=== PATIENT | male | born 1945 | race Two or more races ===

== ENCOUNTER 2020-04-02 06:07 | Outpatient (REF) | payer MEDICARE, SELFPAY ==
[2020-04-02 07:47] LABS: PSA,Total (Free>4and<10) 4.33 ng/mL (0.00-4.00)
[2020-04-05 11:37] LABS: Free Prostate Spec Ag 1.5 ng/mL; Percent Free Prostate Spec Ag 29 % (calc) (>25); Prostate Specific Ag Total 5.1 ng/mL (< OR = 4.0)
== END 2020-04-02 06:08 | disposition home or self-care (01) ==
LOC: HO.LAB 06:07
PROVIDERS: PCP Internal Medicine; Visit Provider Urology
DX: R97.20 Elevated prostate specific antigen [PSA] (principal); N40.0 Benign prostatic hyperplasia without lower urinary tract symptoms; Z12.5 Encounter for screening for malignant neoplasm of prostate
CPT/HCPCS: 84153; 84154

== ENCOUNTER 2020-04-03 17:11 | Emergency (ER) | payer MEDICARE, SELFPAY ==
[2020-04-03 17:14] VITALS: BP 151/73
[2020-04-03 19:00] VITALS: BP 127/69; PULSE 73; RESP 16; TEMP 36.9; O2SAT 96; BMI 27.4
--- NOTE | 2020-04-03 19:24 | ED_ITS ---
HPI - General Adult General Chief complaint: General Medical Stated complaint: hi bp Time Seen by Provider: 04/03/20 19:04 Source: patient Mode of arrival: ambulatory Limitations: no limitations History of Present Illness HPI narrative: patient presents to the ED for evaluation. patient states this morning's blood pressure was high. He states systolic was 144. Patient states patient states at that time which was around 03:00 o'clock in the morning he had some sharp stabbing left-sided chest pain and since then has been intermittent throughout the day. Patient states presently he has no chest pain in the ED. Patient denies ever having shortness of breath, swelling of lower extremities, calf pain, neck pain, recent long travel, or any recent surgery. Related Data Previous Rx's Medication Instructions Recorded umeclidinium 62.5 mcg/actuation 1 inh INHALATION DAILY #30 ea 03/15/20 blister powder for inhalation Allergies Allergy/AdvReac Type Severity Reaction Status Date / Time No Known Allergies Allergy Unverified 01/29/20 16:03 Review of Systems Review of Systems: Yes all other systems are reviewed and are negative Constitutional: Constitutional: Reports as per HPI and Reports no additional constitutional complaints Eyes: Eyes: Reports as per HPI and Reports no additional eye complaints ENT: Reports system reviewed and no additional complaints, except as documented and Reports as per HPI Cardiovascular: Cardiovascular: Reports chest pain (gone) Respiratory: Respiratory: Reports as per HPI and Reports no additional resp iratory complaints Gastrointestinal: Gastrointestinal: Reports as per HPI and Reports no additional gastrointestinal complaints Musculoskeletal: Musculoskeletal: Reports no additional musculoskeletal complaints and Reports as per HPI Neurologic: Reports system reviewed and no additional complaints, except as documented and Reports as per HPI Psychiatric: Psychiatric: Reports no additional psychiatric complaints and Reports as per HPI [facility] Past Medical History Medical History COPD (chronic obstructive pulmonary disease) HTN (hypertension) Social History Social History Advance Directives: No Advance Directives Information Provided: Yes Physical Exam Vital Signs: Vital Signs: Last Vital Signs Temp 98.4 F 04/03/20 19:00 Pulse 68 04/04/20 00:02 Resp 16 04/04/20 00:02 BP 141/75 H 04/04/20 00:02 Pulse Ox 96 04/04/20 00:02 Body Mass Index 27.4 Const: General: cooperative, healthy appearing, comfortable, no acute distress, well developed, alert, awake and Physically active Orientation/consciousness: patient oriented x3 HENMT: Head: Yes normal to inspection and Yes No palpable skull fracture present Eyes: General: appearance normal, both eyes and all related structures Neck: Neck: Yes normal visual inspection, Yes full ROM, Yes no lymphadenopathy, Yes no meningeal signs, Yes trachea midline, Yes supple and No tender Chest: Chest palpation & inspection: normal inspection of the chest, normal palpation of entire chest wall and no localized rib tenderness Resp: Effort & Inspection: normal respiratory effort, able to speak in complete sentences, no audible wheezes, no cough, no nasal flaring, no paradoxical thoraco-abdom movements and no pursed lip breathing Auscultation: clear to auscultation bilaterally, no crackles, no rales, no rhonchi, no wheezes and breath sounds present Cardio: Jugular venous distension: no JVD Heart sounds: S1 normal heart sound present and S2 normal heart sound present GI: Inspection: Yes normal to inspection and No abdominal wall ecchymosis Palpation (GI): Soft to palpation, not firm, nontender, no guarding and not rigid : General: No CVA tenderness and Yes no CVA tenderness Back/Spine/Pelvis: Back: no CVA tenderness, No CVA tenderness and No back tenderness Skin: General skin exam: no rashes or lesions noted Neuro: General: patient oriented x3, gait normal, no meningeal signs and CN's II-XI intact bilaterally Cranial nerves: Yes CN's II-XII intact bilaterally Extrem: General: Yes normal to inspection and Yes full ROM Psych: Appearance: grossly normal, well kempt and not disheveled Course Course Course Narrative: Patient presently has normal blood pressure and denies chest pain. But due to patient's age she will have a cardiac evaluation to make sure he is not having typical CO. Patient already took aspirin this morning. Reevaluation(s) Reevaluation #1: patient 1st troponin came back negative. Patient's EKG is normal. Patient presently asymptomatic in the ED. Patient D-dimer elevated so patient is sent for chest CT a which came back negative for PE or any other pulmonary emergent etiology. Patient awaiting 2nd troponin result. Time: 23:57 Reevaluation #2: patient's 2nd troponin came back negative. Patient is safe for discharge. patient never had chest pain during ED visit. Patient informed to record his blood pressure and show it them to his PCP. Time: 23:50 Medical Decision Making MDM Narrative Medical decision making narrative: atypical chest Lab Data Result diagrams: 04/03/20 19:36 04/03/20 20:10 Labs: Lab Results 04/03/20 04/03/20 04/03/20 Range/Units 19:36 19:36 19:36 WBC 7.9 (4.8-10.8) X10*3/uL RBC 4.03 L (4.60-5.80) X10*6/uL Hgb 12.8 L (14.0-18.0) g/dl Hct 39.1 L (42-52) % MCV 97.0 (80-98) fL MCH 31.8 (27.0-33.0) pg MCHC 32.7 (31.0-36.0) g/dl RDW 12.7 (11.0-16.0) % Plt Count 279 (160-400) X10*3/uL MPV 8.9 L (9.4-12.4) fL Immature Gran % (Auto) 0.3 (0.0-0.4) % Neut % (Auto) 52.1 (45-73) % Lymph % (Auto) 34.6 (20-40) % [place] % (Auto) 11.6 H (2-11) % Eos % (Auto) 0.9 (0-4) % Baso % (Auto) 0.5 (0-2) % Lymph # (Auto) 2.7 (1.2-4.9) X10*3/uL [place] # (Auto) 0.9 (0.1-1.2) X10*3/uL Eos # (Auto) 0.1 (0.0-0.4) X10*3/uL Baso # (Auto) 0.0 (0.0-0.2) X10*3/uL Abs Immat Gran (auto) 0.02 (0.00-0.03) X10*3/uL Absolute Neuts (auto) 4.1 (2.0-8.3) X10*3/uL Absolute Nucleated RBC 0.000 (0.0-0.012) X10*3/uL Nucleated RBC % (auto) 0.0 (0.0-0.2) /100WBC PT (10.8-13.0) SEC INR (0.9-1.1) APTT (24.1-38.0) SEC D-Dimer NG/ML Sodium Cancelled Potassium Cancelled Chloride Cancelled Carbon Dioxide Cancelled Anion Gap Cancelled BUN Cancelled Creatinine Cancelled Estim Creat Clear Calc Cancelled Estimated GFR Cancelled Random Glucose Cancelled Calcium Cancelled Total Bilirubin Cancelled AST Cancelled ALT Cancelled Alkaline Phosphatase Cancelled Troponin I High Sens 3.5 (<3.5-35.0) ng/L B-Natriuretic Peptide 11 (<100) pg/mL Total Protein Cancelled Albumin Cancelled 04/03/20 04/03/20 04/03/20 Range/Units 19:36 20:10 22:59 WBC (4.8-10.8) X10*3/uL RBC (4.60-5.80) X10*6/uL Hgb (14.0-18.0) g/dl Hct (42-52) % MCV (80-98) fL MCH (27.0-33.0) pg MCHC (31.0-36.0) g/dl RDW (11.0-16.0) % Plt Count (160-400) X10*3/uL MPV (9.4-12.4) fL Immature Gran % (Auto) (0.0-0.4) % Neut % (Auto) (45-73) % Lymph % (Auto) (20-40) % [place] % (Auto) (2-11) % Eos % (Auto) (0-4) % Baso % (Auto) (0-2) % Lymph # (Auto) (1.2-4.9) X10*3/uL [place] # (Auto) (0.1-1.2) X10*3/uL Eos # (Auto) (0.0-0.4) X10*3/uL Baso # (Auto) (0.0-0.2) X10*3/uL Abs Immat Gran (auto) (0.00-0.03) X10*3/uL Absolute Neuts (auto) (2.0-8.3) X10*3/uL Absolute Nucleated RBC (0.0-0.012) X10*3/uL Nucleated RBC % (auto) (0.0-0.2) /100WBC PT 11.6 (10.8-13.0) SEC INR 1.0 (0.9-1.1) APTT 30.6 (24.1-38.0) SEC D-Dimer 342 NG/ML Sodium 135 Potassium 4.0 Chloride 101 Carbon Dioxide 27 Anion Gap 11 L BUN 17 H Creatinine 0.88 Estim Creat Clear Calc 63.8 Estimated GFR > 60 Random Glucose 110 Calcium 8.8 Total Bilirubin 0.3 AST 16 ALT 20 Alkaline Phosphatase 69 Troponin I High Sens < 3.5 (<3.5-35.0) ng/L B-Natriuretic Peptide (<100) pg/mL Total Protein 6.9 Albumin 3.8 ECG Data Interpretation: normal sinus rhythm. Ventricular rate 69. MA interval 176. QRS 104. Negative STEMI Discharge Plan Discharge Clinical Impression: Atypical chest pain Patient Disposition: Home, Self-Care Instructions: Chest Pain (ED) Additional Instructions: return to the ED for chest pain, shortness of breath, swelling of lower extremities, calf pain, coughing up blood, fever, chills, chest pain on inspiration, or any other concerning symptoms. Please follow-up with the PCP Prescriptions: No Action Incruse Ellipta 62.5 mcg/actuation blister with device 1 inh inhalation DAILY Qty: 30 RF: 3 Referrals: Osiel Schwartz MD [Primary Care Provider] - 2 days ( atypical chest pain. Chest CTA negative. Two troponins negative. EKG normal) Interventions: ED Discharge Assessment Last Done: 04/04/20 00:08 Discharge Date/Time: 04/04/20 00:09 Print Language: Portuguese
--- NOTE | 2020-04-03 19:24 | PC.NURSE ---
IV established, labs and UA obtained and sent. PA at bedside for primary eval.
--- NOTE | 2020-04-03 19:28 | ECG_ITS ---
Test Reason : CHEST PRESSURE Blood Pressure : / mmHG Vent. Rate : 069 BPM Atrial Rate : 069 BPM P-R Int : 176 ms QRS Dur : 104 ms QT Int : 384 ms P-R-T Axes : 070 -15 058 degrees QTc Int : 411 ms Normal sinus rhythm Low voltage QRS Otherwise normal ECG When compared with ECG of 12-OCT-2018 01:02, No significant changes seen Referred By: Tacos Noriega Electronically Signed By:YADIEL FLORES MD
--- NOTE | 2020-04-03 19:42 | XR_ITS ---
EXAMINATION: XR CHEST CLINICAL INFORMATION: Resolved chest pain. COMPARISON: Most recent chest radiograph dated 10/11/2018. TECHNIQUE: Frontal view of the chest was obtained. FINDINGS: Mild interstitial prominence without focal airspace consolidation. No pleural effusion or pneumothorax. Stable cardiomediastinal silhouette. No acute osseous abnormality. Surgical clips redemonstrated within the left-sided cervical soft tissues. XR/XR chest 1V IMPRESSION: No acute cardiopulmonary findings.
[2020-04-03 19:46] LABS: MANUAL DIFF FLAG NO
[2020-04-03 19:55] LABS: Basophils Percent Auto 0.5 % (0-2); Eosinophils Absolute Auto 0.1 X10*3/uL (0.0-0.4); Eosinophils Percent Auto 0.9 % (0-4); Hematocrit 39.1 % (42-52); Hemoglobin 12.8 g/dl (14.0-18.0); Imm Gran Abs Auto 0.02 X10*3/uL (0.00-0.03); Imm Gran Pct Auto 0.3 % (0.0-0.4); Lymphocytes Absolute Auto 2.7 X10*3/uL (1.2-4.9); Lymphocytes Percent Auto 34.6 % (20-40); Mean Corpuscular HGB Conc 32.7 g/dl (31.0-36.0); Mean Corpuscular Hemoglobin 31.8 pg (27.0-33.0); Mean Platelet Volume 8.9 fL (9.4-12.4); Monocytes Absolute Auto 0.9 X10*3/uL (0.1-1.2); Monocytes Percent Auto 11.6 % (2-11); Neutrophils Absolute Auto 4.1 X10*3/uL (2.0-8.3); Neutrophils Percent Auto 52.1 % (45-73); Platelet Count 279 X10*3/uL (160-400); Red Blood Count 4.03 X10*6/uL (4.60-5.80); Red Cell Distribution Width 12.7 % (11.0-16.0); White Blood Count 7.9 X10*3/uL (4.8-10.8)
[2020-04-03 19:59] LABS: Prothrombin Time 11.6 SEC (10.8-13.0)
[2020-04-03 20:10] LABS: D Dimer 342 NG/ML; Partial Thromboplastin Time 30.6 SEC (24.1-38.0)
--- NOTE | 2020-04-03 20:14 | PC.NURSE ---
Labs redrawn and sent. Pt resting in bed, remains pain free at this time. Awaiting lab results. Continue to monitor.
[2020-04-03 20:20] LABS: B Type Natriuretic Peptide 11 pg/mL (<100); Troponin-I High Sensitivity 3.5 ng/L (<3.5-35.0)
[2020-04-03 20:30] VITALS: BP 140/76; PULSE 65; RESP 18; O2SAT 96
[2020-04-03 21:17] LABS: Alanine Aminotransferase 20 U/L (0-40); Albumin Level 3.8 g/dL (3.5-5.0); Alkaline Phosphatase 69 U/L (39-117); Anion Gap 11 (12-20); Aspartate Amino Transferase 16 U/L (5-37); Bilirubin Total 0.3 mg/dL (0.0-1.0); Blood Urea Nitrogen 17 mg/dL (9-16); Calcium 8.8 mg/dL (8.4-10.2); Carbon Dioxide 27 mmol/L (22-29); Chloride 101 mmol/L (96-108); Creatinine Clr Calc Pharmacy 63.8; Estimated Glomerular Filt Rate > 60; Glucose Random 110 mg/dL (60-115); Sodium 135 mmol/L (135-145); Total Protein 6.9 g/dL (6.5-8.0)
--- NOTE | 2020-04-03 21:23 | CT_ITS ---
EXAMINATION: CT ANGIOGRAM CHEST WITH AND WITHOUT CONTRAST (CT PULMONARY ANGIOGRAM FOR PE) CLINICAL INFORMATION: Elevated D-dimer. Evaluate for a pulmonary embolism. COMPARISON: Chest radiograph done earlier the same day. CT chest dated 07/12/2017. TECHNIQUE: Prior to contrast administration, noncontrast localization images were obtained. Subsequently, multidetector volumetric imaging was performed from the thoracic inlet to below the diaphragms following the administration of 59 mL Omnipaque 350 intravenous contrast. No contrast reaction reported. Sagittal, coronal, and MIP oblique sagittal reformatted images were obtained on the CT workstation, uploaded to PACS, and reviewed. This CT examination was performed using dose optimization techniques as appropriate, variously including the following: *Automated exposure control. *Adjustment of mA and/or kV according to patient size (this includes techniques or standardized protocols for targeted exams where dose is matched to indication/reason for exam; i.e. extremities or head). *Use of iterative reconstruction technique. Total exam dose-length product 312 mGy-cm. FINDINGS: QUALITY OF STUDY/CONTRAST BOLUS: Satisfactory. PULMONARY ARTERIES: No central or segmental pulmonary emboli. THORACIC AORTA: No aneurysm or dissection. LUNG: Biapical nodular pleural thickening and subpleural emphysematous change. Findings are similar when compared to the prior CT. No new pulmonary nodule, mass, or airspace consolidation. PLEURA: No pleural effusion or pneumothorax. MEDIASTINUM: Normal heart size. No pericardial effusion. No hilar or mediastinal lymphadenopathy. No evidence of septal bowing or right heart strain. CHEST WALL/AXILLA: No axillary or internal mammary lymphadenopathy. OSSEOUS STRUCTURES: No acute or suspicious osseous abnormality. UPPER ABDOMEN: Cholelithiasis. No gallbladder wall thickening or associated inflammatory change. Otherwise, the visualized upper abdominal structures are unremarkable. No reflux of contrast into the hepatic veins to suggest elevated right heart pressures. CT/CT angio chest PE protocol IMPRESSION: 1. No central or segmental pulmonary embolism. 2. Biapical nodular pleural thickening and emphysematous changes, similar when compared to the prior examination. 3. No new pulmonary nodule, mass, or airspace consolidation. 4. Cholelithiasis. VTE: Negative.
--- NOTE | 2020-04-03 21:52 | PC.NURSE ---
Pt ambulatory to CT.
--- NOTE | 2020-04-03 22:00 | PC.NURSE ---
Pt returns from CT without incident, awaiting results.
[2020-04-03] MEDS: iohexoL 350 MG/ML 100 ML INFUS..BTL IV (22:07)
[2020-04-03 23:00] VITALS: BP 135/77; PULSE 71; RESP 16
--- NOTE | 2020-04-03 23:00 | PC.NURSE ---
Repeat Troponin obtained and sent. VSS. Awaiting CT results.
--- NOTE | 2020-04-03 23:02 | PC.NURSE ---
Pt requesting this RN call daughter to obtain a transportation home.
[2020-04-03 23:56] LABS: Troponin-I High Sensitivity < 3.5 ng/L (<3.5-35.0)
[2020-04-04 00:02] VITALS: BP 141/75; PULSE 68; RESP 16; O2SAT 96
== END 2020-04-04 00:09 | disposition home or self-care (01) ==
PROVIDERS: Physician Assistant; Emergency Provider Internal Medicine; PCP Internal Medicine
DX: R07.89 Other chest pain (principal); I10 Essential (primary) hypertension; Z79.899 Other long term (current) drug therapy
CPT/HCPCS: 36415; 71045; 71275; 80053; 83880; 84484; 85025; 85379; 85610; 85730; 93005; 99284; Q9967

== ENCOUNTER → 2020-06-30 10:37 | Outpatient (BNVA) | payer MEDICARE, SELFPAY | PROVIDERS: PCP Internal Medicine; Visit Provider Internal Medicine | DX: J44.9 Chronic obstructive pulmonary disease, unspecified (principal) | CPT/HCPCS: 99212 ==

== ENCOUNTER → 2020-08-06 11:12 | Outpatient (BNVA) | payer MEDICARE, SELFPAY | PROVIDERS: Visit Provider Urology | DX: Z13.89 Encounter for screening for other disorder (principal) | CPT/HCPCS: 99212 ==

== ENCOUNTER 2021-01-01 02:34 | Emergency (ER) | payer MEDICARE, SELFPAY ==
--- NOTE | ~2021-01-01 | XR_ITS ---
EXAMINATION: XR CHEST CLINICAL INFORMATION: Throat and chest pain COMPARISON: 04/03/2020 TECHNIQUE: 2 views of the chest were obtained. FINDINGS: The lungs are well expanded. There is no focal consolidation, edema, or effusion. No pneumothorax. The cardiomediastinal silhouette is within normal limits. No acute osseous abnormality. Surgical clips in the left neck. XR/XR chest 2V IMPRESSION: Clear lungs.
[2021-01-01 02:36] VITALS: BP 110/65; PULSE 97; RESP 20; TEMP 37.2; O2SAT 94; BMI 26.6
--- NOTE | 2021-01-01 04:03 | ED.MALEGU ---
HPI - Male Genitourinary General Chief complaint: Urogenital-Male <Nate Mays MD - Last Filed: 01/01/21 05:07> Stated complaint: Back pain/Sore throat <Nate Mays MD - Last Filed: 01/01/21 05:07> Time Seen by Provider: 01/01/21 04:03 <Nate Mays MD - Last Filed: 01/01/21 05:07> Source: patient <Nate Mays MD - Last Filed: 01/01/21 05:07> Mode of arrival: ambulatory <Nate Mays MD - Last Filed: 01/01/21 05:07> Limitations: no limitations <Nate Mays MD - Last Filed: 01/01/21 05:07> History of Present Illness HPI Narrative: Pain in his throat started yesterday, no fever no cough. Now with pain in the back. patient complaining of dysuria no hematuria. No penile pain no testicular pain <Nate Mays MD - Last Filed: 01/01/21 05:07> MD Complaint: dysuria <Nate Mays MD - Last Filed: 01/01/21 05:07> Onset (ago): day(s) <Nate Mays MD - Last Filed: 01/01/21 05:07> Duration: intermittent <Nate Mays MD - Last Filed: 01/01/21 05:07> Severity: mild <Nate Mays MD - Last Filed: 01/01/21 05:07> Related Data Home medications: Home Medications Medication Instructions Recorded Confirmed albuterol sulfate 90 mcg/actuation 2 puff INHALATION Q4H PRN 06/30/20 aerosol inhaler aspirin 81 mg tablet,delayed 81 mg PO DAILY 06/30/20 release calcium carbonate 600 mg (1,500 0 tab PO 06/30/20 mg)-vitamin D3 200 unit tablet diltiazem HCl 180 mg 180 mg PO DAILY 06/30/20 capsule,extended release 24 hr fluocinolone 0.01 % scalp oil and ea TOPICAL 06/30/20 shower cap levothyroxine 112 mcg tablet 112 mcg PO DAILY 06/30/20 loratadine 10 mg tablet 10 mg PO DAILY 06/30/20 multivitamin-ferrous 1 tab PO DAILY 06/30/20 fumarate-folic acid 18 mg-400 mcg tablet omeprazole 20 mg capsule,delayed 20 mg PO DAILY 06/30/20 release terazosin 2 mg capsule 2 mg PO DAILY 06/30/20 ketoconazole 2 % shampoo 1 appl TOPICAL 2XW 08/06/20 Previous Rx's Medication Instructions Recorded fluticasone 500 mcg-salmeterol 50 1 inh INHALATION BID #60 ea 06/14/20 mcg/dose blistr powdr for inhalation (Advair Diskus) fluticasone 500 mcg-salmeterol 50 1 inh INHALATION BID 30 Days #60 ea 06/30/20 mcg/dose blistr powdr for inhalation (Advair Diskus) umeclidinium 62.5 mcg/actuation 1 inh INHALATION DAILY #30 cap 06/30/20 blister powder for inhalation (Incruse Ellipta) finasteride 5 mg tablet 5 mg PO DAILY 90 Days #90 tab 08/06/20 albuterol sulfate 90 mcg/actuation 2 puff PO Q4-6H PRN #8.5 g 09/27/20 aerosol inhaler terazosin 2 mg capsule 2 mg PO DAILY 90 Days #90 cap 11/09/20 umeclidinium 62.5 mcg/actuation 1 inh INHALATION DAILY #30 cap 12/13/20 blister powder for inhalation (Incruse Ellipta) cefpodoxime 200 mg tablet 200 mg PO BID #20 tab 01/01/21 <Nate Mays MD - Last Filed: 01/01/21 05:07> Allergies/Adverse reactions: Allergies Allergy/AdvReac Type Severity Reaction Status Date / Time No Known Allergies Allergy Verified 06/30/20 11:10 <Nate Mays MD - Last Filed: 01/01/21 05:07> Review of Systems Constitutional: Constitutional: Reports no additional constitutional complaints <Nate Mays MD - Last Filed: 01/01/21 05:07> Eyes: Eyes: Reports no additional eye complaints <Nate Mays MD - Last Filed: 01/01/21 05:07> ENT: Denies dizziness <Nate Mays MD - Last Filed: 01/01/21 05:07> Cardiovascular: Cardiovascular: Reports no additional cardiovascular complaints <Nate Mays MD - Last Filed: 01/01/21 05:07> Respiratory: Respiratory: Reports as per HPI <Nate Mays MD - Last Filed: 01/01/21 05:07> Gastrointestinal: Gastrointestinal: Reports no additional gastrointestinal complaints <Nate Mays MD - Last Filed: 01/01/21 05:07> Musculoskeletal: Musculoskeletal: Reports no additional musculoskeletal complaints <Nate Mays MD - Last Filed: 01/01/21 05:07> Integumentary/Breasts: Skin/Breast: Denies rash <Nate Mays MD - Last Filed: 01/01/21 05:07> Neurologic: Reports system reviewed and no additional complaints, except as documented, Denies dizziness and Denies Sensory deficit (Neuro) <Nate Mays MD - Last Filed: 01/01/21 05:07> Psychiatric: Psychiatric: Denies anxiety <Nate Mays MD - Last Filed: 01/01/21 05:07> [facility] Past Medical History Medical History: Medical History COPD (chronic obstructive pulmonary disease) HTN (hypertension) <Nate Mays MD - Last Filed: 01/01/21 05:07> Social History Social History: Social History Advance Directives: No Advance Directives on File: No <Nate Mays MD - Last Filed: 01/01/21 05:07> Physical Exam Vital Signs: Vital Signs: Last Vital Signs Temp 99.7 F 01/01/21 07:47 Pulse 82 01/01/21 07:47 Resp 16 01/01/21 07:47 BP 128/75 01/01/21 07:47 Pulse Ox 95 01/01/21 07:47 Body Mass Index 26.6 <Nate Mays MD - Last Filed: 01/01/21 05:07> Vital Signs: Last Vital Signs Temp 99.7 F 01/01/21 07:47 Pulse 82 01/01/21 07:47 Resp 16 01/01/21 07:47 BP 128/75 01/01/21 07:47 Pulse Ox 95 01/01/21 07:47 Body Mass Index 26.6 <Surya Lagunas MD - Last Filed: 01/01/21 09:43> Const: General: healthy appearing <Nate Mays MD - Last Filed: 01/01/21 05:07> Nutritional Appearance: average body habitus <Nate Mays MD - Last Filed: 01/01/21 05:07> Orientation/consciousness: oriented to person and patient oriented x3 <Nate Mays MD - Last Filed: 01/01/21 05:07> Limitations: no limitations <Nate Mays MD - Last Filed: 01/01/21 05:07> HENMT: Head: Yes normal to inspection <Nate Mays MD - Last Filed: 01/01/21 05:07> Ears: external ears normal <Nate Mays MD - Last Filed: 01/01/21 05:07> General nose exam: Normal external nose present <Nate Mays MD - Last Filed: 01/01/21 05:07> Mouth: Normal oral and palatal mucosa present and oropharynx normal <Nate Mays MD - Last Filed: 01/01/21 05:07> Throat: Yes posterior oropharynx normal <Nate Mays MD - Last Filed: 01/01/21 05:07> Eyes: General: appearance normal, both eyes and all related structures <Nate Mays MD - Last Filed: 01/01/21 05:07> Neck: Other: supple <Nate Mays MD - Last Filed: 01/01/21 05:07> Neck: Yes normal visual inspection <Nate Mays MD - Last Filed: 01/01/21 05:07> Chest: Chest palpation & inspection: normal inspection of the chest <Nate Mays MD - Last Filed: 01/01/21 05:07> Resp: Auscultation: clear to auscultation bilaterally <Nate Mays MD - Last Filed: 01/01/21 05:07> Cardio: Jugular venous distension: no JVD <Nate Mays MD - Last Filed: 01/01/21 05:07> Rate: regular rate <Nate Mays MD - Last Filed: 01/01/21 05:07> Rhythm: regular rhythm <Nate Mays MD - Last Filed: 01/01/21 05:07> Heart sounds: S1 normal heart sound present and S2 normal heart sound present <Nate Mays MD - Last Filed: 01/01/21 05:07> GI: Inspection: Yes normal to inspection <Nate Mays MD - Last Filed: 01/01/21 05:07> Palpation (GI): Soft to palpation, nontender and No hepatosplenomegaly present <Nate Mays MD - Last Filed: 01/01/21 05:07> Auscultation: normal bowel sounds <Nate Mays MD - Last Filed: 01/01/21 05:07> : General: Yes no CVA tenderness <Nate Mays MD - Last Filed: 01/01/21 05:07> Back/Spine/Pelvis: Back: no CVA tenderness <Nate Mays MD - Last Filed: 01/01/21 05:07> Skin: General skin exam: no rashes or lesions noted <Nate Mays MD - Last Filed: 01/01/21 05:07> Neuro: General: oriented to person and patient oriented x3 <Nate Mays MD - Last Filed: 01/01/21 05:07> Cranial nerves: Yes CN's II-XII intact bilaterally <Nate Mays MD - Last Filed: 01/01/21 05:07> Motor exam (neuro): 5/5 motor strength present throughout <Nate Mays MD - Last Filed: 01/01/21 05:07> Sensory Exam: No Sensory deficit (Neuro) <Nate Mays MD - Last Filed: 01/01/21 05:07> Extrem: General: Yes normal to inspection <Nate Mays MD - Last Filed: 01/01/21 05:07> Psych: Appearance: grossly normal <Nate Mays MD - Last Filed: 01/01/21 05:07> Course Reevaluation(s) Reevaluation #1: patient with evidence of UTI, will give a dose of ceftriaxone and dc on levaquin <Nate Mays MD - Last Filed: 01/01/21 05:07> Time: 05:07 <Nate Mays MD - Last Filed: 01/01/21 05:07> MDM - Male Genitourinary MDM Narrative Medical decision making narrative: Patient with UTI afebrile leukocytosis slight left flank pain possible early pyelonephritis. Already received IV Rocephin discharge patient home on Ciprodex and previous urine culture showed E coli resistant to Levaquin ESBL negative <Surya Lagunas MD - Last Filed: 01/01/21 09:43> Lab Data Result diagrams: : 01/01/21 04:18 01/01/21 04:18 <Nate Mays MD - Last Filed: 01/01/21 05:07> Labs: Lab Results 01/01/21 01/01/21 01/01/21 Range/Units 04:18 04:18 07:45 WBC 18.0 H (4.8-10.8) X10*3/uL RBC 3.78 L (4.60-5.80) X10*6/uL Hgb 12.2 L (14.0-18.0) g/dl Hct 36.4 L (42-52) % MCV 96.3 (80-98) fL MCH 32.3 (27.0-33.0) pg MCHC 33.5 (31.0-36.0) g/dl RDW 13.2 (11.0-16.0) % Plt Count 224 (160-400) X10*3/uL MPV 8.2 L (9.4-12.4) fL Immature Gran % (Auto) 0.7 H (0.0-0.4) % Neut % (Auto) 84.0 H (45-73) % Lymph % (Auto) 8.4 L (20-40) % [place] % (Auto) 6.7 (2-11) % Eos % (Auto) 0.0 (0-4) % Baso % (Auto) 0.2 (0-2) % Lymph # (Auto) 1.5 (1.2-4.9) X10*3/uL [place] # (Auto) 1.2 (0.1-1.2) X10*3/uL Eos # (Auto) 0.0 (0.0-0.4) X10*3/uL Baso # (Auto) 0.0 (0.0-0.2) X10*3/uL Abs Immat Gran (auto) 0.13 H (0.00-0.03) X10*3/uL Absolute Neuts (auto) 15.1 H (2.0-8.3) X10*3/uL Absolute Nucleated RBC 0.000 (0.0-0.012) X10*3/uL Nucleated RBC % (auto) 0.0 (0.0-0.2) /100WBC Sodium 139 (135-145) mmol/L Potassium 4.1 (3.3-5.1) mmol/L Chloride 106 (96-108) mmol/L Carbon Dioxide 25 (22-29) mmol/L Anion Gap 12 (12-20) BUN 17 H (9-16) mg/dL Creatinine 1.14 (0.5-1.4) mg/dL Estim Creat Clear Calc 44.3 Estimated GFR > 60 Random Glucose 136 H (60-115) mg/dL Calcium 9.0 (8.4-10.2) mg/dL Urine Color YELLOW Urine Appearance CLOUDY Urine pH 6.5 (5.0-8.0) Ur Specific [place] 1.010 (1.005-1.025) Urine Protein 1+ H (NEG-TRACE) MG/DL Urine Glucose (UA) NEG (NEG) MG/DL Urine Ketones NEG (NEG) MG/DL Urine Blood 2+ H (NEG) Urine Nitrite POS H (NEG) Ur Leukocyte Esterase 2+ H (NEG) Urine RBC 5-9 H (0) /HPF Urine WBC TNTC H (0-4) /HPF Ur Squamous Epith Cells TRACE /LPF Urine Bacteria 4+ /LPF <Nate Mays MD - Last Filed: 01/01/21 05:07> Lab Results 01/01/21 01/01/21 01/01/21 Range/Units 04:18 04:18 07:45 WBC 18.0 H (4.8-10.8) X10*3/uL RBC 3.78 L (4.60-5.80) X10*6/uL Hgb 12.2 L (14.0-18.0) g/dl Hct 36.4 L (42-52) % MCV 96.3 (80-98) fL MCH 32.3 (27.0-33.0) pg MCHC 33.5 (31.0-36.0) g/dl RDW 13.2 (11.0-16.0) % Plt Count 224 (160-400) X10*3/uL MPV 8.2 L (9.4-12.4) fL Immature Gran % (Auto) 0.7 H (0.0-0.4) % Neut % (Auto) 84.0 H (45-73) % Lymph % (Auto) 8.4 L (20-40) % [place] % (Auto) 6.7 (2-11) % Eos % (Auto) 0.0 (0-4) % Baso % (Auto) 0.2 (0-2) % Lymph # (Auto) 1.5 (1.2-4.9) X10*3/uL [place] # (Auto) 1.2 (0.1-1.2) X10*3/uL Eos # (Auto) 0.0 (0.0-0.4) X10*3/uL Baso # (Auto) 0.0 (0.0-0.2) X10*3/uL Abs Immat Gran (auto) 0.13 H (0.00-0.03) X10*3/uL Absolute Neuts (auto) 15.1 H (2.0-8.3) X10*3/uL Absolute Nucleated RBC 0.000 (0.0-0.012) X10*3/uL Nucleated RBC % (auto) 0.0 (0.0-0.2) /100WBC Sodium 139 (135-145) mmol/L Potassium 4.1 (3.3-5.1) mmol/L Chloride 106 (96-108) mmol/L Carbon Dioxide 25 (22-29) mmol/L Anion Gap 12 (12-20) BUN 17 H (9-16) mg/dL Creatinine 1.14 (0.5-1.4) mg/dL Estim Creat Clear Calc 44.3 Estimated GFR > 60 Random Glucose 136 H (60-115) mg/dL Calcium 9.0 (8.4-10.2) mg/dL Urine Color YELLOW Urine Appearance CLOUDY Urine pH 6.5 (5.0-8.0) Ur Specific [place] 1.010 (1.005-1.025) Urine Protein 1+ H (NEG-TRACE) MG/DL Urine Glucose (UA) NEG (NEG) MG/DL Urine Ketones NEG (NEG) MG/DL Urine Blood 2+ H (NEG) Urine Nitrite POS H (NEG) Ur Leukocyte Esterase 2+ H (NEG) Urine RBC 5-9 H (0) /HPF Urine WBC TNTC H (0-4) /HPF Ur Squamous Epith Cells TRACE /LPF Urine Bacteria 4+ /LPF <Surya Lagunas MD - Last Filed: 01/01/21 09:43> Imaging Data Chest x-ray: Radiologist's impression: IMPRESSION: Clear lungs. <Nate Mays MD - Last Filed: 01/01/21 05:07> Discharge Plan Discharge Clinical Impression: Urinary tract infection Qualifiers: Urinary tract infection type: acute cystitis Hematuria presence: without hematuria Qualified Code(s): N30.00 - Acute cystitis without hematuria <Nate Mays MD - Last Filed: 01/01/21 05:07> Patient Disposition: Home, Self-Care <Nate Mays MD - Last Filed: 01/01/21 05:07> Instructions: Urinary Tract Infection in Men (ED) <Nate Mays MD - Last Filed: 01/01/21 05:07> Additional Instructions: Drink plenty of water Take antibiotic as prescribed Report to the ER if high fever/vomiting/increased back pain <Nate Mays MD - Last Filed: 01/01/21 05:07> Prescriptions: New cefpodoxime 200 mg tablet 200 mg PO BID Qty: 20 RF: 0 No Action fluticasone propion-salmeterol [Advair Diskus] 500-50 mcg/dose blister with device 1 inh inhalation BID Qty: 60 RF: 0 umeclidinium [Incruse Ellipta] 62.5 mcg/actuation blister with device 1 inh inhalation DAILY Qty: 30 RF: 3 albuterol sulfate 90 mcg/actuation HFA aerosol inhaler 2 puff PO Q4-6H PRN (Reason: for wheezing) Qty: 8.5 RF: 3 terazosin 2 mg capsule 2 mg PO DAILY 90 Days Qty: 90 RF: 2 Incruse Ellipta 62.5 mcg/actuation blister with device 1 inh inhalation DAILY Qty: 30 RF: 5 Certavite-Antioxidant 18-400 mg-mcg tablet 1 tab PO DAILY RF: 0 fluocinolone and shower cap 0.01 % oil topical RF: 0 levothyroxine 112 mcg tablet 112 mcg PO DAILY RF: 0 loratadine 10 mg tablet 10 mg PO DAILY RF: 0 terazosin 2 mg capsule 2 mg PO DAILY RF: 0 diltiazem HCl 180 mg capsule,extended release 24hr 180 mg PO DAILY RF: 0 calcium carbonate-vitamin D3 600 mg(1,500mg) -200 unit tablet 0 tab PO RF: 0 aspirin 81 mg tablet,delayed release (DR/EC) 81 mg PO DAILY RF: 0 omeprazole 20 mg capsule,delayed release(DR/EC) 20 mg PO DAILY RF: 0 albuterol sulfate 90 mcg/actuation HFA aerosol inhaler 2 puff inhalation Q4H PRNRF: 0 fluticasone propion-salmeterol [Advair Diskus] 500-50 mcg/dose blister with device 1 inh inhalation BID 30 Days Qty: 60 RF: 5 finasteride 5 mg tablet 5 mg PO DAILY 90 Days Qty: 90 RF: 1 <Nate Mays MD - Last Filed: 01/01/21 05:07>
--- NOTE | 2021-01-01 04:08 | ECG_ITS ---
Test Reason : BACK PAIN Blood Pressure : / mmHG Vent. Rate : 079 BPM Atrial Rate : 079 BPM P-R Int : 168 ms QRS Dur : 108 ms QT Int : 362 ms P-R-T Axes : 062 -21 048 degrees QTc Int : 415 ms Normal sinus rhythm Normal ECG When compared with ECG of 03-APR-2020 19:14, No significant change was found Referred By: Nate Mays Electronically Signed By:OSCAR WILLIAMSON
[2021-01-01 04:23] LABS: Basophils Percent Auto 0.2 % (0-2); Hematocrit 36.4 % (42-52); Hemoglobin 12.2 g/dl (14.0-18.0); Imm Gran Abs Auto 0.13 X10*3/uL (0.00-0.03); Imm Gran Pct Auto 0.7 % (0.0-0.4); Lymphocytes Absolute Auto 1.5 X10*3/uL (1.2-4.9); Lymphocytes Percent Auto 8.4 % (20-40); MANUAL DIFF FLAG NO; Mean Corpuscular HGB Conc 33.5 g/dl (31.0-36.0); Mean Corpuscular Hemoglobin 32.3 pg (27.0-33.0); Mean Corpuscular Volume 96.3 fL (80-98); Mean Platelet Volume 8.2 fL (9.4-12.4); Monocytes Absolute Auto 1.2 X10*3/uL (0.1-1.2); Monocytes Percent Auto 6.7 % (2-11); Neutrophils Absolute Auto 15.1 X10*3/uL (2.0-8.3); Platelet Count 224 X10*3/uL (160-400); Red Blood Count 3.78 X10*6/uL (4.60-5.80); Red Cell Distribution Width 13.2 % (11.0-16.0)
[2021-01-01 04:43] LABS: Anion Gap 12 (12-20); Blood Urea Nitrogen 17 mg/dL (9-16); Carbon Dioxide 25 mmol/L (22-29); Chloride 106 mmol/L (96-108); Creatinine Clr Calc Pharmacy 44.3; Estimated Glomerular Filt Rate > 60; Glucose Random 136 mg/dL (60-115); Potassium 4.1 mmol/L (3.3-5.1); Sodium 139 mmol/L (135-145)
[2021-01-01 07:47] VITALS: BP 128/75; PULSE 82; RESP 16; TEMP 37.6; O2SAT 95
[2021-01-01 07:56] LABS: Glucose Urine UA NEG (NEG); Leukocyte Esterase Urine 2+ (NEG); Nitrite Urine POS (NEG); PH 6.5 (5.0-8.0); UACC Culture Trigger YES; Urine Blood 2+ (NEG); Urine Ketones NEG (NEG); Urine Protein 1+ MG/DL (NEG-TRACE)
[2021-01-01 08:01] LABS: Appearance Urine CLOUDY; Color Urine YELLOW
[2021-01-01 08:05] LABS: Squamous Epithelial Cell Urine TRACE /LPF; WBC Urine TNTC /HPF (0-4)
[2021-01-01 08:06] LABS: Bacteria Urine 4+ /LPF
[2021-01-01] MEDS: cefTRIAXone sodium 1 GM in 0.9 % Sodium Chloride 50 ML IV (09:05)
== END 2021-01-01 09:48 | disposition home or self-care (01) ==
PROVIDERS: Emergency Provider Emergency Medicine; PCP Internal Medicine
DX: N30.00 Acute cystitis without hematuria (principal); I10 Essential (primary) hypertension; J44.9 Chronic obstructive pulmonary disease, unspecified; Z79.82 Long term (current) use of aspirin; Z79.899 Other long term (current) drug therapy
CPT/HCPCS: 36415; 71046; 80048; 81001; 81003; 85025; 87086; 87088; 87186; 93005; 96365; 99284; J0696

== ENCOUNTER → 2021-01-04 10:47 | Outpatient (BNVA) | payer MEDICARE, SELFPAY | PROVIDERS: PCP Internal Medicine; Visit Provider Internal Medicine | DX: J44.9 Chronic obstructive pulmonary disease, unspecified (principal); Z79.899 Other long term (current) drug therapy | CPT/HCPCS: 99212 ==

== ENCOUNTER 2021-01-28 05:55 | Outpatient (REF) | payer MEDICARE, SELFPAY ==
[2021-01-28 08:36] LABS: PSA,Total (Free>4and<10) 3.87 ng/mL (0.00-4.00)
== END 2021-01-28 05:56 | disposition home or self-care (01) ==
LOC: HO.LAB 05:55
PROVIDERS: PCP Internal Medicine; Visit Provider Urology
DX: N40.1 Benign prostatic hyperplasia with lower urinary tract symptoms (principal); N13.8 Other obstructive and reflux uropathy; N32.0 Bladder-neck obstruction
CPT/HCPCS: 36415; 84153

== ENCOUNTER → 2021-03-01 09:21 | Outpatient (BNVA) | payer MEDICARE, SELFPAY | PROVIDERS: PCP Internal Medicine; Visit Provider Urology | DX: Z13.89 Encounter for screening for other disorder (principal) | CPT/HCPCS: Q3014 ==

== ENCOUNTER → 2021-07-25 09:29 | Outpatient (BNVA) | payer MEDICARE, SELFPAY | PROVIDERS: PCP Internal Medicine; Visit Provider Internal Medicine | DX: J44.9 Chronic obstructive pulmonary disease, unspecified (principal) | CPT/HCPCS: 99212 ==

== ENCOUNTER 2021-08-26 06:03 | Outpatient (REF) | payer OTHER, SELFPAY | END 2021-08-26 06:04 | disposition home or self-care (01) | LOC: HO.LAB 06:03 | PROVIDERS: PCP Internal Medicine; Visit Provider Urology | DX: Z12.5 Encounter for screening for malignant neoplasm of prostate (principal); N32.0 Bladder-neck obstruction; N40.1 Benign prostatic hyperplasia with lower urinary tract symptoms; N13.8 Other obstructive and reflux uropathy | CPT/HCPCS: 36415; 84153 ==

== ENCOUNTER → 2021-09-02 08:20 | Outpatient (BNVA) | payer OTHER, SELFPAY | PROVIDERS: PCP Internal Medicine; Visit Provider Urology | DX: R97.20 Elevated prostate specific antigen [PSA] (principal); N32.0 Bladder-neck obstruction | CPT/HCPCS: 51798; 99212 ==

== ENCOUNTER → 2021-10-25 10:28 | Outpatient (BNVA) | payer OTHER, SELFPAY | PROVIDERS: PCP Internal Medicine; Visit Provider Urology | DX: N32.0 Bladder-neck obstruction (principal); R97.20 Elevated prostate specific antigen [PSA] | CPT/HCPCS: 52000; 99212 ==

== ENCOUNTER → 2021-11-16 13:47 | Outpatient (BNVA) | payer OTHER, SELFPAY | PROVIDERS: PCP Internal Medicine; Visit Provider Internal Medicine | DX: Z01.811 Encounter for preprocedural respiratory examination (principal); J44.9 Chronic obstructive pulmonary disease, unspecified; N32.0 Bladder-neck obstruction; Z79.899 Other long term (current) drug therapy | CPT/HCPCS: 99212 ==

== ENCOUNTER 2021-11-21 08:36 | Day surgery (SDC) | payer OTHER, SELFPAY ==
--- NOTE | 2021-11-18 12:09 | HO.ANESPROP2 ---
Documented by User: Adamaris Jolley NP 11/18/21 12:09 HPI - Anesthesia Eval Consult details Narrative: 76yo M for Laser Ablation Prostate w/Green Light Pulmo cleared PMFSH Active Problems Active Problems: All Active Problems (Updated 11/16/21 @ 14:31 by De Ayala MD) Elevated PSA (Acute) Bladder outlet obstruction (Acute) COPD (chronic obstructive pulmonary disease) (Acute) Past Medical History Medical History COPD (chronic obstructive pulmonary disease) Elevated PSA Enlarged prostate HTN (hypertension) Nocturia Social History Social History Patient Tobacco Use Status: Former Tobacco user Cigarette Packs Per Day: 1 Cigarettes Per Day: 20 Years Smoked: 40 Use of substances other than those prescribed or required for medical reasons: No Have you been hit, kicked, punched, or otherwise hurt by someone within the past year? If so, by whom?: No Are you DNR?: No Advance Directives: No Advance Directives Information Provided: Yes Meds Allergies Allergy/AdvReac Type Severity Reaction Status Date / Time No Known Allergies Allergy Verified 11/16/21 14:23 Home Medications Medication Instructions Recorded Confirmed Last Taken Type aspirin 81 mg tablet,delayed 81 mg PO DAILY 06/30/20 Unknown History release diltiazem HCl 180 mg 180 mg PO DAILY 06/30/20 Unknown History capsule,extended release 24 hr fluocinolone 0.01 % scalp oil and ea topical 06/30/20 Unknown History shower cap levothyroxine 112 mcg tablet 112 mcg PO DAILY 06/30/20 Unknown History loratadine 10 mg tablet 10 mg PO DAILY 06/30/20 Unknown History multivitamin-ferrous 1 tab PO DAILY 06/30/20 Unknown History fumarate-folic acid 18 mg-400 mcg tablet omeprazole 20 mg capsule,delayed 20 mg PO DAILY 06/30/20 Unknown History release ketoconazole 2 % shampoo 1 appl topical 2XW 08/06/20 Unknown History calcium carbonate 600 mg-vitamin 1 tab PO DAILY 01/04/21 Unknown History D3 5 mcg (200 unit) tablet gbsqknvx-wtp-zvhta acid 0.4 1 tab PO DAILY 01/04/21 Unknown History mg-lycopene 300 mcg-lutein 250 mcg tablet (CertaVite Senior) Exam Exam Date and Time: November 18, 2021 1209 Assessment and Plan Assessment Anesthesia Assessment: Chart Reviewed Documented by User: Corinne Phan MD 11/21/21 11:09 ON LICENSE OF [facility] Past Medical History Medical History COPD (chronic obstructive pulmonary disease) Elevated PSA Enlarged prostate HTN (hypertension) Nocturia Functional capacity: independent ambulation Family History Family history of problems with anesthesia: No Surgical History History of Problems with Anesthesia: No Social History Social History Patient Tobacco Use Status: Former Tobacco user Cigarette Packs Per Day: 1 Cigarettes Per Day: 20 Years Smoked: 40 Use of substances other than those prescribed or required for medical reasons: No Have you been hit, kicked, punched, or otherwise hurt by someone within the past year? If so, by whom?: No Are you DNR?: No Advance Directives: No Advance Directives Information Provided: Yes Meds Allergies Allergy/AdvReac Type Severity Reaction Status Date / Time No Known Allergies Allergy Verified 11/16/21 14:23 Home Medications Medication Instructions Recorded Confirmed Last Taken Type aspirin 81 mg tablet,delayed 81 mg PO DAILY 06/30/20 Unknown History release diltiazem HCl 180 mg 180 mg PO DAILY 06/30/20 Unknown History capsule,extended release 24 hr fluocinolone 0.01 % scalp oil and ea topical 06/30/20 Unknown History shower cap levothyroxine 112 mcg tablet 112 mcg PO DAILY 06/30/20 Unknown History loratadine 10 mg tablet 10 mg PO DAILY 06/30/20 Unknown History multivitamin-ferrous 1 tab PO DAILY 06/30/20 Unknown History fumarate-folic acid 18 mg-400 mcg tablet omeprazole 20 mg capsule,delayed 20 mg PO DAILY 06/30/20 Unknown History release ketoconazole 2 % shampoo 1 appl topical 2XW 08/06/20 Unknown History calcium carbonate 600 mg-vitamin 1 tab PO DAILY 01/04/21 Unknown History D3 5 mcg (200 unit) tablet yuutftsl-byf-jvtez acid 0.4 1 tab PO DAILY 01/04/21 Unknown History mg-lycopene 300 mcg-lutein 250 mcg tablet (CertaVite Senior) Exam Airway TM Dist: >3cm Neck ROM: Full Heart: RRR Lungs: CTA Assessment and Plan Final Anesthetic Review Family History of Problems with Anesthesia: No History of Problems with Anesthesia: No ASA Class: II Final Preanesthetic Review: No Changes in Pt Med Stat, Meds/Allgs Chart Reviewed, Consent Obtained/Reviewed and Anes Risks/Benef Reviewed Patient Risk: Low Procedure Risk: Low Anesthetic Plan Anesthetic Plan: GA Disposition: Standard PACU
[2021-11-21 08:41] VITALS: BP 134/64; PULSE 73; RESP 18; TEMP 36.4; O2SAT 96
[2021-11-21 09:23] VITALS: BMI 29.2
[2021-11-21] MEDS: Lactated Ringers 1,000 ML 100 ML IVCONT (10:22)
--- NOTE | 2021-11-21 10:29 | MHC.SHP ---
Pre-Procedural Eval Section A Date of Service: 11/21/21 The patient is an INPATIENT: No Changes since office visit: No Cold of Flu in the past 2 weeks, No New Medical Problems, No Changes in Medication and No Patient answered all questions The History & Physical has been completed within 30 days and I have reviewed it.: Yes Section B Chief Complaint: Bladder-neck obstruction Details of Present Illness: plan for laser prostatectomy Relevant Social History: None Allergies: Allergies Allergy/AdvReac Type Severity Reaction Status Date / Time No Known Allergies Allergy Verified 11/16/21 14:23 Review of Systems Sugical H&P ROS: Negative: Constitution, Cardiovascular, Respiratory, Neurological, Psychiatric, Hem-Onc, Allergic/Immunologic, Gastrointestinal, Genitourinary, Musculoskeletal, Integumentary, Endocrine and Eyes/Ears/Nose/Throat Exam Surgical H&P Exam: Normal: HEENT, Normal: Heart, Normal: Lungs, Normal: Extremities, Normal: Abdomen, Normal: Skin and Normal: Neurological Plan Diagnosis/Plan: Unchanged ( laser prostatectomy) I have reviewed the history and physical and performed a pertinent physical examination on my patient. No changes have occurred unless specified.
--- NOTE | 2021-11-21 11:43 | P.OP_ITS ---
Operative Note Operative Note Date of Service: 11/21/21 Narrative: PreOperative Diagnosis: Bladder outlet obstruction Post Operative Diagnosis: Bladder outlet obstruction Procedure: GreenLight Laser Enucleation of the prostate Surgeon: Dr Raymundo Jefferson Anesthesia: General Indications for procedure: failed oral therapy. Bilateral lobar hypertrophy History of bladder outlet obstruction. Treated with alpha-shayla and other medications. Still with symptoms. On cystoscopy in office has bilobar. . Recommendation for prostate procedure with laser enucleation of prostate. It has been discussed. Focus was placed on development of retrograde examination which is a normal part of this procedure. Procedure: After informed consent was verified the patient was brought to the operating room and placed in a supine position. Anesthesia was administered per protocol. Patient was placed in modified dorsal lithotomy position and prepped and draped in a sterile fashion. Safety pause time-out was confirmed. Antibiotics have been given. Twenty-four Belarusian laser cystoscope was inserted per urethra. No abnormalities found the anterior posterior urethra. The bladder was filled on both ureteric orifices were seen in normal position away from our area of interest. Using a GreenLight laser settings of 80 w incisions were made at the 5 and 7 o'clock position. They were taken down and then laterally on each side. They were brought from the bladder neck down to the level of the veru. These defined the lateral aspects of the median lobe area. The median lobe was ablated and enucleated tissue removed. Once the median lobe area had been cleaned attention was directed to the lateral lobes. We started with the patient's left lateral lobe. Firstly the 05:00 o'clock groove was further developed. This was moved in the lateral position to undermine the tissue on the lateral side. Focus was then placed on the laser at the 1 o'clock position in developing a secondary groove down to the level of bladder fibers. The intervening tissue between these 2 grooves was removed with a combination of enucleation ablation working from the apex toward the bladder neck. A similar procedure was repeated on the patient's right-hand side. When this was completed debris and pieces of prostate removed from the bladder. Both ureteric orifices were reviewed again in shown to be patent in away from any areas of energy damage. The apical area was reviewed in any stray ooze was controlled. A 22 [place]ian 30 cc balloon Zapien catheter was placed over stylet into the bladder. Clear efflux was obtained. 30 cc was placed in the balloon and gentle traction was placed. A snap was used to hold tension once the patient will be moved and transported. Once transportation its finish this novel be removed. A belladonna and opiate suppository was placed for postprocedure pain m anagement. He tolerated procedure well was extubated in the operating and transferred in a stable condition to the recovery area. Total Power 137 kW 19:37 min Pathology: Prostate tissue Drains: Zapien catheter
[2021-11-21 11:49] VITALS: BP 120/66; PULSE 68; RESP 16; TEMP 37; O2SAT 97
[2021-11-21 11:54] VITALS: BP 121/69; PULSE 59; RESP 16; O2SAT 98
[2021-11-21 11:59] VITALS: BP 113/65; PULSE 59; RESP 16; O2SAT 97
[2021-11-21 12:14] VITALS: BP 135/72; PULSE 59; RESP 16; O2SAT 95
[2021-11-21 12:29] VITALS: BP 135/71; PULSE 55; RESP 16; TEMP 37; O2SAT 96
--- NOTE | 2021-11-21 13:11 | HO.POSTANES ---
Post Anesthesia Evaluation Post Anesthesia Evaluation Vital Signs: Vital Signs Temp Pulse Resp BP Pulse Ox O2 Del Method O2 Flow Rate 11/21/21 12:29 98.6 F 55 16 135/71 96 Room Air 11/21/21 12:14 59 16 135/72 95 Room Air 11/21/21 11:59 59 16 113/65 97 Nasal Cannula 2 11/21/21 11:54 59 16 121/69 98 Nasal Cannula 2 11/21/21 11:49 98.6 F 68 16 120/66 97 Nasal Cannula 2 11/21/21 08:41 97.6 F 73 18 134/64 96 Room Air Anesthesia: General LMA Mental Status: Awake Pain Control: Satisfactory Nausea/Vomiting: None Hydration: Adequate Anesthesia-Related Issues: No Anes. Related Issues
== END 2021-11-21 11:55 | disposition home or self-care (01) ==
PROVIDERS: PCP Internal Medicine; Visit Provider Urology
PROC: (CPT 52648; principal; 2021-11-21 10:50)
DX: N40.1 Benign prostatic hyperplasia with lower urinary tract symptoms (principal); R97.20 Elevated prostate specific antigen [PSA]; N32.0 Bladder-neck obstruction; R35.1 Nocturia; R39.12 Poor urinary stream; I10 Essential (primary) hypertension; J44.9 Chronic obstructive pulmonary disease, unspecified; Z79.51 Long term (current) use of inhaled steroids; Z79.899 Other long term (current) drug therapy; Z79.82 Long term (current) use of aspirin; Z87.891 Personal history of nicotine dependence
CPT/HCPCS: 52649; 88305; J1100; J1956; J2250; J2405; J3010

== ENCOUNTER → 2021-11-24 09:48 | Outpatient (BNVA) | payer OTHER, SELFPAY | PROVIDERS: PCP Internal Medicine; Visit Provider Urology | DX: N32.0 Bladder-neck obstruction (principal) | CPT/HCPCS: 51700; 51798 ==

== ENCOUNTER → 2022-01-04 10:29 | Outpatient (BNVA) | payer OTHER, SELFPAY | PROVIDERS: PCP Internal Medicine; Visit Provider Urology | DX: N40.1 Benign prostatic hyperplasia with lower urinary tract symptoms (principal); R35.1 Nocturia; N32.0 Bladder-neck obstruction; R97.20 Elevated prostate specific antigen [PSA] | CPT/HCPCS: 99212 ==

== ENCOUNTER → 2022-02-01 09:20 | Outpatient (BNVA) | payer OTHER, SELFPAY | PROVIDERS: PCP Internal Medicine; Visit Provider Internal Medicine | DX: J44.9 Chronic obstructive pulmonary disease, unspecified (principal); Z79.899 Other long term (current) drug therapy | CPT/HCPCS: 99212 ==

== ENCOUNTER 2022-04-28 12:10 | Emergency (ER) | payer OTHER, SELFPAY ==
--- NOTE | ~2022-04-28 | XR_ITS ---
EXAMINATION: XR CHEST CLINICAL INFORMATION: Cough COMPARISON: Previous chest x-ray most recent December [address] March 2020 TECHNIQUE: 2 views of the chest were obtained. FINDINGS: The cardiac and mediastinal contours are stable. There are increased central markings questionable for bronchial wall thickening. There are increased markings at the lung apices, right greater than left. This may be increased on the right compared to previous exams. The lungs are otherwise clear. No evidence of pneumonia. There is no pleural effusion or pneumothorax. There are degenerative changes of the spine. There are surgical clips left lower neck. XR/XR chest 2V IMPRESSION: Increased central markings questionable for bronchitis or bronchial wall thickening. No evidence of pneumonia. Increased density at the right lung apex. This may be related to pleural and parenchymal scarring. This could be better evaluated with apical lordotic view of the chest or chest CT if clinically indicated.
[2022-04-28 12:34] VITALS: BP 134/67; PULSE 96; RESP 18; TEMP 37.1; O2SAT 94; BMI 29.8
--- NOTE | 2022-04-28 12:34 | ED.URI ---
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 He states he has been coughing number Manas some white phlegm. He had a low-grade fever yesterday. He states he has had a runny nose and nasal congestion as well. No known sick contacts. He denies any chest pain or difficulty breathing. He uses his inhalers for asthma, he denies a history of COPD. He denies any known sick contact. He is vaccinated for COVID & the flu. <GLADYS Braun - Last Filed: 04/28/22 14:58> MD elicited complaint: cough and nasal congestion <GLADYS Braun Last Filed: 04/28/22 14:58> Pertinent past history: COPD and asthma <GLADYS Braun Last Filed: 04/28/22 14:58> Onset (ago): day(s) <GLADYS Braun Last Filed: 04/28/22 14:58> Consistency: progressively worsening <GLADYS Braun Last Filed: 04/28/22 14:58> Severity: moderate <GLADYS Braun Last Filed: 04/28/22 14:58> Description of mucous: clear <GLADYS Braun Last Filed: 04/28/22 14:58> Able to tolerate fluids by mouth: Yes <GLADYS Braun - Last Filed: 04/28/22 14:58> Exacerbating factors: exertion <GLADYS Braun - Last Filed: 04/28/22 14:58> Associated symptoms: fever, chills, rhinorrhea, nasal congestion and sore throat <GLADYS Braun - Last Filed: 04/28/22 14:58> Treatments prior to arrival: none <GLADYS Braun - Last Filed: 04/28/22 14:58> Related Data Home Medications: Home Medications Medication Instructions Recorded Confirmed aspirin 81 mg tablet,delayed 81 mg PO DAILY 06/30/20 01/04/22 release diltiazem HCl 180 mg 180 mg PO DAILY 06/30/20 01/04/22 capsule,extended release 24 hr fluocinolone 0.01 % scalp oil and ea topical 06/30/20 01/04/22 shower cap levothyroxine 112 mcg tablet 112 mcg PO DAILY 06/30/20 01/04/22 loratadine 10 mg tablet 10 mg PO DAILY 06/30/20 01/04/22 multivitamin-ferrous 1 tab PO DAILY 06/30/20 01/04/22 fumarate-folic acid 18 mg-400 mcg tablet omeprazole 20 mg capsule,delayed 20 mg PO DAILY 06/30/20 01/04/22 release ketoconazole 2 % shampoo 1 appl topical 2XW 08/06/20 01/04/22 calcium carbonate 600 mg-vitamin 1 tab PO DAILY 01/04/21 01/04/22 D3 5 mcg (200 unit) tablet tvpshxxq-drg-qsbnb acid 0.4 1 tab PO DAILY 01/04/21 01/04/22 mg-lycopene 300 mcg-lutein 250 mcg tablet (CertaVite Senior) Previous Rx's Medication Instructions Recorded fluticasone 250 mcg-salmeterol 50 1 inh inhalation BID COPD 30 days 07/25/21 mcg/dose blistr powdr for #60 ea inhalation (Joselinexela Inhub) finasteride 5 mg tablet 5 mg PO DAILY 90 days #90 tabs 09/02/21 albuterol sulfate 90 mcg/actuation 2 puff PO Q4-6H PRN for wheezing 02/21/22 aerosol inhaler #8.5 grams Incruse Ellipta 62.5 mcg/actuation 1 inh inhalation DAILY #30 ea 04/17/22 powder for inhalation (umeclidinium) doxycycline hyclate 100 mg tablet 100 mg PO BID #14 tabs 04/28/22 guaifenesin 1,200 mg tablet, 1,200 mg PO BID #10 tabs 04/28/22 extended release 12 hr (Mucinex) prednisone 20 mg tablet 40 mg PO DAILY #10 tabs 04/28/22 <GLADYS Wilcox - Last Filed: 04/28/22 12:35> Allergies/Adverse Reactions: Allergies Allergy/AdvReac Type Severity Reaction Status Date / Time No Known Allergies Allergy Verified 02/01/22 10:01 <GLADYS Wilcox - Last Filed: 04/28/22 12:35> Review of Systems Review of Systems: Constitutional: +Fever, + Chills ENT/Mouth: + sore throat, + Rhinorrhea, No Swallowing Difficulty Eyes: No Eye Pain, No Swelling, No Redness Cardiovascular: No Chest Pain, No SOB, No Orthopnea, No Edema Respiratory: + Cough, + Sputum, No Wheezing, No dyspnea Gastrointestinal: No Nausea, No Vomiting, No Diarrhea, No abdominal Pain Musculoskeletal: No joint pain, No Myalgias Skin: No Skin Lesions, No rash Neuro: No Weakness, No Dizziness, + Headache Heme/Lymph: No Lymphadenopathy <GLADYS Braun - Last Filed: 04/28/22 14:58> [facility] Past Medical History Medical History: Medical History COPD (chronic obstructive pulmonary disease) Elevated PSA Enlarged prostate HTN (hypertension) Nocturia <GLADYS Wilcox Last Filed: 04/28/22 12:35> Social History Social History: Social History Alcohol intake: never Patient Tobacco Use Status: Former Tobacco user Cigarette Packs Per Day: 1 Cigarettes Per Day: 20 Years Smoked: 40 Smoked in Last 30 Days: No Use of substances other than those prescribed or required for medical reasons: No Advance Directives: No Advance Directives Information Provided: Yes <GLADYS Wilcox Last Filed: 04/28/22 12:35> Physical Exam Vital Signs: Vital Signs: Last Vital Signs Temp 98.8 F 04/28/22 12:34 Pulse 90 04/28/22 13:50 Resp 12 04/28/22 13:50 BP 155/77 H 04/28/22 13:50 Pulse Ox 92 04/28/22 13:50 O2 Del Method 04/28/22 13:50 BMI result Body Mass Index 29.8 <GLADYS Wilcox - Last Filed: 04/28/22 12:35> Vital Signs: Last Vital Signs Temp 98.8 F 04/28/22 12:34 Pulse 90 04/28/22 13:50 Resp 12 04/28/22 13:50 BP 155/77 H 04/28/22 13:50 Pulse Ox 92 04/28/22 13:50 O2 Del Method 04/28/22 13:50 BMI result Body Mass Index 29.8 <GLADYS Braun - Last Filed: 04/28/22 14:58> Appearance: Alert. Oriented X3. No acute distress. Eyes: Pupils equal, round and reactive to light. ENT: Pharynx normal. Neck: Normal inspection. Neck supple. CVS: Normal heart rate and rhythm. Pulses normal. Respiratory: No respiratory distress. Breath sounds diminished at bilateral bases but no wheezes or rhonchi. Abdomen: Soft and nontender. +BS x4 Skin: Skin warm and dry. Normal skin color. Normal skin turgor. No rashes. Extremities: No lower extremity edema. Neuro: Oriented X 3. No motor deficit. No sensory deficit. Steady gait. <GLADYS Braun - Last Filed: 04/28/22 14:58> Course Course Course Narrative: RME-12:35PM - 76yoM c PMHx of asthma who is presenting to the ER with complaints of URI symptoms since yesterday which include subjective fevers, chills, fatigue, malaise, nasal congestion/rhinorrhea, sore throat and a dry cough. Denies recent travel or sick contacts. Denies any diarrhea constipation, abdominal pain, sputum production, nausea/vomiting or any other symptoms complaints or concerns at this time. Plan: Will order chest x-ray, COVID/RSV/flu swab and rapid strep and patient is stable can be [place] [facility] [place] and treatment. <GLADYS Wilcox - Last Filed: 04/28/22 12:35> Reevaluation(s) Reevaluation #1: Patient seen and examined. No respiratory distress. He is saturating 96 and 97% on room air. Speaking complete sentences. His viral swabs and strep throat swab was negative. His chest x-ray was reviewed. He has evidence of possible bronchitis. Given his pulmonary history and ongoing symptoms will treat with steroids and antibiotics. Encourage follow-up with his PCP. administrative executive used answer all questions. Stable for discharge home. We have talked about return precautions if his symptoms were to worsen or change. Comfortable discharge. <GLADYS Braun - Last Filed: 04/28/22 14:58> Medical Decision Making Lab Data Labs: Lab Results 04/28/22 04/28/22 Range/Units 12:38 12:38 Influenza Type A (PCR) NEGATIVE (Negative) Influenza Type B (PCR) NEGATIVE (Negative) RSV RNA Qual (PCR) NEGATIVE (Negative) SARS-CoV-2 RNA (RT-PCR) NEGATIVE (Negative) S. pyogenes GrpA BE Negative (Negative) <GLADYS Wilcox - Last Filed: 04/28/22 12:35> Lab Results 04/28/22 04/28/22 Range/Units 12:38 12:38 Influenza Type A (PCR) NEGATIVE (Negative) Influenza Type B (PCR) NEGATIVE (Negative) RSV RNA Qual (PCR) NEGATIVE (Negative) SARS-CoV-2 RNA (RT-PCR) NEGATIVE (Negative) S. pyogenes GrpA BE Negative (Negative) <GLADYS Braun - Last Filed: 04/28/22 14:58> Discharge Plan Discharge Clinical Impression: Bronchitis <GLADYS Wilcox - Last Filed: 04/28/22 12:35> Patient Disposition: Home, Self-Care <GLADYS Wilcox - Last Filed: 04/28/22 12:35> Instructions: Acute Bronchitis (ED) <GLADYS Wilcox Last Filed: 04/28/22 12:35> Additional Instructions: You tested negative for influenza a and B, RSV, COVID and strep throat. Your chest x-ray showed evidence of bronchitis, no evidence of pneumonia. Take the prescribed steroid medication to help her lungs. Take the prescribed antibiotic for bronchitis. Complete the entire course. Continue using your previously prescribed inhalers as directed. Take owlp-spv-avbuwqv cold and flu medications as needed for your symptoms. Rest and stay hydrated. If you develop new or worsening symptoms call 911 or come back to the ER for further evaluation. Thor negativo para influenza A y B, RSV, COVID y faringitis estreptoc?cica. Koroma radiograf?a de t?rax mostr? evidencia de bronquitis, sin evidencia de neumon?a. [place] el medicamento esteroide recetado para ayudar a cata pulmones. [place] el antibi?ham[place] recetado para la bronquitis. Completa todo el curso. Contin?e usando los inhaladores que le recetaron anteriormente seg?n las indicaciones. [place] medicamentos de venta jaren para el resfriado y la gripe seg?n sea necesario para cata s?ntomas. Descansa y mantente hidratado. Si desarrolla s?ntomas nuevos o que empeoran, llame al 911 o regrese a la baldemar de emergencias para ramya evaluaci?n adicional. <GLADYS Wilcox - Last Filed: 04/28/22 12:35> Prescriptions: New prednisone 20 mg tablet 40 mg PO DAILY Qty: 10 0RF doxycycline hyclate 100 mg tablet 100 mg PO BID Qty: 14 0RF Mucinex 1,200 mg tablet extended release 12hr 1,200 mg PO BID Qty: 10 0RF No Action albuterol sulfate 90 mcg/actuation HFA aerosol inhaler 2 puff PO Q4-6H PRN (Reason: for wheezing) Qty: 8.5 3RF Incruse Ellipta 62.5 mcg/actuation blister with device 1 inh inhalation DAILY Qty: 30 5RF vrplgwlinfgg-xzdr-emqjc acid 18-400 mg-mcg tablet 1 tab PO DAILY fluocinolone and shower cap 0.01 % oil topical levothyroxine 112 mcg tablet 112 mcg PO DAILY loratadine 10 mg tablet 10 mg PO DAILY diltiazem HCl 180 mg capsule,extended release 24hr 180 mg PO DAILY aspirin 81 mg tablet,delayed release (DR/EC) 81 mg PO DAILY omeprazole 20 mg capsule,delayed release(DR/EC) 20 mg PO DAILY calcium carbonate-vitamin D3 600 mg(1,500mg) -200 unit tablet 1 tab PO DAILY ketoconazole 2 % shampoo 1 appl topical 2XW CertaVite Senior 0.4-300-250 mg-mcg-mcg tablet 1 tab PO DAILY fluticasone propion-salmeterol [Wixela Inhub] 250-50 mcg/dose blister with device 1 inh inhalation BID 30 Days Qty: 60 5RF finasteride 5 mg tablet 5 mg PO DAILY 90 Days Qty: 90 2RF <GLADYS Wilcox - Last Filed: 04/28/22 12:35> Referrals: Osiel Schwartz MD [Primary Care Provider] - <GLADYS Wilcox - Last Filed: 04/28/22 12:35> Interventions: ED Discharge Assessment Last Done: 04/28/22 14:47 <GLADYS Wilcox - Last Filed: 04/28/22 12:35> Discharge Date/Time: 04/28/22 14:47 <GLADYS Wilcox - Last Filed: 04/28/22 12:35> Print Language: Iraqi <GLADYS Wilcox - Last Filed: 04/28/22 12:35>
[2022-04-28 12:51] LABS: Strep A Nucleic Acid Negative (Negative)
[2022-04-28 13:22] LABS: Influenza A PCR NEGATIVE (Negative); Influenza B PCR NEGATIVE (Negative); Resp Syncy Virus RNA Qual PCR NEGATIVE (Negative); SARS COV2 PCR INHOUSE NEGATIVE (Negative)
[2022-04-28 13:50] VITALS: BP 155/77; PULSE 90; RESP 12; O2SAT 92
== END 2022-04-28 14:47 | disposition home or self-care (01) ==
PROVIDERS: Physician Assistant Medical; Emergency Provider Student in an Organized Health Care Education/Training Program; PCP Internal Medicine
DX: J40 Bronchitis, not specified as acute or chronic (principal); Z20.822 Contact with and (suspected) exposure to COVID-19; J02.9 Acute pharyngitis, unspecified; I10 Essential (primary) hypertension
CPT/HCPCS: 0241U; 71046; 87651; 99283; 99284

== ENCOUNTER 2022-07-06 05:59 | Outpatient (REF) | payer OTHER, SELFPAY ==
[2022-07-06 08:17] LABS: Prostate Specific Antigen 1.25 ng/mL (<0.05-4.0)
== END 2022-07-06 06:00 | disposition home or self-care (01) ==
LOC: HO.LAB 05:59
PROVIDERS: PCP Internal Medicine; Visit Provider Urology
DX: Z12.5 Encounter for screening for malignant neoplasm of prostate (principal); N40.1 Benign prostatic hyperplasia with lower urinary tract symptoms; N13.8 Other obstructive and reflux uropathy; N32.0 Bladder-neck obstruction
CPT/HCPCS: 36415; 84153

== ENCOUNTER → 2022-07-14 08:39 | Outpatient (BNVA) | payer OTHER, SELFPAY | PROVIDERS: PCP Internal Medicine; Visit Provider Urology | DX: N32.0 Bladder-neck obstruction (principal); R35.1 Nocturia | CPT/HCPCS: 51798; 99212 ==

== ENCOUNTER → 2022-07-26 09:12 | Outpatient (BNVA) | payer OTHER, SELFPAY | PROVIDERS: PCP Internal Medicine; Visit Provider Internal Medicine | DX: J44.9 Chronic obstructive pulmonary disease, unspecified (principal); F17.210 Nicotine dependence, cigarettes, uncomplicated | CPT/HCPCS: 99212 ==

== ENCOUNTER → 2022-09-07 08:32 | Outpatient (BNVA) | payer OTHER, SELFPAY | PROVIDERS: PCP Internal Medicine; Visit Provider Urology | DX: N32.81 Overactive bladder (principal); N32.0 Bladder-neck obstruction | CPT/HCPCS: 52000; 99212 ==

== ENCOUNTER 2022-10-04 05:25 | Emergency (ER) | payer OTHER, SELFPAY ==
[2022-10-04 05:39] VITALS: BP 130/77; PULSE 80; RESP 19; TEMP 36.3; O2SAT 94; BMI 28.0
[2022-10-04] MEDS: 0.9 % Sodium Chloride 1,000 ML 999 ML IV (06:10)
[2022-10-04 06:18] LABS: MANUAL DIFF FLAG NO
[2022-10-04 06:21] LABS: Basophils Absolute Auto 0.1 X10*3/uL (0.0-0.2); Basophils Percent Auto 0.7 % (0-2); Eosinophils Absolute Auto 0.1 X10*3/uL (0.0-0.4); Eosinophils Percent Auto 0.7 % (0-4); Hematocrit 39.3 % (42.0-52.0); Hemoglobin 13.1 g/dl (14.0-18.0); Imm Gran Abs Auto 0.02 X10*3/uL (0.00-0.03); Imm Gran Pct Auto 0.3 % (0.0-0.4); Lymphocytes Absolute Auto 2.2 X10*3/uL (1.2-4.9); Mean Corpuscular HGB Conc 33.3 g/dl (31.0-36.0); Mean Corpuscular Hemoglobin 31.7 pg (27.0-33.0); Mean Corpuscular Volume 95.2 fL (80.0-98.0); Mean Platelet Volume 8.8 fL (9.4-12.4); Monocytes Absolute Auto 0.9 X10*3/uL (0.1-1.2); Monocytes Percent Auto 11.4 % (2-11); Neutrophils Absolute Auto 4.4 x10*3/uL (2.0-8.3); Neutrophils Percent Auto 57.9 % (45-73); Platelet Count 278 X10*3/uL (160-400); Red Blood Count 4.13 X10*6/uL (4.60-5.80); Red Cell Distribution Width 12.7 % (11.0-16.0); White Blood Count 7.6 X10*3/uL (4.8-10.8)
--- NOTE | 2022-10-04 06:31 | ED_ITS ---
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 Patient states that he has not vomited since yesterday but continues to have diarrhea. He denies any fevers. He denies any other sick family members at home. He denies any chest pain or shortness of breath. He states he has not attempted to tolerate any food or fluids morning. He states that he has had intermittent abdominal pain but denies any currently. He denies hematemesis, hematochezia or melena. He denies current nausea but states that when he gets up and moves around his nausea returns. MD complaint: nausea, vomiting, diarrhea Onset (ago): day(s) Location: abdomen Related Data Home Medications Medication Instructions Recorded Confirmed aspirin 81 mg tablet,delayed 81 mg PO DAILY 06/30/20 01/04/22 release diltiazem HCl 180 mg 180 mg PO DAILY 06/30/20 01/04/22 capsule,extended release 24 hr fluocinolone 0.01 % scalp oil and ea topical 06/30/20 01/04/22 shower cap levothyroxine 112 mcg tablet 112 mcg PO DAILY 06/30/20 01/04/22 loratadine 10 mg tablet 10 mg PO DAILY 06/30/20 01/04/22 multivitamin-ferrous 1 tab PO DAILY 06/30/20 01/04/22 fumarate-folic acid 18 mg-400 mcg tablet omeprazole 20 mg capsule,delayed 20 mg PO DAILY 06/30/20 01/04/22 release ketoconazole 2 % shampoo 1 appl topical 2XW 08/06/20 01/04/22 calcium carbonate 600 mg-vitamin 1 tab PO DAILY 01/04/21 01/04/22 D3 5 mcg (200 unit) tablet mobqmllh-bxq-avlva acid 0.4 1 tab PO DAILY 01/04/21 01/04/22 mg-lycopene 300 mcg-lutein 250 mcg tablet (CertaVite Senior) Previous Rx's Medication Instructions Recorded albuterol sulfate 90 mcg/actuation 2 puff PO Q4-6H PRN for wheezing 02/21/22 aerosol inhaler #8.5 grams guaifenesin 1,200 mg tablet, 1,200 mg PO BID #10 tabs 04/28/22 extended release 12 hr (Mucinex) fluticasone 250 mcg-salmeterol 50 1 ea PO BID #60 ea 06/12/22 mcg/dose blistr powdr for inhalation finasteride 5 mg tablet 5 mg PO DAILY 90 days #90 tabs 08/10/22 mirabegron 25 mg tablet,extended 25 mg PO DAILY 30 days #30 tabs 09/07/22 release 24 hr umeclidinium 62.5 mcg/actuation 1 inh inhalation DAILY #30 ea 10/03/22 blister powder for inhalation (Incruse Ellipta) ondansetron 4 mg disintegrating 4 mg PO Q8H PRN nausea and 10/04/22 tablet vomiting #12 tabs Allergies Allergy/AdvReac Type Severity Reaction Status Date / Time No Known Allergies Allergy Verified 10/04/22 05:49 Review of Systems Review of Systems: As per HPI Yes all other systems are reviewed and are negative Constitutional: Constitutional: Reports as per HPI PMFSH Past Medical History Medical History COPD (chronic obstructive pulmonary disease) Elevated PSA Enlarged prostate HTN (hypertension) Nocturia Smoker Social History Social History Alcohol intake: never Patient Tobacco Use Status: Former Tobacco user Cigarette Packs Per Day: 1 Cigarettes Per Day: 20 Years Smoked: 40 Smoked in Last 30 Days: No Use of substances other than those prescribed or required for medical reasons: No Advance Directives: No Advance Directives Information Provided: Yes Physical Exam ED Vital Signs: Vital Signs - 24 hr 10/04/22 05:39 Temperature 97.3 F Pulse Rate 80 Respiratory Rate 19 Blood Pressure 130/77 Pulse Oximetry 94 Oxygen Delivery Method Room Air BMI result Body Mass Index 28.0 Vital signs have been reviewed and appear to be correct. Blood pressure normal. Heart rate normal. Respiratory rate normal. Temperature normal. Oxygen saturation normal. Const General: cooperative, healthy appearing and no acute distress Orientation/consciousness: oriented to person, oriented to place, oriented to time and patient oriented x3 Limitations: no limitations HENMT Head: Yes normocephalic and Yes atraumatic Ears: external ears normal General nose exam: Normal external nose present Face and sinus: Yes face symmetric Mouth: oropharynx normal and moist mucous membranes Throat: Yes uvula midline Eyes Pupils: Equal, round and reactive pupils present Neck Neck: Yes normal visual inspection and Yes supple Resp Effort & Inspection: normal respiratory effort and able to speak in complete sentences Auscultation: clear to auscultation bilaterally Cardio Rate: regular rate Rhythm: regular rhythm Heart sounds: S1 normal heart sound present and S2 normal heart sound present GI Palpation (GI): Soft to palpation and nontender Auscultation: normoactive bowel sounds General: Yes no CVA tenderness Back/Spine/Pelvis Back: no CVA tenderness Skin General skin exam: elasticity normal and turgor normal Neuro General: oriented to person, oriented to place, oriented to time, patient orien fifi x3, moves all extremities, no focal motor deficits and CN's II-XI intact bilaterally Cranial nerves: Yes Equal, round and reactive pupils present Cognition (Neuro): normal cognition Extrem General: Yes full ROM, Yes no pedal edema and Yes no calf tenderness Psych Mental Status: mental status grossly normal Affect: normal affect Thought process: Normal thought process present Medications Administered Discontinued Medications Generic Name Dose Route Start Last Admin Trade Name Freq PRN Reason Stop Dose Admin Sodium Chloride 1,000 mls @ 999 mls/hr 10/04/22 06:15 10/04/22 07:27 Ns IV 10/04/22 07:15 Infused .Q1H1M ALEJANDRO Infusion Medical Decision Making Medical Decision Making [facility] Narrative: Patient is a 76-year-old male with history of HTN, COPD presenting with nausea, vomiting, and diarrhea since Sunday. On exam patient is awake, A+Ox3, nontoxic appearing, normal neurological exam without focal deficits, abdomen is soft and nontender to palpation, no peritoneal signs, no CVA tenderness. Given reported history and physical exam findings, likely viral gastroenteritis. Low suspicion for acute hepatobiliary disease, pancreatitis, PUD, pneumonia, UTI/pyelonephritis, appendicitis, diverticulitis. Plan: labs, IV fluids, UA, GI panel 08:09 Labs unremarkable, no leukocytosis, BUN and AST mildly elevated likely related to vomiting and diarrhea. Patient tolerating vickie vanna. Continues to deny nausea or abdominal pain, has not had any episodes of diarrhea since arriving in the ED. Feel patient is stable for discharge home. Instructed patient to follow up with PCP this week. Return precautions discussed at [facility]. Differential Diagnosis Differential Diagnoses: The differential diagnosis associated with the presentation includes As above. Admission/Observation Consideration of admission/observation: Escalation of care including admission/observation considered Lab Data MDM Lab Attestation statement: I reviewed the patient's lab results. 10/04/22 06:12 10/04/22 06:12 Labs: Lab Results 10/04/22 10/04/22 Range/Units 06:12 06:12 WBC 7.6 (4.8-10.8) X10*3/uL RBC 4.13 L (4.60-5.80) X10*6/uL Hgb 13.1 L (14.0-18.0) g/dl Hct 39.3 L (42.0-52.0) % MCV 95.2 (80.0-98.0) fL MCH 31.7 (27.0-33.0) pg MCHC 33.3 (31.0-36.0) g/dl RDW 12.7 (11.0-16.0) % Plt Count 278 (160-400) X10*3/uL MPV 8.8 L (9.4-12.4) fL Immature Gran % (Auto) 0.3 (0.0-0.4) % Neut % (Auto) 57.9 (45-73) % Lymph % (Auto) 29.0 (20-40) % [place] % (Auto) 11.4 H (2-11) % Eos % (Auto) 0.7 (0-4) % Baso % (Auto) 0.7 (0-2) % Lymph # (Auto) 2.2 (1.2-4.9) X10*3/uL [place] # (Auto) 0.9 (0.1-1.2) X10*3/uL Eos # (Auto) 0.1 (0.0-0.4) X10*3/uL Baso # (Auto) 0.1 (0.0-0.2) X10*3/uL Abs Immat Gran (auto) 0.02 (0.00-0.03) X10*3/uL Absolute Neuts (auto) 4.4 (2.0-8.3) x10*3/uL Absolute Nucleated RBC 0.000 (0.0-0.012) X10*3/uL Nucleated RBC % (auto) 0.0 (0.0-0.2) /100WBC Sodium 137 (135-145) mmol/L Potassium 3.6 (3.3-5.1) mmol/L Chloride 104 (96-108) mmol/L Carbon Dioxide 24 (22-29) mmol/L Anion Gap 13 (12-20) BUN 20 H (9-16) mg/dL Creatinine 0.98 (0.5-1.4) mg/dL Estim Creat Clear Calc 56.0 Estimated GFR > 60 Random Glucose 102 (60-115) mg/dL Calcium 9.1 (8.4-10.2) mg/dL Total Bilirubin 0.4 (0.0-1.0) mg/dL Direct Bilirubin 0.1 (0.0-0.5) mg/dL AST 39 H (5-37) U/L ALT 25 (0-40) U/L Alkaline Phosphatase 51 (39-117) U/L Total Protein 7.2 (6.5-8.0) g/dL Albumin 3.7 (3.5-5.0) g/dL Lipase 8 (8-78) U/L External Record Review External record reviewed: Inpatient record, Office record and Outpatient record Prescription Management I considered prescription management with: Other (ondansetron) Chronic Conditions Patient?s care impacted by: Hypertension and Other (COPD) Discharge Plan Discharge Clinical Impression: Viral gastroenteritis Patient Disposition: Home, Self-Care Instructions: Acute Nausea and Vomiting (ED), Acute Diarrhea (ED), Enteritis (ED) Additional Instructions: You have been evaluated in the emergency department today for nausea, vomiting, and diarrhea. Your evaluation suggests that your symptoms are most likely due to a viral illness which will improve on it's own with rest and fluids. Remember to drink plenty of fluids at home. You are being prescribed ondansetron which you can use as per the prescription instructions for nausea. Please follow up with your primary care provider within two days. Return to the emergency department if you experience worsening or uncontrolled pain, inability to tolerate fluids by mouth, difficulty breathing, fevers 100.4? F or greater, recurrent vomiting, or any other concerning symptoms. Prescriptions: New ondansetron 4 mg tablet,disintegrating 4 mg PO Q8H PRN (Reason: nausea and vomiting) Qty: 12 0RF No Action albuterol sulfate 90 mcg/actuation HFA aerosol inhaler 2 puff PO Q4-6H PRN (Reason: for wheezing) Qty: 8.5 3RF fluticasone propion-salmeterol 250-50 mcg/dose blister with device 1 ea PO BID Qty: 60 5RF finasteride 5 mg tablet 5 mg PO DAILY 90 Days Qty: 90 1RF Incruse Ellipta 62.5 mcg/actuation blister with device 1 inh inhalation DAILY Qty: 30 5RF Mucinex 1,200 mg tablet extended release 12hr 1,200 mg PO BID Qty: 10 0RF ltvyzrzlgzlk-uzfm-ulqwn acid 18-400 mg-mcg tablet 1 tab PO DAILY fluocinolone and shower cap 0.01 % oil topical levothyroxine 112 mcg tablet 112 mcg PO DAILY loratadine 10 mg tablet 10 mg PO DAILY diltiazem HCl 180 mg capsule,extended release 24hr 180 mg PO DAILY aspirin 81 mg tablet,delayed release (DR/EC) 81 mg PO DAILY omeprazole 20 mg capsule,delayed release(DR/EC) 20 mg PO DAILY calcium carbonate-vitamin D3 600 mg(1,500mg) -200 unit tablet 1 tab PO DAILY ketoconazole 2 % shampoo 1 appl topical 2XW CertaVite Senior 0.4-300-250 mg-mcg-mcg tablet 1 tab PO DAILY mirabegron 25 mg tablet extended release 24 hr 25 mg PO DAILY 30 Days Qty: 30 1RF
[2022-10-04 06:37] LABS: Alanine Aminotransferase 25 U/L (0-40); Albumin Level 3.7 g/dL (3.5-5.0); Alkaline Phosphatase 51 U/L (39-117); Anion Gap 13 (12-20); Aspartate Amino Transferase 39 U/L (5-37); Bilirubin Direct 0.1 mg/dL (0.0-0.5); Bilirubin Total 0.4 mg/dL (0.0-1.0); Blood Urea Nitrogen 20 mg/dL (9-16); Calcium 9.1 mg/dL (8.4-10.2); Carbon Dioxide 24 mmol/L (22-29); Chloride 104 mmol/L (96-108); Estimated Glomerular Filt Rate > 60; Glucose Random 102 mg/dL (60-115); Lipase 8 U/L (8-78); Potassium 3.6 mmol/L (3.3-5.1); Sodium 137 mmol/L (135-145); Total Protein 7.2 g/dL (6.5-8.0)
[2022-10-04 08:51] VITALS: BP 154/85; PULSE 75; RESP 18; O2SAT 99
--- NOTE | 2022-10-04 08:56 | PC.NURSE ---
alert and oriented. vss. reports feeling much better, reviewed discharge paperwork with patient who verbalized understanding.
== END 2022-10-04 08:57 | disposition home or self-care (01) ==
PROVIDERS: Emergency Provider Emergency Medicine Emergency Medical Services; PCP Internal Medicine
DX: K52.9 Noninfective gastroenteritis and colitis, unspecified (principal); R11.2 Nausea with vomiting, unspecified; I10 Essential (primary) hypertension; Z79.82 Long term (current) use of aspirin; Z79.899 Other long term (current) drug therapy; Z87.891 Personal history of nicotine dependence
CPT/HCPCS: 36415; 80048; 80076; 83690; 85025; 96360; 99284; 99285

== ENCOUNTER → 2022-11-16 10:40 | Outpatient (BNVA) | payer OTHER, SELFPAY | PROVIDERS: Visit Provider Internal Medicine | DX: Z01.811 Encounter for preprocedural respiratory examination (principal); J44.9 Chronic obstructive pulmonary disease, unspecified; I10 Essential (primary) hypertension; F17.200 Nicotine dependence, unspecified, uncomplicated | CPT/HCPCS: 99212 ==

== ENCOUNTER 2022-12-25 05:59 | Day surgery (SDC) | payer OTHER, SELFPAY ==
[2022-12-20 15:04] VITALS: BMI 28.5
--- NOTE | 2022-12-22 09:26 | P.CONAN_ITS ---
Documented by User: Adamaris Jolley NP 12/22/22 09:27 HPI - Anesthesia Eval Consult details Narrative: 77yo M for ?Laser Ablation Prostate w/Green Light PMFSH Active Problems Active Problems: All Active Problems (Updated 12/20/22 @ 15:09 by Zulma Marina RN) Bladder outlet obstruction (Acute) Nocturia associated with benign prostatic hyperplasia (Acute) Nocturia more than twice per night (Acute) Overactive bladder (Acute) Smoker (Acute) Elevated PSA (Acute) COPD (chronic obstructive pulmonary disease) (Acute) Past Medical History Medical History COPD (chronic obstructive pulmonary disease) Elevated PSA Enlarged prostate HTN (hypertension) Hypothyroid Nocturia Smoker Family History Family history of problems with anesthesia: No Surgical History Surgical History (Updated 12/20/22 @ 15:07 by Zulma Marina RN) H/O colonoscopy History of esophagogastroduodenoscopy (EGD) History of laryngoscopy History of prostate surgery History of Problems with Anesthesia: No Social History Social History Alcohol intake: never Patient Tobacco Use Status: Former Tobacco user Quit Date: 1999 Tobacco use type: Cigarette Cigarette Packs Per Day: 1 Cigarettes Per Day: 20 Years Smoked: 20 Smoked in Last 30 Days: No Use of substances other than those prescribed or required for medical reasons: No Are you DNR?: No Advance Directives: No Advance Directives Information Provided: Yes Meds Allergies Allergy/AdvReac Type Severity Reaction Status Date / Time No Known Allergies Allergy Verified 12/25/22 06:26 Home Medications Medication Instructions Recorded Confirmed Last Taken Type aspirin 81 mg tablet,delayed 81 mg PO DAILY 06/30/20 12/25/22 12/18/22 History release diltiazem HCl 180 mg 180 mg PO DAILY 06/30/20 12/25/22 Unknown History capsule,extended release 24 hr fluocinolone 0.01 % scalp oil and 1 ea topical DAILY 06/30/20 12/25/22 Unknown History shower cap levothyroxine 112 mcg tablet 112 mcg PO DAILY 06/30/20 12/25/22 Unknown History loratadine 10 mg tablet 10 mg PO DAILY 06/30/20 12/25/22 Unknown History omeprazole 20 mg capsule,delayed 20 mg PO DAILY 06/30/20 12/25/22 Unknown History release ketoconazole 2 % shampoo 1 appl topical 2XW 08/06/20 12/25/22 Unknown History calcium carbonate 600 mg-vitamin 1 tab PO DAILY 01/04/21 12/25/22 Unknown History D3 5 mcg (200 unit) tablet mkwoxrav-chk-cwfna acid 0.4 1 tab PO DAILY 01/04/21 12/25/22 Unknown History mg-lycopene 300 mcg-lutein 250 mcg tablet (CertaVite Senior) Exam Exam Date and Time: December 22, 2022925 Height,Weight and Vital Signs: Height 5 ft 3 in Weight 73.028 kg Pertinent Lab Results Pertinent Lab Results: Laboratory Tests 10/04/22 10/04/22 06:12 06:12 WBC 7.6 Hgb 13.1 L Hct 39.3 L Plt Count 278 Sodium 137 Potassium 3.6 Chloride 104 Carbon Dioxide 24 BUN 20 H Creatinine 0.98 Assessment and Plan Assessment Anesthesia Assessment: Chart Reviewed Final Anesthetic Review Family History of Problems with Anesthesia: No History of Problems with Anesthesia: No Documented by User: Charlie Ocasio MD 12/25/22 07:43 [facility] Past Medical History Medical History COPD (chronic obstructive pulmonary disease) Elevated PSA Enlarged prostate HTN (hypertension) Hypothyroid Nocturia Smoker Surgical History Surgical History (Updated 12/20/22 @ 15:07 by Zulma Marina RN) H/O colonoscopy History of esophagogastroduodenoscopy (EGD) History of laryngoscopy History of prostate surgery Social History Social History Alcohol intake: never Patient Tobacco Use Status: Former Tobacco user Quit Date: 1999 Tobacco use type: Cigarette Cigarette Packs Per Day: 1 Cigarettes Per Day: 20 Years Smoked: 20 Smoked in Last 30 Days: No Use of substances other than those prescribed or required for medical reasons: No Are you DNR?: No Advance Directives: No Advance Directives Information Provided: Yes Meds Allergies Allergy/AdvReac Type Severity Reaction Status Date / Time No Known Allergies Allergy Verified 12/25/22 06:26 Home Medications Medication Instructions Recorded Confirmed Last Taken Type aspirin 81 mg tablet,delayed 81 mg PO DAILY 06/30/20 12/25/22 12/18/22 History release diltiazem HCl 180 mg 180 mg PO DAILY 06/30/20 12/25/22 Unknown History capsule,extended release 24 hr fluocinolone 0.01 % scalp oil and 1 ea topical DAILY 06/30/20 12/25/22 Unknown History shower cap levothyroxine 112 mcg tablet 112 mcg PO DAILY 06/30/20 12/25/22 Unknown History loratadine 10 mg tablet 10 mg PO DAILY 06/30/20 12/25/22 Unknown History omeprazole 20 mg capsule,delayed 20 mg PO DAILY 06/30/20 12/25/22 Unknown His tory release ketoconazole 2 % shampoo 1 appl topical 2XW 08/06/20 12/25/22 Unknown History calcium carbonate 600 mg-vitamin 1 tab PO DAILY 01/04/21 12/25/22 Unknown History D3 5 mcg (200 unit) tablet rgtgspzn-uno-krfll acid 0.4 1 tab PO DAILY 01/04/21 12/25/22 Unknown History mg-lycopene 300 mcg-lutein 250 mcg tablet (CertaVite Senior) Exam Airway Mallampati Class: II TM Dist: >3cm Neck ROM: Full Denture: Upper and Lower Heart: ok Lungs: ok Assessment and Plan Assessment Anesthesia Assessment: Anesthesia Plan Discussed Final Anesthetic Review NPO: Yes ASA Class: III Final Preanesthetic Review: No Changes in Pt Med Stat, Meds/Allgs Chart Reviewed, Consent Obtained/Reviewed and Anes Risks/Benef Reviewed Patient Risk: Intermediate Procedure Risk: Low Anesthetic Plan Anesthetic Plan: GA and Agree w/ Assess. and Plan Disposition: Standard PACU
[2022-12-25] VITALS (7 sets, daily range): BP systolic 144–174; BP diastolic 63–94; PULSE 70–84; RESP 16; TEMP 36.1–36.4; O2SAT 95–96; BMI 29.2
[2022-12-25] MEDS: Lactated Ringers 1,000 ML 100 ML IVCONT (06:43)
[2022-12-25] MEDS: Albuterol Sulfate (0.083%) 2.5 MG/3 ML VIAL.NEB INHALE (07:17)
--- NOTE | 2022-12-25 07:43 | MHC.SHP ---
Pre-Procedural Eval Section A Date of Service: 12/25/22 The patient is an INPATIENT: No Changes since office visit: No Cold of Flu in the past 2 weeks, No New Medical Problems, No Changes in Medication and No Patient answered all questions The History & Physical has been completed within 30 days and I have reviewed it.: No Section B Chief Complaint: Bladder-neck obstruction Relevant Family History (Specify if Yes): No Relevant Social History: None Present Medications: see Short Stay Collaborative assessment Medical History: No relevant PMH History of Previous Operations: No relevant previous surgery Allergies: Allergies Allergy/AdvReac Type Severity Reaction Status Date / Time No Known Allergies Allergy Verified 12/25/22 06:26 Review of Systems Sugical H&P ROS: Negative: Constitution, Cardiovascular, Respiratory, Neurological, Psychiatric, Hem-Onc, Allergic/Immunologic, Gastrointestinal, Genitourinary, Musculoskeletal, Integumentary, Endocrine and Eyes/Ears/Nose/Throat Exam Surgical H&P Exam: Normal: HEENT, Normal: Heart, Normal: Lungs, Normal: Extremities, Normal: Abdomen, Normal: Skin and Normal: Neurological Plan Diagnosis/Plan: Unchanged (laser prostatectomy) I have reviewed the history and physical and performed a pertinent physical examination on my patient. No changes have occurred unless specified. Time Spent With Patient Time: Total time managing care of this patient today ____ minutes.
--- NOTE | 2022-12-25 07:45 | PC.NURSE ---
Faint expiratory wheezing present post breathing treatment, SaO2 96%. Dr. Ocasio made aware. No new orders, okay to proceed.
--- NOTE | 2022-12-25 08:25 | P.OP_ITS ---
Operative Note Operative Note Date of Service: 12/25/22 Narrative: PreOperative Diagnosis: Bladder outlet obstruction recurrent Post Operative Diagnosis: Bladder outlet obstruction recurrent Procedure: GreenLight Laser ablation of the prostate Surgeon: Dr Raymundo Jefferson Anesthesia: General Indications for procedure: recurrent Outlet symptomatology. History of bladder outlet obstruction. Treated with alpha-shayla and other medications. Still with symptoms. On cystoscopy in office has tight bladder neck. Recommendation for prostate procedure with laser enucleation of prostate. Risks and benefits have been discussed. Focus was placed on development of retrograde ejaculation which is a normal part of this procedure. Procedure: After informed consent was verified the patient was brought to the operating room and placed in a supine position. Anesthesia was administered per protocol. Patient was placed in modified dorsal lithotomy position and prepped and draped in a sterile fashion. Safety pause time-out was confirmed. Antibiotics have been given. A Twenty-four Tanzanian laser cystoscope was inserted per urethra. No abnormalities were found of the anterior and bulbar urethra. The bladder was examined and both ureteric orifices were seen in their normal positions away from the area of interest. recurrent tissue seen within bilateral aspect of the prostate. Using a GreenLight laser with settings of 80 w incisions were made at the 5 and 7 o'clock position. The incisions were taken down from the bladder neck down to the level of the veru. These were gradually deepened in order to define the lateral aspects of the median lobe area. Once clearly defined they will also extended in the lateral directions in order to create a deep groove. Incision was taken to within 1 cm of each ureteric orifice. There was minimal median lobe tissue. The attention was directed to the lateral lobes. Lateral lobes on each side were carefully revised using 80 watt laser Both ureteric orifices were reviewed again in shown to be patent in away from an y areas of energy damage. The apical area was reviewed in any stray ooze was controlled. A 22 Tanzanian 30 cc balloon Zapien catheter was placed over a stylet into the bladder. Clear efflux was obtained upopn irrigation with a Leah piston syringe. 30 cc was placed in the balloon and gentle traction was placed. A snap was used to hold tension on the catheter to control bleeding during patient moved and transported. A drainage bag was placed. Once transportation is complete to the PACU the snap will be removed. The patient tolerated the procedure well, he was extubated in the operating and transferred in a stable condition to the recovery area. Total Power 30 kW Lasing time 6:21 Pathology: Prostate tissue Drains: Zapien catheter
[2022-12-25] MEDS: Acetaminophen 325 MG TABLET 650 MG PO (09:05)
== END 2022-12-25 09:38 | disposition home or self-care (01) ==
PROVIDERS: PCP Internal Medicine; Visit Provider Urology
PROC: (CPT 52648; principal; 2022-12-25 07:30)
DX: N32.0 Bladder-neck obstruction (principal); N40.1 Benign prostatic hyperplasia with lower urinary tract symptoms; N32.81 Overactive bladder; R35.1 Nocturia; I10 Essential (primary) hypertension; J44.9 Chronic obstructive pulmonary disease, unspecified; Z79.82 Long term (current) use of aspirin; Z79.899 Other long term (current) drug therapy; Z87.891 Personal history of nicotine dependence
CPT/HCPCS: 52648; J1956; J3010

== ENCOUNTER → 2022-12-25 05:59 | Outpatient (BNV) | payer OTHER, SELFPAY | PROVIDERS: PCP Internal Medicine; Visit Provider Urology | DX: N32.0 Bladder-neck obstruction (principal) | CPT/HCPCS: 52649 ==

== ENCOUNTER 2022-12-28 09:47 | Outpatient (AMB) | payer OTHER, SELFPAY ==
--- NOTE | 2022-12-28 10:02 | AM.OFFVISNUR ---
Intake Intake Visit Reasons: Voiding trial (greenlight) Allergies No Known Allergies Allergy (Verified 12/25/22 06:26) Office Procedures Bladder/Catheter Procedure Details: 90 mls sterile water instilled into bladder, pt unable to tolerate total 120 mls due to bladder spasm- 22 fr cath 30 mls balloon removed, pt tolerated removal well. able to urinate into urinal 100 mls pink tinged urine. pvr 0 ml. advised pt increased fluids today, call office by 2 pm if unable or having difficulty urinating. 6 wk post op f/u. 98[address]-[id number] of Bladder Procedure code (CPT) selection complete Post Void Residual Post Residual Void Post Void Residual (PVR): 0 03301-Bjoj Void Residual by ultrasound Coding Diagnoses CPT Codes Bladder/Catheter Procedure - CPT: 76624-Cqaqofsnwx of Bladder ([id number]) Post Residual Void - PVR CPT Code: 15367-Btgs Void Residual by ultrasound ([id number]) Assessment & Plan Assessment & Plan Orders: Orders AMB Bladder/Catheter Procedure Today N32.0 - Bladder-neck obstruction AMB Post Void Residual by ultrasound Today N32.0 - Bladder-neck obstruction
== END 2022-12-28 10:15 | disposition home or self-care (01) ==
PROVIDERS: PCP Internal Medicine; Visit Provider Urology
DX: N32.0 Bladder-neck obstruction (principal)

== ENCOUNTER → 2022-12-28 09:47 | Outpatient (BNVA) | payer OTHER, SELFPAY | PROVIDERS: Visit Provider Urology | DX: N32.0 Bladder-neck obstruction (principal) | CPT/HCPCS: 51700; 51798 ==

== ENCOUNTER 2023-01-26 09:32 | Outpatient (AMB) | payer OTHER, SELFPAY ==
--- NOTE | 2023-01-26 10:12 | A.OFFVIS_ITS ---
Intake Intake Visit Reasons: 6 wk (greenlight) Intake Note: Patient presents for follow up [facility] Medications: finasteride, myrbetriq Blood thinner: aspirin PVR: 0ml's Medical Research Associate Required: Yes Accompanied by: Unknown Allergies No Known Allergies Allergy (Verified 01/26/23 10:20) Medication List - Last Reconciled 01/26/23 by Raymundo Jefferson MD albuterol sulfate 90 mcg/actuation 2 puffs PO Q4-6H PRN aspirin 81 mg PO DAILY calcium carbonate-vitamin D3 600 mg-5 mcg (200 unit) 1 tab PO DAILY diltiazem HCl 180 mg PO DAILY finasteride 5 mg PO DAILY 90 days fluocinolone and shower cap 0.01 % 1 ea topical DAILY fluticasone propion-salmeterol 250-50 mcg/dose 1 ea PO BID guaifenesin ER (Mucinex) 1,200 mg PO BID ketoconazole 2% 1 appl topical 2XW levothyroxine 112 mcg PO DAILY loratadine 10 mg PO DAILY mirabegron ER 25 mg PO DAILY 90 days lnnmwllm-iao-OL-lycopen-lutein 0.4 mg-300 mcg- 250 mcg (CertaVite Senior) 1 tab PO DAILY omeprazole 20 mg PO DAILY ondansetron 4 mg PO Q8H PRN umeclidinium 62.5 mcg/actuation (Incruse Ellipta) 1 inh inhalation DAILY HPI HPI Comments History of Present Illness Details Jamshid is a very pleasant male. He is a patient of Dr Schwartz. He is seen for the following urologic conditions - elevated PSA - lower urinary tract symptoms Six week review PVR 0, improved stream, nocturia 2-3 times per night which is an improvement UA does show micro hematuria and leukocytes Continue with current medications 6 month follow-up Elevated PSA Prior records elevated PSA as high as 6. Prior negative biopsy. Started on finasteride 2020 PSA 09/30 5.6, 04/02 4.3, 02/01 3.9, 09/02 2.2 F, 07/06 1.3 Lower urinary tract symptoms Current medication terazosin 5 mg Current symptoms include nocturia x1, mild weakness of stream Cystoscopy 09/03 right lateral lobe regrowth Intervention - 12/02 GreenLight laser type prostate PFSH Medical History Hypothyroid Smoker Enlarged prostate Nocturia Elevated PSA HTN (hypertension) COPD (chronic obstructive pulmonary disease) Surgical History History of laryngoscopy History of esophagogastroduodenoscopy (EGD) H/O colonoscopy History of prostate surgery Social History Alcohol intake: never Patient Tobacco Use Status: Former Tobacco user Quit Date: 1999 Tobacco use type: Cigarette Cigarette Packs Per Day: 1 Cigarettes Per Day: 20 Years Smoked: 20 Review of Systems Const Denies chills and Denies fever(s) Card Reports no additional complaints and Denies syncope Resp Denies cough GI Denies abdominal pain and Denies heartburn Reports as per HPI and Denies change in libido Neuro Denies syncope Psych Denies change in libido Endo Denies change in libido Physical Exam Const General: cooperative, healthy appearing, comfortable and no acute distress Orientation/consciousness: patient oriented x3 HEENT Face and sinus: Yes normal facial exam Mouth: moist mucous membranes Neck Neck: Yes normal visual inspection, Yes full ROM and Yes trachea midline Chest Chest palpation & inspection: normal inspection of the chest Resp Effort & Inspection: normal respiratory effort, able to speak in complete sentences and no respiratory distress GI Inspection: Yes normal to inspection Back/Spine/Pelvis Cervical Spine: normal cervical lordosis Thoracic/Lumbar Spine: thoracic and lumbar spine normal to inspection Skin General skin exam: no rashes or lesions noted Neuro General: patient oriented x3, gait normal, tone normal and moves all extremities Extrem General: Yes normal to inspection and Yes capillary refill normal Office Procedures Post Void Residual Post Residual Void Post Void Residual (PVR): 0 34331-[id number] Void Residual by ultrasound Results AMB Urinalysis, Automated UA Leukoctes 15 Demond/uL Last Edit by Abdelrahman Forbes on 01/26/23 10:33 UA Nitrite Negative Last Edit by Abdelrahman Forbes on 01/26/23 10:33 UA Urobilinogen 0.2 mg/dL Last Edit by Abdelrahman Forbes on 01/26/23 10:33 UA Protein 30 mg/dL Last Edit by Abdelrahman Forbes on 01/26/23 10:33 UA pH 8.5 Last Edit by Abdelrahman Forbes on 01/26/23 10:33 UA Blood 10 Ata/uL Last Edit by Abdelrahman Forbes on 01/26/23 10:33 UA Specific Bethany 1.010 Last Edit by Abdelrahman Forbes on 01/26/23 10:33 UA Ketone Negative Last Edit by Abdelrahman Forbes on 01/26/23 10:33 UA Bilirubin 0 mg/dL Last Edit by Abdelrahman Forbes on 01/26/23 10:33 UA Glucose 0 mg/dL Last Edit by Abdelrahman Forbes on 01/26/23 10:33 Results Reviewed Results Reviewed: Laboratory Last Values Urine pH (Auto) 8.5 01/26/23 10: Specific Beth[place] (Auto) 1.010 01/26/23 10:23 Urine Protein (Auto) 30 mg/dL 01/26/23 10:23 Glucose (UA)(Auto) 0 mg/dL 01/26/23 10:23 Urine Ketones (Auto) Negative 01/26/23 10:23 Urine Blood (Auto) 10 Ata/uL 01/26/23 10:23 Urine Nitrite (Auto) Negative 01/26/23 10:23 Urine Bilirubin (Auto) 0 mg/dL 01/26/23 10:23 Urine Urobilinogen (Auto) 0.2 mg/dL 01/26/23 10:23 Leukocyte Esterase (Auto) 15 Demond/uL 01/26/23 10:23 Assessment & Plan Assessment & Plan (1) Nocturia more than twice per night: Code(s): R35.1 - Nocturia (2) Overactive bladder: Code(s): N32.81 - Overactive bladder (3) Bladder outlet obstruction: Comment: 01/02 GreenLight laser prostate, repeat procedure 01/03 Code(s): N32.0 - Bladder-neck obstruction Plan Six month follow-up Orders: Orders AMB Urinalysis Automated Today Z13.9 - Encounter for screening, unspecified AMB Post Void Residual by ultrasound Today N40.1 - Benign prostatic hyperplasia with lower urinary tract symptoms, R35.1 - Nocturia Medications: Changed From mirabegron ER 25 mg PO DAILY 30 tabs 1RF 30 days N32.81 - Overactive bladder To mirabegron ER 25 mg PO DAILY 90 tabs 1RF 90 days N32.81 - Overactive bladder Refilled finasteride 5 mg PO DAILY 90 tabs 1RF 90 days N32.81 - Overactive bladder Patient Instructions: Imaging studies, laboratory and physical exam results were discussed and reviewed in detail. No major barriers to patient understanding were identified. An opportunity to ask questions regarding the treatment plan was provided. All questions were answered. The patient expressed understanding and agreement with the above treatment plan. The patient is aware they should contact our office by phone for worsening of their current condition or the appearance of new urologic symptoms. Compliance is encouraged with any medications and followup testing that is ordered. It is a privilege to participate in the urologic care of your patient. If you have any questions or concerns regarding treatment for the above conditions, or other urologic issues, please do not hesitate to contact me. The office tele phone contact is [phone]. This note is constructed using voice recognition software. While every effort has been made to ensure accuracy aluminum hydroxide process operator errors may have been included. Yours sincerely, Dr Raymundo Jefferson MD, [facility] - Urology Providers of Expert, Compassionate Care for the Genitourinary System Coding Level of Care Code Est Pt Level 3 (20238) Diagnoses Nocturia more than twice per night R35.1 Overactive bladder N32.81 Bladder outlet obstruction N32.0 CPT Codes Post Residual Void - PVR CPT Code: 28396-Mmle Void Residual by ultrasound ([id number])
== END 2023-01-26 10:36 | disposition home or self-care (01) ==
PROVIDERS: PCP Internal Medicine; Visit Provider Urology
DX: R35.1 Nocturia (principal); N32.81 Overactive bladder; N32.0 Bladder-neck obstruction; Z13.9 Encounter for screening, unspecified
CPT/HCPCS: 99024

== ENCOUNTER → 2023-01-26 09:32 | Outpatient (BNVA) | payer OTHER, SELFPAY | PROVIDERS: Visit Provider Urology | DX: R35.1 Nocturia (principal); N32.81 Overactive bladder; N32.0 Bladder-neck obstruction | CPT/HCPCS: 51798; 81003; 99212 ==

== ENCOUNTER 2023-04-23 09:05 | Outpatient (AMB) | payer OTHER, SELFPAY ==
--- NOTE | 2023-04-23 09:15 | A.OFFVIS_ITS ---
Intake Vital Signs 04/23/23 09:16 Height 5 ft 3 in Weight 159 lb BMI 28.2 BP 110/60 Blood Pressure Location Lt brachial Position Sitting Pulse 78 Pulse Source Pulse Oximeter Pulse Oximetry (%) 95 Oxygen Delivery Method Room Air Intake Visit Reasons: COPD Intake Note: pt is here for follow up and states he feels good. Consumer Credit Counselor Required: No Allergies No Known Allergies Allergy (Verified 04/23/23 09:32) Medication List - Last Reconciled 04/23/23 by De Ayala MD albuterol sulfate 90 mcg/actuation 2 puffs PO Q4-6H PRN aspirin 81 mg PO DAILY calcium carbonate-vitamin D3 600 mg-5 mcg (200 unit) 1 tab PO DAILY diltiazem HCl 180 mg PO DAILY finasteride 5 mg PO DAILY 90 days fluocinolone and shower cap 0.01 % 1 ea topical DAILY fluticasone propion-salmeterol 250-50 mcg/dose 1 ea PO BID guaifenesin ER (Mucinex) 1,200 mg PO BID ketoconazole 2% 1 appl topical 2XW levothyroxine 112 mcg PO DAILY loratadine 10 mg PO DAILY mirabegron ER 25 mg PO DAILY 90 days vtnduija-qzj-SN-lycopen-lutein 0.4 mg-300 mcg- 250 mcg (CertaVite Senior) 1 tab PO DAILY omeprazole 20 mg PO DAILY ondansetron 4 mg PO Q8H PRN umeclidinium 62.5 mcg/actuation (Incruse Ellipta) 1 inh inhalation DAILY Do you need a note to return to daycare/school/sports/work: No HPI COPD HPI Details Jamshid is a very pleasant 77 years old gentleman. He is here for follow-up after 6 months for his COPD. His chronic obstructive lung disease is staying very stable. He has only occasional cough and some shortness of breath if he climbs stairs or walks outside. Luckily he has had no acute infection or acute exacerbation. [facility] Medical History Hypothyroid Smoker Enlarged prostate Nocturia Elevated PSA HTN (hypertension) COPD (chronic obstructive pulmonary disease) Surgical History History of laryngoscopy History of esophagogastroduodenoscopy (EGD) H/O colonoscopy History of prostate surgery Social History Alcohol intake: never Patient Tobacco Use Status: Former Tobacco user Quit Date: 1999 Tobacco use type: Cigarette Cigarette Packs Per Day: 1 Cigarettes Per Day: 20 Years Smoked: 20 Review of Systems Const All systems reviewed & are unremarkable except as noted in HPI and below Eyes Reports no additional complaints ENT Reports nasal congestion (MILD OFF AND ON ) Card Reports no additional complaints Resp Reports as per HPI GI Reports heartburn (CONTROLLED WITH OMEPRAZOLE) Musc Reports no additional complaints Skin/Breast Reports system reviewed and no additional complaints, except as documented Neuro Reports no additional complaints Psych Reports no additional complaints Physical Exam Vital Signs: Last Vital Signs Pulse 78 04/23/23 09:16 BP 110/60 04/23/23 09:16 Pulse Ox 95 04/23/23 09:16 Oxygen Delivery Method Room Air 04/23/23 09:16 BMI result Body Mass Index 28.2 Const General: healthy appearing, comfortable, no acute distress, alert and awake Orientation/consciousness: patient oriented x3 HEENT Head: Yes normal to inspection General nose exam: No nasal polyps present and No nasal discharge present Face and sinus: Yes sinuses nontender Mouth: oropharynx normal Throat: Yes posterior oropharynx normal Eyes General: appearance normal, both eyes and all related structures Neck Neck: Yes normal visual inspection, Yes no lymphadenopathy, Yes trachea midline and Yes no JVD Thyroid: Thyroid normal Chest Chest palpation & inspection: normal inspection of the chest, normal palpation of entire chest wall and no tenderness Resp Other: Percussion note is resonant. Breath sounds are distant with prolonged expiratory phase but equal on both sides. Lungs are very clear without any wheezes or rhonchi. Cardio Palpation: normal PMI Rate: regular rate Rhythm: regular rhythm Heart sounds: no gallops and no murmurs GI Palpation (GI): Soft to palpation, nontender, No hepatosplenomegaly present and no masses Auscultation: normal bowel sounds Back/Spine/Pelvis Thoracic/Lumbar Spine: thoracic and lumbar spine normal to inspection Skin General skin exam: no rashes or lesions noted Neuro General: patient oriented x3 and no focal motor deficits Cranial nerves: Yes CN's II-XII intact bilaterally Extrem General: Yes normal to inspection, Yes no clubbing, cyanosis or edema and Yes no calf tenderness Psych Appearance: grossly normal and well kempt Speech and movement: Normal speech and movement present Assessment & Plan Assessment & Plan (1) COPD (chronic obstructive pulmonary disease): Comment: Modertaely severe , controlled and stable . Continue using present regimen : Code(s): J44.9 - Chronic obstructive pulmonary disease, unspecified Plan: TX : INCRUSE ELLIPTA 1 INHALATION DAILY. ADVAIR 250-50 1 INHALATION B.I.D.. ALBUTEROL 2 PUFFS Q 4-6 HOURS ONLY P.R.N.. (2) Smoker: Comment: He has past history of smoking, Quit since last year . Code(s): F17.200 - Nicotine dependence, unspecified, uncomplicated Plan: as above Coding Level of Care Code Est Pt Level 3 (64937) Diagnoses COPD (chronic obstructive pulmonary disease) J44.9 Smoker F17.200
[2023-04-23 09:16] VITALS: BP 110/60; PULSE 78; O2SAT 95; BMI 28.2
== END 2023-04-23 09:36 | disposition home or self-care (01) ==
PROVIDERS: PCP Internal Medicine; Visit Provider Internal Medicine
DX: J44.9 Chronic obstructive pulmonary disease, unspecified (principal); F17.200 Nicotine dependence, unspecified, uncomplicated
CPT/HCPCS: 99213

== ENCOUNTER → 2023-04-23 09:05 | Outpatient (BNVA) | payer OTHER, SELFPAY | PROVIDERS: PCP Internal Medicine; Visit Provider Internal Medicine | DX: J44.9 Chronic obstructive pulmonary disease, unspecified (principal); F17.210 Nicotine dependence, cigarettes, uncomplicated | CPT/HCPCS: 99212 ==

== ENCOUNTER 2023-07-25 09:27 | Outpatient (AMB) | payer OTHER, SELFPAY ==
--- NOTE | 2023-07-25 10:22 | A.OFFVIS_ITS ---
Intake Intake Visit Reasons: 6M PVR CONFIRMED Intake Note: Patient presents today for a follow-up on PVR Meds- Finasteride, Mirabegron Allergies to Antibiotic- No Known Allergies Blood Thinner- Aspirin Post Void Residual: 0ml Turnaround Engineer Required: No Accompanied by: neighbor Allergies No Known Allergies Allergy (Verified 07/25/23 10:34) HPI HPI Comments History of Present Illness Details Jamshid is a very pleasant male. He is a patient of Dr Schwartz. He is seen for the following urologic conditions - elevated PSA - lower urinary tract symptoms Six-month follow-up PVR 0, improved stream, nocturia 2-3 times per night which is an improvement Stop tamsulosin Stop Myrbetriq Elevated PSA Prior records elevated PSA as high as 6. Prior negative biopsy. Started on finasteride 2019 PSA 09/30 5.6, 04/02 4.3, 02/01 3.9, 09/02 2.2 F, 07/06 1.3 Lower urinary tract symptoms Current medication terazosin 5 mg Current symptoms include nocturia x1, mild weakness of stream Cystoscopy 09/03 right lateral lobe regrowth Intervention - 12/02 GreenLight laser type prostate PFSH Medical History Hypothyroid Smoker Enlarged prostate Nocturia Elevated PSA HTN (hypertension) COPD (chronic obstructive pulmonary disease) Surgical History History of laryngoscopy History of esophagogastroduodenoscopy (EGD) H/O colonoscopy History of prostate surgery Social History Alcohol intake: never Patient Tobacco Use Status: Former Tobacco user Quit Date: 1999 Tobacco use type: Cigarette Cigarette Packs Per Day: 1 Cigarettes Per Day: 20 Years Smoked: 20 Review of Systems Const Denies chills and Denies fever(s) Card Reports no additional complaints and Denies syncope Resp Denies cough GI Denies abdominal pain and Denies heartburn Reports as per HPI and Denies change in libido Neuro Denies syncope Psych Denies change in libido Endo Denies change in libido Physical Exam Const General: cooperative, healthy appearing, comfortable and no acute distress Orientation/consciousness: patient oriented x3 HEENT Face and sinus: Yes normal facial exam Mouth: moist mucous membranes Neck Neck: Yes normal visual inspection, Yes full ROM and Yes trachea midline Chest Chest palpation & inspection: normal inspection of the chest Resp Effort & Inspection: normal respiratory effort, able to speak in complete sentences and no respiratory distress GI Inspection: Yes normal to inspection Back/Spine/Pelvis Cervical Spine: normal cervical lordosis Thoracic/Lumbar Spine: thoracic and lumbar spine normal to inspection Skin General skin exam: no rashes or lesions noted Neuro General: patient oriented x3, gait normal, tone normal and moves all extremities Extrem General: Yes normal to inspection and Yes capillary refill normal Office Procedures Post Void Residual Post Residual Void Post Void Residual (PVR): 0 48328-Akmi Void Residual by ultrasound Assessment & Plan Assessment & Plan (1) Overactive bladder: Code(s): N32.81 - Overactive bladder (2) Bladder outlet obstruction: Comment: 01/02 GreenLight laser prostate, repeat procedure 01/03 Code(s): N32.0 - Bladder-neck obstruction Plan Six-month follow-up PVR PSA Orders: Orders AMB Post Void Residual by ultrasound 07/25/23 R33.9 - Retention of urine, unspecified Prostate Specific Antigen 6 Months R97.20 - Elevated prostate specific antigen [PSA] Patient Instructions: Imaging studies, laboratory and physical exam results were discussed and reviewed in detail. No major barriers to patient understanding were identified. An opportunity to ask questions regarding the treatment plan was provided. All questions were answered. The patient expressed understanding and agreement with the above treatment plan. The patient is aware they should contact our office by phone for worsening of their current condition or the appearance of new urologic symptoms. Compliance is encouraged with any medications and followup testing that is ordered. It is a privilege to participate in the urologic care of your patient. If you have any questions or concerns regarding treatment for the above conditions, or other urologic issues, please do not hesitate to contact me. The office tel ephone contact is [phone]. This note is constructed using voice recognition software. While every effort has been made to ensure accuracy cap sizer errors may have been included. Yours sincerely, Dr Raymundo Jefferson MD, [facility] - Urology Providers of Expert, Compassionate Care for the Genitourinary System Coding Level of Care Code Est Pt Level 3 (42713) Diagnoses Overactive bladder N32.81 Bladder outlet obstruction N32.0 CPT Codes Post Residual Void - PVR CPT Code: 23479-Nyhe Void Residual by ultrasound ([id number])
== END 2023-07-25 11:20 | disposition home or self-care (01) ==
PROVIDERS: PCP Internal Medicine; Visit Provider Urology
DX: N32.81 Overactive bladder (principal); N32.0 Bladder-neck obstruction
CPT/HCPCS: 99213

== ENCOUNTER → 2023-07-25 09:27 | Outpatient (BNVA) | payer OTHER, SELFPAY | PROVIDERS: PCP Internal Medicine; Visit Provider Urology | DX: N32.81 Overactive bladder (principal); N32.0 Bladder-neck obstruction; R33.9 Retention of urine, unspecified | CPT/HCPCS: 51798; 99212 ==

== ENCOUNTER 2023-07-27 05:53 | Emergency (ER) | payer OTHER, SELFPAY ==
--- NOTE | 2023-07-27 | ECG_ITS ---
Test Reason : CHEST PRESSURE Blood Pressure : / mmHG Vent. Rate : 072 BPM Atrial Rate : 072 BPM P-R Int : 170 ms QRS Dur : 102 ms QT Int : 394 ms P-R-T Axes : 068 -26 054 degrees QTc Int : 431 ms Normal sinus rhythm Normal ECG When compared to the previous EKG of No significant changes seen Referred By: Generic ED Physician Electronically Signed By:DANNA MARRERO MD
--- NOTE | ~2023-07-27 | XR_ITS ---
EXAMINATION: XR CHEST CLINICAL INFORMATION: Chest pain COMPARISON: 04/28/2022 TECHNIQUE: Frontal view of the chest was obtained. FINDINGS: Heart, mediastinum and vascularity within normal limits. No consolidations or effusions. Minor left base atelectasis. Evaluation of the upper mediastinum/lung apices limited by positioning. Left apical pleural thickening and multiple left supraclavicular clips again seen. Bony structures are intact. XR/XR chest 1V IMPRESSION: Minor left base atelectasis. No consolidations or effusions.
[2023-07-27 06:17] VITALS: BP 148/73; PULSE 72; RESP 18; TEMP 36.9; O2SAT 96; BMI 27.6
--- NOTE | 2023-07-27 06:27 | MHC.EDTECH ---
Patient brought into triage area,EKG taken per order and signed by provider,labs drawn and sent to lab,patient brought to ED room 3,changed into hospital attire and placed on the business continuity director. Call gautam in reach and RN aware
[2023-07-27 06:30] LABS: MANUAL DIFF FLAG NO
[2023-07-27 06:39] LABS: Basophils Percent Auto 0.4 % (0-2); Eosinophils Absolute Auto 0.1 X10*3/uL (0.0-0.4); Eosinophils Percent Auto 1.2 % (0-4); Hematocrit 37.6 % (42.0-52.0); Hemoglobin 12.7 g/dl (14.0-18.0); Imm Gran Abs Auto 0.02 X10*3/uL (0.00-0.03); Imm Gran Pct Auto 0.3 % (0.0-0.4); Lymphocytes Absolute Auto 2.1 X10*3/uL (1.2-4.9); Lymphocytes Percent Auto 29.4 % (20-40); Mean Corpuscular HGB Conc 33.8 g/dl (31.0-36.0); Mean Corpuscular Hemoglobin 32.1 pg (27.0-33.0); Mean Corpuscular Volume 94.9 fL (80.0-98.0); Mean Platelet Volume 8.5 fL (9.4-12.4); Monocytes Absolute Auto 0.6 X10*3/uL (0.1-1.2); Monocytes Percent Auto 7.8 % (2-11); Neutrophils Absolute Auto 4.4 x10*3/uL (2.0-8.3); Neutrophils Percent Auto 60.9 % (45-73); Platelet Count 294 X10*3/uL (160-400); Red Blood Count 3.96 X10*6/uL (4.60-5.80); Red Cell Distribution Width 12.5 % (11.0-16.0); White Blood Count 7.3 X10*3/uL (4.8-10.8)
[2023-07-27 06:40] LABS: Alanine Aminotransferase 18 U/L (0-40); Albumin Level 3.7 g/dL (3.5-5.0); Alkaline Phosphatase 69 U/L (39-117); Anion Gap 13 (12-20); Aspartate Amino Transferase 18 U/L (5-37); Bilirubin Total 0.6 mg/dL (0.0-1.0); Blood Urea Nitrogen 14 mg/dL (9-16); Calcium 9.1 mg/dL (8.4-10.2); Carbon Dioxide 24 mmol/L (22-29); Chloride 104 mmol/L (96-108); Creatinine Clr Calc Pharmacy 55.4; Estimated Glomerular Filt Rate > 60; Glucose Random 191 mg/dL (60-115); Potassium 4.2 mmol/L (3.3-5.1); Sodium 137 mmol/L (135-145); Total Protein 7.3 g/dL (6.5-8.0)
[2023-07-27 06:49] LABS: Troponin-I High Sensitivity < 2.7 ng/L (<3.5-35.0)
--- NOTE | 2023-07-27 07:03 | ED.ARRPALP ---
HPI - Arrhythmia/Palpitations General Chief Complaint: Arrhythmia/Palpitations Stated Complaint: chest pain Time Seen by Provider: 07/27/23 06:58 History of Present Illness HPI narrative: Patient is a 77-year-old male with a history of smoking history of hypertension question history of COPD presented today with having chest pain on the left side that is fairly constant. Been ongoing all night. Not associated with any shortness of breath or diaphoresis. No fever no chills. No coughing or congestion or upper respiratory symptoms. No diaphoresis. Patient is from home. No travel history. No leg swelling. Pain does not radiate it stays in the same location somewhat sharp. No risk stratification done in the past. Related Data Home Medications Medication Instructions Recorded Confirmed aspirin 81 mg tablet,delayed 81 mg PO DAILY 06/30/20 01/26/23 release diltiazem HCl 180 mg 180 mg PO DAILY 06/30/20 01/26/23 capsule,extended release 24 hr fluocinolone 0.01 % scalp oil and 1 ea topical DAILY 06/30/20 01/26/23 shower cap levothyroxine 112 mcg tablet 112 mcg PO DAILY 06/30/20 01/26/23 loratadine 10 mg tablet 10 mg PO DAILY 06/30/20 01/26/23 omeprazole 20 mg capsule,delayed 20 mg PO DAILY 06/30/20 01/26/23 release ketoconazole 2 % shampoo 1 appl topical 2XW 08/06/20 01/26/23 calcium carbonate 600 mg-vitamin 1 tab PO DAILY 01/04/21 01/26/23 D3 5 mcg (200 unit) tablet hmqbgham-svo-jvpbf acid 0.4 1 tab PO DAILY 01/04/21 01/26/23 mg-lycopene 300 mcg-lutein 250 mcg tablet (CertaVite Senior) Previous Rx's Medication Instructions Recorded albuterol sulfate 90 mcg/actuation 2 puff PO Q4-6H PRN for wheezing 02/21/22 aerosol inhaler #8.5 grams guaifenesin 1,200 mg tablet, 1,200 mg PO BID #10 tabs 04/28/22 extended release 12 hr (Mucinex) ondansetron 4 mg disintegrating 4 mg PO Q8H PRN nausea and 10/04/22 tablet vomiting #12 tabs mirabegron 25 mg tablet,extended 25 mg PO DAILY 90 days #90 tabs 01/26/23 release 24 hr fluticasone 250 mcg-salmeterol 50 1 ea PO BID #60 ea 02/26/23 mcg/dose blistr powdr for inhalation umeclidinium 62.5 mcg/actuation 1 inh inhalation DAILY #30 ea 03/28/23 blister powder for inhalation (Incruse Ellipta) finasteride 5 mg tablet 5 mg PO DAILY 90 days #90 tabs 07/25/23 Allergies Allergy/AdvReac Type Severity Reaction Status Date / Time No Known Allergies Allergy Verified 07/25/23 10:34 Review of Systems Review of Systems: Positive chest pain Yes all other systems are reviewed and are negative [facility] Past Medical History Medical History Hypothyroid Smoker Enlarged prostate Nocturia Elevated PSA HTN (hypertension) COPD (chronic obstructive pulmonary disease) Surgical History History of laryngoscopy History of esophagogastroduodenoscopy (EGD) H/O colonoscopy History of prostate surgery Social History Social History Alcohol intake: never Patient Tobacco Use Status: Former Tobacco user Quit Date: 1999 Tobacco use type: Cigarette Cigarette Packs Per Day: 1 Cigarettes Per Day: 20 Years Smoked: 20 Advance Directives: No Advance Directives Information Provided: No Physical Exam Vital Signs: Vital Signs: Last Vital Signs Temp 98.4 F 07/27/23 06:17 Pulse 72 07/27/23 06:17 Resp 18 07/27/23 06:17 BP 148/73 H 07/27/23 06:17 Pulse Ox 96 07/27/23 06:17 O2 Del Method Room Air 07/27/23 06:17 BMI result Body Mass Index 27.6 Appearance: Alert. Oriented X3. No acute distress. Eyes: Pupils equal, round and reactive to light. ENT: Pharynx normal. Neck: Normal inspection. Neck supple. No lymph nodes noted. No crepitus CVS: Normal heart rate and rhythm. Pulses normal. Normal S1 and S2 Respiratory: No respiratory distress. Breath sounds normal. No Wheezing. No rales Abdomen: Soft and nontender. No rigidity. No distention. good BS x4 Skin: Skin warm and dry. Normal skin color. Normal skin turgor. Extremities: No lower extremity edema. Neurovascular intact to all extremities. No Lacerations. No Rash Neuro: Oriented X 3. No motor deficit. No sensory deficit. Moving all extermities. No slurred speech Medical Decision Making Medical Decision Making [facility] Narrative: 07:07 My interpretation of Patient's EKG showed a sinus rhythm heart rate is 70 [place] QRS QTC within normal limits is no acute ST segment elevations. No acute distress. Pain atypical for ACS however patient is 77 years old has a long history of smoking. First set of enzymes is negative. Will get a 2nd set of enzymes. Chest x-ray is still pending. Patient's history not consistent with pulmonary emboli. Will still get a D-dimer as patient is more elderly had sharp chest pain. Will continue monitor My interpretation of patient's chest x-ray showed no focal infiltrate. Two sets of cardiac enzymes were done. They were both negative. Patient's D-dimer was 370 but when age adjusted it is negative. Will discharge patient home. Close follow-up on an outpatient basis. Differential Diagnosis Differential Diagnoses: The differential diagnosis associated with the presentation includes Pulmonary emboli, pneumonia, pneumothorax, ACS Admission/Observation Consideration of admission/observation: Escalation of care including admission/observation considered Lab Data [facility] Lab Attestation statement: I reviewed the patient's lab results. 07/27/23 06:19 07/27/23 06:19 Labs: Lab Results 07/27/23 07/27/23 Range/Units 06:19 07:47 WBC 7.3 (4.8-10.8) X10*3/uL RBC 3.96 L (4.60-5.80) X10*6/uL Hgb 12.7 L (14.0-18.0) g/dl Hct 37.6 L (42.0-52.0) % MCV 94.9 (80.0-98.0) fL MCH 32.1 (27.0-33.0) pg MCHC 33.8 (31.0-36.0) g/dl RDW 12.5 (11.0-16.0) % Plt Count 294 (160-400) X10*3/uL MPV 8.5 L (9.4-12.4) fL Immature Gran % (Auto) 0.3 (0.0-0.4) % Neut % (Auto) 60.9 (45-73) % Lymph % (Auto) 29.4 (20-40) % Burt % (Auto) 7.8 (2-11) % Eos % (Auto) 1.2 (0-4) % Baso % (Auto) 0.4 (0-2) % Lymph # (Auto) 2.1 (1.2-4.9) X10*3/uL Burt # (Auto) 0.6 (0.1-1.2) X10*3/uL Eos # (Auto) 0.1 (0.0-0.4) X10*3/uL Baso # (Auto) 0.0 (0.0-0.2) X10*3/uL Abs Immat Gran (auto) 0.02 (0.00-0.03) X10*3/uL Absolute Neuts (auto) 4.4 (2.0-8.3) x10*3/uL Absolute Nucleated RBC 0.000 (0.0-0.012) X10*3/uL Nucleated RBC % (auto) 0.0 (0.0-0.2) /100WBC D-Dimer High Sensitivty 370 NG/ML Sodium 137 (135-145) mmol/L Potassium 4.2 (3.3-5.1) mmol/L Chloride 104 (96-108) mmol/L Carbon Dioxide 24 (22-29) mmol/L Anion Gap 13 (12-20) BUN 14 (9-16) mg/dL Creatinine 1.04 (0.5-1.4) mg/dL Estim Creat Clear Calc 55.4 Estimated GFR > 60 Random Glucose 191 H (60-115) mg/dL Calcium 9.1 (8.4-10.2) mg/dL Total Bilirubin 0.6 (0.0-1.0) mg/dL AST 18 (5-37) U/L ALT 18 (0-40) U/L Alkaline Phosphatase 69 (39-117) U/L Troponin I High Sens < 2.7 < 2.7 (<3.5-35.0) ng/L Total Protein 7.3 (6.5-8.0) g/dL Albumin 3.7 (3.5-5.0) g/dL Independent Interpretation I performed an independent interpretation of an: EKG (Sinus rhythm heart rate is 70 [place] QRS QTC within normal limits is no acute ST segment elevation noted.) and Plain X-Ray (Chest x-ray grossly negative) Radiology Impression Discussion of test interpretation with radiology: I have reviewed the radiologist's reading. Chronic Conditions COPD Discharge Plan Discharge Clinical Impression: Smoker, Chest pain Patient Disposition: Home, Self-Care Instructions: Chest Pain (DC) Prescriptions: No Action albuterol sulfate 90 mcg/actuation HFA aerosol inhaler 2 puff PO Q4-6H PRN (Reason: for wheezing) Qty: 8.5 3RF fluticasone propion-salmeterol 250-50 mcg/dose blister with device 1 ea PO BID Qty: 60 5RF Incruse Ellipta 62.5 mcg/actuation blister with device 1 inh inhalation DAILY Qty: 30 5RF finasteride 5 mg tablet 5 mg PO DAILY 90 Days Qty: 90 1RF Mucinex 1,200 mg tablet extended release 12hr 1,200 mg PO BID Qty: 10 0RF ondansetron 4 mg tablet,disintegrating 4 mg PO Q8H PRN (Reason: nausea and vomiting) Qty: 12 0RF fluocinolone and shower cap 0.01 % oil 1 ea topical DAILY levothyroxine 112 mcg tablet 112 mcg PO DAILY loratadine 10 mg tablet 10 mg PO DAILY diltiazem HCl 180 mg capsule,extended release 24hr 180 mg PO DAILY aspirin 81 mg tablet,delayed release (DR/EC) 81 mg PO DAILY omeprazole 20 mg capsule,delayed release(DR/EC) 20 mg PO DAILY calcium carbonate-vitamin D3 600 mg(1,500mg) -200 unit tablet 1 tab PO DAILY ketoconazole 2 % shampoo 1 appl topical 2XW CertaVite Senior 0.4-300-250 mg-mcg-mcg tablet 1 tab PO DAILY mirabegron 25 mg tablet extended release 24 hr 25 mg PO DAILY 90 Days Qty: 90 1RF Referrals: Osiel Schwartz MD [Primary Care Provider] - 07/30/23
[2023-07-27 08:00] VITALS: BP 152/84; PULSE 71; RESP 16; O2SAT 98
--- NOTE | 2023-07-27 08:00 | PC.NURSE ---
Report taken from Anna LIMON assumed care of pt at 0715. Pt A&Ox3 skin pwd respirations even unlabored. Reports intermittent left sided CP dull in nature, denies accompanying symptoms. VSS. NSR on monitor. Ambulatory to bathroom steady gait. Awaiting results and provider reeval.
[2023-07-27 08:09] LABS: D Dimer High Sensitivity 370 NG/ML
[2023-07-27 08:13] LABS: Troponin-I High Sensitivity < 2.7 ng/L (<3.5-35.0)
[2023-07-27 09:43] VITALS: BP 148/68; PULSE 74; RESP 16; TEMP 36.5; O2SAT 99
== END 2023-07-27 09:45 | disposition home or self-care (01) ==
PROVIDERS: Emergency Provider Emergency Medicine Emergency Medical Services; PCP Internal Medicine
DX: R07.9 Chest pain, unspecified (principal); I10 Essential (primary) hypertension; J44.9 Chronic obstructive pulmonary disease, unspecified; F17.210 Nicotine dependence, cigarettes, uncomplicated
CPT/HCPCS: 36415; 71045; 80053; 84484; 85025; 85379; 93000; 99283; 99284

== ENCOUNTER 2023-10-15 07:06 | Day surgery (SDC) | payer OTHER, SELFPAY ==
[2023-10-11 13:49] VITALS: BMI 28.2
--- NOTE | 2023-10-15 10:20 | HO.ANESPROP2 ---
Documented by User: Adamaris Jolley NP 10/11/23 13:42 HPI - Anesthesia Eval Consult details Narrative: 77yo M for Right Cataract Extraction IOL Insertion No previous cataract on record PMFSH Active Problems Active Problems: All Active Problems Overactive bladder (Acute) Nocturia more than twice per night (Acute) Nocturia associated with benign prostatic hyperplasia (Acute) Bladder outlet obstruction (Acute) Smoker (Acute) Elevated PSA (Acute) COPD (chronic obstructive pulmonary disease) (Acute) Past Medical History Medical History Hypothyroid Smoker Enlarged prostate Nocturia Elevated PSA HTN (hypertension) COPD (chronic obstructive pulmonary disease) Family History Family history of problems with anesthesia: No Surgical History Surgical History History of laryngoscopy History of esophagogastroduodenoscopy (EGD) H/O colonoscopy History of prostate surgery History of Problems with Anesthesia: No Social History Social History Alcohol intake: never Patient Tobacco Use Status: Former Tobacco user Tobacco use type: Cigarette Cigarette Packs Per Day: 1 Cigarettes Per Day: 20 Years Smoked: 20 Use of substances other than those prescribed or required for medical reasons: No Are you DNR?: No Advance Directives: No Advance Directives Information Provided: Yes Meds Allergies Allergy/AdvReac Type Severity Reaction Status Date / Time No Known Allergies Allergy Verified 07/25/23 10:34 Home Medications ?Medication ?Instructions ?Recorded ?Confirmed ?Last Taken ?Type aspirin 81 mg tablet,delayed 81 mg PO DAILY 06/30/20 10/11/23 12/18/22 History release diltiazem HCl 180 mg 180 mg PO DAILY 06/30/20 10/11/23 Unknown History capsule,extended release 24 hr fluocinolone 0.01 % scalp oil and 1 ea topical DAILY 06/30/20 10/11/23 Unknown History shower cap levothyroxine 112 mcg tablet 112 mcg PO DAILY 06/30/20 10/11/23 Unknown History loratadine 10 mg tablet 10 mg PO DAILY 06/30/20 10/11/23 Unknown History omeprazole 20 mg capsule,delayed 20 mg PO DAILY 06/30/20 10/11/23 Unknown History release ketoconazole 2 % shampoo 1 appl topical 2XW 08/06/20 10/11/23 Unknown History calcium carbonate 600 mg-vitamin 1 tab PO DAILY 01/04/21 10/11/23 Unknown History D3 5 mcg (200 unit) tablet wxpmzcck-dbn-kiill acid 0.4 1 tab PO DAILY 01/04/21 10/11/23 Unknown History mg-lycopene 300 mcg-lutein 250 mcg tablet (CertaVite Senior) Assessment and Plan Assessment Anesthesia Assessment: Chart Reviewed Final Anesthetic Review Family History of Problems with Anesthesia: No History of Problems with Anesthesia: No Documented by User: Shea Cadet DO 10/15/23 10:47 PMFSH Past Medical History Medical History Hypothyroid Smoker Enlarged prostate Nocturia Elevated PSA HTN (hypertension) COPD (chronic obstructive pulmonary disease) Family History Family history of problems with anesthesia: No Surgical History Surgical History History of laryngoscopy History of esophagogastroduodenoscopy (EGD) H/O colonoscopy History of prostate surgery History of Problems with Anesthesia: No Social History Social History Alcohol intake: never Patient Tobacco Use Status: Former Tobacco user Tobacco use type: Cigarette Cigarette Packs Per Day: 1 Cigarettes Per Day: 20 Years Smoked: 20 Use of substances other than those prescribed or required for medical reasons: No Are you DNR?: No Advance Directives: No Advance Directives Information Provided: Yes Meds Allergies Allergy/AdvReac Type Severity Reaction Status Date / Time No Known Allergies Allergy Verified 07/25/23 10:34 Home Medications ?Medication ?Instructions ?Recorded ?Confirmed ?Last Taken ?Type aspirin 81 mg tablet,delayed 81 mg PO DAILY 06/30/20 10/11/23 12/18/22 History release diltiazem HCl 180 mg 180 mg PO DAILY 06/30/20 10/11/23 Unknown History capsule,extended release 24 hr fluocinolone 0.01 % scalp oil and 1 ea topical DAILY 06/30/20 10/11/23 Unknown History shower cap levothyroxine 112 mcg tablet 112 mcg PO DAILY 06/30/20 10/11/23 Unknown History loratadine 10 mg tablet 10 mg PO DAILY 06/30/20 10/11/23 Unknown History omeprazole 20 mg capsule,delayed 20 mg PO DAILY 06/30/20 10/11/23 Unknown History release ketoconazole 2 % shampoo 1 appl topical 2XW 08/06/20 10/11/23 Unknown History calcium carbonate 600 mg-vitamin 1 tab PO DAILY 01/04/21 10/11/23 Unknown History D3 5 mcg (200 unit) tablet tuqhfmll-nej-flrtj acid 0.4 1 tab PO DAILY 01/04/21 10/11/23 Unknown History mg-lycopene 300 mcg-lutein 250 mcg tablet (CertaVite Senior) Exam Exam Date and Time: October 15, 2023 1025 Height,Weight and Vital Signs: Height 5 ft 3.39 in Weight 73.028 kg Vital Signs Temperature 98.3 F 10/15/23 10:37 Pulse Rate 69 10/15/23 10:37 Respiratory Rate 16 10/15/23 10:37 Blood Pressure 154/73 H 10/15/23 10:37 Pulse Oximetry 94 10/15/23 10:37 Oxygen Delivery Method Room Air 10/15/23 10:37 Temperature 98.3 F 10/15/23 10:37 Pulse Rate 69 10/15/23 10:37 Respiratory Rate 16 10/15/23 10:37 Blood Pressure 154/73 H 10/15/23 10:37 Pulse Oximetry 94 10/15/23 10:37 Oxygen Delivery Method Room Air 10/15/23 10:37 Airway Mallampati Class: II TM Dist: >3cm Neck ROM: Full Denture: Upper and Lower Heart: S1S2 Lungs: CTAB Assessment and Plan Assessment Anesthesia Assessment: Anesthesia Plan Discussed and Chart Reviewed Final Anesthetic Review Family History of Problems with Anesthesia: No History of Problems with Anesthesia: No NPO: Yes ASA Class: II Final Preanesthetic Review: No Changes in Pt Med Stat, Meds/Allgs Chart Reviewed, Consent Obtained/Reviewed (bilingual interpreter at bedside for translation) and Anes Risks/Benef Reviewed Patient Risk: Low Procedure Risk: Low Anesthetic Plan Anesthetic Plan: MAC: and Agree w/ Assess. and Plan Disposition: Standard PACU
[2023-10-15 10:37] VITALS: BP 154/73; PULSE 69; RESP 16; TEMP 36.8; O2SAT 94
[2023-10-15] MEDS: Tetracaine HCl/PF 0.5% Oph Sol 4 ML DROPS 1 DROP EYE-RIGHT (10:41)
[2023-10-15] MEDS: Cyclopentolate 1 % Ophth Sol 2 ML DRPBTL 1 DROP EYE-RIGHT ×3 (10:42→10:47)
[2023-10-15] MEDS: Lactated Ringers 500 ML 50 ML IV (10:42)
[2023-10-15] MEDS: Ketorolac Tromethamine 0.5% Op 10 ML DROPS 1 DROP EYE-RIGHT ×3 (10:43→10:49)
[2023-10-15] MEDS: Tropicamide 1 % Ophth Sol 3 ML BTL 1 DROP EYE-RIGHT ×3 (10:43→10:48)
[2023-10-15] MEDS: Phenylephrine HCL 2.5% Oph SoL 2 ML BOTTLE 1 DROP EYE-RIGHT ×3 (10:44→10:49)
--- NOTE | 2023-10-15 11:11 | MHC.SHP ---
Pre-Procedural Eval Section A - 24 Hr Update-Section A only Date of Service: 10/15/23 The patient is an INPATIENT: No Changes since office visit: No Cold of Flu in the past 2 weeks, No New Medical Problems, No Changes in Medication and No Patient answered all questions The patient has been examined within 24 hours of the surgical procedure. The History & Physical has been completed within 30 days and I have reviewed it.: Yes Section B - Complete if H&P > 30 days Chief Complaint: Age-related nuclear cataract, right eye Allergies: Allergies Allergy/AdvReac Type Severity Reaction Status Date / Time No Known Allergies Allergy Verified 07/25/23 10:34 Plan Diagnosis/Plan: Unchanged I have reviewed the history and physical and performed a pertinent physical examination on my patient. No changes have occurred unless specified. Time Spent With Patient Time: Total time managing care of this patient today ____ minutes.
--- NOTE | 2023-10-15 11:12 | P.PCNO_ITS ---
Ophthalmology Procedure Procedure Date of Service: 10/15/23 Ophthalmology Viscoelastic: Healon Duet Dual Pack Pro Ophthalmology Lenses: IOL Acrysof MP - [id number] (22.5) Procedure Notes: PREOPERATIVE DIAGNOSIS: Decreased visual acuity right eye secondary to cataract POSTOPERATIVE DIAGNOSIS: Same PROCEDURE: Right cataract extraction with intraocular lens insertion SURGEON: [place] M.D. ANESTHESIA: Topical/MAC ESTIMATED BLOOD LOSS: None COMPLICATIONS: None After obtaining informed consent, the patient was brought to the operating room suite and placed in the supine position. After adequate sedation per anesthesia, topical drops of Tetracaine were given to the right eye. The eye was then prepped and draped in the usual sterile fashion. The operating room microscope was then positioned over the operative eye and a lid speculum placed. A paracentesis was created. Viscoelastic was then instilled into the anterior chamber. A three plane incision was then created temporally, utilizing a 2.85 mm keratome. Capsulotomy forceps were then utilized to create a circular tear capsulotomy. Hydrodissection and hydrodelineation were carried out until adequate mobilization of the nucleus occurred. Phacoemulsification was then utilized to remove the dense central nu cleus followed by removal of the cortical material utilizing the automated aspiration irrigation unit. Viscoelastic was instilled into the posterior capsular bag followed by placement of a posterior chamber intraocular lens without difficulty. The residual Viscoelastic was then removed utilizing the automated IA machine. The wound was checked and found to be watertight. The patient tolerated the procedure well and the lid speculum was removed. Intracameral injection of Vigamox 0.1 mL followed by a subtenon injection of Kenalog-40 0.2 mL were administered. The patient will be seen in the a.m.
[2023-10-15 12:23] VITALS: BP 129/74; PULSE 59; RESP 16; TEMP 36.1; O2SAT 98
== END 2023-10-15 12:26 | disposition home or self-care (01) ==
PROVIDERS: PCP Internal Medicine; Visit Provider Ophthalmology
PROC: (CPT 66985; principal; 2023-10-15 11:20)
DX: H25.11 Age-related nuclear cataract, right eye (principal); I10 Essential (primary) hypertension; J43.9 Emphysema, unspecified; Z79.82 Long term (current) use of aspirin; Z79.899 Other long term (current) drug therapy
CPT/HCPCS: 66984; J2250; J3301; V2630

== ENCOUNTER 2023-10-24 09:27 | Outpatient (AMB) | payer OTHER, SELFPAY ==
[2023-10-24 09:33] VITALS: BP 118/60; PULSE 65; O2SAT 96; BMI 28.0
--- NOTE | 2023-10-24 09:33 | A.OFFVIS_ITS ---
Vital Signs 10/24/23 09:33 Height 5 ft 3 in Weight 158 lb BMI 28.0 BP 118/60 Blood Pressure Location Lt brachial Position Sitting Pulse 65 Pulse Source Pulse Oximeter Pulse Oximetry (%) 96 Oxygen Delivery Method Room Air Intake Visit Reasons: COPD Intake Note: pt is here for follow up and states he is feeling good Parimutuel Ticket Seller Required: No Allergies No Known Allergies Allergy (Verified 10/24/23 09:43) Medication List - Last Reconciled 10/24/23 by De Ayala MD albuterol sulfate 90 mcg/actuation 2 puffs PO Q4-6H PRN aspirin 81 mg PO DAILY calcium carbonate-vitamin D3 600 mg-5 mcg (200 unit) 1 tab PO DAILY diltiazem HCl CD 180 mg PO DAILY finasteride 5 mg PO DAILY 90 days fluocinolone and shower cap 0.01 % 1 ea topical DAILY fluticasone propion-salmeterol 250-50 mcg/dose 1 ea PO BID guaifenesin ER (Mucinex) 1,200 mg PO BID ketoconazole 2% 1 appl topical 2XW levothyroxine 112 mcg PO DAILY loratadine 10 mg PO DAILY bitnlgax-ebo-GA-lycopen-lutein 0.4 mg-300 mcg- 250 mcg (CertaVite Senior) 1 tab PO DAILY omeprazole 20 mg PO DAILY ondansetron 4 mg PO Q8H PRN umeclidinium 62.5 mcg/actuation (Incruse Ellipta) 1 inh PO DAILY Do you need a note to return to daycare/school/sports/work: No HPI HPI COPD: Details: This 77 years old very pleasant gentleman comes for 6 months follow-up for his COPD. He has done very well and remained stable in the last 6 months. He has had no respiratory infection or exacerbation. He continues to use his inhalers regularly and only rarely needs to use the rescue inhaler. FORMERLY [facility] Medical History Hypothyroid Smoker Enlarged prostate Nocturia Elevated PSA HTN (hypertension) COPD (chronic obstructive pulmonary disease) Surgical History History of laryngoscopy History of esophagogastroduodenoscopy (EGD) H/O colonoscopy History of prostate surgery Social History Alcohol intake: never Patient Tobacco Use Status: Former Tobacco user Tobacco use type: Cigarette Cigarette Packs Per Day: 1 Cigarettes Per Day: 20 Years Smoked: 20 Review of Systems Const All systems reviewed & are unremarkable except as noted in HPI and below Eyes Reports no additional complaints ENT Reports nasal congestion (MILD OFF AND ON ) Card Reports no additional complaints Resp Reports as per HPI GI Reports heartburn (CONTROLLED WITH OMEPRAZOLE) Musc Reports no additional complaints Skin/Breast Reports system reviewed and no additional complaints, except as documented Neuro Reports no additional complaints Psych Reports no additional complaints Physical Exam Vital Signs: Last Vital Signs Pulse 65 10/24/23 09:33 BP 118/60 10/24/23 09:33 Pulse Ox 96 10/24/23 09:33 Oxygen Delivery Method Room Air 10/24/23 09:33 BMI result Body Mass Index 28.0 Const General: healthy appearing, comfortable, no acute distress, alert and awake Orientation/consciousness: patient oriented x3 HEENT Head: Yes normal to inspection General nose exam: No nasal polyps present and No nasal discharge present Face and sinus: Yes sinuses nontender Mouth: oropharynx normal Throat: Yes posterior oropharynx normal Eyes General: appearance normal, both eyes and all related structures Neck Neck: Yes normal visual inspection, Yes no lymphadenopathy, Yes trachea midline and Yes no JVD Thyroid: Thyroid normal Chest Chest palpation & inspection: normal inspection of the chest, normal palpation of entire chest wall and no tenderness Resp Other: Percussion note is resonant. Breath sounds are distant with prolonged expiratory phase but equal on both sides. Lungs are very clear without any wheezes or rhonchi. Cardio Palpation: normal PMI Rate: regular rate Rhythm: regular rhythm Heart sounds: no gallops and no murmurs GI Palpation (GI): Soft to palpation, nontender, No hepatosplenomegaly present and no masses Auscultation: normal bowel sounds Back/Spine/Pelvis Thoracic/Lumbar Spine: thoracic and lumbar spine normal to inspection Skin General skin exam: no rashes or lesions noted Neuro General: patient oriented x3 and no focal motor deficits Cranial nerves: Yes CN's II-XII intact bilaterally Extrem General: Yes normal to inspection, Yes no clubbing, cyanosis or edema and Yes no calf tenderness Psych Appearance: grossly normal and well kempt Speech and movement: Normal speech and movement present Assessment & Plan Assessment & Plan (1) Smoker: Comment: He has past history of smoking, Quit since 2020 . Code(s): F17.200 - Nicotine dependence, unspecified, uncomplicated Category: Social Hx Plan: Commended for not smoking . (2) COPD (chronic obstructive pulmonary disease): Comment: Modertaely severe , controlled and stable . Code(s): J44.9 - Chronic obstructive pulmonary disease, unspecified Category: Medical Plan: Continue using present regimen : Wixela 250-51 inhalation b.i.d. Incruse Ellipta 1 inhalation daily Albuterol HFA 2 puffs Q 6 hours only p.r.n. Coding Level of Care Code Est Pt Level 3 (93433) Diagnoses Smoker F17.200 COPD (chronic obstructive pulmonary disease) J44.9
== END 2023-10-24 09:44 | disposition home or self-care (01) ==
PROVIDERS: PCP Internal Medicine; Visit Provider Internal Medicine
DX: F17.200 Nicotine dependence, unspecified, uncomplicated (principal); J44.9 Chronic obstructive pulmonary disease, unspecified
CPT/HCPCS: 99213

== ENCOUNTER → 2023-10-24 09:27 | Outpatient (BNVA) | payer OTHER, SELFPAY | PROVIDERS: PCP Internal Medicine; Visit Provider Internal Medicine | DX: J44.9 Chronic obstructive pulmonary disease, unspecified (principal); F17.210 Nicotine dependence, cigarettes, uncomplicated | CPT/HCPCS: 99212 ==

== ENCOUNTER 2023-10-29 07:24 | Day surgery (SDC) | payer OTHER, SELFPAY ==
[2023-10-24 10:34] VITALS: BMI 28.2
[2023-10-24 16:38] VITALS: BMI 28.2
[2023-10-29] MEDS: Tetracaine HCl/PF 0.5% Oph Sol 4 ML DROPS 1 DROP EYE-LEFT (08:21)
[2023-10-29] MEDS: Tropicamide 1 % Ophth Sol 3 ML BTL 1 DROP EYE-LEFT ×3 (08:22→08:40)
[2023-10-29] MEDS: Cyclopentolate 1 % Ophth Sol 2 ML DRPBTL 1 DROP EYE-LEFT ×3 (08:24→08:38)
[2023-10-29] MEDS: Ketorolac Tromethamine 0.5% Op 10 ML DROPS 1 DROP EYE-LEFT ×3 (08:26→08:42)
[2023-10-29] MEDS: Phenylephrine HCL 2.5% Oph SoL 2 ML BOTTLE 1 DROP EYE-LEFT ×3 (08:28→08:44)
[2023-10-29 08:38] VITALS: BP 166/82; PULSE 59; RESP 16; TEMP 36.3; O2SAT 97
--- NOTE | 2023-10-29 08:51 | P.CONAN_ITS ---
FORM[facility]LY [facility] Active Problems Active Problems: All Active Problems Overactive bladder (Acute) Nocturia more than twice per night (Acute) Nocturia associated with benign prostatic hyperplasia (Acute) Bladder outlet obstruction (Acute) Smoker (Acute) Elevated PSA (Acute) COPD (chronic obstructive pulmonary disease) (Acute) Past Medical History Medical History SYLVIA (obstructive sleep apnea) Cataract Hypothyroid Smoker Enlarged prostate Nocturia Elevated PSA HTN (hypertension) COPD (chronic obstructive pulmonary disease) Family History Family history of problems with anesthesia: No Surgical History Surgical History Hx of right cataract extraction (10/15/23) History of laryngoscopy History of esophagogastroduodenoscopy (EGD) H/O colonoscopy History of prostate surgery History of Problems with Anesthesia: No Social History Social History Household Members: Spouse Housing: Apartment Are you a primary administrator health care facility to a significant other at home: No Do you presently have visiting nurse or other home services: No Alcohol intake: never Patient Tobacco Use Status: Former Tobacco user Tobacco use type: Cigarette Cigarette Packs Per Day: 1 Cigarettes Per Day: 20 Years Smoked: 20 Smoked in Last 30 Days: No Use of substances other than those prescribed or required for medical reasons: No Are you DNR?: No Advance Directives: No Advance Directives Information Provided: Yes Advance Directives on File: No Nutrition Risks: Surgical patient >75years Meds Allergies Allergy/AdvReac Type Severity Reaction Status Date / Time No Known Allergies Allergy Verified 10/24/23 09:43 Active Medications: Current Medications Povidone Iodine (Povidone Iodine 5 % Ophth Soln 30 Ml Bottle) 1 appl EYE-LEFT PREOP PRN PRN Reason: Pre-Op Surgical Implant Prophy Home Medications ?Medication ?Instructions ?Recorded ?Confirmed ?Last Taken ?Type aspirin 81 mg tablet,delayed 81 mg PO DAILY 06/30/20 10/24/23 12/18/22 History release diltiazem HCl 180 mg 180 mg PO DAILY 06/30/20 10/24/23 Unknown History capsule,extended release 24 hr fluocinolone 0.01 % scalp oil and 1 ea topical DAILY 06/30/20 10/24/23 Unknown History shower cap levothyroxine 112 mcg tablet 112 mcg PO DAILY 06/30/20 10/24/23 Unknown History loratadine 10 mg tablet 10 mg PO DAILY 06/30/20 10/24/23 Unknown History omeprazole 20 mg capsule,delayed 20 mg PO DAILY 06/30/20 10/24/23 Unknown History release ketoconazole 2 % shampoo 1 appl topical 2XW 08/06/20 10/24/23 Unknown History calcium carbonate 600 mg-vitamin 1 tab PO DAILY 01/04/21 10/24/23 Unknown History D3 5 mcg (200 unit) tablet mkfwbzvw-rta-ohwiz acid 0.4 1 tab PO DAILY 01/04/21 10/24/23 Unknown History mg-lycopene 300 mcg-lutein 250 mcg tablet (CertaVite Senior) Exam Height,Weight and Vital Signs: Height 5 ft 3.39 in Weight 73.1 kg Last Vital Signs Temp 97.4 F 10/29/23 08:38 Pulse 59 10/29/23 08:38 Resp 16 10/29/23 08:38 BP 166/82 H 10/29/23 08:38 Pulse Ox 97 10/29/23 08:38 O2 Del Method Room Air 10/29/23 08:38 Airway Mallampati Class: II (edentulous) TM Dist: >3cm Neck ROM: Full Denture: Upper and Lower Loose/Missing/Broken Teeth: Yes, Upper and Lower Heart: RRR Lungs: CTA Assessment and Plan Assessment Anesthesia Assessment: Anesthesia Plan Discussed and Chart Reviewed Final Anesthetic Review Family History of Problems with Anesthesia: No History of Problems with Anesthesia: No NPO: Yes ASA Class: III Final Preanesthetic Review: Meds/Allgs Chart Reviewed, Consent Obtained/Reviewed and Anes Risks/Benef Reviewed Patient Risk: Intermediate Procedure Risk: Low Anesthetic Plan Anesthetic Plan: MAC: Disposition: Standard PACU
--- NOTE | 2023-10-29 09:42 | MHC.SHP ---
Pre-Procedural Eval Section A - 24 Hr Update-Section A only Date of Service: 10/29/23 The patient is an INPATIENT: No Changes since office visit: No Cold of Flu in the past 2 weeks, No New Medical Problems, No Changes in Medication and No Patient answered all questions The patient has been examined within 24 hours of the surgical procedure. The History & Physical has been completed within 30 days and I have reviewed it.: Yes Section B - Complete if H&P > 30 days Chief Complaint: Age-related nuclear cataract, left eye Allergies: Allergies Allergy/AdvReac Type Severity Reaction Status Date / Time No Known Allergies Allergy Verified 10/24/23 09:43 Plan Diagnosis/Plan: Unchanged I have reviewed the history and physical and performed a pertinent physical examination on my patient. No changes have occurred unless specified. Time Spent With Patient Time: Total time managing care of this patient today ____ minutes.
--- NOTE | 2023-10-29 09:42 | HO.PNOPHT ---
Ophthalmology Procedure Procedure Date of Service: 10/29/23 Ophthalmology Viscoelastic: Healon Duet Dual Pack Pro Ophthalmology Lenses: IOL Acrysof MP - [id number] (21.5) Procedure Notes: PREOPERATIVE DIAGNOSIS: Decreased visual acuity left eye secondary to cataract POSTOPERATIVE DIAGNOSIS: Same PROCEDURE: Left cataract extraction with intraocular lens insertion SURGEON: [place] M.D. ANESTHESIA: Topical/MAC ESTIMATED BLOOD LOSS: None COMPLICATIONS: None After obtaining informed consent, the patient was brought to the operation room suite and placed in the supine position. After adequate sedation per anesthesia, topical drops of Tetracaine were given to the left eye. The eye was then prepped and draped in the usual sterile fashion. The operating room microscope was then positioned over the operative eye and a lid speculum placed. A paracentesis was created. Viscoelastic was then instilled into the anterior chamber. A three plane incision was then created temporally, utilizing a 2.85 mm keratome. Capsulotomy forceps were then utilized to create a circular tear capsulotomy. Hydrodissection and hydrodelineation were carried out until adequate mobilization of the nucleus occurred. Phacoemulsification was then utilized to remove the dense central nucleus followed by removal of the cortical material utilizing the automated aspiration irrigation unit. Viscoat elastic was instilled into the posterior capsular bag followed by placement of a posterior chamber intraocular lens without difficulty. The residual Viscoat elastic was then removed utilizing the automated IA machine. The wound was check and found to be watertight. The patient tolerated the procedure well and the lid speculum was removed. Intracameral injection of Vigamox 0.1 mL followed by a subtenon injection of Kenalog-40 0.2 mL were administered. The patient will be seen in the a.m.
[2023-10-29 10:23] VITALS: BP 152/80; PULSE 58; RESP 16; TEMP 36.1; O2SAT 98
== END 2023-10-29 10:26 | disposition home or self-care (01) ==
PROVIDERS: PCP Internal Medicine; Visit Provider Ophthalmology
PROC: (CPT 66985; principal; 2023-10-29 09:40)
DX: H25.12 Age-related nuclear cataract, left eye (principal); H52.4 Presbyopia; H18.413 Arcus senilis, bilateral; I10 Essential (primary) hypertension; E03.9 Hypothyroidism, unspecified; J44.9 Chronic obstructive pulmonary disease, unspecified; G47.33 Obstructive sleep apnea (adult) (pediatric); Z79.82 Long term (current) use of aspirin; Z79.51 Long term (current) use of inhaled steroids; Z79.899 Other long term (current) drug therapy; Z87.891 Personal history of nicotine dependence
CPT/HCPCS: 66984; J2250; J3301; V2630

== ENCOUNTER 2023-11-14 08:18 | Outpatient (REF) | payer OTHER, SELFPAY ==
[2023-11-14 13:46] LABS: Cholesterol 175 mg/dL (<200); HDL Cholesterol 50 mg/dL (>40); LDL Cholesterol Calculated 112 mg/dL (<100); Triglycerides 67 mg/dL (<150)
[2023-11-14 14:01] LABS: TSH reflex Free T4 17.97 uIU/mL (0.32-4.0)
[2023-11-14 14:37] LABS: Free T4 (Free Thyroxine) 0.85 ng/dL (0.71-1.85)
== END 2023-11-14 08:19 | disposition home or self-care (01) ==
LOC: HO.HHCL 08:18
PROVIDERS: Visit Provider Internal Medicine
DX: E03.9 Hypothyroidism, unspecified (principal); I10 Essential (primary) hypertension
CPT/HCPCS: 36415; 80061; 84439; 84443

== ENCOUNTER 2024-01-24 13:23 | Outpatient (REF) | payer OTHER, SELFPAY ==
[2024-01-24 15:29] LABS: Prostate Specific Antigen 0.58 ng/mL (<0.05-4.0)
== END 2024-01-24 13:24 | disposition home or self-care (01) ==
LOC: HO.LAB 13:23
PROVIDERS: PCP Internal Medicine; Visit Provider Urology
DX: R97.20 Elevated prostate specific antigen [PSA] (principal); Z12.5 Encounter for screening for malignant neoplasm of prostate
CPT/HCPCS: 36415; 84153

== ENCOUNTER 2024-01-25 09:08 | Outpatient (AMB) | payer OTHER, SELFPAY ==
--- NOTE | 2024-01-25 09:24 | A.OFFVIS_ITS ---
Intake Visit Reasons: 6M Follow Up-PSA/PVR(psa?) Intake Note: Patient presents today for a follow-up on PVR/PSA Meds- Finasteride, Mirabegron Allergies to Antibiotic- No Known Allergies Blood Thinner- Aspirin Post Void Residual: 0ml TODAYS PVR: 0ML'S Hosiery Operator Required: No Accompanied by: neighbor Allergies No Known Allergies Allergy (Verified 01/25/24 09:28) HPI Comments Details: Jamshid is a very pleasant male. He is a patient of Dr Schwartz. He is seen for the following urologic conditions - elevated PSA - lower urinary tract symptoms Six-month follow-up PVR 0, improved stream, nocturia 2-3 times per night which is an improvement Single therapy finasteride Twelve month follow-up PSA and PVR Elevated PSA Prior records elevated PSA as high as 6. Prior negative biopsy. Started on finasteride 2020 Previously on tamsulosin and Myrbetriq PSA 09/30 5.6, 04/02 4.3, 02/01 3.9, 09/02 2.2 F, 07/06 1.3, 01/04 0.6 Lower urinary tract symptoms Current medication terazosin 5 mg Current symptoms include nocturia x1, mild weakness of stream Cystoscopy 09/03 right lateral lobe regrowth Intervention - 12/02 GreenLight laser type prostate PFSH Medical History SYLVIA (obstructive sleep apnea) Cataract Hypothyroid Smoker Enlarged prostate Nocturia Elevated PSA HTN (hypertension) COPD (chronic obstructive pulmonary disease) Surgical History Hx of right cataract extraction (10/15/23) History of laryngoscopy History of esophagogastroduodenoscopy (EGD) H/O colonoscopy History of prostate surgery Social History Household Members: Spouse Housing: Apartment Are you a primary healthcare economics manager to a significant other at home: No Do you presently have visiting nurse or other home services: No 75 years or older and lives alone: No Alcohol intake: never Patient Tobacco Use Status: Former Tobacco user Tobacco use type: Cigarette Cigarette Packs Per Day: 1 Cigarettes Per Day: 20 Years Smoked: 20 Review of Systems Const Denies chills and Denies fever(s) Card Reports no additional complaints and Denies syncope Resp Denies cough GI Denies abdominal pain and Denies heartburn Reports as per HPI and Denies change in libido Neuro Denies syncope Psych Denies change in libido Endo Denies change in libido Physical Exam Const General: cooperative, healthy appearing, comfortable and no acute distress Orientation/consciousness: patient oriented x3 HEENT Face and sinus: Yes normal facial exam Mouth: moist mucous membranes Neck Neck: Yes normal visual inspection, Yes full ROM and Yes trachea midline Chest Chest palpation & inspection: normal inspection of the chest Resp Effort & Inspection: normal respiratory effort, able to speak in complete sentences and no respiratory distress GI Inspection: Yes normal to inspection Back/Spine/Pelvis Cervical Spine: normal cervical lordosis Thoracic/Lumbar Spine: thoracic and lumbar spine normal to inspection Skin General skin exam: no rashes or lesions noted Neuro General: patient oriented x3, gait normal, tone normal and moves all extremities Extrem General: Yes normal to inspection and Yes capillary refill normal Office Procedures Post Void Residual Post Residual Void Post Void Residual (PVR): 0 06461-[id number] Void Residual by ultrasound Results AMB Urinalysis, Automated UA Leukoctes 0 Demond/uL Last Edit by BARBARA Ny on 01/25/24 09:42 UA Nitrite Negative Last Edit by BARBARA Ny on 01/25/24 09:42 UA Urobilinogen 0.2 mg/dL Last Edit by BARBARA Ny on 01/25/24 09:4 2 UA Protein 30 mg/dL Last Edit by BARBARA Ny on 01/25/24 09:42 UA pH 6.0 Last Edit by BARBARA Ny on 01/25/24 09:42 UA Blood 0 Ata/uL Last Edit by BARBARA Ny on 01/25/24 09:42 UA Specific [place] 1.020 Last Edit by BARBARA Ny on 01/25/24 09: 42 UA Ketone Negative Last Edit by BARBARA Ny on 01/25/24 09:42 UA Bilirubin 0 mg/dL Last Edit by BARBARA Ny on 01/25/24 09:42 UA Glucose 0 mg/dL Last Edit by BARBARA Ny on 01/25/24 09:42 Results Reviewed Results Reviewed: Laboratory Last Values Urine pH (Auto) 6.0 01/25/24 09:42 Specific [place] (Auto) 1.020 01/25/24 09:42 Urine Protein (Auto) 30 mg/dL 01/25/24 09:42 Glucose (UA)(Auto) 0 mg/dL 01/25/24 09:42 Urine Ketones (Auto) Negative 01/25/24 09:42 Urine Blood (Auto) 0 Ata/uL 01/25/24 09:42 Urine Nitrite (Auto) Negative 01/25/24 09:42 Urine Bilirubin (Auto) 0 mg/dL 01/25/24 09:42 Urine Urobilinogen (Auto) 0.2 mg/dL 01/25/24 09:42 Leukocyte Esterase (Auto) 0 Demond/uL 01/25/24 09:42 Assessment & Plan Assessment & Plan (1) Overactive bladder: Code(s): N32.81 - Overactive bladder Category: Medical (2) Bladder outlet obstruction: Comment: 01/02 GreenLight laser prostate, repeat procedure 01/03 Code(s): N32.0 - Bladder-neck obstruction Category: Medical Plan 12 month follow-up PSA and PVR Orders: Orders AMB Urinalysis Automated Today Z13.9 - Encounter for screening, unspecified Patient Instructions: Imaging studies, laboratory and physical exam results were discussed and reviewed in detail. No major barriers to patient understanding were identified. An opportunity to ask questions regarding the treatment plan was provided. All questions were answered. The patient expressed understanding and agreement with the above treatment plan. The patient is aware they should contact our office by phone for worsening of their current condition or the appearance of new urologic symptoms. Compliance is encouraged with any medications and followup testing that is ordered. It is a privilege to participate in the urologic care of your patient. If you have any questions or concerns regarding treatment for the above conditions, or other urologic issues, please do not hesitate to contact me. The office telephone contact is [phone]. This note is constructed using voice recognition software. While every effort has been made to ensure accuracy educational resource coordinator errors may have been included. Yours sincerely, Dr Raymundo Jefferson MD, [facility] - Urology Providers of Expert, Compassionate Care for the Genitourinary System Coding Level of Care Code Est Pt Level 3 (90801) Diagnoses Overactive bladder N32.81 Bladder outlet obstruction N32.0 CPT Codes Post Residual Void - PVR CPT Code: 98332-Xgob Void Residual by ultrasound ([id number])
== END 2024-01-25 09:54 | disposition home or self-care (01) ==
PROVIDERS: PCP Internal Medicine; Visit Provider Urology
DX: N32.81 Overactive bladder (principal); N32.0 Bladder-neck obstruction; Z13.9 Encounter for screening, unspecified
CPT/HCPCS: 99213

== ENCOUNTER → 2024-01-25 09:08 | Outpatient (BNVA) | payer OTHER, SELFPAY | PROVIDERS: PCP Internal Medicine; Visit Provider Urology | DX: N32.81 Overactive bladder (principal); N32.0 Bladder-neck obstruction; R35.1 Nocturia; R39.12 Poor urinary stream | CPT/HCPCS: 51798; 81003; 99212 ==

== ENCOUNTER 2024-04-23 09:56 | Outpatient (AMB) | payer OTHER, SELFPAY ==
[2024-04-23 10:26] VITALS: BP 130/58; PULSE 89; O2SAT 94; BMI 28.3
--- NOTE | 2024-04-23 10:26 | A.OFFVIS_ITS ---
Vital Signs 04/23/24 10:26 Height 5 ft 3 in Weight 160 lb BMI 28.3 BP 130/58 L Blood Pressure Location Lt brachial Position Sitting Pulse 89 Pulse Source Pulse Oximeter Pulse Oximetry (%) 94 Oxygen Delivery Method Room Air Intake Visit Reasons: COPD Intake Note: pt is here for follow up and states he is feeling had something a couple of days ago, but better today Marketing Technology Specialist Required: No Allergies No Known Allergies Allergy (Verified 04/23/24 10:38) Medication List - Last Reconciled 04/23/24 by De Ayala MD albuterol sulfate 90 mcg/actuation 2 puffs PO Q4-6H PRN aspirin 81 mg PO DAILY calcium carbonate-vitamin D3 600 mg-5 mcg (200 unit) 1 tab PO DAILY diltiazem HCl CD 180 mg PO DAILY finasteride 5 mg PO DAILY 90 days fluocinolone and shower cap 0.01 % 1 ea topical DAILY fluticasone propion-salmeterol 250-50 mcg/dose 1 ea PO BID guaifenesin ER (Mucinex) 1,200 mg PO BID ketoconazole 2% 1 appl topical 2XW levothyroxine 112 mcg PO DAILY loratadine 10 mg PO DAILY rbrxifhi-zns-TI-lycopen-lutein 0.4 mg-300 mcg- 250 mcg (CertaVite Senior) 1 tab PO DAILY omeprazole 20 mg PO DAILY ondansetron 4 mg PO Q8H PRN umeclidinium 62.5 mcg/actuation (Incruse Ellipta) 1 inh PO DAILY Do you need a note to return to daycare/school/sports/work: No HPI HPI COPD: Details: This 78 years old very pleasant gentleman is here for 6 months follow-up for his COPD. Is pulmonary condition has remained very stable without any acute infection or exacerbation in the last 6 months. He continues to use his inhalers regularly. He can walk around without much difficulty. Has only occasional cough which is nonproductive. He hardly needs to use the albuterol inhaler [facility] Medical History SYLVIA (obstructive sleep apnea) Cataract Hypothyroid Smoker Enlarged prostate Nocturia Elevated PSA HTN (hypertension) COPD (chronic obstructive pulmonary disease) Surgical History Hx of right cataract extraction (10/15/23) History of laryngoscopy History of esophagogastroduodenoscopy (EGD) H/O colonoscopy History of prostate surgery Social History Household Members: Spouse Housing: Apartment Are you a primary childcare attendant to a significant other at home: No Do you presently have visiting nurse or other home services: No 75 years or older and lives alone: No Alcohol intake: never Patient Tobacco Use Status: Former Tobacco user Tobacco use type: Cigarette Cigarette Packs Per Day: 1 Cigarettes Per Day: 20 Years Smoked: 20 Review of Systems Const All systems reviewed & are unremarkable except as noted in HPI and below Eyes Reports no additional complaints ENT Reports nasal congestion (MILD OFF AND ON ) Card Reports no additional complaints Resp Reports as per HPI GI Reports heartburn (CONTROLLED WITH OMEPRAZOLE) Musc Reports no additional complaints Skin/Breast Reports system reviewed and no additional complaints, except as documented Neuro Reports no additional complaints Psych Reports no additional complaints Physical Exam Vital Signs: Last Vital Signs Pulse 89 04/23/24 10:26 BP 130/58 L 04/23/24 10:26 Pulse Ox 94 04/23/24 10:26 Oxygen Delivery Method Room Air 04/23/24 10:26 BMI result Body Mass Index 28.3 Const General: healthy appearing, comfortable, no acute distress, alert and awake Orientation/consciousness: patient oriented x3 HEENT Head: Yes normal to inspection General nose exam: No nasal polyps present and No nasal discharge present Face and sinus: Yes sinuses nontender Mouth: oropharynx normal Throat: Yes posterior oropharynx normal Eyes General: appearance normal, both eyes and all related structures Neck Neck: Yes normal visual inspection, Yes no lymphadenopathy, Yes trachea midline and Yes no JVD Thyroid: Thyroid normal Chest Chest palpation & inspection: normal inspection of the chest, normal palpation of entire chest wall and no tenderness Resp Other: Percussion note is resonant. Breath sounds are distant with prolonged expiratory phase but equal on both sides. Lungs are very clear without any wheezes or rhonchi. Cardio Palpation: normal PMI Rate: regular rate Rhythm: regular rhythm Heart sounds: no gallops and no murmurs GI Palpation (GI): Soft to palpation, nontender, No hepatosplenomegaly present and no masses Auscultation: normal bowel sounds Back/Spine/Pelvis Thoracic/Lumbar Spine: thoracic and lumbar spine normal to inspection Skin General skin exam: no rashes or lesions noted Neuro General: patient oriented x3 and no focal motor deficits Cranial nerves: Yes CN's II-XII intact bilaterally Extrem General: Yes normal to inspection, Yes no clubbing, cyanosis or edema and Yes no calf tenderness Psych Appearance: grossly normal and well kempt Speech and movement: Normal speech and movement present Assessment & Plan Assessment & Plan (1) COPD (chronic obstructive pulmonary disease): Comment: Modertaely severe , controlled and stable . No new change. Code(s): J44.9 - Chronic obstructive pulmonary disease, unspecified Category: Medical Plan: Continue to use Wixela 250-51 inhalation b.i.d.. Incruse Ellipta 1 inhalation daily. Mucinex 1200 mg b.i.d. p.r.n. for mucus (2) Smoker: Comment: He has past history of smoking, Quit since 2020 . Code(s): F17.200 - Nicotine dependence, unspecified, uncomplicated Category: Social Hx Plan: Commended for not smoking Coding Level of Care Code Est Pt Level 3 (33827) Diagnoses COPD (chronic obstructive pulmonary disease) J44.9 Smoker F17.200
== END 2024-04-23 10:39 | disposition home or self-care (01) ==
PROVIDERS: PCP Internal Medicine; Visit Provider Internal Medicine
DX: J44.9 Chronic obstructive pulmonary disease, unspecified (principal); F17.200 Nicotine dependence, unspecified, uncomplicated
CPT/HCPCS: 99213

== ENCOUNTER → 2024-04-23 09:56 | Outpatient (BNVA) | payer OTHER, SELFPAY | PROVIDERS: PCP Internal Medicine; Visit Provider Internal Medicine | DX: J44.9 Chronic obstructive pulmonary disease, unspecified (principal); F17.200 Nicotine dependence, unspecified, uncomplicated | CPT/HCPCS: 99212 ==

== ENCOUNTER 2024-07-14 05:31 | Emergency (ER) | payer OTHER, SELFPAY ==
--- NOTE | ~2024-07-14 | XR_ITS ---
EXAMINATION: XR CHEST CLINICAL INFORMATION: cough COMPARISON: Chest 07/27/2023 TECHNIQUE: 2 views of the chest were obtained. FINDINGS: The lungs are well-expanded and clear acute pneumonic process. There is bilateral apical pleural thickening with left supra clavicular naomy from previous intervention. There is soft tissue density in the left apex has slightly increased since 07/27/2023. XR/XR chest 2V IMPRESSION: Bilateral apical pleural thickening with postsurgical changes in the left supraclavicular fossa. Opacity in the left lung apex has slightly increased since the last chest x-ray 07/27/2023. Consider follow-up CT chest as an outpatient. Rest of the lungs are clear. Electronically signed by: Timur Matos MD 07/14/2024 07:39 AM DEO
[2024-07-14 05:35] VITALS: BP 126/63; PULSE 94; RESP 18; TEMP 36.3; O2SAT 95; BMI 28.3
[2024-07-14 06:23] LABS: Influenza A PCR NEGATIVE (Negative); Influenza B PCR NEGATIVE (Negative); Resp Syncy Virus RNA Qual PCR NEGATIVE (Negative); SARS COV2 PCR INHOUSE NEGATIVE (Negative)
--- OUTSIDE RECORDS SUMMARY | 2024-07-14 06:46 | XMS_ITS | Encounter Summary ---
Author Organization [employer] Address [address] [facility] 7t [place] [address] Care Team Providers Care Medical Record Specialist Name Role Phone Osiel Worley MD Primary Care Provide r Reason for Visit * Reason Comments Med Refill Encounter Details Date Type Department Care Team ([facility] st Contact Info) Description 01/02/2024 Refill [facility] MEDICINE [address] [place], [place] [phone] Osiel Worley MD [address] [place], [place] [phone] Social History Tobacco Use Types Packs/Day Years Used Date Smoking Tobacco: Never Passive Smoke Exposure: Never Smokeless Tobacco: Never Depression Answer Date Recorded Patient Health Questionnaire-9 Score 0 11/13/2023 Patient Health Questionnaire-9 Score 0 11/13/2023 Last PHQ-9: Questionnaire Data Not on file 0 11/13/2023 Housing Stability Answer Date Recorded What is your housing situation today? I have shashi graves 11/02/[address] you li ve. Do you have problems with any of the following? None of the above 11/02/2023 Food Insecurity Answer Date Recorded Within the past 12 months, y ou worried that your food would run out before you got money to buy more: Never True 11/02/2023 Within the past 12 months,th e food you bought just didn't last and you didn't have enough money to get more: Never True Transportation Answer Date Recorded In the past 12 months, has l ack of transportation kept you from medical appts, meetings, work or from getting things needed for daily living? No 11/02/2023 Utilities Answer Date Recorded In the past 12 months, has t he electric, gas, oil or water company threatened to shut off services in your home? No 11/02/2023 Depression Answer Date Recorded Patient Health Questionnaire-2 Score 0 11/13/2023 Sex and Gender Information Value Date Recorded Sex Assigned at Male 03/13/2022 10:14 AM EDT Legal Sex Male 10:14 AM EDT Gender Identity Male 03/13/2022 10:14 AM EDT Sexual Orientation Choose not to disclose 2021 10:14 AM EDT documented as of this encounter Plan of Treatment Upcoming Encounters Date Type Department Care Team (Late st Contact Info) Description 08/26/2024 9:15 AM EDT Office Visit [facility] MEDICINE [address] [place] [phone] Osiel Worley MD [address] [place] [phone] documented as of this encounter Visit Diagnoses Not on filedocumented in this encounter Additional Health Concerns Assessment Noted Time PHQ-9 Depression Total Score: 0 11/13/19 24 2:32 PM EDT documented as of this encounter Care Teams Medical Record Specialist Relationship Specialty Start Date End Date Osiel Worley MD [address] [place] [phone] PCP - General Internal Medicine 12/24/13 documented as of this encounter
--- OUTSIDE RECORDS SUMMARY | 2024-07-14 06:46 | XMS_ITS | Encounter Summary ---
Author Organization [employer] [facility] Address [address] [facility] 7t [place] [address] Care Team Providers Care Recreational Counselor Name Role Phone Osiel Worley MD Primary Care Provide r Encounter Details Date Type Department Care Team (Late st Contact Info) Description 04/30/2023 Telephone [facility] MEDICINE [address] [place] [phone] Osiel Worley MD [address] [place] [phone] Social History Tobacco Use Types Packs/Day Years Used Date Smoking Tobacco: Never Assessed Sex and Gender Information Value Date Recorded [...] Description 08/26/2024 9:15 AM EDT Office Visit [facility] MEDICINE [address] [place] [phone] Osiel Worley MD [address] [place] [address] [phone] documented as of this encounter Visit Diagnoses Not on filedocumented in this encounter Care Teams Recreational Counselor Relationship Specialty Start Date End Date Osiel Worley MD [address] [place] [address] [phone] PCP - General Internal Medicine 12/24/13 documented as of this encounter
--- OUTSIDE RECORDS SUMMARY | 2024-07-14 06:46 | XMS_ITS | Encounter Summary ---
Author Organization [employer] [facility] Address [address] [facility] 7t [place] [address] Care Team Providers Care Office Engineer Name Role Phone Osiel Worley MD Primary Care Provide r Reason for Visit * Reason Comments Med Refill Encounter Details Date Type Department Care Team (Late st Contact Info) Description 09/28/2022 Refill [facility] MEDICINE [address] [place] [address] Saira Petersen ANP [address] [place], [place] [phone] Social History Tobacco Use Types Packs/Day Years [...] Description 08/26/2024 9:15 AM EDT Office Visit [facility] MEDICINE [address] [place] [phone] Osiel Worley MD 230 [place], [place] [phone] documented as of this encounter Visit Diagnoses Not on filedocumented in this encounter Care Teams Office Engineer Relationship Specialty Start Date End Date Osiel Worley MD [address] [place] [address] [phone] PCP - General Internal Medicine 12/24/13 documented as of this encounter
--- OUTSIDE RECORDS SUMMARY | 2024-07-14 06:46 | XMS_ITS | Encounter Summary ---
Author Organization [employer] Address [address] [facility] 7t [place] [address] Care Team Providers Care Hard Tile Setter Name Role Phone Osiel Worley MD Primary Care Provide r Reason for Visit * Reason Onset Date Comments Med Refill 01/03/2023 Encounter Details Date Type Department Care Team ([facility] st Contact Info) Description 01/03/2023 Telephone [facility] MEDICINE [address] [place] [address] Osiel Worley MD [address] [place], [place] [phone] Med Refill Social History Tobacco Use Types Packs/Day Years Used Date Smoking Tobacco: Never Assessed Sex and Gender Information Value Date Recorded Sex Assigned at Male 03/13/2022 10:14 AM EDT Legal Sex Male 10:14 AM EDT Gender Identity Male 03/13/2022 10:14 AM EDT Sexual Orientation Choose not to disclose 2021 10:14 AM EDT documented as of this encounter Miscellaneous Notes * Telephone Encounter - Dodie Schroeder LPN - 01/03/2023 9:01 AM EDT Medication was sent to [facility] on 09/28/22 #[phone] with 1 refill. * Telephone Encounter - Selam Emerson - 01/03/2023 8:58 AM EDT Tc from patient requesting a med refill on medication Calcium Carb- Cholecalciferol 600-5 MG-MCG tablet. PCP Dr. Guerra documented in this encounter Plan of Treatment Upcoming Encounters Date Type Department Care Team (Late st Contact Info) Description 08/26/2024 9:15 AM EDT Office Visit [facility] MEDICINE [address] [place], [place] [phone] Osiel Worley MD [address] [place], [place] [phone] documented as of this encounter Visit Diagnoses Not on filedocumented in this encounter Care Teams Hard Tile Setter Relationship Specialty Start Date End Date Osiel Worley MD [address] [place], [place] [phone] PCP - General Internal Medicine 12/24/13 documented as of this encounter
--- OUTSIDE RECORDS SUMMARY | 2024-07-14 06:46 | XMS_ITS | Encounter Summary ---
Author Organization [employer] Address [address] [facility] 7t [place] [address] Care Team Providers Care Zigzag Stitcher Name Role Phone Osiel Worley MD Primary Care Provide r Encounter Details Date Type Department Care Team (Late st Contact Info) Description 09/28/2022 Orders Only [facility]EDS [address] [place] [address] Dodie Schroeder LPN Social History Tobacco Use Types Packs/Day Years [...] Description 08/26/2024 9:15 AM EDT Office Visit [facility] MEDICINE [address] [place] [address] Osiel Worley MD [address] [place] [address] documented as of this encounter Visit Diagnoses Not on filedocumented in this encounter Care Teams Zigzag Stitcher Relationship Specialty Start Date End Date Osiel Worley MD [address] [place] [phone] PCP - General Internal Medicine 12/24/13 documented as of this encounter
--- OUTSIDE RECORDS SUMMARY | 2024-07-14 06:46 | XMS_ITS | Encounter Summary ---
Author Organization [facility] [facility] Address [address] [facility] 7t [place] [address] Care Team Providers Care Supervisor Special Services Name Role Phone Osiel Worley MD Primary Care Provide r Reason for Visit * Reason Comments Med Refill Encounter Details Date Type Department Care Team (Late st Contact Info) Description 11/02/2022 Refill [facility] MEDICINE [address] [place] [address] Saira Petersen ANP [address] [place], [place] [phone] Social History Tobacco Use Types Packs/Day Years [...] Description 08/26/2024 9:15 AM EDT Office Visit [facility] MEDICINE [address] [place] [phone] Osiel Worley MD [address] [place], [place] [phone] documented as of this encounter Visit Diagnoses Not on filedocumented in this encounter Care Teams Supervisor Special Services Relationship Specialty Start Date End Date Osiel Worley MD [address] [place] [address] [phone] PCP - General Internal Medicine 12/24/13 documented as of this encounter
--- OUTSIDE RECORDS SUMMARY | 2024-07-14 06:46 | XMS_ITS | Encounter Summary ---
Author Organization [employer] Address [address] [facility] 7t [place] [address] Care Team Providers Care Ticket Taker Name Role Phone Osiel Worley MD Primary Care Provide r Reason for Visit * Reason Comments Med Refill Encounter Details Date Type Department Care Team ([facility] st Contact Info) Description 06/29/2024 Refill [facility] MEDICINE [address] [place], [place] [phone] Osiel Worley MD [address] [place], [place] [phone] Social History Tobacco Use Types Packs/Day Years [...] Recorded Patient Health Questionnaire-2 Score 0 11/13/2023 Internet Access Answer Date Recorded Internet Access Q1 No 01/14/2024 Internet Access Q2 I do not want or need it 06/2023 Sex and Gender Information Value Date Recorded [...] Description 08/26/2024 9:15 AM EDT Office Visit [facility] MEDICINE [address] [place] [address] Osiel Worley MD [address] [place] [address] documented as of this encounter Visit Diagnoses Not on filedocumented in this encounter Additional Health Concerns Assessment Noted Time PHQ-9 Depression Total Score: 0 11/13/19 24 2:32 PM EDT documented as of this encounter Care Teams Ticket Taker Relationship Specialty Start Date End Date Osiel Worley MD [address] [place] [phone] PCP - General Internal Medicine 12/24/13 documented as of this encounter
--- OUTSIDE RECORDS SUMMARY | 2024-07-14 06:46 | XMS_ITS | Clinical Summary ---
Author Organization [employer] Address [address] [facility] 7t [place] [address] Care Team Providers Care Architectural Drafting Instructor Name Role Phone Osiel Worley MD Primary Care Provide r Allergies No known active allergies Medications Fluocinolone Acetonide Scalp 0.01 % oil APPLY A THIN LAYER TO SCALP DAMP. MASSAGE WELL AND COVER. LEAVE ON 4 HOURS OR OVERNIGHT, THEN RINSE. USE ON THE NIGHT BEFORE de shampoo 118.28 mL 3 05/18/19 24 Active Fluticasone-Salme terol 250-50 MCG/ACT aerosol powder Inhale 1 puff 2 times daily. 09/11/19 24 Active Umeclidinium Bethany (Incruse Ellipta) 62.5 MCG/ACT aerosol powder Inhale. Active albuterol 108 (90 Base) MCG/ACT inhaler every 4 to 6 hours as needed for for wheezing 02/22/20 22 Active finasteride (Proscar) 5 MG tablet Take 5 mg by mouth Once per day. 07/25/19 24 Active ketoconazole (NIZOral) 2 % shampooIndication s:Seborrheic dermatitis APPLY TOPICALLY TO THE AFFECTED AREA(S) OF THE SCALP 3 TIMES A WEEK, LATHER, LEAVE ON FOR 5 MINUTES, THEN RINSE WITH WATER 120 mL 4 03/13/20 24 Active Multiple Vitamins-Minerals (Cerovite Senior) tablet TAKE 1 TABLET BY MOUTH EVERY DAY 90 tablet 1 04/01/20 24 Active dilTIAZem ER (Tiazac) 180 MG 24 hr capsule TAKE 1 CAPSULE BY MOUTH EVERY DAY 90 capsule 1 05/19/19 25 Active loratadine (Claritin) 10 MG tablet TAKE 1 TABLET BY MOUTH EVERY DAY NEEDED 90 tablet 05/20/19 25 Active omeprazole (PriLOSEC) [address] capsule Take 1 capsule (20 mg) by mouth before breakfast. Do not crush or chew. 90 capsule 05/20/19 25 Active levothyroxine (Synthroid, Levoxyl) 125 MCG tabletIndications :Acquired hypothyroidism TAKE 1 TABLET BY MOUTH EVERY DAY BEFORE BREAKFAST 30 tablet 3 07/01/19 25 Active Calcium Carb-Cholecalcife rol (Calcium + Vitamin D3) 600-5 MG-MCG tablet Take 1 tablet by mouth 2 times daily. 180 tablet 1 07/01/19 25 Active aspirin (Aspirin Low Dose) 81 MG EC tablet TAKE 1 TABLET BY MOUTH EVERY DAY 90 tablet 1 07/01/19 25 Active aspirin (Aspirin Low Dose) 81 MG EC tablet TAKE 1 TABLET BY MOUTH EVERY DAY 90 tablet 1 01/10/20 24 2024 Discontinued(R eorder (will not trigger notification to Pharmacy)) Calcium Carb-Cholecalcife rol (Calcium + Vitamin D3) 600-5 MG-MCG tablet Take 1 tablet by mouth every 12 (twelve) hours. 180 tablet 1 01/10/20 24 2024 Discontinued(R eorder (will not trigger notification to Pharmacy)) levothyroxine (Synthroid, Levoxyl) 125 MCG tabletIndications :Acquired hypothyroidism TAKE 1 TABLET BY MOUTH EVERY DAY BEFORE BREAKFAST 30 tablet 3 03/20/20 24 2024 Discontinued Active Problems Problem Noted Date Diagnosed Date Abnormal CT of the abdomen 11/13/2023 Assessment & Plan (11/13/2023 2:52 PM EDT): Pt with previous c/o abdominal pain that have since then resolved Initial work up included a CT of his abdomen and pelvis on 10/07/2014 that showed: Concerning infiltrative process involving the root of the mesentery with a focal low-density mass lesion extending from the inferior aspect of the duodenum. Leading differential would be lymphoma. Atypical pancreatitis, duodenitis, or sclerosing mesenteritis are also possible etiologies. Pt was initially seen by a surgical radiation oncology nurse at the [facility] in [place], on 11/30/2014 who recommended observation and repeat CT in 6 months. He was then seen by Dr Bales GI specialist who recommended to repeat the CT that was basically unchanged. and on 03/23/2015 he requested a second opinion by an Oncologist (Dr Dias) who saw him last 09/2015 and recommended a watch and wait approach after repeating his CT scan in 07/27/2015 that showed slight worsening lymphadenopathy. She asked him to have a repeat in [address] repeated on 11/22/2015 and showed no changed in previously described changes. He then had another repeat Ct of chest and abdomen 03/17/2016 that again showed No change. She recommended no further f/u or intervention Preventative health care 11/13/2023 Assessment & Plan (11/13/2023 3:02 PM EDT): PSA [address] Jefferson Colonoscopy: Normal : 07/23/2012 Vaccines: Tdap 05/23/2013 Pneumovax 05/13/2013 Zoster: 05/21/2014. Routine physical examination 11/13/2023 Assessment & Plan (11/13/2023 3:02 PM EDT): Within normal limits Essential hypertension 03/25/2015 Assessment & Plan (11/13/2023 2:46 PM EDT): Patient here for a follow up after a very long hiatus BP today controlled, has BP monitor He is on a regimen of: Cardizem CD 180 mg po daily Given adequate blood pressure control will continue with current medical regimen. Most recent electrolytes, Bun and Creatinine done on: 07/27/2023 were wnl. patient advised to adhere to a low sodium diet, encouraged about medication compliance, counseled about weight loss. f/u 4 months Gastroesophageal reflux disease 05/13/2013 Assessment & Plan (11/13/2023 2:53 PM EDT): Doing well EGD, done on 07/23/2012 showed Gastritis, GERD and hiatal hernia. Obstructive sleep apnea syndrome 03/15/2012 Assessment & Plan (11/13/2023 2:51 PM EDT): Pt has mild SYLVIA, sleep study done on 01/05/11. Recommendation was sleep hygiene education and position therapy. Pt doing well Acquired hypothyroidism 01/01/2012 Assessment & Plan (11/13/2023 2:47 PM EDT): Most recent TFTs 06/10/2021 On Synthroid 112 mcg po daily, Pt used to followed by [facility]. Last seen on 11/06/2014. Previous thyroid US done on 09/12/2012 that showed a heterogeneous appearing atrophic thyroid gland with a few 1 to 2 mm hypoechoic nodules in the right lobe. She recommended No further US and PRN f/u and to continue with yearly TFTs with us. Will obtain TFTs today Benign prostatic hyperplasia 01/01/2012 Assessment & Plan (11/13/2023 2:51 PM EDT): Pt here for a f/u Has BPH and Hx of elevated PSA On Terazosin 2 mg po daily, doing well. prostate Biopsy 10/10/2018 Negative for malignancy Pt follows with Urologist Dr. 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 Previously he was on Fosamax (prescribed by Dr Velásquez) given previous c/o dysphagia I asked him to hold his Fosamax until diagnostic work up was completed and to notify his prescribing provider of this. Pt told me since he stopped the Fosamax his dysphagia resolved. So for now will hold off on the use of oral bisphosphonates Pulmonary emphysema 01/01/2012 Assessment & Plan (11/13/2023 2:49 PM EDT): No recent exacerbations doing well He has Severe COPD under the care of campaign marketing specialist. Last seen 10/24/2023 Dr Ryan On Wixela 250-51 inhalation b.i.d. Incruse Ellipta 1 inhalation daily Albuterol HFA 2 puffs Q 6 hours only p.r.n. Insomnia 10/26/2011 Encounters Date Type Department Care Team Description 07/14/2024 Orders Only GENERIC EXTERNAL DATA DEPARTMENT Provider, Generic External Data 06/29/2024 Refill [facility] [address] [place] [address] Osiel Worley MD 06/28/2024 Refill [facility] [address] [place] [address] Osiel Worley MD Acquired hypothyroidism 06/06/2024 Telephone [facility] [address] [place] [address] Osiel Worley MD August Recall 05/20/2024 Refill [facility] [address] [facility] [place] [address] Osiel Worley MD 05/19/2024 Telephone [facility] [address] [place] [address] Osiel Worley MD Med Refill 05/19/2024 Refill [facility] [address] [place] [address] Osiel Worley MD from Last 3 Months Immunizations Name Administration Dates Next Due Influenza High-dose Quadriva lent Preservative Free 02/12/2023,01/26/2022,02/08/2021,03/04 Influenza injectable quadriv alent IIV4 with preservative 02/10/2016,02/04/2015 Influenza injectable quadriv alent preservative free 02/04/2019,03/01/2017 Influenza, High Dose Seasona l, Preservative Free 01/21/2024,01/29/2018 Influenza, IIV3, injectable 02/10/2014 Influenza, Split (incl. muna fied surface antigen) 02/05/2013,01/30/2012 Pneumococcal Conjugate PCV 13 03/25/2015 Pneumococcal Polysaccharide PPSV23 05/13/2013,,08/30/1991 TD (adult), 2 Lf tetanus tox oid, preservative free, adsorbed 11/13/2023,11/08/2007,09/13/1974 Tdap 05/23/2013 Zoster, Recombinant 04/22/2019,02/10/2019 Zoster, live 05/21/2014 Social History Tobacco Use Types Packs/Day Years Used Date Smoking Tobacco: Never Passive Smoke Exposure: Never Smokeless Tobacco: Never Tobacco Cessation:Counseling Given: Not Answered Depression Answer Date Recorded Patient Health Questionnaire-9 [...] not to disclose 2021 10:14 AM EDT Last Filed Vital Signs Vital Sign Reading Time Taken Comments Blood Pressure 138/79 11/13/2023 2:32 PM EDT Pulse 66 11/13/2023 2:32 PM EDT Temperature 36.7 ??C (98.1 ??F) 11/13/2023 2:32 PM ED T Respiratory Rate 20 11/13/2023 2:32 PM EDT Oxygen Saturation 96% 11/13/2023 2:32 PM EDT Inhaled Oxygen Concentration - - Weight 73 kg (161 lb) 11/13/2023 2:32 PM EDT Height 161 cm (5' 3.39 ) 11/13/2023 2:32 PM EDT Body Mass Index 28.17 11/13/2023 2:32 PM EDT Plan of Treatment Upcoming Encounters Date Type Department Care Team (Late st Contact Info) Description 08/26/2024 9:15 AM EDT Office Visit [facility] [address] [place] [address] Osiel Worley MD [address] [place] [address] Health Maintenance Due Date Last Done Comments Alcohol/Substance Use Screening 1957 Hepatitis C Screening 1963 RSV Patients and Patients Aged 60 years or older (1 - 1-dose 75+ series) 11/08/2019 COVID-19 Vaccine ( season) 2024 04/06/2021, 07/22/2020, 06/25/2020 SDOH Screening 11/01/2024 11/02/2023 Depression Screening 11/12/2024 11/13/2023, 11/13/19 24 Tobacco Screening 11/12/2024 11/13/2023 Lipid Panel 11/13/2028 11/14/2023, 01/13, 11/25/2019 DTaP/Tdap/Td Vaccines (3 - Td or Tdap) 11/12/2033 11/13/2023, 05/23/2013, 11/08/2007, Additional history exists Pneumococcal Vaccine: 50+ Years Completed 03/25/2015, 05/13/2013, 03/15/2001, Additional history exists Zoster Vaccines Completed 04/22/2019, 01/14, 05/21/2014 Influenza Vaccine Completed 01/21/2024, , 01/26/2022, Additional history exists HIB Vaccines Aged Out No longer eligi ble based on patient's age to complete this topic HPV Vaccines Aged Out No longer eligi ble based on patient's age to complete this topic Hepatitis A Vaccines Aged Out No long er eligible based on patient's age to complete this topic Hepatitis B Vaccines Aged Out No long er eligible based on patient's age to complete this topic IPV Vaccines Aged Out No longer eligi ble based on patient's age to complete this topic Meningococcal Vaccine Aged Out No guillermina hannah eligible based on patient's age to complete this topic RSV under 20 months Aged Out No longe r eligible based on patient's age to complete this topic Rotavirus Vaccines Aged Out No longer eligible based on patient's age to complete this topic Procedures Procedure Name Priority Date/Time Associated Diagnosis Comments SARS COV2/INFLUENZA A/B AND RSV RNA QL NAAT Routine 07/14/2024 5:41 AM EST LIPID PANEL, STANDARD Routine 11/14/2023 8:23 AM EDT Essential hypertension from Last 3 Months or Most Recently Relevant to Health Maintenance Results * SARS-CoV-2 RNA, Influenza A/B, and RSV RNA, Ql NAAT (07/14/2024 5:41 AM EST) Influenza A PCR NEGATIVE Negative [facility] Influenza B PCR NEGATIVE Negative [facility] Resp Syncy Virus RNA Qual PCR NEGATIVE Negative [facility] SARS COV2 PCR NEGATIVE Negative [facility] Comment:All test results mus t be correlated with clinical findings.Negative results do not preclude SARS-CoV2, influenza Avirus, influenza B virus and/or RSV infectionand should not be used as the sole basis for treatment orother patient management decisions. Negative results must becombined with clinical observations, patient history, andepidemiological information.This test has not been evaluated for monitoring treatment ofinfection.This test has been authorized by the FDA under an EmergencyUse Authorization (EUA) for use by authorized laboratories.Testing performed on the [employer] GeneXpert utilizingreal-time RT-PCR.All SARS CoV2 and positive influenza A/B results arereported to [facility]. 07/14/2024 5:41 AM EST 07/14/2024 5:45 AM EST us Generic External Data Provider LAB MICROBIOLOGY - GENERAL ORDERABLES Final Result [facility] [address] [place] [phone] * (ABNORMAL) Lipid Panel, Standard (11/14/2023 8:23 AM EDT) Triglycerides 67 <150 mg/dL [facility] Comment:Desirable Triglyceri de: less than 150 mg/dLBorderline High Triglyceride 150-199 mg/dLHigh Triglyceride: 200-499 mg/dLVery High Triglyceride: greater than or equal to 5OO mg/dL Cholesterol 175 <200 mg/dL [facility] Comment:Desirable Cholestero l: less than 200 mg/dLBorderline High Cholesterol: 200-239 mg/dLHigh Cholesterol: greater than 239 mg/dL LDL Cholesterol Calculated 112(H) <100 mg/dL [facility] Comment:Desirable LDL: less than 100 mg/dLNear Optimal/Above Optimal LDL: 110- 129 mg/dLBorderline High LDL: 130-159 mg/dLHigh LDL: 160-189 mg/dLVery High LDL: greater than or equal to 190 mg/dL HDL Cholesterol 50 >40 mg/dL [facility] Comment:Desirable HDL: great er than 40 mg/dL Note: This HDL assay may give artificially low results in patients with liver disease. Blood Venous blood specimen / Unknown 11/14/2023 8:23 AM EDT 11/14/2023 1:14 PM EDT us Osiel Conway MD LAB BLOOD ORDERABLES Final Result [facility] [address] [place] [phone] from Last 3 Months or Most Recently Relevant to Health Maintenance Insurance [facility] Care Teams Architectural Drafting Instructor Relationship Specialty Start Date End Date Osiel Worley MD [address] [place] [id number] PCP - General Internal Medicine 12/24/13
--- OUTSIDE RECORDS SUMMARY | 2024-07-14 06:46 | XMS_ITS | Encounter Summary ---
Author Organization [employer] Address [address] [facility] [address] [place] [address] Care Team Providers Care Milk Route Supervisor Name Role Phone Osiel Worley MD Primary Care Provide r Encounter Details Date Type Department Care Team (Late st Contact Info) Description 08/10/2022 Orders Only [facility] [address] [place] [address] Dodie Schroeder LPN Social History Tobacco Use [...] Description 08/26/2024 9:15 AM EDT Office Visit [facility] [address] [place] [address] Osiel Worley MD [address] [place] [address] documented as of this encounter Visit Diagnoses Not on filedocumented in this encounter Care Teams Milk Route Supervisor Relationship Specialty Start Date End Date Osiel Worley MD [address] [place] [address] PCP - General Internal Medicine 12/24/13 documented as of this encounter
--- OUTSIDE RECORDS SUMMARY | 2024-07-14 06:46 | XMS_ITS | Encounter Summary ---
Author Organization [employer] Address [address] [facility] 7t [place] [address] Care Team Providers Care Csw Name Role Phone Osiel Worley MD Primary Care Provide r Reason for Visit * Reason Comments Med Refill Encounter Details Date Type Department Care Team ([facility] st Contact Info) Description 06/28/2024 Refill [facility] [address] [place], [place] [phone] Osiel Worley MD [address] [place], [place] [phone] Acquired hypothyroidism Social History Tobacco Use Types Packs/Day Years [...] 9:15 AM EDT Office Visit [facility] [address] [place] [address] Osiel Worley MD [address] [place] [address] documented as of this encounter Visit Diagnoses Diagnosis Acquired hypothyroidism Unspecified hypothyroidism documented in this encounter Additional Health Concerns Assessment Noted Time PHQ-9 Depression Total Score: 0 11/13/19 24 2:32 PM EDT documented as of this encounter Care Teams Csw Relationship Specialty Start Date End Date Osiel Worley MD [address] [place] [id number] PCP - General Internal Medicine 12/24/13 documented as of this encounter
--- OUTSIDE RECORDS SUMMARY | 2024-07-14 06:46 | XMS_ITS | Encounter Summary ---
Author Organization [employer] Address [address] [facility] 7[address] [place] [address] Care Team Providers Care Geothermal Operations Engineer Name Role Phone Osiel Worley MD Primary Care Provide r Encounter Details Date Type Department Care Team (Late st Contact Info) Description 01/22/2023 Orders Only [facility] [address] [place] [address] Dodie Schroeder LPN Social History Tobacco Use [...] 9:15 AM EDT Office Visit [facility] [address] [place] [address] Osiel Worley MD [address] [place] [address] documented as of this encounter Visit Diagnoses Not on filedocumented in this encounter Care Teams Geothermal Operations Engineer Relationship Specialty Start Date End Date Osiel oWrley MD [address] [place] [address] PCP - General Internal Medicine 12/24/13 documented as of this encounter
--- OUTSIDE RECORDS SUMMARY | 2024-07-14 06:46 | XMS_ITS | Encounter Summary ---
Author Organization [employer] Address [address] [facility] [address] [place] [address] Care Team Providers Care Lace Weaver Name Role Phone Osiel Worley MD Primary Care Provide r Encounter Details Date Type Department Care Team (Late st Contact Info) Description 06/19/2022 Orders Only [facility] [address] [place] [address] Dodie Schroeder LPN Social History Tobacco Use [...] Description 08/26/2024 9:15 AM EDT Office Visit [facility] [address] [place] [address] Osiel Worley MD [address] [place] [address] documented as of this encounter Visit Diagnoses Not on filedocumented in this encounter Care Teams Lace Weaver Relationship Specialty Start Date End Date Osiel Worley MD [address] [place] [address] PCP - General Internal Medicine 12/24/13 documented as of this encounter
--- OUTSIDE RECORDS SUMMARY | 2024-07-14 06:46 | XMS_ITS | Encounter Summary ---
Author Organization [employer] Address [address] [facility] 7t [place] [address] Care Team Providers Care Heel Scourer Name Role Phone Osiel Worley MD Primary Care Provide r Encounter Details Date Type Department Care Team ([facility] st Contact Info) Description 12/31/2023 Telephone [facility] [address] [place], [place] [phone] Osiel Worley MD [address] [place] [address] Social History Tobacco Use Types Packs/Day Years [...] encounter Miscellaneous Notes * Telephone Encounter - Samara Dobbins - 12/31/2023 8:34 AM EDT documented in this encounter Plan of Treatment Upcoming Encounters Date Type Department Care Team (Late st Contact Info) Description 08/26/2024 9:15 AM EDT Office Visit [facility] [address] [place] [address] Osiel Worley MD [address] [place] [address] documented as of this encounter Visit Diagnoses Not on filedocumented in this encounter Additional Health Concerns Assessment Noted Time PHQ-9 Depression Total Score: 0 11/13/19 24 2:32 PM EDT documented as of this encounter Care Teams Heel Scourer Relationship Specialty Start Date End Date Osiel Worley MD [address] [place] [address] PCP - General Internal Medicine 12/24/13 documented as of this encounter
--- OUTSIDE RECORDS SUMMARY | 2024-07-14 06:46 | XMS_ITS | Encounter Summary ---
Author Organization [employer] Address [address] [facility] [address] [place] [address] Care Team Providers Care Maintenance Engineer Name Role Phone Osiel Worley MD Primary Care Provide r Reason for Visit * Reason Onset Date Comments Med Refill 05/19/2024 Encounter Details Date Type Department Care Team ([facility] st Contact Info) Description 05/19/2024 Telephone [facility] [address] [place], [place] [phone] Osiel Worley MD [address] [place], [place] [phone] Med Refill Social History Tobacco Use Types [...] Telephone Encounter - Dodie Schroeder LPN - 05/19/2024 8:57 AM EST Medication is prescribed by Raymundo Jefferson. * Telephone Encounter - Diego Sims - 05/19/2024 8:17 AM EST TC from pt requesting medication refill. Medications needing refill : finasteride (Proscar) 5 MG tablet To be sent to: [facility] - [place], [place] - [address] [facility] documented in this encounter Plan of Treatment Upcoming Encounters Date Type Department Care Team (Late st Contact Info) Description 08/26/2024 9:15 AM EDT Office Visit [facility] [address] [place] [address] Osiel Worley MD [address] [place] [address] documented as of this encounter Visit Diagnoses Not on filedocumented in this encounter Additional Health Concerns Assessment Noted Time PHQ-9 Depression Total Score: 0 11/13/19 24 2:32 PM EDT documented as of this encounter Care Teams Maintenance Engineer Relationship Specialty Start Date End Date Osiel Worley MD [address] [place] [address] PCP - General Internal Medicine 12/24/13 documented as of this encounter
--- OUTSIDE RECORDS SUMMARY | 2024-07-14 06:46 | XMS_ITS | Encounter Summary ---
Author Organization [facility] Address [address] [facility] [address]t [place] [address] Care Team Providers Care Invasive Manager Name Role Phone Osiel Worley MD Primary Care Provide r Reason for Visit * Reason Comments Med Refill Encounter Details Date Type Department Care Team (Late st Contact Info) Description 01/29/2023 Refill [facility] [address] [place] [address] Osiel Worley MD [address] [place] [address] [phone] Social History Tobacco Use Types Packs/Day Years [...] 08/26/2024 9:15 AM EDT Office Visit [facility] [address] [place] [address] Osiel Worley MD [address] [place], [place] [phone] documented as of this encounter Visit Diagnoses Not on filedocumented in this encounter Care Teams Invasive Manager Relationship Specialty Start Date End Date Osiel Worley MD [address] [place] [phone] PCP - General Internal Medicine 12/24/13 documented as of this encounter
--- OUTSIDE RECORDS SUMMARY | 2024-07-14 06:46 | XMS_ITS | Encounter Summary ---
Author Organization [employer] [facility] Address [address] [facility] [address] [place] [address] Care Team Providers Care Home Economist Name Role Phone Osiel Worley MD Primary Care Provide r Encounter Details Date Type Department Care Team (Late st Contact Info) Description 10/19/2022 Orders Only [facility] [address] [place] [phone] Basilia Johnson LPN Social History Tobacco Use Types Packs/Day [...] Description 08/26/2024 9:15 AM EDT Office Visit [facility] [address] [place] [phone] Osiel Worley MD [address] [place] [phone] documented as of this encounter Visit Diagnoses Not on filedocumented in this encounter Care Teams Home Economist Relationship Specialty Start Date End Date Osiel Worley MD [address] [place] [phone] PCP - General Internal Medicine 12/24/13 documented as of this encounter
--- OUTSIDE RECORDS SUMMARY | 2024-07-14 06:46 | XMS_ITS | Encounter Summary ---
Author Organization [employer] [facility] Address [address] [facility] 7t [place] [address] Care Team Providers Care Government Auditor Name Role Phone Osiel Worley MD Primary Care Provide r Encounter Details Date Type Department Care Team (Late st Contact Info) Description 10/09/2023 Telephone [facility] [address] [place] [address] [phone] Osiel Worley MD [address] [place] [address] [phone] Social History Tobacco Use Types Packs/Day Years [...] Office Visit [facility] [address] [place] [address] [phone] Osiel Worley MD [address] [place] [address] [phone] documented as of this encounter Visit Diagnoses Not on filedocumented in this encounter Care Teams Government Auditor Relationship Specialty Start Date End Date Osiel Worley MD [address] [place] [address] [phone] PCP - General Internal Medicine 12/24/13 documented as of this encounter
--- OUTSIDE RECORDS SUMMARY | 2024-07-14 06:46 | XMS_ITS | Encounter Summary ---
Author Organization [employer] Address [address] [facility] 7t [place] [address] Care Team Providers Care Imaging Scheduler Name Role Phone Osiel Worley MD Primary Care Provide r Reason for Visit * Reason Comments Med Refill Encounter Details Date Type Department Care Team ([facility] st Contact Info) Description 01/10/2024 Refill [facility] [address] [place], [place] [phone] Rosita Ferrari MD [address] [place], [place] [phone] Social History Tobacco Use Types Packs/Day Years [...] Description 08/26/2024 9:15 AM EDT Office Visit [facility] [address] [place] [phone] Osiel Worley MD [address] [place] [phone] documented as of this encounter Visit Diagnoses Not on filedocumented in this encounter Additional Health Concerns Assessment Noted Time PHQ-9 Depression Total Score: 0 11/13/19 24 2:32 PM EDT documented as of this encounter Care Teams Imaging Scheduler Relationship Specialty Start Date End Date Osiel Worley MD [address] [place] [phone] PCP - General Internal Medicine 12/24/13 documented as of this encounter
--- OUTSIDE RECORDS SUMMARY | 2024-07-14 06:46 | XMS_ITS | Encounter Summary ---
Author Organization [employer] [facility] Address [address] [facility] 7t [place] [address] Care Team Providers Care Health Diagnostics Teacher Name Role Phone Osiel Worley MD Primary Care Provide r Reason for Visit * Reason Onset Date Comments Med Refill 06/18/2023 Encounter Details Date Type Department Care Team (Late st Contact Info) Description 06/18/2023 Telephone [facility] [address] [place] [phone] Osiel Worley MD [address] [place] [address] [phone] Med Refill Social History Tobacco Use Types [...] Visit [facility] [address] [place] [address] [phone] Osiel Worley MD [address] [place] [address] [phone] documented as of this encounter Visit Diagnoses Not on filedocumented in this encounter Care Teams Health Diagnostics Teacher Relationship Specialty Start Date End Date Osiel Worley MD [address] [place] [phone] PCP - General Internal Medicine 12/24/13 documented as of this encounter
--- OUTSIDE RECORDS SUMMARY | 2024-07-14 06:46 | XMS_ITS | Encounter Summary ---
Author Organization [employer] Address [address] [facility] 7t [place] [address] Care Team Providers Care Slabbing Machine Operator Name Role Phone Osiel Worley MD Primary Care Provide r Encounter Details Date Type Department Care Team (Late st Contact Info) Description 11/02/2022 Orders Only [facility] [address] [place] [address] Dodie Schroeder LPN Social History Tobacco Use [...] Description 08/26/2024 9:15 AM EDT Office Visit [facility] [address] [place] [address] Osiel Worley MD [address] [place] [phone] documented as of this encounter Visit Diagnoses Not on filedocumented in this encounter Care Teams Slabbing Machine Operator Relationship Specialty Start Date End Date Osiel Worley MD [address] [place] [phone] PCP - General Internal Medicine 12/24/13 documented as of this encounter
--- OUTSIDE RECORDS SUMMARY | 2024-07-14 06:46 | XMS_ITS | Encounter Summary ---
Author Organization [employer] Address [address] [facility] 7t [place] [address] Care Team Providers Care Senior Java Developer Name Role Phone Osiel Worley MD Primary Care Provide r Encounter Details Date Type Department Care Team (Late st Contact Info) Description 07/14/2024 Orders Only GENERIC EXTERNAL DATA DEPARTMENT Provider, Generic External Data Social History Tobacco Use Types Packs/Day Years [...] Description 08/26/2024 9:15 AM EDT Office Visit [facility] [address] [place] [address] Osiel Worley MD [address] [place] [phone] documented as of this encounter Procedures Procedure Name Priority Date/Time Associated Diagnosis Comments SARS COV2/INFLUENZA A/B AND RSV RNA QL NAAT Routine 07/14/2024 5:41 AM EST documented in this encounter Results * SARS-CoV-2 RNA, Influenza A/B, and RSV RNA, Ql NAAT (07/14/2024 5:41 AM EST) Influenza A PCR NEGATIVE Negative [facility] Influenza B PCR NEGATIVE Negative [facility] Resp Syncy Virus RNA Qual PCR NEGATIVE Negative [facility] SARS COV2 PCR NEGATIVE Negative [facility] Comment:All test results mus t [...] use by authorized laboratories.Testing performed on the [employer] GeneXpert utilizingreal-time RT-PCR.All SARS CoV2 and positive influenza A/B results arereported to [facility]. 07/14/2024 5:41 AM EST 07/14/2024 5:45 AM EST us Generic External Data Provider LAB MICROBIOLOGY - GENERAL ORDERABLES Final Result [facility] [address] [place] [phone] documented in this encounter Visit Diagnoses Not on filedocumented in this encounter Additional Health Concerns Assessment Noted Time PHQ-9 Depression Total Score: 0 11/13/19 24 2:32 PM EDT documented as of this encounter Care Teams Senior Java Developer Relationship Specialty Start Date End Date Osiel Worley MD [address] [place] [phone] PCP - General Internal Medicine 12/24/13 documented as of this encounter
--- NOTE | 2024-07-14 06:51 | ED.URI ---
HPI - URI/Sore Throat General Chief Complaint: Upper Respiratory Symptoms Stated Complaint: congestion 3 days Time Seen by Provider: 07/14/24 06:47 Source: patient, RN notes reviewed and old records reviewed Mode of arrival: ambulatory Limitations: no limitations History of Present Illness ED Provider: MILLA GOLDBERG PA-C HPI Narrative: 78-year-old male with pmhx significant for SYLVIA, COPD, HTN presents to the ED today for evaluation of productive cough, nasal congestion and sore throat x4 days. Reports family members at home are ill with similar symptoms. He has been taking Tylenol at home and using OTC sore throat spray. Denies fever, chills, chest pain, sob, wheezing, LE pain/swelling, N/V/D. No recent travel/ long car rides. Related Data Home Medications ?Medication ?Instructions ?Recorded ?Confirmed aspirin 81 mg tablet,delayed 81 mg PO DAILY 06/30/20 04/23/24 release diltiazem HCl 180 mg 180 mg PO DAILY 06/30/20 04/23/24 capsule,extended release 24 hr fluocinolone 0.01 % scalp oil and 1 ea topical DAILY 06/30/20 04/23/24 shower cap levothyroxine 112 mcg tablet 112 mcg PO DAILY 06/30/20 04/23/24 loratadine 10 mg tablet 10 mg PO DAILY 06/30/20 04/23/24 omeprazole 20 mg capsule,delayed 20 mg PO DAILY 06/30/20 04/23/24 release ketoconazole 2 % shampoo 1 appl topical 2XW 08/06/20 04/23/24 calcium 600 mg (as 1 tab PO DAILY 01/04/21 04/23/24 carbonate)-vitamin D3 5 mcg (200 unit) tablet haxhwppd-mkr-ijfbk acid 0.4 1 tab PO DAILY 01/04/21 04/23/24 mg-lycopene 300 mcg-lutein 250 mcg tablet (CertaVite Senior) Previous Rx's ?Medication ?Instructions ?Recorded albuterol sulfate 90 mcg/actuation 2 puff PO Q4-6H PRN for wheezing 02/21/22 aerosol inhaler #8.5 grams guaifenesin 1,200 mg tablet, 1,200 mg PO BID #10 tabs 04/28/22 extended release 12 hr (Mucinex) ondansetron 4 mg disintegrating 4 mg PO Q8H PRN nausea and 10/04/22 tablet vomiting #12 tabs umeclidinium 62.5 mcg/actuation 1 inh PO DAILY #30 ea 02/20/24 blister powder for inhalation (Incruse Ellipta) finasteride 5 mg tablet 5 mg PO DAILY 90 days #90 tabs 05/16/24 fluticasone 250 mcg-salmeterol 50 1 ea PO BID #60 ea 07/01/24 mcg/dose blistr powdr for inhalation benzonatate 100 mg capsule 100 mg PO BID PRN cough #20 caps 07/14/24 cefuroxime axetil 500 mg tablet 500 mg PO BID 7 days #14 tabs 07/14/24 doxycycline monohydrate 100 mg 100 mg PO BID 7 days #14 tabs 07/14/24 tablet prednisone 20 mg tablet 40 mg (2 x 20 mg) PO DAILY 4 days 07/14/24 #8 tabs Allergies Allergy/AdvReac Type Severity Reaction Status Date / Time No Known Allergies Allergy Verified 07/14/24 05:36 Review of Systems Review of Systems: Constitutional: No fever, chills, fatigue, night sweats, weight changes ENT/Mouth: No ear pain, hearing loss, +nasal congestion, No sinus pain, rhinorrhea, +sore throat Eyes: No eye pain, swelling, redness, vision changes, discharge Cardio: No chest pain, palpitations, [place], orthopnea, peripheral edema Pulm: No SOB, wheezing, dyspnea, hemoptysis, +productive cough GI: No nausea, vomiting, hematemesis, abdominal pain, diarrhea, constipation, hematochezia, melena : No irregular bleeding, dysuria, frequency, urgency, hesitancy, hematuria, flank pain, urinary flow changes, urinary incontinence or retention MSK: No back pain, neck pain, joint pain, myalgias Skin: No lesions, rashes Neuro: No weakness, numbness, paresthesias, LOC, dizziness, headache Psych: No anxiety/panic, depression, SI/HI, AH/VH All other systems reviewed and are negative. [facility] Past Medical History Attestation statement: The following information was validated with the patient. Source: old records reviewed and nursing notes reviewed Medical History SYLVIA (obstructive sleep apnea) Cataract Hypothyroid Smoker Enlarged prostate Nocturia Elevated PSA HTN (hypertension) COPD (chronic obstructive pulmonary disease) Surgical History Hx of right cataract extraction (10/15/23) History of laryngoscopy History of esophagogastroduodenoscopy (EGD) H/O colonoscopy History of prostate surgery Social History Social History Household Members: Spouse Housing: Apartment Are you a primary school child care attendant to a significant other at home: No Do you presently have visiting nurse or other home services: No Alcohol intake: never Patient Tobacco Use Status: Former Tobacco user Tobacco use type: Cigarette Cigarette Packs Per Day: 1 Cigarettes Per Day: 20 Years Smoked: 20 Smoked in Last 30 Days: No Use of substances other than those prescribed or required for medical reasons: No Advance Directives: No Advance Directives Information Provided: Yes Do you have a plan to hurt others: No Plan Physical Exam Vital Signs: Vital Signs: Last Vital Signs Temp 99.5 F 07/14/24 07:28 Pulse 87 07/14/24 08:35 Resp 18 07/14/24 08:35 BP 116/75 07/14/24 07:28 Pulse Ox 92 07/14/24 09:14 O2 Del Method Room Air 07/14/24 09:14 BMI result Body Mass Index 28.3 vital signs stable, afebrile, not hypoxic General: Well appearing, in no acute distress. Skin: Warm, dry, intact. No rashes or lesions. Head: Normocephalic, atraumatic. EENT: Hearing is intact b/l. Conjunctiva clear. PERRLA. EOM intact. Moist mucous membranes. Posterior oropharynx without erythema or edema. No tonsillar exudates. No peritonsillar masses. Uvula midline. Controlling secretions, speaking in complete sentences. No muffled voice. ? Neck: Supple without LAD Cardiac: Chest wall symmetric. RRR. No JVD. Lungs: Normal respiratory effort without accessory muscle use. Bronchospastic cough. Lung sounds diminished bilaterally, no adventitious breath sounds. Back: No midline spinous or paraspinal tenderness. No step off deformity. Ext: Upper and lower extremities atraumatic, without tenderness, deformity, swelling or erythema. No pitting edema. No calf tenderness. Neuro: AOx3. Normal speech. Ambulating with steady gait. Psych: Appropriate mood and affect. Responds appropriately to questions. Course Course Course Narrative: Patient tested negative for COVID, flu, RSV, strep throat. Chest x-ray does not demonstrate any obvious pneumonia. No pleural effusion. It does show opacity to the left lung apex, slightly increased in size since chest x-ray approximately 1 year ago. > patient treated with albuterol and Solu-Medrol in the ED. > On ambulatory pulse ox, patient sustained 93% on RA. Did not endorse feeling short of breath. No noted respiratory distress. He has not required supplemental O2 while in ED today. > I discussed all workup results with patient. I informed him of slightly enlarging opacity to left lung. Informed him that he needs to follow up with either his PCP or estimator project manager outpatient for monitoring with repeat scans. He verbalizes understanding. On re-evaluation, he states he feels well. Is hungry and would like to go home. I feel this is reasonable. Given his pulmonary history, will discharge him home with antibiotics and prednisone. He does not meet criteria for inpatient management of COPD exacerbation. Patient has remained stable throughout ED visit today. Discussed worrisome signs and symptoms and when to return to the ED. All questions answered at this time. Patient is agreeable with disposition and stable for discharge. Medications Administered Discontinued Medications Generic Name Dose Route Start Last Admin Trade Name Freq PRN Reason Stop Dose Admin Albuterol Sulfate 2.5 mg/ 0 mg 07/14/24 08:33 07/14/24 08:35 Albuterol/Ipratropium 3 ml INHALE 07/14/24 08:34 1 dose ONCE ONE Administration Methylprednisolone Sodium Succinate 60 mg 07/14/24 07:45 07/14/24 09:10 Methylprednisolone Sod Succ 125 Mg/2 Ml Vial IM 07/14/24 07:46 60 mg ONCE ONE Administration Medical Decision Making Medical Decision Making MDM Narrative: 78-year-old male with pmhx significant for SYLVIA, COPD, HTN presents to the ED today for evaluation of productive cough, nasal congestion and sore throat x4 days. Vital signs stable, afebrile and not hypoxic. He is nontoxic appearing and in NAD. on exam, posterior oropharynx without erythema or edema, no tonsillar exudates, no peritonsillar masses, uvula midline, controlling secretions and speaking complete sentences. No muffled voice. no respiratory distress. No tripoding. Bronchospastic cough. Sounds diminished bilaterally. No adventitious breath sounds. No JVD or pitting edema. Differential diagnosis includes viral syndrome, strep throat, COPD, COPD exacerbation, bronchitis, pneumonia. Unlikely BATCH RECORDS CLERK, retropharyngeal abscess, epiglottitis, ACS, CHF, PE. Plan for viral swabs, strep swab, chest x-ray, breathing treatment, re-evaluation Will obtain ambulatory pulse ox. Differential Diagnosis Differential Diagnoses: The differential diagnosis associated with the presentation includes as above. Admission/Observation not indicated Lab Data MDM Lab Attestation statement: I reviewed the patient's lab results. as above. Labs: Lab Results 07/14/24 07/14/24 Range/Units 05:41 06:41 Influenza Type A (PCR) NEGATIVE (Negative) Influenza Type B (PCR) NEGATIVE (Negative) RSV RNA Qual (PCR) NEGATIVE (Negative) SARS-CoV-2 RNA (RT-PCR) NEGATIVE (Negative) S. pyogenes GrpA BE Negative (Negative) Independent Interpretation I performed an independent interpretation of an: Plain X-Ray Interpretation: cxr without infiltrate or consolidation Radiology Impression Discussion of test interpretation with radiology: I have reviewed the radiologist's reading. Radiologist Impression: Procedure(s): XR chest 2V Accession Number(s): [id number] cc: Osiel Schwartz MD; Milla Goldberg~ EXAMINATION: XR CHEST CLINICAL INFORMATION: cough COMPARISON: Chest 07/27/2023 TECHNIQUE: 2 views of the chest were obtained. FINDINGS: The lungs are well-expanded and clear acute pneumonic process. There is bilateral apical pleural thickening with left supra clavicular naomy from previous intervention. There is soft tissue density in the left apex has slightly increased since 07/27/2023. XR/XR chest 2V IMPRESSION: Bilateral apical pleural thickening with postsurgical changes in the left supraclavicular fossa. Opacity in the left lung apex has slightly increased since the last chest x-ray 07/27/2023. Consider follow-up CT chest as an outpatient. Rest of the lungs are clear. Electronically signed by: Timur Matos MD 07/14/2024 07:39 AM EST External Record Review External record reviewed: Inpatient record, Office record, Outpatient record, Prior outpatient labs and Prior outpatient radiology Prescription Management I considered prescription management with: Antibiotic (Ceftin, doxy) and Other (Tessalon, prednisone) Chronic Conditions Patient?s care impacted by: Hypertension and Other (COPD) Social Determinants Patient?s care significantly limited by Social Determinants of Health including: Other Social Determinant of Health Critical Care Time Critical Care Time Critical Care Time: No Discharge Plan Discharge Clinical Impression: Bronchitis Patient Disposition: Home, Self-Care Instructions: Acute Bronchitis (ED) Additional Instructions: You tested negative for COVID, flu, RSV, strep throat. Your chest x-ray does not show sign of pneumonia. Your chest x-ray does show an opacity to the top of your left lung which has slightly increased in size when compared to your previous chest xray taken on 07/27/2023. You need to follow up with either your PCP or estimator project manager for outpatient CT scan. Given your pulmonary history, we will treat your bronchitis with steroids and antibiotics. Prednisone as a steroid that has been sent to your pharmacy. Take this as prescribed. You were provided with a dose in the ED today. Take your next dose tomorrow. Ceftin and doxycycline are antibiotics that have been sent to your pharmacy. Take these as prescribed over the next 7 days. Tessalon Perles have been sent to your pharmacy for you to take as needed for cough. Please follow-up with your primary care physician and estimator project manager as stated above. Return with new or worsening symptoms. In the case of an emergency call 911. Prescriptions: New cefuroxime axetil 500 mg tablet 500 mg PO BID 7 Days Qty: 14 0RF doxycycline monohydrate 100 mg tablet 100 mg PO BID 7 Days Qty: 14 0RF prednisone 20 mg tablet 40 mg PO DAILY 4 Days Qty: 8 0RF benzonatate 100 mg capsule 100 mg PO BID PRN (Reason: cough) Qty: 20 0RF No Action albuterol sulfate 90 mcg/actuation HFA aerosol inhaler 2 puff PO Q4-6H PRN (Reason: for wheezing) Qty: 8.5 3RF Incruse Ellipta 62.5 mcg/actuation blister with device 1 inh PO DAILY Qty: 30 5RF finasteride 5 mg tablet 5 mg PO DAILY 90 Days Qty: 90 1RF fluticasone propion-salmeterol 250-50 mcg/dose blister with device 1 ea PO BID Qty: 60 5RF guaifenesin [Mucinex] 1,200 mg tablet extended release 12hr 1,200 mg PO BID Qty: 10 0RF ondansetron 4 mg tablet,disintegrating 4 mg PO Q8H PRN (Reason: nausea and vomiting) Qty: 12 0RF fluocinolone and shower cap 0.01 % oil 1 ea topical DAILY levothyroxine 112 mcg tablet 112 mcg PO DAILY loratadine 10 mg tablet 10 mg PO DAILY diltiazem HCl 180 mg capsule,extended release 24hr 180 mg PO DAILY aspirin 81 mg tablet,delayed release (DR/EC) 81 mg PO DAILY omeprazole 20 mg capsule,delayed release(DR/EC) 20 mg PO DAILY calcium carbonate-vitamin D3 600 mg(1,500mg) -200 unit tablet 1 tab PO DAILY ketoconazole 2 % shampoo 1 appl topical 2XW CertaVite Senior 0.4-300-250 mg-mcg-mcg tablet 1 tab PO DAILY Referrals: [facility] [Provider Group] Osiel Schwartz MD [Primary Care Provider] - Print Language: Persian
[2024-07-14 07:05] LABS: IDNOW Serial# 58CA691E; Strep A Nucleic Acid Negative (Negative)
[2024-07-14 07:28] VITALS: BP 116/75; PULSE 100; RESP 18; TEMP 37.5; O2SAT 93
[2024-07-14 08:35] VITALS: PULSE 87; RESP 18; O2SAT 95
[2024-07-14] MEDS: Albuterol Sulfate 2.5 MG, Albuterol/Iprat 2.5/0.5MG 3 ML 3 ML INHALE (08:35)
[2024-07-14] MEDS: methylPREDNISolone Sod Succ 125 MG/2 ML VIAL 60 MG IM (09:10)
[2024-07-14 09:14] VITALS: O2SAT 92
[2024-07-14 09:54] VITALS: O2SAT 93
[2024-07-14 10:13] VITALS: BP 139/79; PULSE 96; RESP 18; TEMP 36.3; O2SAT 93
== END 2024-07-14 10:13 | disposition home or self-care (01) ==
PROVIDERS: Emergency Provider Emergency Medicine; PCP Internal Medicine
DX: J40 Bronchitis, not specified as acute or chronic (principal); J44.9 Chronic obstructive pulmonary disease, unspecified; I10 Essential (primary) hypertension; G47.33 Obstructive sleep apnea (adult) (pediatric); Z11.52 Encounter for screening for COVID-19
CPT/HCPCS: 0241U; 71046; 87651; 94640; 96372; 99284; J2919

== ENCOUNTER → 2024-07-14 06:47 | Outpatient (BNV) | payer OTHER, SELFPAY | PROVIDERS: Emergency Provider Emergency Medicine; PCP Internal Medicine; Visit Provider Radiology Diagnostic Radiology | DX: R05.9 Cough, unspecified (principal) | CPT/HCPCS: 71046 ==

== ENCOUNTER 2024-07-17 15:19 | Outpatient (AMB) | payer OTHER, SELFPAY ==
--- NOTE | 2024-07-17 15:26 | MHC.OFFVIS ---
Vital Signs 07/17/24 15:33 Height 5 ft 3 in Weight 163 lb BMI 28.9 BP 122/70 Blood Pressure Location Lt brachial Position Sitting Pulse 80 Pulse Source Pulse Oximeter Pulse Oximetry (%) 95 Oxygen Delivery Method Room Air Intake Visit Reasons: Abnormal chest X-ray/ED Follow Up Intake Note: pt is here for follow up of ER on Sunday, he is feeling better, please see chest x-ray. Commissioner Of Conciliation Required: No Allergies No Known Allergies Allergy (Verified 07/17/24 15:56) Medication List - Last Reconciled 07/17/24 by De Ayala MD albuterol sulfate 90 mcg/actuation 2 puffs PO Q4-6H PRN aspirin 81 mg PO DAILY benzonatate 100 mg PO BID PRN calcium carbonate-vitamin D3 600 mg-5 mcg (200 unit) 1 tab PO DAILY cefuroxime axetil 500 mg PO BID 7 days diltiazem HCl CD 180 mg PO DAILY doxycycline monohydrate 100 mg PO BID 7 days finasteride 5 mg PO DAILY 90 days fluocinolone and shower cap 0.01 % 1 ea topical DAILY fluticasone propion-salmeterol 250-50 mcg/dose 1 ea PO BID guaifenesin ER (Mucinex) 1,200 mg PO BID ketoconazole 2% 1 appl topical 2XW levothyroxine 112 mcg PO DAILY loratadine 10 mg PO DAILY eivyqgle-kts-MA-lycopen-lutein 0.4 mg-300 mcg- 250 mcg (CertaVite Senior) 1 tab PO DAILY omeprazole 20 mg PO DAILY ondansetron 4 mg PO Q8H PRN prednisone 40 mg (2 x 20 mg) PO DAILY 4 days umeclidinium 62.5 mcg/actuation (Incruse Ellipta) 1 inh PO DAILY Do you need a note to return to daycare/school/sports/work: No HPI HPI Abnormal chest X-ray/ED Follow Up: Details: THIS 78 YEARS OLD GENTLEMAN PREVIOUSLY KNOWN CASE OF CHRONIC OBSTRUCTIVE PULMONARY, DISEASE WHO HAS BEEN RELATIVELY STABLE WAS SEEN IN THE EMERGENCY ROOM A FEW DAYS AGO WITH INCREASED COUGH AND SHORTNESS OF BREATH, HE WAS NOTED TO HAVE THE SMALL LUNG OPACITY IN THE LEFT APICAL REGION WHICH IS MORE PROMINENT FROM HIS PREVIOUS X-RAYS. HE WAS STARTED ON TREATMENT WITH ANTIBIOTICS FOR POSSIBILITY OF EARLY PNEUMONIA. HE HAS COMPLETED A SHORT COURSE OF DOXYCYCLINE AND CEFUROXIME, ALSO GIVEN A SHORT COURSE OF PREDNISONE FOR 3 DAYS. HE IS FEELING MUCH BETTER AND ALMOST BACK TO HIS BASELINE. AT PRESENT HE HAS VERY LITTLE COUGH HE HAS MILD SHORTNESS OF BREATH ON EXERTION LIKE BEFORE. [facility] Medical History (Updated 07/17/24 @ 16:03 by De Ayala MD) Pulmonary fibrosis, unspecified SYLVIA (obstructive sleep apnea) Cataract Hypothyroid Smoker Enlarged prostate Nocturia Elevated PSA HTN (hypertension) COPD (chronic obstructive pulmonary disease) Surgical History Hx of right cataract extraction (10/15/23) History of laryngoscopy History of esophagogastroduodenoscopy (EGD) H/O colonoscopy History of prostate surgery Social History Household Members: Spouse Housing: Apartment Are you a primary direct care supervisor to a significant other at home: No Do you presently have visiting nurse or other home services: No 75 years or older and lives alone: No Alcohol intake: never Patient Tobacco Use Status: Former Tobacco user Tobacco use type: Cigarette Cigarette Packs Per Day: 1 Cigarettes Per Day: 20 Years Smoked: 20 Review of Systems Const All systems reviewed & are unremarkable except as noted in HPI and below Eyes Reports no additional complaints ENT Reports nasal congestion (MILD OFF AND ON ) Card Reports no additional complaints Resp Reports as per HPI GI Reports heartburn (CONTROLLED WITH OMEPRAZOLE) Musc Reports no additional complaints Skin/Breast Reports system reviewed and no additional complaints, except as documented Neuro Reports no additional complaints Psych Reports no additional complaints Physical Exam Vital Signs: Last Vital Signs Pulse 80 07/17/24 15:33 BP 122/70 07/17/24 15:33 Pulse Ox 95 07/17/24 15:33 Oxygen Delivery Method Room Air 07/17/24 15:33 BMI result Body Mass Index 28.9 Const General: healthy appearing, comfortable, no acute distress, alert and awake Orientation/consciousness: patient oriented x3 HEENT Head: Yes normal to inspection General nose exam: No nasal polyps present and No nasal discharge present Face and sinus: Yes sinuses nontender Mouth: oropharynx normal Throat: Yes posterior oropharynx normal Eyes General: appearance normal, both eyes and all related structures Neck Neck: Yes normal visual inspection, Yes no lymphadenopathy, Yes trachea midline and Yes no JVD Thyroid: Thyroid normal Chest Chest palpation & inspection: normal inspection of the chest, normal palpation of entire chest wall and no tenderness Resp Other: Percussion note is resonant. Breath sounds are distant with prolonged expiratory phase but equal on both sides. Lungs are very clear without any wheezes or rhonchi. Cardio Palpation: normal PMI Rate: regular rate Rhythm: regular rhythm Heart sounds: no gallops and no murmurs GI Palpation (GI): Soft to palpation, nontender, No hepatosplenomegaly present and no masses Auscultation: normal bowel sounds Back/Spine/Pelvis Thoracic/Lumbar Spine: thoracic and lumbar spine normal to inspection Skin General skin exam: no rashes or lesions noted Neuro General: patient oriented x3 and no focal motor deficits Cranial nerves: Yes CN's II-XII intact bilaterally Extrem General: Yes normal to inspection, Yes no clubbing, cyanosis or edema and Yes no calf tenderness Psych Appearance: grossly normal and well kempt Speech and movement: Normal speech and movement present Results Reviewed Results Reviewed: FINDINGS OF THE CHEST X-RAY ARE REVIEWED WITH THE PATIENT. HE HAS CHRONIC FIBROTIC CHANGES IN THE APICAL REGIONS OF BOTH LUNGS. HE HAS OLD SURGICAL PROCEDURE IN THE LEFT SUPRACLAVICULAR AREA,, AND HAS HAD A MILD OPACITY. THE CHEST X-RAY AT PRESENT SHOWS SLIGHT INCREASE IN THE SIZE OF THE OPACITY IN THE LEFT APICAL AREA. OTHERWISE NO CHANGE. A CT SCAN OF THE CHEST WAS RECOMMENDED. Assessment & Plan Assessment & Plan (1) COPD (chronic obstructive pulmonary disease): Comment: Modertaely severe , controlled and stable . No new change. Treated in the emergency room for mild acute exacerbation. He has completed short course of antibiotics and prednisone and is feeling back to his baseline. Code(s): J44.9 - Chronic obstructive pulmonary disease, unspecified Category: Medical Plan: Continue Wixela 250-51 inhalation b.i.d. and Incruse Ellipta 1 inhalation daily Use albuterol HFA 1 or 2 puffs Q 6 hours p.r.n. (2) Pulmonary fibrosis, unspecified: Comment: Patient has chronic fibrotic changes in the both lung apices. He small opacity in the left apical area is somewhat more prominent at this time. Code(s): J84.10 - Pulmonary fibrosis, unspecified Category: Medical Plan: CT scan of the chest is ordered to further define this fibrotic processes in the apices. Orders: Orders CT chest wo IV con Today F17.200 - Nicotine dependence, unspecified, uncomplicated, J44.9 - Chronic obstructive pulmonary disease, unspecified, J84.10 - Pulmonary fibrosis, unspecified Coding Level of Care Code Est Pt Level 3 (47127) Diagnoses COPD (chronic obstructive pulmonary disease) J44.9 Pulmonary fibrosis, unspecified J84.10
[2024-07-17 15:33] VITALS: BP 122/70; PULSE 80; O2SAT 95; BMI 28.9
--- OUTSIDE RECORDS SUMMARY | 2024-07-17 18:48 | XMS_ITS | Encounter Summary ---
Author Organization [employer] Address [address] [facility] 7t [place] [address] Care Team Providers Care Security Dispatcher Name Role Phone Osiel Worley MD Primary Care Provide r Reason for Visit * Reason Comments Med Refill Encounter Details Date Type Department Care Team ([facility] st Contact Info) Description 06/29/2024 Refill [facility] MEDICINE [address] [place], [place] [phone] Osiel Worley MD [address] [place], [place] [phone] Social History Tobacco Use Types Packs/Day Years [...] Description 08/26/2024 9:15 AM EDT Office Visit [facility] MED[facility]INE [address] [place] [address] Osiel Worley MD [address] [place] [phone] documented as of this encounter Visit Diagnoses Not on filedocumented in this encounter Additional Health Concerns Assessment Noted Time PHQ-9 Depression Total Score: 0 11/13/19 24 2:32 PM EDT documented as of this encounter Care Teams Security Dispatcher Relationship Specialty Start Date End Date Osiel Worley MD [address] [place] [phone] PCP - General Internal Medicine 12/24/13 documented as of this encounter
--- OUTSIDE RECORDS SUMMARY | 2024-07-17 18:48 | XMS_ITS | Encounter Summary ---
Author Organization [employer] Address 75 [facility] 7t [place] [address] Care Team Providers Care Hvac R Instructor Name Role Phone Osiel Worley MD Primary Care Provide r Reason for Visit * Reason Onset Date Comments Med Refill 01/03/2023 Encounter Details Date Type Department Care Team ([facility] st Contact Info) Description 01/03/2023 Telephone [facility] MEDICINE [address] [place] [address] Osiel Worley MD [address] [place], [place] [phone] Med Refill Social History Tobacco Use Types [...] 9:01 AM EDT Medication was sent to [facility] on 09/28/22 #180 with 1 refill. * Telephone Encounter - Selam Emerson - 01/03/2023 8:58 AM EDT Tc from patient requesting a med refill on medication Calcium Carb- Cholecalciferol 600-5 MG-MCG tablet. PCP Dr. Guerra documented in this encounter Plan of Treatment Upcoming Encounters Date Type Department Care Team (Late st Contact Info) Description 08/26/2024 9:15 AM EDT Office Visit [facility] MEDICINE [address] [place], [place] [phone] Osiel Worley MD [address] [place], [place] [phone] documented as of this encounter Visit Diagnoses Not on filedocumented in this encounter Care Teams Hvac R Instructor Relationship Specialty Start Date End Date Osiel Worley MD [address] [place], [place] [phone] PCP - General Internal Medicine 12/24/13 documented as of this encounter
--- OUTSIDE RECORDS SUMMARY | 2024-07-17 18:48 | XMS_ITS | Encounter Summary ---
Author Organization [employer] Address [address] [facility] 7t [place] [address] Care Team Providers Care Advanced Manufacturing Engineer Name Role Phone Osiel Worley MD Primary Care Provide r Reason for Visit * Reason Comments Med Refill Encounter Details Date Type Department Care Team ([facility] st Contact Info) Description 01/02/2024 Refill [facility] MEDICINE [address] [place], [place] [phone] Osiel Worley MD [address] [place], [place] [phone] Social History Tobacco Use Types Packs/Day Years [...] AM EDT Office Visit [facility] MED[facility]INE [address] [place] [phone] Osiel Worley MD [address] [place] [address] documented as of this encounter Visit Diagnoses Not on filedocumented in this encounter Additional Health Concerns Assessment Noted Time PHQ-9 Depression Total Score: 0 11/13/19 24 2:32 PM EDT documented as of this encounter Care Teams Advanced Manufacturing Engineer Relationship Specialty Start Date End Date Osiel Worley MD [address] [place] [phone] PCP - General Internal Medicine 12/24/13 documented as of this encounter
--- OUTSIDE RECORDS SUMMARY | 2024-07-17 18:48 | XMS_ITS | Encounter Summary ---
Author Organization [employer] Address 75 [facility] 7t [place] [address] Care Team Providers Care Project Specialist Name Role Phone Osiel Worley MD Primary Care Provide r Encounter Details Date Type Department Care Team (Late st Contact Info) Description 11/02/2022 Orders Only [facility] PEDS [address] [place] [address] Dodie Schroeder LPN Social History Tobacco Use [...] 08/26/2024 9:15 AM EDT Office Visit [facility] MEDICINE [address] [place] [address] Osiel Worley MD [address] [place] [address] documented as of this encounter Visit Diagnoses Not on filedocumented in this encounter Care Teams Project Specialist Relationship Specialty Start Date End Date Osiel Worley MD [address] [place] [address] PCP - General Internal Medicine 12/24/13 documented as of this encounter
--- OUTSIDE RECORDS SUMMARY | 2024-07-17 18:48 | XMS_ITS | Encounter Summary ---
Author Organization [employer] Address [address] [facility] 7t [place] [address] Care Team Providers Care Flash Ranging Crewmember Name Role Phone Osiel Worley MD Primary Care Provide r Reason for Visit * Reason Comments Med Refill Encounter Details Date Type Department Care Team ([facility] st Contact Info) Description 01/10/2024 Refill [facility] MEDICINE [address] [place], [place] [phone] Rosita Ferrari MD [address] [place], [place] [phone] Social History Tobacco Use Types Packs/Day Years [...] Description 08/26/2024 9:15 AM EDT Office Visit [facility] MEDICINE [address] [place] [address] Osiel Worley MD [address] [place] [address] documented as of this encounter Visit Diagnoses Not on filedocumented in this encounter Additional Health Concerns Assessment Noted Time PHQ-9 Depression Total Score: 0 11/13/19 24 2:32 PM EDT documented as of this encounter Care Teams Flash Ranging Crewmember Relationship Specialty Start Date End Date Osiel Worley MD [address] [place] [phone] PCP - General Internal Medicine 12/24/13 documented as of this encounter
--- OUTSIDE RECORDS SUMMARY | 2024-07-17 18:48 | XMS_ITS | Encounter Summary ---
Author Organization [employer] [facility] Address [address] [facility] 7t [place] [address] Care Team Providers Care Forest Ecology Professor Name Role Phone Osiel Worley MD Primary Care Provide r Reason for Visit * Reason Comments Med Refill Encounter Details Date Type Department Care Team (Late st Contact Info) Description 11/02/2022 Refill [facility] MEDICINE [address] [place] [address] Saira Petersen ANP [address] [place], [place] [phone] Social History Tobacco Use Types Packs/Day Years [...] Description 08/26/2024 9:15 AM EDT Office Visit [facility] MEDICINE [address] [place] [phone] Osiel Worley MD [address] [place], [place] [phone] documented as of this encounter Visit Diagnoses Not on filedocumented in this encounter Care Teams Forest Ecology Professor Relationship Specialty Start Date End Date Osiel Worley MD [address] [place] [address] [phone] PCP - General Internal Medicine 12/24/13 documented as of this encounter
--- OUTSIDE RECORDS SUMMARY | 2024-07-17 18:48 | XMS_ITS | Encounter Summary ---
Author Organization [facility] Address [address] [facility] 7t [place] [address] Care Team Providers Care Manufacturing Business Analyst Name Role Phone Osiel Wolrey MD Primary Care Provide r Reason for Visit * Reason Comments Med Refill Encounter Details Date Type Department Care Team (Late st Contact Info) Description 01/29/2023 Refill [facility] MEDICINE [address] [place] [address] Osiel Worley MD [address] [place] [address] [phone] Social History Tobacco Use Types Packs/Day Years [...] Description 08/26/2024 9:15 AM EDT Office Visit [facility] MEDICINE [address] [place] [address] Osiel Worley MD [address] [place], [place] [phone] documented as of this encounter Visit Diagnoses Not on filedocumented in this encounter Care Teams Manufacturing Business Analyst Relationship Specialty Start Date End Date Osiel Worley MD [address] [place] [phone] PCP - General Internal Medicine 12/24/13 documented as of this encounter
--- OUTSIDE RECORDS SUMMARY | 2024-07-17 18:48 | XMS_ITS | Encounter Summary ---
Author Organization [facility] Address [address] [facility] 7t [place] [address] Care Team Providers Care Stud Beef Cattle Farmer Name Role Phone Osiel Worley MD Primary Care Provide r Reason for Visit * Reason Comments Med Refill Encounter Details Date Type Department Care Team (Late st Contact Info) Description 09/28/2022 Refill [facility] MEDICINE [address] [place] [address] Saira Petersen ANP [address] [place], [place] [phone] Social History Tobacco Use Types Packs/Day Years [...] 08/26/2024 9:15 AM EDT Office Visit [facility] MEDICINE [address] [place] [phone] Osiel Worley MD [address] [place], [place] [phone] documented as of this encounter Visit Diagnoses Not on filedocumented in this encounter Care Teams Stud Beef Cattle Farmer Relationship Specialty Start Date End Date Osiel Worley MD [address] [place] [address] [phone] PCP - General Internal Medicine 12/24/13 documented as of this encounter
--- OUTSIDE RECORDS SUMMARY | 2024-07-17 18:48 | XMS_ITS | Encounter Summary ---
Author Organization [employer] [facility] Address [address] [facility] 7t [place] [address] Care Team Providers Care Job Trainer Name Role Phone Osiel Worley MD Primary Care Provide r Encounter Details Date Type Department Care Team (Late st Contact Info) Description 04/30/2023 Telephone [facility] MEDICINE [address] [place] [phone] Osiel Worley MD [address] [place] [phone] Social History Tobacco Use Types Packs/Day Years [...] 9:15 AM EDT Office Visit [facility] MEDICINE [address] [place] [phone] Osiel Worley MD [address] [place] [address] [phone] documented as of this encounter Visit Diagnoses Not on filedocumented in this encounter Care Teams Job Trainer Relationship Specialty Start Date End Date Osiel Worley MD [address] [place] [address] [phone] PCP - General Internal Medicine 12/24/13 documented as of this encounter
--- OUTSIDE RECORDS SUMMARY | 2024-07-17 18:48 | XMS_ITS | Encounter Summary ---
Author Organization [employer] Address [address] [facility] 7t [place] [address] Care Team Providers Care Accounts Receivable Manager Name Role Phone Osiel Worley MD Primary Care Provide r Reason for Visit * Reason Comments Med Refill Encounter Details Date Type Department Care Team ([facility] st Contact Info) Description 06/28/2024 Refill [facility] MEDICINE [address] [place], [place] [phone] Osiel Worley MD [address] [place], [place] [phone] Acquired hypothyroidism Social History Tobacco Use Types [...] Description 08/26/2024 9:15 AM EDT Office Visit [facility] MEDICINE [address] [place] [address] Osiel Worley MD [address] [place] [address] documented as of this encounter Visit Diagnoses Diagnosis Acquired hypothyroidism Unspecified hypothyroidism documented in this encounter Additional Health Concerns Assessment Noted Time PHQ-9 Depression Total Score: 0 11/13/19 24 2:32 PM EDT documented as of this encounter Care Teams Accounts Receivable Manager Relationship Specialty Start Date End Date Osiel Worley MD [address] [place] [phone] PCP - General Internal Medicine 12/24/13 documented as of this encounter
--- OUTSIDE RECORDS SUMMARY | 2024-07-17 18:48 | XMS_ITS | Encounter Summary ---
Author Organization [employer] Address [address] [facility] 7t [place] [address] Care Team Providers Care Water Leak Repairer Name Role Phone Osiel Worley MD Primary Care Provide r Encounter Details Date Type Department Care Team (Late st Contact Info) Description 08/10/2022 Orders Only [facility] MED & PEDS [address] [place] [address] Dodie Schroeder LPN Social History Tobacco Use [...] Description 08/26/2024 9:15 AM EDT Office Visit [facility] MEDICINE [address] [place] [address] Osiel Worley MD [address] [place] [address] documented as of this encounter Visit Diagnoses Not on filedocumented in this encounter Care Teams Water Leak Repairer Relationship Specialty Start Date End Date Osiel Worley MD [address] [place] [address] PCP - General Internal Medicine 12/24/13 documented as of this encounter
--- OUTSIDE RECORDS SUMMARY | 2024-07-17 18:48 | XMS_ITS | Clinical Summary ---
Author Organization [employer] Address [address] [facility] 7t [place] [address] Care Team Providers Care Instrumentation And Controls Designer Name Role Phone Osiel Worley MD Primary [...] 2 times daily. 09/11/19 24 Active Umeclidinium [place] (Incruse Ellipta) 62.5 MCG/ACT aerosol powder Inhale. [...] Pt was initially seen by a surgical event specialist product demonstrator at the [facility] in [place], on 11/30/2014 who recommended observation and repeat [...] po daily, Pt used to followed by Behavioral [facility] Aide. Last seen on 11/06/2014. Previous thyroid US [...] has Severe COPD under the care of him specialists. Last seen 10/24/2023 Dr Ryan On Wixela 250-51 inhalation b.i.d. Incruse Ellipta 1 inhalation daily Albuterol HFA 2 puffs Q 6 hours only p.r.n. Insomnia 10/26/2011 Encounters Date Type Department Care Team Description 07/15/2024 Telephone [facility] MEDICINE [address] [place] [phone] Osiel Worley MD Med Refill 07/14/2024 Telephone [facility] MEDICINE [address] [place] [address] Osiel Worley MD Results; Lab Orders 07/14/2024 Orders Only GENERIC EXTERNAL DATA DEPARTMENT Provider, Generic External Data Opacity of lung on imaging study (Primary Dx) 06/29/2024 Refill [facility] [address] [place] [address] Osiel Worley MD 06/28/2024 Refill [facility] [address] [place] [address] Osiel Worley MD Acquired hypothyroidism 06/06/2024 Telephone [facility]INE [address] [place] [address] Osiel Worley MD August Recall 05/20/2024 Refill [facility] [address] [place] [address] Osiel Worley MD 05/19/2024 Telephone [facility] MEDICINE [address] [place] [address] Osiel Worley MD Med Refill 05/19/2024 Refill [facility] [address] [place] [address] Osiel Worley MD from Last 3 Months [...] Description 08/26/2024 9:15 AM EDT Office Visit [facility]INE [address] [place] [address] Osiel Worley MD [address] [place], [place] [phone] Health Maintenance Due Date Last Done Comments [...] Procedure Name Priority Date/Time Associated Diagnosis Comments XR CHEST 2 VIEWS Routine 07/14/2024 6:47 AM EST STREP A NUCLEIC ACID Routine 07/14/2024 6:41 AM EST SARS COV2/INFLUENZA A/B AND RSV RNA QL NAAT Routine 07/14/2024 5:41 AM EST LIPID PANEL, STANDARD Routine 11/14/2023 8:23 AM EDT Essential hypertension from Last 3 Months or Most Recently Relevant to Health Maintenance Results * XR Chest 2 Views (07/14/2024 6:47 AM EST) Anatomical Region Laterality Modality Chest Radiographic Irene ging 07/14/2024 6:47 AM EST Narrative 07/14/2024 7:44 AM EST ? [facility] ?[address] ?[place] [address] ?XRay Report ? Signed ? Patient: Connor Martinez,José Miguel ?MR# ?? : [id number] ? : 1945 ?Acct:[id number] ? Age/Sex: 78 / M ?ADM Date: 03/03/25 ? Loc: HO.ED ? Attending Dr: ? Ordering Physician: Milla Goldberg ?? Date of Service: 07/14/24 ?? Procedure(s): XR chest 2V ?? Accession Number(s): [id number] ? cc: Osiel Schwartz MD; Milla Goldberg ? EXAMINATION: ?? XR CHEST ? CLINICAL INFORMATION: ?? cough ? COMPARISON: ?? Chest 07/27/2023 ? TECHNIQUE: ?? 2 views of the chest were obtained. ? FINDINGS: ?? The lungs are well-expanded and clear acute pneumonic process. There is ?? bilateral apical pleural thickening with left supra clavicular naomy ?? from previous intervention. There is soft tissue density in the left ?? apex ??has slightly increased since 07/27/2023. ? XR/XR chest 2V ?? IMPRESSION: ?? Bilateral apical pleural thickening with postsurgical changes in the ?? left supraclavicular fossa. Opacity in the left lung apex has slightly ?? increased since the last chest x-ray 07/27/2023. Consider follow-up CT ?? chest as an outpatient. ? Rest of the lungs are clear. ? Electronically signed by: ??Timur Matos MD ??07/14/2024 07:39 AM EST RP ? Dictated By: ?Timur Matos MD ? Signed By: ?<Electronically signed by Timur Matos MD in OV> ?07/14/24 0739 ? DD/ ? TD/TT: 07/14/2431 ? Infection Control Preventionist: MSM ? Procedure Note Vanda, Image - 07/14/[address] [address] XRay Report Signed Patient: Jamshid Duenas AMR# : [id number] : 5Acct:[id number] Age/Sex: 78 / MADM Date: 07/14/24 Loc: HO.ED Attending Dr: Ordering Physician: Milla Goldberg Date of Service: 07/14/24 Procedure(s): XR chest 2V Accession Number(s): [id number] cc: Osiel Schwartz MD; Milla Goldberg EXAMINATION: XR CHEST CLINICAL INFORMATION: cough COMPARISON: Chest 07/27/2023 TECHNIQUE: 2 views of the chest were obtained. FINDINGS: The lungs are well-expanded and clear acute pneumonic process. There is bilateral apical pleural thickening with left supra clavicular naomy from previous intervention. There is soft tissue density in the left apex has slightly increased since 07/27/2023. XR/XR chest 2V IMPRESSION: Bilateral apical pleural thickening with postsurgical changes in the left supraclavicular fossa. Opacity in the left lung apex has slightly increased since the last chest x-ray 07/27/2023. Consider follow-up CT chest as an outpatient. Rest of the lungs are clear. Electronically signed by: Timur Matos MD 07/14/2024 07:39 AM EST Dictated By: Timur Matos MD Signed By: <Electronically signed by Timur Matos MD in OV> 07/14/24 0739 DD/ 0647 TD/TT: 07/14/24 0731 Infection Control Preventionist: NETO [facility] External Provider IMG XR PROCEDURES Final Result * Strep A Nucleic Acid (07/14/2024 6:41 AM EST) IDNOW SERIAL# [id number] [facility] Strep A Nucleic Acid Negative Negative [facility] Comment:All test results mus t be correlated with clinical findings.This test has not been evaluated for monitoring treatment ofinfection.Additional follow-up testing using the culture method isrequired if the result is negative and clinical symptomspersist, or in the event of an acute rheumatic feveroutbreak. 07/14/2024 6:41 AM EST 07/14/2024 6:46 AM EST Generic External Data Provider LAB MICROBIOLOGY - GENERAL ORDERABLES Final Result [facility] [address] [place] [phone] * SARS-CoV-2 RNA, Influenza A/B, and RSV RNA, Ql NAAT (07/14/2024 5:41 AM EST) Influenza A PCR NEGATIVE Negative [facility] Influenza B PCR NEGATIVE Negative [facility] Resp Syncy Virus RNA Qual PCR NEGATIVE Negative [facility] SARS COV2 PCR NEGATIVE Negative [facility] Comment:All test results mus t [...] use by authorized laboratories.Testing performed on the [employer] T[employer]nologiesXpert utilizingreal-time RT-PCR.All SARS CoV2 and positive influenza A/B results arereported to [facility]. 07/14/2024 5:41 AM EST 07/14/2024 5:45 AM EST us Generic External Data Provider LAB MICROBIOLOGY - GENERAL ORDERABLES Final Result [facility] [address] [place] [phone] * (ABNORMAL) Lipid Panel, Standard (11/14/2023 8:23 AM EDT) Triglycerides 67 <150 mg/dL [facility] Comment:Desirable Triglyceri de: less than 150 mg/dLBorderline High Triglyceride 150-199 mg/dLHigh Triglyceride: 200-499 mg/dLVery High Triglyceride: greater than or equal to 5OO mg/dL Cholesterol 175 <200 mg/dL [facility] Comment:Desirable Cholestero l: less than 200 mg/dLBorderline High Cholesterol: 200-239 mg/dLHigh Cholesterol: greater than 239 mg/dL LDL Cholesterol Calculated 112(H) <100 mg/dL [facility] Comment:Desirable LDL: less than 100 mg/dLNear Optimal/Above Optimal LDL: 110- 129 mg/dLBorderline High LDL: 130-159 mg/dLHigh LDL: 160-189 mg/dLVery High LDL: greater than or equal to 190 mg/dL HDL Cholesterol 50 >40 mg/dL [facility] Comment:Desirable HDL: great er than 40 mg/dL Note: This HDL assay may give artificially low results in patients with liver disease. Blood Venous blood specimen / Unknown 11/14/2023 8:23 AM EDT 11/14/2023 1:14 PM EDT us Osiel Conway MD LAB BLOOD ORDERABLES Final Result [facility] [address] [place] [phone] [phone] from Last 3 Months or Most Recently Relevant to Health Maintenance Insurance - [employer] Care Teams Instrumentation And Controls Designer Relationship Specialty Start Date End Date Osiel Worley MD [address] [place] [phone] PCP - General Internal Medicine 12/24/13
--- OUTSIDE RECORDS SUMMARY | 2024-07-17 18:48 | XMS_ITS | Encounter Summary ---
Author Organization [employer] Address [address] [facility] 7t [place] [address] Care Team Providers Care Stamp Maker Name Role Phone Osiel Worley MD Primary Care Provide r Reason for Referral * Imaging (Routine) - Pending Review Specialty Diagnoses / Procedures Referred By Contac t Referred To Contact Radiology Diagnoses Opacity of lung on imaging study Procedures CT Chest w/o Contrast Osiel Worley MD [address] [place] [address] Phone: tel: fax: Referral ID Status Reason Start Date Expiration Date V isits Requested Visits Authorized [id number] Pending Review 07/14/2024 07/14/2025 1 1 Encounter Details Date Type Department Care Team (Late st Contact Info) Description 07/14/2024 Orders Only GENERIC EXTERNAL DATA DEPARTMENT Provider, Generic External Data Opacity of lung on imaging study (Primary Dx) Social History Tobacco Use Types Packs/Day Years [...] as of this encounter Miscellaneous Notes * Result Encounter Note - Osiel Conway MD - 07/14/2024 6:24 AM EST Please contact patient to let him know that the chest-xray he had done in the ER showed an opacity.This needs to be further evaluated by a Chest CT. I have placed an order. Please make sure patient has an appointment with me to review results of CT * Addendum Note - Osiel Conway MD - 07/14/2024 6:24 AM ESTAddended by: OSIEL BRYANT on: 07/14/2024 01:28 PM Modules accepted: Orders documented in this encounter Plan of Treatment Upcoming Encounters Date Type Department Care Team ([facility] st Contact Info) Description 08/26/2024 9:15 AM EDT Office Visit [facility] MEDICINE [address] [place] [address] Osiel Worley MD [address] [place] [address] Scheduled Orders Name Type Priority Associated Diagnoses Orde r Schedule CT Chest w/o Contrast Imaging Routine Opacity of lung on imaging study Expected: 07/14/2024, Expires: 07/14/2025 documented as of this encounter Procedures Procedure Name Priority Date/Time Associated Diagnosis Comments XR CHEST 2 VIEWS Routine 07/14/2024 6:47 AM EST STREP A NUCLEIC ACID Routine 07/14/2024 6:41 AM EST SARS COV2/INFLUENZA A/B AND RSV RNA QL NAAT Routine 07/14/2024 5:41 AM EST documented in this encounter Results * XR Chest 2 Views (07/14/2024 6:47 AM EST) Anatomical Region Laterality Modality Chest Radiographic Irene ging 07/14/2024 6:47 AM EST Narrative 07/14/2024 7:44 AM EST ? [facility] ?[address] ?[place] [address] ?XRay Report ? Signed ? Patient: Connor Martinez,José Miguel ?MR# ?? : [id number] ? : 1945 ?Acct:[id number] ? Age/Sex: 78 / M ?ADM Date: 07/14/24 ? Loc: HO.ED ? Attending Dr: ? Ordering Physician: Milla Goldberg ?? Date of Service: 07/14/24 ?? Procedure(s): XR chest 2V ?? Accession Number(s): [id number] ? cc: Osiel Schwartz MD; Milla Goldberg [...] MD in OV> ?07/14/24 0739 ? DD/ 0647 ? TD/TT: 07/14/24 0731 ? Writer Technical Publications: MSM ? Procedure Note Christina Dc - 07/14/[address] [address] XRay Report Signed Patient: Jamshid Duenas AMR# : [id number] : 5Acct:[id number] Age/Sex: 78 / MADM Date: 07/14/24 Loc: HO.ED Attending Dr: Ordering Physician: Milla Goldberg Date of Service: 07/14/24 Procedure(s): XR chest 2V Accession Number(s): [id number] cc: Osiel Schwartz MD; Milla Goldberg EXAMINATION: [...] 07/14/24 0739 DD/ 0647 TD/TT: 07/14/24 0731 Writer Technical Publications: NETO [facility] External Provider IMG XR PROCEDURES Final Result * Strep A Nucleic Acid (07/14/2024 6:41 AM EST) IDNOW SERIAL# [id number] [facility] Strep A Nucleic Acid Negative Negative [facility] Comment:All test results mus t [...] LAB MICROBIOLOGY - GENERAL ORDERABLES Final Result [facility] [address] [place] [phone] * SARS-CoV-2 RNA, Influenza A/B, and RSV RNA, Ql NAAT (07/14/2024 5:41 AM EST) Influenza A PCR NEGATIVE Negative [facility] Influenza B PCR NEGATIVE Negative [facility] Resp Syncy Virus RNA Qual PCR NEGATIVE Negative [facility] SARS COV2 PCR NEGATIVE Negative [facility] Comment:All test results mus t [...] use by authorized laboratories.Testing performed on the [employer] GeneXpert utilizingreal-time RT-PCR.All SARS CoV2 and positive influenza A/B results arereported to [facility]. 07/14/2024 5:41 AM EST 07/14/2024 5:45 AM EST us Generic External Data Provider LAB MICROBIOLOGY - GENERAL ORDERABLES Final Result [facility] [address] [place] [phone] documented in this encounter Visit Diagnoses Diagnosis Opacity of lung on imaging study- Primary documented in this encounter Additional Health Concerns Assessment Noted Time PHQ-9 Depression Total Score: 0 11/13/19 24 2:32 PM EDT documented as of this encounter Care Teams Stamp Maker Relationship Specialty Start Date End Date Osiel Worley MD [address] [place] [address] PCP - General Internal Medicine 12/24/13 documented as of this encounter
--- OUTSIDE RECORDS SUMMARY | 2024-07-17 18:48 | XMS_ITS | Encounter Summary ---
Author Organization [employer] [facility] Address [address] [facility] 7t [place] [address] Care Team Providers Care Comber Tender Name Role Phone Osiel Worley MD Primary Care Provide r Encounter Details Date Type Department Care Team (Late st Contact Info) Description 10/19/2022 Orders Only [facility] MEDICINE [address] [place] [phone] Basilia Johnson LPN Social History Tobacco Use [...] Description 08/26/2024 9:15 AM EDT Office Visit [facility] MEDICINE [address] [place] [address] Osiel Worley MD [address] [place] [address] documented as of this encounter Visit Diagnoses Not on filedocumented in this encounter Care Teams Comber Tender Relationship Specialty Start Date End Date Osiel Worley MD [address] [place] [address] PCP - General Internal Medicine 12/24/13 documented as of this encounter
--- OUTSIDE RECORDS SUMMARY | 2024-07-17 18:48 | XMS_ITS | Encounter Summary ---
Author Organization [employer] Address [address] [facility] 7t [place] [address] Care Team Providers Care Dishwasher Busser Name Role Phone Osiel Worley MD Primary Care Provide r Encounter Details Date Type Department Care Team (Late st Contact Info) Description 06/19/2022 Orders Only [facility] MED & PEDS [address] [place] [address] Dodie Schroeder LPN Social History Tobacco Use [...] 9:15 AM EDT Office Visit [facility] MEDICINE [address] [place] [address] Osiel Worley MD [address] [place] [address] documented as of this encounter Visit Diagnoses Not on filedocumented in this encounter Care Teams Dishwasher Busser Relationship Specialty Start Date End Date Osiel Worley MD [address] [place] [address] PCP - General Internal Medicine 12/24/13 documented as of this encounter
--- OUTSIDE RECORDS SUMMARY | 2024-07-17 18:48 | XMS_ITS | Encounter Summary ---
Author Organization [employer] Address [address] [facility] 7t [place] [address] Care Team Providers Care Disulfurizer Tender Name Role Phone Osiel Worley MD Primary Care Provide r Encounter Details Date Type Department Care Team (Late st Contact Info) Description 01/22/2023 Orders Only [facility] MED & PEDS [address] [place] [address] Dodie Schroeder LPN Social History Tobacco Use [...] Description 08/26/2024 9:15 AM EDT Office Visit [facility] MEDICINE [address] [place] [address] Osiel Worley MD [address] [place] [address] documented as of this encounter Visit Diagnoses Not on filedocumented in this encounter Care Teams Disulfurizer Tender Relationship Specialty Start Date End Date Osiel Worley MD [address] [place] [address] PCP - General Internal Medicine 12/24/13 documented as of this encounter
--- OUTSIDE RECORDS SUMMARY | 2024-07-17 18:48 | XMS_ITS | Encounter Summary ---
Author Organization [employer] Address [address] [facility] 7t [place] [address] Care Team Providers Care Package Center Supervisor Name Role Phone Osiel Worley MD Primary Care Provide r Encounter Details Date Type Department Care Team (Late st Contact Info) Description 09/28/2022 Orders Only [facility] MED & PEDS [address] [place] [address] Dodie Schroeder LPN Social History Tobacco Use [...] 9:15 AM EDT Office Visit [facility] MEDICINE [address] [place] [address] Osiel Worley MD [address] [place] [address] documented as of this encounter Visit Diagnoses Not on filedocumented in this encounter Care Teams Package Center Supervisor Relationship Specialty Start Date End Date Osiel Worley MD [address] [place] [address] PCP - General Internal Medicine 12/24/13 documented as of this encounter
--- OUTSIDE RECORDS SUMMARY | 2024-07-17 18:48 | XMS_ITS | Encounter Summary ---
Author Organization [employer] Address [address] [facility] 7t [place] [address] Care Team Providers Care Game Programer Name Role Phone Osiel Worley MD Primary Care Provide r Encounter Details Date Type Department Care Team ([facility] st Contact Info) Description 12/31/2023 Telephone [facility] MEDICINE [address] [place], [place] [phone] Osiel Worley MD [address] [place] [address] Social History Tobacco Use Types Packs/Day Years [...] Description 08/26/2024 9:15 AM EDT Office Visit [facility] MEDICINE [address] [place] [address] Osiel Worley MD [address] [place] [address] documented as of this encounter Visit Diagnoses Not on filedocumented in this encounter Additional Health Concerns Assessment Noted Time PHQ-9 Depression Total Score: 0 11/13/19 24 2:32 PM EDT documented as of this encounter Care Teams Game Programer Relationship Specialty Start Date End Date Osiel Worley MD [address] [place] [address] PCP - General Internal Medicine 12/24/13 documented as of this encounter
--- OUTSIDE RECORDS SUMMARY | 2024-07-17 18:49 | XMS_ITS | Encounter Summary ---
Author Organization [employer] Address [address] [facility] 7t [place] [address] Care Team Providers Care Beef Trimmer Name Role Phone Osiel Worley MD Primary Care Provide r Encounter Details Date Type Department Care Team (Late st Contact Info) Description 10/09/2023 Telephone [facility] MEDICINE [address] [place] [phone] Osiel Worley MD [address] [place] [address] Social History Tobacco Use Types Packs/Day Years [...] Description 08/26/2024 9:15 AM EDT Office Visit [facility] MEDICINE [address] [place] [phone] Osiel Worley MD [address] [place] [phone] documented as of this encounter Visit Diagnoses Not on filedocumented in this encounter Care Teams Beef Trimmer Relationship Specialty Start Date End Date Osiel Worley MD [address] [place] [phone] PCP - General Internal Medicine 12/24/13 documented as of this encounter
--- OUTSIDE RECORDS SUMMARY | 2024-07-17 18:49 | XMS_ITS | Encounter Summary ---
Author Organization [employer] Address 75 [facility] 7t [place] [address] Care Team Providers Care Tube Coremaker Name Role Phone Osiel Worley MD Primary Care Provide r Reason for Visit * Reason Onset Date Comments Med Refill 07/15/2024 Encounter Details Date Type Department Care Team ([facility] st Contact Info) Description 07/15/[address] [facility] MEDICINE [address] [place], [place] [phone] Osiel Worley MD [address] [place], [place] [phone] Med Refill Social History Tobacco Use Types [...] Telephone Encounter - Dodie Schroeder LPN - 07/15/2024 9:23 AM EST Medication isn't prescribed by PCP. * Telephone Encounter - Diego Sims - 07/15/2024 8:14 AM EST TC from pt requesting medication refill. Medications needing refill : Umeclidinium [place] (Incruse Ellipta) 62.5 MCG/ACT aerosol powder To be sent to: [facility] - [place], [place] - [address] [facility] documented in this encounter Plan of Treatment Upcoming Encounters Date Type Department Care Team (Late st Contact Info) Description 08/26/2024 9:15 AM EDT Office Visit [facility] MEDICINE [address] [place] [address] Osiel Worley MD [address] [place] [address] documented as of this encounter Visit Diagnoses Not on filedocumented in this encounter Additional Health Concerns Assessment Noted Time PHQ-9 Depression Total Score: 0 11/13/19 24 2:32 PM EDT documented as of this encounter Care Teams Tube Coremaker Relationship Specialty Start Date End Date Osiel Worley MD [address] [place] [address] PCP - General Internal Medicine 12/24/13 documented as of this encounter
--- OUTSIDE RECORDS SUMMARY | 2024-07-17 18:49 | XMS_ITS | Encounter Summary ---
Author Organization [employer] Address [address] [facility] 7t [place] [address] Care Team Providers Care Printed Circuit Board Pcb Draftsman Name Role Phone Osiel Worley MD Primary Care Provide r Reason for Visit * Reason Onset Date Comments Results 07/14/2024 Lab Orders 07/14/2024 Encounter Details Date Type Department Care Team ([facility] st Contact Info) Description 07/14/2024 Telephone [facility] [address] [place], [place] [phone] Osiel Worley MD [address] [place], [place] [phone] Results; Lab Orders Social History Tobacco Use Types Packs/Day Years [...] encounter Miscellaneous Notes * Telephone Encounter - Judith Salvador RN - 07/14/2024 2:07 PM EST Telephone call to pt per PCP message with divehi translation by TESFAYE Sarmiento. Advised pt that PCP ordered CT scan of the chest, explained different type of imaging than chest XRAY done in ED. Advised [facility] to call pt to schedule this. Explained that once appt scheduled, will call to schedule appt with PCP. Pt stated he already has appt on 08/25/24 with PCP. Will postpone to check CT appt status and then schedule f/u with PCP based on timing. * Telephone Encounter - Judith Salvador RN - 07/14/2024 1:52 PM EST ----- Message from Osiel Conway MD sent at 07/14/2024 1:28 PM EST ----- Please contact patient to let him know that the chest-xray he had done in the ER showed an opacity.This needs to be further evaluated by a Chest CT. I have placed an order. Please make sure patient has an appointment with me to review results of CT documented in this encounter Plan of Treatment Upcoming Encounters Date Type Department Care Team (Late st Contact Info) Description 08/26/2024 9:15 AM EDT Office Visit [facility] [address] [place] [address] Osiel Worley MD [address] [place] [address] documented as of this encounter Visit Diagnoses Not on filedocumented in this encounter Additional Health Concerns Assessment Noted Time PHQ-9 Depression Total Score: 0 11/13/19 24 2:32 PM EDT documented as of this encounter Care Teams Printed Circuit Board Pcb Draftsman Relationship Specialty Start Date End Date Osiel Worley MD [address] [place] [address] PCP - General Internal Medicine 12/24/13 documented as of this encounter
--- OUTSIDE RECORDS SUMMARY | 2024-07-17 18:49 | XMS_ITS | Encounter Summary ---
Author Organization [employer] Address [address] [facility] 7t [place] [address] Care Team Providers Care Polishing Machine Operator Name Role Phone Osiel Worley MD Primary Care Provide r Reason for Visit * Reason Onset Date Comments Med Refill 05/19/2024 Encounter Details Date Type Department Care Team ([facility] st Contact Info) Description 05/19/2024 Telephone [facility] [address] [place], [place] [phone] Osiel Worley MD [address] [place], [place] [phone] Med Refill Social History Tobacco Use Types [...] encounter Miscellaneous Notes * Telephone Encounter - Dodei Schroeder LPN - 05/19/2024 8:57 AM EST Medication is prescribed by Raymundo Jefferson. * Telephone Encounter - Diego Sims - 05/19/2024 8:17 AM EST TC from pt requesting medication refill. Medications needing refill : finasteride (Proscar) 5 MG tablet To be sent to: [facility] - [place], [place] - [address] [facility] documented in this encounter Plan of Treatment Upcoming Encounters Date Type Department Care Team (Late st Contact Info) Description 08/26/2024 9:15 AM EDT Office Visit [facility] [address] [place] [address] Osiel Worley MD [address] [place] [address] documented as of this encounter Visit Diagnoses Not on filedocumented in this encounter Additional Health Concerns Assessment Noted Time PHQ-9 Depression Total Score: 0 11/13/19 24 2:32 PM EDT documented as of this encounter Care Teams Polishing Machine Operator Relationship Specialty Start Date End Date Osiel Worley MD [address] [place] [address] PCP - General Internal Medicine 12/24/13 documented as of this encounter
--- OUTSIDE RECORDS SUMMARY | 2024-07-17 18:49 | XMS_ITS | Encounter Summary ---
Author Organization [employer] [facility] Address [address] [facility] 7t [place] [address] Care Team Providers Care Journal Clerk Name Role Phone Osiel Worley MD Primary Care Provide r Reason for Visit * Reason Onset Date Comments Med Refill 06/18/2023 Encounter Details Date Type Department Care Team (Late st Contact Info) Description 06/18/2023 Telephone [facility] [address] [place] [phone] Osiel Worley MD [address] [place] [phone] Med Refill Social History Tobacco Use Types [...] EDT Office Visit [facility] [address] [place] [address] [phone] Osiel Worley MD [address] [place] [address] [phone] documented as of this encounter Visit Diagnoses Not on filedocumented in this encounter Care Teams Journal Clerk Relationship Specialty Start Date End Date Osiel Worley MD [address] [place] [phone] PCP - General Internal Medicine 12/24/13 documented as of this encounter
== END 2024-07-17 15:54 | disposition home or self-care (01) ==
PROVIDERS: PCP Internal Medicine; Visit Provider Internal Medicine
DX: J44.9 Chronic obstructive pulmonary disease, unspecified (principal); J84.10 Pulmonary fibrosis, unspecified
CPT/HCPCS: 99213

== ENCOUNTER → 2024-07-17 15:19 | Outpatient (BNVA) | payer OTHER, SELFPAY | PROVIDERS: PCP Internal Medicine; Visit Provider Internal Medicine | DX: J44.9 Chronic obstructive pulmonary disease, unspecified (principal); J84.10 Pulmonary fibrosis, unspecified; F17.210 Nicotine dependence, cigarettes, uncomplicated | CPT/HCPCS: 99212 ==

== ENCOUNTER 2024-08-26 07:24 | Emergency (ER) | payer OTHER, SELFPAY ==
[2024-08-26 07:29] VITALS: BP 146/71; PULSE 89; RESP 20; TEMP 36.6; O2SAT 94; BMI 28.9
--- NOTE | 2024-08-26 08:08 | ED_ITS ---
HPI - General Adult General Chief complaint: Skin/Abscess/Foreign Body Stated complaint: Rash on neck Time Seen by Provider: 08/26/24 08:01 Source: patient and instrumentation controls engineer (all interactions with this patient were facilitated with an [facility] offset label rewinder) Mode of arrival: ambulatory Limitations: language barrier (all interactions with this patient were facilitated with an [facility] offset label rewinder) History of Present Illness ED Provider: Ximena Mckeon PA-C HPI narrative: Patient is a 78 year old assigned male at with a history of COPD and BPH presenting to the emergency department today with a rash on his neck. Patient states that over the last few days he has had a right sided neck rash and rash on either side of his nose. Patient states that it is itchy and he has been using over the counter cream that is not helping. Patient denies any dizziness, lightheadedness, abdominal pain, nausea, vomiting, fever, chills, blurry vision, double vision, loss of vision, chest pain, difficulty breathing, shortness of breath, back pain, night sweats, pain with urination, increased urinary frequency, increased urinary urgency, blood in his urine or stool, syncope or a near syncopal episode, recent trauma or falls, bowel incontinence, bladder incontinence, or any other complaints at this time. Onset (ago): day(s) Location: neck (right side) Relieving factors: none Exacerbating factors: none Associated symptoms: rash Treatments prior to arrival: other (OTC Cream - not helping) Related Data Home Medications ?Medication ?Instructions ?Recorded ?Confirmed aspirin 81 mg tablet,delayed 81 mg PO DAILY 06/30/20 07/17/24 release diltiazem HCl 180 mg 180 mg PO DAILY 06/30/20 07/17/24 capsule,extended release 24 hr fluocinolone 0.01 % scalp oil and 1 ea topical DAILY 06/30/20 07/17/24 shower cap levothyroxine 112 mcg tablet 112 mcg PO DAILY 06/30/20 07/17/24 loratadine 10 mg tablet 10 mg PO DAILY 06/30/20 07/17/24 omeprazole 20 mg capsule,delayed 20 mg PO DAILY 06/30/20 07/17/24 release ketoconazole 2 % shampoo 1 appl topical 2XW 08/06/20 07/17/24 calcium 600 mg (as 1 tab PO DAILY 01/04/21 07/17/24 carbonate)-vitamin D3 5 mcg (200 unit) tablet pglbiqud-jjj-nltkw acid 0.4 1 tab PO DAILY 01/04/21 07/17/24 mg-lycopene 300 mcg-lutein 250 mcg tablet (CertaVite Senior) Previous Rx's ?Medication ?Instructions ?Recorded albuterol sulfate 90 mcg/actuation 2 puff PO Q4-6H PRN for wheezing 02/21/22 aerosol inhaler #8.5 grams guaifenesin 1,200 mg tablet, 1,200 mg PO BID #10 tabs 04/28/22 extended release 12 hr (Mucinex) ondansetron 4 mg disintegrating 4 mg PO Q8H PRN nausea and 10/04/22 tablet vomiting #12 tabs finasteride 5 mg tablet 5 mg PO DAILY 90 days #90 tabs 05/16/24 fluticasone 250 mcg-salmeterol 50 1 ea PO BID #60 ea 07/01/24 mcg/dose blistr powdr for inhalation benzonatate 100 mg capsule 100 mg PO BID PRN cough #20 caps 07/14/24 cefuroxime axetil 500 mg tablet 500 mg PO BID 7 days #14 tabs 07/14/24 doxycycline monohydrate 100 mg 100 mg PO BID 7 days #14 tabs 07/14/24 tablet prednisone 20 mg tablet 40 mg (2 x 20 mg) PO DAILY 4 days 07/14/24 #8 tabs umeclidinium 62.5 mcg/actuation 1 inh PO DAILY #30 ea 08/08/24 blister powder for inhalation (Incruse Ellipta) loratadine 10 mg tablet 10 mg PO DAILY #7 tabs 08/26/24 prednisone 20 mg tablet 20 mg PO DAILY 7 days #7 tabs 08/26/24 Allergies Allergy/AdvReac Type Severity Reaction Status Date / Time No Known Allergies Allergy Verified 08/26/24 07:31 Review of Systems 2 Constitutional: Constitutional: Reports no additional constitutional complaints, Denies chills, Denies fever(s) and Denies night sweats Eyes: Eyes: Reports no additional eye complaints, Denies blurry vision, Denies change in vision, Denies diplopia, Denies eye discharge, Denies loss of vision and Denies eye pain ENT: Denies dizziness Cardiovascular: Cardiovascular: Reports no additional cardiovascular complaints, Denies chest pain, Denies lightheadedness, Denies Loss of Consciousness and Denies dyspnea Respiratory: Respiratory: Reports no additional respiratory complaints and Denies dyspnea Gastrointestinal: Gastrointestinal: Reports no additional gastrointestinal complaints, Denies abdominal pain, Denies melena, Denies hematochezia, Denies change in bowel habits and Denies change in stool character Genitourinary: Genitourinary: Reports no additional male genitourinary complaints, Denies hematuria, Denies oliguria, Denies difficulty urinating, Denies dysuria, Denies urinary frequency, Denies urinary hesitancy, Denies urinary incontinence and Denies urinary urgency Musculoskeletal: Musculoskeletal: Reports no additional musculoskeletal complaints, Denies numbness and Denies tingling Integumentary/Breasts: Comments: Rash to the right side of the neck and bilateral nasal folds Neurologic: Denies dizziness, Denies loss of vision, Denies numbness and Denies tingling Psychiatric: Psychiatric: Reports no additional psychiatric complaints Endocrine: Endocrine: Reports no additional endocrine complaints Hematologic/Lymphatic: Hematologic/Lymphatic: Reports no additional hematologic/lymphatic complaints Allergic/Immunologic: Allergic/Immunologic: Reports no additional allergic/immunologic complaints [facility] Past Medical History Attestation statement: The following information was validated with the patient. Source: old records reviewed and nursing notes reviewed Medical History Pulmonary fibrosis, unspecified SYLVIA (obstructive sleep apnea) Cataract Hypothyroid Smoker Enlarged prostate Nocturia Elevated PSA HTN (hypertension) COPD (chronic obstructive pulmonary disease) Surgical History Hx of right cataract extraction (10/15/23) History of laryngoscopy History of esophagogastroduodenoscopy (EGD) H/O colonoscopy History of prostate surgery Social History Social History Household Members: Spouse Housing: Apartment Are you a primary health care / medical job titles to a significant other at home: No Do you presently have visiting nurse or other home services: No Alcohol intake: never Patient Tobacco Use Status: Former Tobacco user Tobacco use type: Cigarette Cigarette Packs Per Day: 1 Cigarettes Per Day: 20 Years Smoked: 20 Advance Directives: No Advance Directives Information Provided: Yes Do you have a plan to hurt others: No Plan Physical Exam ED Vital Signs: Vital Signs - 24 hr 08/26/24 07:29 08/26/24 08:43 Temperature 97.9 F 97.9 F Pulse Rate 89 89 Respiratory Rate 20 20 Blood Pressure 146/71 H 146/71 H Pulse Oximetry 94 94 Oxygen Delivery Method Room Air Room Air BMI result Body Mass Index 28.9 Const General: cooperative, no acute distress, alert and awake Nutritional Appearance: well nourished Orientation/consciousness: patient oriented x3 Limitations: no limitations HENMT Head: Yes normal to inspection and Yes atraumatic Ears: hearing grossly normal bilaterally and external ears normal General nose exam: no nasal discharge noted and no epistaxis Nose image: 2 1. area of eczema / dry skin 2. area of eczema / dry skin Face and sinus: No abrasion and No laceration Mouth: Normal oral and palatal mucosa present, no drooling and no muffled voice Eyes General: appearance normal, both eyes and all related structures Periorbital: periorbital findings normal Eyelids: Yes eyelids normal Conjunctivae: conjunctivae normal Pupils: Equal, round and reactive pupils present EOM: EOMs intact bilaterally Neck Neck: Yes full ROM and Yes no lymphadenopathy Neck images: 2 1. area of eczema / dry skin Chest Chest palpation & inspection: normal inspection of the chest Resp Effort & Inspection: normal respiratory effort and able to speak in complete sentences GI Inspection: Yes normal to inspection Neuro General: patient oriented x3, moves all extremities and CN's II-XI intact bilaterally Cranial nerves: Yes Equal, round and reactive pupils present Cognition (Neuro): normal cognition Extrem General: Yes normal to inspection, Yes full ROM and Yes capillary refill normal Psych Appearance: grossly normal Mental Status: mental status grossly normal Affect: normal affect Attitude: cooperative Thought process: Normal thought process present Thought content: Normal thought content present Insight: Good insight present (Psych) Medical Decision Making Medical Decision Making MDM Narrative: Patient is a 78 year old assigned male at with a history of COPD and BPH presenting to the emergency department today with a rash on his neck. Patient's physical exam was as noted in the physical exam portion of this note. Patient's clinical presentation is most consistent with eczema vs. dry skin. Patient's rash is not consistent with shingles. I explained my physical exam findings to the patient. I answered all questions asked by the patient. I stressed the importance of the patient taking his medication as directed (either prescribed or as the over the counter packaging recommends). I stressed the importance of the patient following up with his primary care provider and a order make up clerk. I stressed the importance of the patient returning to the emergency department immediately if his symptoms were to worsen or if he were to develop any dizziness, shortness of breath, difficulty breathing, chest pain, blurry vision, loss of vision, nausea, vomiting, abdominal pain, fever, chills, back pain, or any other complaints. Patient verbalized agreement and understanding with this treatment plan and discharge. Differential Diagnosis Differential Diagnoses: The differential diagnosis associated with the presentation includes Eczema Dry skin Rash Admission/Observation Consideration of admission/observation: Escalation of care including admission/observation considered Patient would have been admitted to the hospital had his work up had any findings where hospital admission was appropriate and his clinical presentation warranted hospital admission. Discharge Plan Discharge Clinical Impression: Eczema Patient Disposition: Home, Self-Care Instructions: Dermatitis (ED) Additional Instructions: Take your medication as directed. Moisturize daily with a non scented lotion. [place] koroma medicaci?n seg?n las indicaciones. Hidr?tese a diario con ramya loci?n no perfumada. Follow up with your primary care provider. Return to the emergency department immediately if your symptoms worsen or if you develop any dizziness, shortness of breath, difficulty breathing, chest pain, blurry vision, loss of vision, nausea, vomiting, abdominal pain, fever, chills, back pain, or any other complaints. Haroon?seguimiento?con koroma m?dico de atenci?n primaria. Acuda inmediatamente al servicio de urgencias si cata s?ntomas empeoran o si presenta falta de aliento, dificultad para respirar, dolor tor?cico, mareos, aturdimiento, dolor de espalda, dolor abdominal, fiebre, escalofr?os o cualquier otro s?ntoma. Please see the information below about our Patient Portal. If you are not yet enrolled in the [facility] Patient Portal, you will receive an enrollment email invitation following your visit to any [facility] care setting. You may also self-enroll in the Patient Portal by visiting our website: [email or web address] The following information is required to access the Patient Portal: - Your [facility] Medical Record Number - Your personal home email address (must match what is in your electronic medical record, Registration staff can assist with this) - Name - Date of Capabilities of the Patient Portal: - Message some providers - View upcoming appointments - Access your health summary, medical history, and visit history - View current conditions and allergies - View procedure and lab results - View your medications, including guidelines, side effects, and precautions - Complete pre-appointment questionnaires requested by your provider - Ready summary reports of your office visits and procedures To access the Patient Portal Mobile Dima, follow these directions: - Search SHADOW in the Dima Store or xiao qu wu you Store - Download the Dima - Search for [facility] - Enter your login/password Portal del paciente Si usted no esta inscrito en el portal de pacientes de [facility], recibira ramya invitacion de inscripcion despues de koroma visita al [facility] o al [facility] via correo electronico. Tambien puede inscribirse voluntariamente en el portal de pacientes visitando nuestra pagina web: [email or web address] La siguiente informacion sera requerida para acceder al portal: - Koroma analia de historia medica de HM - Koroma direccion de correo electronico personal - Nombre - Fecha de nacimiento Capacidades: Las siguientes capacidades estan disponibles en el portal de pacientes: - Enviar mensajes a algunos doctores - Verificar proximas citas - Acceso a koroma historial de bhanu, registro medico e historial de visitas - Faraz las condiciones actuales y alergias faraz procedimientos y resultados del laboratorio - Faraz cata medicamentos, incluyendo las pautas - Efectos secundarios y precauciones - Completar o llenar formularios / cuestionarios de - Citas solicitadas por koroma doctor - Leer los resumenes de reportes medicos de cata visitas y procedimientos [place] acceder a la aplicacion movil: - Adeeli-NalysisealCmed en la Dima Store o xiao qu wu you Store - Descargue la aplicacion - Madie [facility] - Ingrese koroma nombre de usuario / Contrasena Prescriptions: New prednisone 20 mg tablet 20 mg PO DAILY 7 Days Qty: 7 0RF loratadine 10 mg tablet 10 mg PO DAILY Qty: 7 0RF No Action albuterol sulfate 90 mcg/actuation HFA aerosol inhaler 2 puff PO Q4-6H PRN (Reason: for wheezing) Qty: 8.5 3RF finasteride 5 mg tablet 5 mg PO DAILY 90 Days Qty: 90 1RF fluticasone propion-salmeterol 250-50 mcg/dose blister with device 1 ea PO BID Qty: 60 5RF Incruse Ellipta 62.5 mcg/actuation blister with device 1 inh PO DAILY Qty: 30 0RF guaifenesin [Mucinex] 1,200 mg tablet extended release 12hr 1,200 mg PO BID Qty: 10 0RF cefuroxime axetil 500 mg tablet 500 mg PO BID 7 Days Qty: 14 0RF doxycycline monohydrate 100 mg tablet 100 mg PO BID 7 Days Qty: 14 0RF prednisone 20 mg tablet 40 mg PO DAILY 4 Days Qty: 8 0RF benzonatate 100 mg capsule 100 mg PO BID PRN (Reason: cough) Qty: 20 0RF ondansetron 4 mg tablet,disintegrating 4 mg PO Q8H PRN (Reason: nausea and vomiting) Qty: 12 0RF fluocinolone and shower cap 0.01 % oil 1 ea topical DAILY levothyroxine 112 mcg tablet 112 mcg PO DAILY loratadine 10 mg tablet 10 mg PO DAILY diltiazem HCl 180 mg capsule,extended release 24hr 180 mg PO DAILY aspirin 81 mg tablet,delayed release (DR/EC) 81 mg PO DAILY omeprazole 20 mg capsule,delayed release(DR/EC) 20 mg PO DAILY calcium carbonate-vitamin D3 600 mg(1,500mg) -200 unit tablet 1 tab PO DAILY ketoconazole 2 % shampoo 1 appl topical 2XW CertaVite Senior 0.4-300-250 mg-mcg-mcg tablet 1 tab PO DAILY Referrals: [facility] [Provider Group] Osiel Schwartz MD [Primary Care Provider] - Interventions: ED Discharge Assessment Last Done: 08/26/24 08:43 Discharge Date/Time: 08/26/24 08:43 Print Language: Croatian
--- OUTSIDE RECORDS SUMMARY | 2024-08-26 08:12 | XMS_ITS | Encounter Summary ---
Author Organization [employer] Address [address] [facility] 7t [place] [address] Care Team Providers Care Hand Mixer Name Role Phone Osiel Worley MD Primary Care Provide r Encounter Details Date Type Department Care Team (Late st Contact Info) Description 08/10/2022 Orders Only [facility] [address] [place], [place] [phone] Ddoie Schroeder LPN Social History Tobacco Use Types [...] Description 08/26/2024 9:15 AM EDT Office Visit [facility] [address] [place] [phone] Osiel Worley MD [address] [place] [address] 09/16/2024 11:00 AM EDT Office Visit [facility] [address] [place] [phone] Osiel Worley MD [address] [place] [phone] documented as of this encounter Visit Diagnoses Not on filedocumented in this encounter Care Teams Hand Mixer Relationship Specialty Start Date End Date Osiel Worley MD [address] [place] [address] PCP - General Internal Medicine 12/24/13 documented as of this encounter
--- OUTSIDE RECORDS SUMMARY | 2024-08-26 08:12 | XMS_ITS | Encounter Summary ---
Author Organization [employer] Address [address] [facility] 7t [place] [address] Care Team Providers Care Regulatory Affairs Assistant Name Role Phone Osiel Worley MD Primary Care Provide r Encounter Details Date Type Department Care Team (Late st Contact Info) Description 09/28/2022 Orders Only [facility] [address] [place], [place] [phone] Dodie Schroeder LPN Social History Tobacco Use [...] Description 08/26/2024 9:15 AM EDT Office Visit [facility] [address] [place] [phone] Osiel Worley MD [address] [place] [phone] 09/16/2024 11:00 AM EDT Office Visit [facility] [address] [place] [address] Osiel Worley MD [address] [place] [phone] documented as of this encounter Visit Diagnoses Not on filedocumented in this encounter Care Teams Regulatory Affairs Assistant Relationship Specialty Start Date End Date Osiel Worley MD [address] [place] [address] PCP - General Internal Medicine 12/24/13 documented as of this encounter
--- OUTSIDE RECORDS SUMMARY | 2024-08-26 08:12 | XMS_ITS | Encounter Summary ---
Author Organization [employer] Address 75 [facility] 7t [place] [address] Care Team Providers Care Research Project Coordinator Name Role Phone Osiel Worley MD Primary Care Provide r Reason for Visit * Reason Comments Med Refill Encounter Details Date Type Department Care Team (Late st Contact Info) Description 09/28/2022 Refill [facility] [address] [place] [address] [phone] Saira Petersen ANP [address] [place], [place] [phone] Social History Tobacco Use Types Packs/Day Years [...] 9:15 AM EDT Office Visit [facility] [address] [place] [address] [phone] Osiel Worley MD [address] [place] [address] [phone] 09/16/2024 11:00 AM EDT Office Visit [facility] [address] [place] [address] [phone] Osiel Worley MD [address] [place] [address] [phone] documented as of this encounter Visit Diagnoses Not on filedocumented in this encounter Care Teams Research Project Coordinator Relationship Specialty Start Date End Date Osiel Worley MD [address] [place] [address] PCP - General Internal Medicine 12/24/13 documented as of this encounter
--- OUTSIDE RECORDS SUMMARY | 2024-08-26 08:12 | XMS_ITS | Encounter Summary ---
Author Organization [employer] Address 75 [facility] 7t [place] [address] Care Team Providers Care Pararescue Manager Name Role Phone Osiel Worley MD Primary Care Provide r Encounter Details Date Type Department Care Team (Late st Contact Info) Description 06/19/2022 Orders Only [facility] [address] [place], [place] [phone] Dodie Schroeder LPN Social History Tobacco Use [...] Description 08/26/2024 9:15 AM EDT Office Visit [facility] [address] [place] [address] [phone] Osiel Worley MD [address] [place] [phone] 09/16/2024 11:00 AM EDT Office Visit [facility] [address] [place] [address] 49857 Osiel Worley MD [address] [place] [address] [phone] documented as of this encounter Visit Diagnoses Not on filedocumented in this encounter Care Teams Pararescue Manager Relationship Specialty Start Date End Date Osiel Worley MD [address] [place] [address] PCP - General Internal Medicine 12/24/13 documented as of this encounter
--- OUTSIDE RECORDS SUMMARY | 2024-08-26 08:12 | XMS_ITS | Encounter Summary ---
Author Organization [employer] Address 75 [facility] 7t [place] [address] Care Team Providers Care Bender Hand Name Role Phone Osiel Worley MD Primary Care Provide r Encounter Details Date Type Department Care Team (Late st Contact Info) Description 01/22/2023 Orders Only [facility] [address] [place], [place] [phone] Dodie Schroeder LPN Social History Tobacco Use [...] 9:15 AM EDT Office Visit [facility] [address] [place] [address] [phone] Osiel Worley MD [address] [place] [address] 26[address] 09/16/2024 11:00 AM EDT Office Visit [facility] [address] [place] [address] 03077 Osiel Worley MD [address] [place] [address] [phone] documented as of this encounter Visit Diagnoses Not on filedocumented in this encounter Care Teams Bender Hand Relationship Specialty Start Date End Date Osiel Worley MD 230 [place] [address] PCP - General Internal Medicine 12/24/13 documented as of this encounter
--- OUTSIDE RECORDS SUMMARY | 2024-08-26 08:13 | XMS_ITS | Clinical Summary ---
Author Organization [employer] Address 75 [facility] 7t [place] [address] Care Team Providers Care Psych Specialist Name Role Phone Osiel Worley MD Primary Care Provide r Allergies No known active allergies Medications Fluocinolone Acetonide Scalp 0.01 % oil APPLY A THIN LAYER TO SCALP DAMP. MASSAGE WELL AND COVER. LEAVE ON 4 HOURS OR OVERNIGHT, THEN RINSE. USE ON THE NIGHT BEFORE de shampoo 118.28 mL 3 4 Active Fluticasone-Salmet tl 250-50 MCG/ACT aerosol powder Inhale 1 puff 2 times daily. 4 Active Umeclidinium [place] (Incruse Ellipta) 62.5 MCG/ACT aerosol powder Inhale. Active albuterol 108 (90 Base) MCG/ACT inhaler every 4 to 6 hours as needed for for wheezing 2 Active finasteride (Proscar) 5 MG tablet Take 5 mg by mouth Once per day. 4 Active ketoconazole (NIZOral) 2 % shampooIndications :Seborrheic dermatitis APPLY TOPICALLY TO THE AFFECTED AREA(S) OF THE SCALP 3 TIMES A WEEK, LATHER, LEAVE ON FOR 5 MINUTES, THEN RINSE WITH WATER 120 mL 4 4 Active Multiple Vitamins-Minerals (Cerovite Senior) tablet TAKE 1 TABLET BY MOUTH EVERY DAY 90 tablet 1 4 Active dilTIAZem ER (Tiazac) 180 MG 24 hr capsule TAKE 1 CAPSULE BY MOUTH EVERY DAY 90 capsule 1 5 Active loratadine (Claritin) 10 MG tablet TAKE 1 TABLET BY MOUTH EVERY DAY NEEDED 90 tablet 5 Active omeprazole (PriLOSEC) [address] capsule Take 1 capsule (20 mg) by mouth before breakfast. Do not crush or chew. 90 capsule 5 Active levothyroxine (Synthroid, Levoxyl) 125 MCG tabletIndications: Acquired hypothyroidism TAKE 1 TABLET BY MOUTH EVERY DAY BEFORE BREAKFAST 30 tablet 3 5 Active Calcium Carb-Cholecalcifer ol (Calcium + Vitamin D3) 600-5 MG-MCG tablet Take 1 tablet by mouth 2 times daily. 180 tablet 1 5 Active aspirin (Aspirin Low Dose) 81 MG EC tablet TAKE 1 TABLET BY MOUTH EVERY DAY 90 tablet 1 5 Active Active Problems Problem Noted Date Diagnosed Date [...] Pt was initially seen by a surgical water treatment specialist at the [facility] in [place], on 11/30/2014 who recommended observation and repeat [...] po daily, Pt used to followed by [facility]. Last seen on 11/06/2014. Previous thyroid US [...] has Severe COPD under the care of environmental education specialist. Last seen 10/24/2023 Dr Ryan On Wixela 250-51 inhalation b.i.d. Incruse Ellipta 1 inhalation daily Albuterol HFA 2 puffs Q 6 hours only p.r.n. Insomnia 10/26/2011 Encounters Date Type Department Care Team Description 08/21/2024 Telephone [facility] [address] [place] [address] [phone] Osiel Worley MD Med Refill 08/12/2024 Patient Outreach [facility] [address] [place] [address] [phone] Osiel Worley MD Pre-visit Planning (Pre-visit planning - LVM ) 08/04/2024 Telephone [facility] [address] [place] [address] [phone] Osiel Worley MD Chart Prep 07/15/2024 Telephone [facility] [address] [place] [address] 15970 Osiel Worley MD Med Refill 07/14/2024 Telephone [facility] [address] [place] [address] 12564 Osiel Worley MD Results; Lab Orders 07/14/2024 Orders Only GENERIC EXTERNAL DATA DEPARTMENT Provider, Generic External Data Opacity of lung on imaging study (Primary Dx) 06/29/2024 Refill [facility] [address] [place] [address] Osiel Worley MD 06/28/2024 Refill [facility] [address] [place] [address] Osiel Worley MD Acquired hypothyroidism 06/06/2024 Telephone [facility] [address] [place] [address] Osiel Worley MD August Recall from Last 3 Months Immunizations Name Administration [...] Description 08/26/2024 9:15 AM EDT Office Visit [facility] [address] [facility] [address] Osiel Worley MD [address] [place] [phone] 09/16/2024 11:00 AM EDT Office Visit [facility] [address] [facility] [place], [place] [phone] Osiel Worley MD [address] [place] [phone] Health Maintenance Due Date Last Done Comments [...] Comments XR CHEST 2 VIEWS Routine 07/14/2024 6:4 7 AM EST STREP A NUCLEIC ACID Routine [...] EST Narrative 07/14/2024 7:44 AM EST ? [facility] ?[address] ?[place] [address] ?XRay Report ? Signed ? Patient: Connor Martinez,José Miguel ?MR# ?? : [id number] ? : 1945 ?Acct:[id number] ? Age/Sex: 78 / M ?ADM Date: 03/03/25 ? Loc: HO.ED ? Attending Dr: ? Ordering Physician: Milla Goldberg ?? Date of Service: 03/03/25 ?? Procedure(s): XR chest 2V ?? Accession Number(s): [id number] ? cc: Osiel Schwartz MD; Milla Goldberg [...] DD/ 0647 ? TD/TT: 07/14/24 0731 ? China Decorator: MSM ? Procedure Note Donkumar, Image - 07/14/2024 [place] [address] XRay Report Signed Patient: Jamshid Duenas AMR# : [id number] : 5Acct:[id number] Age/Sex: 78 / MADM Date: 07/14/24 Loc: HO.ED Attending Dr: Ordering Physician: Milla Goldberg Date of Service: 07/14/24 Procedure(s): XR chest 2V Accession Number(s): [id number] cc: Osiel Schwartz MD; Milla Goldberg EXAMINATION: [...] 07/14/24 0739 DD/ 0647 TD/TT: 07/14/24 0731 China Decorator: NETO [facility] External Provider IMG XR PROCEDURES Final Result * Strep A Nucleic Acid (07/14/2024 6:41 AM EST) IDNOW SERIAL# [id number] [facility] Strep A Nucleic Acid Negative Negative [facility] Comment:All test results mus t be correlated with clinical findings.This test has not been evaluated for monitoring treatment ofinfection.Additional follow-up testing using the culture method isrequired if the result is negative and clinical symptomspersist, or in the event of an acute rheumatic feveroutbreak. 07/14/2024 6:41 AM EST 07/14/2024 6:46 AM EST Generic External Data Provider LAB MICROBIOLOGY - GENERAL ORDERABLES Final Result [facility] [address] [place] [address] [phone] * SARS-CoV-2 RNA, Influenza A/B, and RSV RNA, Ql NAAT (07/14/2024 5:41 AM EST) Influenza A PCR NEGATIVE Negative [facility] Influenza B PCR NEGATIVE Negative [facility] Resp Syncy Virus RNA Qual PCR NEGATIVE Negative [facility] SARS COV2 PCR NEGATIVE Negative [facility] Comment:All test results mus t be [...] use by authorized laboratories.Testing performed on the [employer] GeneXpert utilizingreal-time RT-PCR.All SARS CoV2 and positive influenza A/B results arereported to [facility]. 07/14/2024 5:41 AM EST 07/14/2024 5:45 AM EST us Generic External Data Provider LAB MICROBIOLOGY - GENERAL ORDERABLES Final Result [facility] [address] [place] [address] [phone] * (ABNORMAL) Lipid Panel, Standard (11/14/2023 8:23 AM EDT) Triglycerides 67 <150 mg/dL [facility] Comment:Desirable Triglyceri de: less than 150 mg/dLBorderline High Triglyceride 150-199 mg/dLHigh Triglyceride: 200-499 mg/dLVery High Triglyceride: greater than or equal to 5OO mg/dL Cholesterol 175 <200 mg/dL [facility] Comment:Desirable Cholestero l: less than 200 mg/dLBorderline High Cholesterol: 200-239 mg/dLHigh Cholesterol: greater than 239 mg/dL LDL Cholesterol Calculated 112(H) <100 mg/dL [facility] Comment:Desirable LDL: less than 100 mg/dLNear Optimal/Above Optimal LDL: 110- 129 mg/dLBorderline High LDL: 130-159 mg/dLHigh LDL: 160-189 mg/dLVery High LDL: greater than or equal to 190 mg/dL HDL Cholesterol 50 >40 mg/dL [facility] Comment:Desirable HDL: great er than 40 mg/dL Note: This HDL assay may give artificially low results in patients with liver disease. Blood Venous blood specimen / Unknown 11/14/2023 8:23 AM EDT 11/14/2023 1:14 PM EDT us Osiel Conway MD LAB BLOOD ORDERABLES Final Result [facility] [address] [place] [address] [phone] from Last 3 Months or Most Recently Relevant to Health Maintenance Insurance - NVO - NVO Care Teams Psych Specialist Relationship Specialty Start Date End Date Osiel Worley MD 230 [facility] [place] [address] PCP - General Internal Medicine 12/24/13
--- OUTSIDE RECORDS SUMMARY | 2024-08-26 08:13 | XMS_ITS | Encounter Summary ---
Author Organization [employer] Address 75 [facility] 7t [place] [address] Care Team Providers Care Mess Cook Name Role Phone Osiel Worley MD Primary Care Provide r Reason for Visit * Reason Comments Med Refill Encounter Details Date Type Department Care Team (Late st Contact Info) Description 11/02/2022 Refill [facility] [address] [place] [address] [phone] Saira Petersen ANP [address] [place], [place] [phone] Social History Tobacco Use Types Packs/Day Years [...] [facility] [address] [place] [address] 97958 Osiel Worley MD [address] [place] [address] [phone] 09/16/2024 11:00 AM EDT Office Visit [facility] [address] [place] [address] [phone] Osiel Worley MD [address] [place] [address] [phone] documented as of this encounter Visit Diagnoses Not on filedocumented in this encounter Care Teams Mess Cook Relationship Specialty Start Date End Date Osiel Worley MD [address] [place] [address] PCP - General Internal Medicine 12/24/13 documented as of this encounter
--- OUTSIDE RECORDS SUMMARY | 2024-08-26 08:13 | XMS_ITS | Encounter Summary ---
Author Organization [employer] Address 75 [facility] 7t [place] [address] Care Team Providers Care Jewelry Casting Model Maker Apprentice Name Role Phone Osiel Worley MD Primary Care Provide r Reason for Visit * Reason Onset Date Comments Med Refill 08/21/2024 Encounter Details Date Type Department Care Team ([facility] st Contact Info) Description 08/21/2024 Telephone [facility] [address] [place], [place] [phone] Osiel Worley MD [address] [place], [place] [phone] Med Refill Social History Tobacco Use Types [...] encounter Miscellaneous Notes * Telephone Encounter - Basilia Johnson LPN - 08/21/2024 8:53 AM EDT Patient should have a refill left. * Telephone Encounter - Diego Sims - 08/21/2024 8:47 AM EDT TC from pt requesting medication refill. Medications needing refill : dilTIAZem ER (Tiazac) 180 MG 24 hr capsule To be sent to: [facility] - [place], [place] - [address] [place] [address] documented in this encounter Plan of Treatment Upcoming Encounters Date Type Department Care Team (Late st Contact Info) Description 08/26/2024 9:15 AM EDT Office Visit [facility] [address] [place] [address] Osiel Worley MD [address] [place] [address] 09/16/2024 11:00 AM EDT Office Visit [facility] [address] [place] [address] Osiel Worley MD [address] [place] [address] documented as of this encounter Visit Diagnoses Not on filedocumented in this encounter Additional Health Concerns Assessment Noted Time PHQ-9 Depression Total Score: 0 11/13/19 24 2:32 PM EDT documented as of this encounter Care Teams Jewelry Casting Model Maker Apprentice Relationship Specialty Start Date End Date Osiel Worley MD 230 [facility] [place] [address] PCP - General Internal Medicine 12/24/13 documented as of this encounter
--- OUTSIDE RECORDS SUMMARY | 2024-08-26 08:13 | XMS_ITS | Encounter Summary ---
Author Organization [employer] Address 75 [facility] 7t [place] [address] Care Team Providers Care Research Support Specialist Name Role Phone Osiel Worley MD Primary Care Provide r Reason for Visit * Reason Comments Med Refill Encounter Details Date Type Department Care Team (Late st Contact Info) Description 01/29/2023 Refill [facility] [address] [place] [phone] Osiel Worley MD [address] [place] [address] [phone] Social History Tobacco Use Types Packs/Day Years [...] Description 08/26/2024 9:15 AM EDT Office Visit [facility] [address] [place] [address] [phone] Osiel Worley MD [address] [place] [address] [phone] 09/16/2024 11:00 AM EDT Office Visit [facility] [address] [place] [address] 79712 Osiel Worley MD [address] [place] [address] [phone] documented as of this encounter Visit Diagnoses Not on filedocumented in this encounter Care Teams Research Support Specialist Relationship Specialty Start Date End Date Osiel Worley MD [address] [place] [address] PCP - General Internal Medicine 12/24/13 documented as of this encounter
--- OUTSIDE RECORDS SUMMARY | 2024-08-26 08:13 | XMS_ITS | Encounter Summary ---
Author Organization [employer] Address 75 [facility] 7t [place] [address] Care Team Providers Care Deposition Reporter Name Role Phone Osiel Worley MD Primary Care Provide r Reason for Visit * Reason Onset Date Comments Results 07/14/2024 Lab Orders 07/14/2024 Encounter Details Date Type Department Care Team ([facility] st Contact Info) Description 07/14/2024 Telephone [facility] [address] [place], [place] [phone] Osiel Worley MD 230 [place], [place] [phone] Results; Lab Orders Social History Tobacco Use [...] encounter Miscellaneous Notes * Telephone Encounter - Sravanthi Albert RN - 08/22/2024 3:15 PM EDT TC placed to pt with S language interpreter #[id number] to schedule a follow up appt with PCP after having a CTscan performed at [facility] on 09/02/2024 at 730. Pt was agreeable to schedule with PCP on 09/16/2024 for follow up to this CT scan. The appt scheduled for 08/26/2024 for HTN f/u was cancelled and will be addressed at 09/16 appt. Pt informed of this cancellation and that the only appts he has upcoming are the CT on 09/02/2024 and f/u with PCP on 09/16/2024. Pt did state understanding of these appt dates and times and did not have any further questions. * Telephone Encounter - Kimmie De La Cruz RN - 08/21/2024 9:26 AM EDT Telephone call placed to pt to r/s rv appt to ~ 1-2 weeks after 09/02. No answer, left v/m. * Telephone Encounter - Kimmie De La Cruz RN - 08/15/2024 9:52 AM EDT Telephone call placed to pt to remind of upcoming CT appt and to r/s appt for at least 1 week afterCT so results can be discussed per PCP. No answer, left v/m. Will retask. * Telephone Encounter - Kimmie De La Cruz RN - 08/08/2024 11:36 AM EDT Per [facility] system, pt's CT is now schedule as of 2 days ago. Telephone call placed to Centralized Scheduling to request appt details. CT booked for 09/02/24 @7:30am. * Telephone Encounter - Judith Zhao RN - 07/21/2024 9:49 AM EDT Per pt's chart, CT of the chest referral still pending. Will reach out to referrals to status check. * Telephone Encounter - Judith Zhao RN - 07/14/2024 2:07 PM EST Telephone call to pt per PCP message with lao translation by TESFAYE Sarmiento. Advised pt that PCP ordered CT scan of the chest, explained different type of imaging than chest XRAY done in ED. Advised [facility] to call pt to schedule this. Explained that once appt scheduled, will call to schedule appt with PCP. Pt stated he already has appt on 08/25/24 with PCP. Will postpone to check CT appt status and then schedule f/u with PCP based on timing. * Telephone Encounter - Judith Zhao RN - 07/14/2024 1:52 PM EST ----- [...] 9:15 AM EDT Office Visit [facility] [address] [facility] [place] [address] Osiel Worley MD [address] [facility] [place] [address] 09/16/2024 11:00 AM EDT Office Visit [facility] [address] [facility] [place] [address] Osiel Worley MD [address] [facility] [place] [address] documented as of this encounter Visit Diagnoses Not on filedocumented in this encounter Additional Health Concerns Assessment Noted Time PHQ-9 Depression Total Score: 0 11/13/19 24 2:32 PM EDT documented as of this encounter Care Teams Deposition Reporter Relationship Specialty Start Date End Date Osiel Worley MD [facility] [place] [address] PCP - General Internal Medicine 12/24/13 documented as of this encounter
--- OUTSIDE RECORDS SUMMARY | 2024-08-26 08:13 | XMS_ITS | Encounter Summary ---
Author Organization [employer] Address 75 [facility] 7t [place] [address] Care Team Providers Care Video Game Animator Name Role Phone Osiel Worley MD Primary Care Provide r Encounter Details Date Type Department Care Team (Late st Contact Info) Description 04/30/2023 Telephone [facility] [address] [place] [phone] Osiel Worley MD [address] [place] [address] [phone] Social History Tobacco Use Types Packs/Day Years [...] Description 08/26/2024 9:15 AM EDT Office Visit [facility] [address] [place] [phone] Osiel Worley MD [address] [place] [address] [phone] 09/16/2024 11:00 AM EDT Office Visit [facility] [address] [place] [address] Osiel Worley MD [address] [place] [address] [phone] documented as of this encounter Visit Diagnoses Not on filedocumented in this encounter Care Teams Video Game Animator Relationship Specialty Start Date End Date Osiel Worley MD [address] [place] [address] PCP - General Internal Medicine 12/24/13 documented as of this encounter
--- OUTSIDE RECORDS SUMMARY | 2024-08-26 08:13 | XMS_ITS | Encounter Summary ---
Author Organization [employer] Address 75 [facility] 7t [place] [address] Care Team Providers Care Business Specialist Name Role Phone Osiel Worley MD Primary Care Provide r Reason for Visit * Reason Onset Date Comments Med Refill 06/18/2023 Encounter Details Date Type Department Care Team (Late st Contact Info) Description 06/18/2023 Telephone [facility] [address] [place] [address] [phone] Osiel Worley MD [address] [place] [address] [phone] Med Refill Social History Tobacco Use Types [...] Description 08/26/2024 9:15 AM EDT Office Visit [facility] [address] [place] [address] [phone] Osiel Worley MD [address] [place] [address] [phone] 09/16/2024 11:00 AM EDT Office Visit [facility] [address] [place] [address] [phone] Osiel Worley MD [address] [place] [phone] documented as of this encounter Visit Diagnoses Not on filedocumented in this encounter Care Teams Business Specialist Relationship Specialty Start Date End Date Osiel Worley MD [address] [place] [address] PCP - General Internal Medicine 12/24/13 documented as of this encounter
--- OUTSIDE RECORDS SUMMARY | 2024-08-26 08:13 | XMS_ITS | Encounter Summary ---
Author Organization [employer] Address 75 [facility] 7t [place] [address] Care Team Providers Care Hearing Screen Coordinator Name Role Phone Osiel Worley MD Primary Care Provide r Encounter Details Date Type Department Care Team ([facility] st Contact Info) Description 12/31/2023 Telephone [facility] 230 [place], [place] [phone] Osiel Worley MD [address] [place] [address] Social History Tobacco Use Types Packs/Day Years [...] Description 08/26/2024 9:15 AM EDT Office Visit [facility] [address] [place] [address] Osiel Worley MD [address] [place] [address] 09/16/2024 11:00 AM EDT Office Visit [facility] [address] [place] [address] Osiel Worley MD [address] [place] [address] documented as of this encounter Visit Diagnoses Not on filedocumented in this encounter Additional Health Concerns Assessment Noted Time PHQ-9 Depression Total Score: 0 11/13/19 24 2:32 PM EDT documented as of this encounter Care Teams Hearing Screen Coordinator Relationship Specialty Start Date End Date Osiel Worley MD [address] [place] [address] PCP - General Internal Medicine 12/24/13 documented as of this encounter
--- OUTSIDE RECORDS SUMMARY | 2024-08-26 08:13 | XMS_ITS | Encounter Summary ---
Author Organization [employer] Address [address] [facility] 7t [place] [address] Care Team Providers Care Steam Trap Man Name Role Phone Osiel Worley MD Primary Care Provide r Reason for Visit * Reason Onset Date Comments Med Refill 01/03/2023 Encounter Details Date Type Department Care Team ([facility] st Contact Info) Description 01/03/2023 Telephone [facility] MEDICINE [address] [place] [address] Osiel Worley MD 230 [place], [place] [phone] Med Refill Social History Tobacco Use Types [...] 9:01 AM EDT Medication was sent to [facility] on 09/28/22 #180 with 1 refill. * Telephone Encounter - Selam Emerson - 01/03/2023 8:58 AM EDT Tc from patient requesting a med refill on medication Calcium Carb- Cholecalciferol 600-5 MG-MCG tablet. PCP Dr. Guerra documented in this encounter Plan of Treatment Upcoming Encounters Date Type Department Care Team (Late st Contact Info) Description 08/26/2024 9:15 AM EDT Office Visit [facility] MEDICINE [address] [place] [address] Osiel Worley MD [address] [place], [place] [phone] 09/16/2024 11:00 AM EDT Office Visit [facility] MEDICINE [address] [place], [place] [phone] Osiel Worley MD [address] [place], [place] [phone] documented as of this encounter Visit Diagnoses Not on filedocumented in this encounter Care Teams Steam Trap Man Relationship Specialty Start Date End Date Osiel Worley MD [address] [place] [address] PCP - General Internal Medicine 12/24/13 documented as of this encounter
--- OUTSIDE RECORDS SUMMARY | 2024-08-26 08:13 | XMS_ITS | Encounter Summary ---
Author Organization [employer] [facility] Address [address] [facility] 7t [place] [address] Care Team Providers Care Clutch Mechanic Name Role Phone Osiel Worley MD Primary Care Provide r Encounter Details Date Type Department Care Team (Late st Contact Info) Description 10/19/2022 Orders Only [facility] MEDICINE [address] [place] [phone] Basilia Johnson LPN Social History Tobacco Use [...] 08/26/2024 9:15 AM EDT Office Visit [facility] MEDICINE [address] [place] [address] Osiel Worley MD [address] [place] [address] 09/16/2024 11:00 AM EDT Office Visit [facility] MEDICINE [address] [place] [address] Osiel Worley MD [address] [place] [phone] documented as of this encounter Visit Diagnoses Not on filedocumented in this encounter Care Teams Clutch Mechanic Relationship Specialty Start Date End Date Osiel Worley MD 230 [place] [address] PCP - General Internal Medicine 12/24/13 documented as of this encounter
--- OUTSIDE RECORDS SUMMARY | 2024-08-26 08:13 | XMS_ITS | Encounter Summary ---
Author Organization [employer] Address [address] [facility] 7t [place] [address] Care Team Providers Care Head Wrestling Coach Name Role Phone Osiel Worley MD Primary Care Provide r Encounter Details Date Type Department Care Team (Late st Contact Info) Description 11/02/2022 Orders Only [facility] CHC MED & PEDS [address] [place], [place] [phone] Dodie Schroeder LPN Social History Tobacco Use [...] Visit [facility] MEDICINE [address] [place] [address] Osiel Worley MD [address] [place] [address] 09/16/2024 11:00 AM EDT Office Visit [facility] MEDICINE [address] [place] [address] Osiel Worley MD [address] [place] [address] documented as of this encounter Visit Diagnoses Not on filedocumented in this encounter Care Teams Head Wrestling Coach Relationship Specialty Start Date End Date Osiel Worley MD 230 [place] [address] PCP - General Internal Medicine 12/24/13 documented as of this encounter
--- OUTSIDE RECORDS SUMMARY | 2024-08-26 08:13 | XMS_ITS | Encounter Summary ---
Author Organization [employer] Address 75 [facility] 7t [place] [address] Care Team Providers Care Bingo Worker Name Role Phone Osiel Worley MD Primary Care Provide r Reason for Visit * Reason Comments Med Refill Encounter Details Date Type Department Care Team ([facility] st Contact Info) Description 01/02/2024 Refill [facility] [address] [place], [place] [phone] Osiel Worley MD 230 [place], [place] [phone] Social History Tobacco Use Types Packs/Day Years [...] Description 08/26/2024 9:15 AM EDT Office Visit [facility] [address] [place] [address] Osiel Worley MD 230 [place] [address] 09/16/2024 11:00 AM EDT Office Visit [facility] [address] [place] [address] Osiel Worley MD [address] [place] [address] documented as of this encounter Visit Diagnoses Not on filedocumented in this encounter Additional Health Concerns Assessment Noted Time PHQ-9 Depression Total Score: 0 11/13/19 24 2:32 PM EDT documented as of this encounter Care Teams Bingo Worker Relationship Specialty Start Date End Date Osiel Worley MD [address] [place] [address] PCP - General Internal Medicine 12/24/13 documented as of this encounter
--- OUTSIDE RECORDS SUMMARY | 2024-08-26 08:13 | XMS_ITS | Encounter Summary ---
Author Organization [employer] Address [address] [facility] 7t [place] [address] Care Team Providers Care Medical Record Assistant Name Role Phone Osiel Worley MD Primary Care Provide r Reason for Visit * Reason Onset Date Comments Med Refill 07/15/2024 Encounter Details Date Type Department Care Team ([facility] st Contact Info) Description 07/15/2024 Telephone [facility] MEDICINE 230 [place], [place] [phone] Osiel Worley MD 230 [place], [place] [phone] Med Refill Social History Tobacco Use Types [...] Miscellaneous Notes * Telephone Encounter - Dodie Scrhoeder LPN - 07/15/2024 9:23 AM EST Medication isn't prescribed by PCP. * Telephone Encounter - Diego Sims - 07/15/2024 8:14 AM EST TC from pt requesting medication refill. Medications needing refill : Umeclidinium [place] (Incruse Ellipta) 62.5 MCG/ACT aerosol powder To be sent to: [facility] - [place], [place] - [address] [place] [address] documented in this encounter Plan of Treatment Upcoming Encounters Date Type Department Care Team (Late st Contact Info) Description 08/26/2024 9:15 AM EDT Office Visit [facility] MEDICINE 230 [place] [address] Osiel Worley MD [address] [place] [address] 09/16/2024 11:00 AM EDT Office Visit [facility] MEDICINE 230 [place] [address] Osiel Worley MD [address] [place] [address] documented as of this encounter Visit Diagnoses Not on filedocumented in this encounter Additional Health Concerns Assessment Noted Time PHQ-9 Depression Total Score: 0 11/13/19 24 2:32 PM EDT documented as of this encounter Care Teams Medical Record Assistant Relationship Specialty Start Date End Date Osiel Worley MD [address] [place] [address] JERED Patterson [address] PCP - General Internal Medicine 12/24/13 documented as of this encounter
--- OUTSIDE RECORDS SUMMARY | 2024-08-26 08:13 | XMS_ITS | Encounter Summary ---
Author Organization [employer] Address [address] [facility] 7t [place] [address] Care Team Providers Care Beer Merchant Name Role Phone Osiel Worley MD Primary Care Provide r Encounter Details Date Type Department Care Team (Late st Contact Info) Description 10/09/2023 Telephone [facility] MEDICINE [address] [place] [phone] Osiel Worley MD [address] [place] [address] [phone] Social History Tobacco Use Types Packs/Day Years [...] Office Visit [facility] MEDICINE [address] [place] [address] Osiel Worley MD [address] [place] [address] [phone] 09/16/2024 11:00 AM EDT Office Visit [facility] MEDICINE [address] [place] [address] Osiel Worley MD [address] [place] [address] [phone] documented as of this encounter Visit Diagnoses Not on filedocumented in this encounter Care Teams Beer Merchant Relationship Specialty Start Date End Date Osiel Worley MD 230 [place] [address] PCP - General Internal Medicine 12/24/13 documented as of this encounter
--- OUTSIDE RECORDS SUMMARY | 2024-08-26 08:13 | XMS_ITS | Encounter Summary ---
Author Organization [employer] Address 75 [facility] 7t [place] [address] Care Team Providers Care Optician Manager Name Role Phone Osiel Worley MD Primary Care Provide r Reason for Visit * Reason Comments Med Refill Encounter Details Date Type Department Care Team ([facility] st Contact Info) Description 01/10/2024 Refill [facility] MEDICINE 230 [place], [place] [phone] Rosita Ferrari MD 230 [place], [place] [phone] Social History Tobacco Use Types Packs/Day Years [...] Description 08/26/2024 9:15 AM EDT Office Visit [facility] MEDICINE [address] [place] [address] Osiel Worley MD [address] [place] [address] 09/16/2024 11:00 AM EDT Office Visit [facility] MEDICINE [address] [place] [address] Osiel Worley MD [address] [place] [phone] documented as of this encounter Visit Diagnoses Not on filedocumented in this encounter Additional Health Concerns Assessment Noted Time PHQ-9 Depression Total Score: 0 11/13/19 24 2:32 PM EDT documented as of this encounter Care Teams Optician Manager Relationship Specialty Start Date End Date Osiel Worley MD [address] [place] [address] PCP - General Internal Medicine 12/24/13 documented as of this encounter
--- OUTSIDE RECORDS SUMMARY | 2024-08-26 08:13 | XMS_ITS | Encounter Summary ---
Author Organization [employer] Address 75 [facility] 7t [place] [address] Care Team Providers Care Yarn Cleaner Name Role Phone Oisel Worley MD Primary Care Provide r Reason for Visit * Reason Onset Date Comments Med Refill 05/19/2024 Encounter Details Date Type Department Care Team ([facility] st Contact Info) Description 05/19/2024 Telephone [facility] MEDICINE 230 [place], [place] [phone] Osiel Worley MD 230 [place], [place] [phone] Med Refill Social History Tobacco Use Types [...] 5 MG tablet To be sent to: [facility] - [place], [place] - [address] [place] [address] documented in this encounter Plan of Treatment Upcoming Encounters Date Type Department Care Team (Late st Contact Info) Description 08/26/2024 9:15 AM EDT Office Visit [facility] MEDICINE [address] [place] [address] Osiel Worley MD 230 [place] [address] 09/16/2024 11:00 AM EDT Office Visit [facility] MEDICINE [address] [place] [address] Osiel Worley MD [address] [place] [address] documented as of this encounter Visit Diagnoses Not on filedocumented in this encounter Additional Health Concerns Assessment Noted Time PHQ-9 Depression Total Score: 0 11/13/19 24 2:32 PM EDT documented as of this encounter Care Teams Yarn Cleaner Relationship Specialty Start Date End Date Osiel Worley MD [address] [place] [address] PCP - General Internal Medicine 12/24/13 documented as of this encounter
[2024-08-26 08:43] VITALS: BP 146/71; PULSE 89; RESP 20; TEMP 36.6; O2SAT 94
== END 2024-08-26 08:43 | disposition home or self-care (01) ==
PROVIDERS: Emergency Provider Emergency Medicine; PCP Internal Medicine
DX: L30.9 Dermatitis, unspecified (principal); I10 Essential (primary) hypertension; J44.9 Chronic obstructive pulmonary disease, unspecified
CPT/HCPCS: 99282; 99283

== ENCOUNTER 2024-09-02 06:42 | Outpatient (REF) | payer OTHER, SELFPAY ==
--- NOTE | ~2024-09-02 | CT_ITS ---
CLINICAL HISTORY: J44.9 - Chronic obstructive pulmonary disease, unspecified --- Additional Notes or Special Instructions: Past history of smoking quit in 2020. CT chest without contrast Comparison: 04/03/2020 Findings: Emphysema with bilateral apical pleural scarring. Findings are unchanged from prior study. No acute pulmonary parenchymal abnormality. No significant mediastinal adenopathy. No significant free pleural fluid. Dense coronary artery calcification. No significant focal bony abnormalities. Incidental chronic mesenteric panniculitis. This is partially visualized in the upper abdomen. Visualized region is unchanged from prior study. Impression: Stable chronic findings No acute processes This document has been electronically signed by: Raman Ware MD on 09/02/2024 20:25:33
--- OUTSIDE RECORDS SUMMARY | 2024-09-02 06:44 | XMS_ITS | Encounter Summary ---
Author Organization [employer] [facility] Address 75 [facility] 7t [place] [address] Care Team Providers Care Batch Plant Supervisor Name Role Phone Osiel Worley MD Primary Care Provide r Reason for Visit * Reason Onset Date Comments Med Refill 06/18/2023 Encounter Details Date Type Department Care Team (Late st Contact Info) Description 06/18/2023 Telephone [facility] MEDICINE [address] [place] [phone] Osiel Worley MD [address] [place] [address] [phone] Med Refill Social History Tobacco Use Types [...] Care Team (Late st Contact Info) Description 09/16/2024 11:00 AM EDT Office Visit [facility] MEDICINE [address] [place] [address] Osiel Worley MD [address] [place] [address] [phone] documented as of this encounter Visit Diagnoses Not on filedocumented in this encounter Care Teams Batch Plant Supervisor Relationship Specialty Start Date End Date Osiel Worley MD [address] [place] [address] PCP - General Internal Medicine 12/24/13 documented as of this encounter
--- OUTSIDE RECORDS SUMMARY | 2024-09-02 06:44 | XMS_ITS | Encounter Summary ---
Author Organization [employer] Address 75 [facility] 7t [place] [address] Care Team Providers Care Production Engineer Track Name Role Phone Osiel Worley MD Primary Care Provide r Encounter Details Date Type Department Care Team (Late st Contact Info) Description 08/10/2022 Orders Only [facility] CHC MED & PEDS [address] [place] [address] Dodie Schroeder LPN Social History Tobacco Use [...] Description 09/16/2024 11:00 AM EDT Office Visit [facility] MEDICINE 230 [place] [address] Osiel Worley MD 230 [place] [address] documented as of this encounter Visit Diagnoses Not on filedocumented in this encounter Care Teams Production Engineer Track Relationship Specialty Start Date End Date Osiel Worley MD 230 [place] [address] PCP - General Internal Medicine 12/24/13 documented as of this encounter
--- OUTSIDE RECORDS SUMMARY | 2024-09-02 06:44 | XMS_ITS | Encounter Summary ---
Author Organization [employer] Address 75 [facility] 7t [place] [address] Care Team Providers Care Cable Reeler Name Role Phone Osiel Worley MD Primary Care Provide r Reason for Visit * Reason Onset Date Comments Med Refill 01/03/2023 Encounter Details Date Type Department Care Team ([facility] st Contact Info) Description 01/03/2023 Telephone [facility] MEDICINE 230 [place] [address] Osiel Worley MD 230 [place], [place] [phone] Med Refill Social History Tobacco Use Types [...] EDT Medication was sent to [facility] on 09/28/22 #180 with 1 refill. * Telephone Encounter - Selam Emerson - 01/03/2023 8:58 AM EDT Tc from patient requesting a med refill on medication Calcium Carb- Cholecalciferol 600-5 MG-MCG tablet. PCP Dr. Guerra documented in this encounter Plan of Treatment Upcoming Encounters Date Type Department Care Team (Late st Contact Info) Description 09/16/2024 11:00 AM EDT Office Visit [facility] MEDICINE 230 [place], [place] [phone] Osiel Worley MD 230 [place], [place] [phone] documented as of this encounter Visit Diagnoses Not on filedocumented in this encounter Care Teams Cable Reeler Relationship Specialty Start Date End Date Osiel Worley MD [address] [place] [address] [phone] PCP - General Internal Medicine 12/24/13 documented as of this encounter
--- OUTSIDE RECORDS SUMMARY | 2024-09-02 06:44 | XMS_ITS | Encounter Summary ---
Author Organization [employer] [facility] Address 75 [facility] 7t [place] [address] Care Team Providers Care Ambulance Operations Supervisor Name Role Phone Osiel Worley MD Primary Care Provide r Encounter Details Date Type Department Care Team (Late Contact Info) Description 10/09/2023 Telephone [facility] MEDICINE [address] [place] [phone] Osiel Worley MD [address] [place] [address] [phone] Social History Tobacco Use Types Packs/Day Years [...] Description 09/16/2024 11:00 AM EDT Office Visit [facility] MEDICINE [address] [place] [phone] Osiel Worley MD [address] [place] [address] [phone] documented as of this encounter Visit Diagnoses Not on filedocumented in this encounter Care Teams Ambulance Operations Supervisor Relationship Specialty Start Date End Date Osiel Worley MD [address] [place] [address] [phone] PCP - General Internal Medicine 12/24/13 documented as of this encounter
--- OUTSIDE RECORDS SUMMARY | 2024-09-02 06:44 | XMS_ITS | Encounter Summary ---
Author Organization [employer] Address [address] [facility] 7t [place] [address] Care Team Providers Care Sensor Technician Name Role Phone Osiel Worley MD Primary Care Provide r Reason for Visit * Reason Comments Med Refill Encounter Details Date Type Department Care Team ([facility] st Contact Info) Description 01/10/2024 Refill [facility] MEDICINE 230 [place], [place] [phone] Rosita Ferrari MD 230 [place], [place] [phone] Social History Tobacco Use Types Packs/Day Years [...] Description 09/16/2024 11:00 AM EDT Office Visit [facility] MEDICINE [address] [place] [address] Osiel Worley MD [address] [place] [address] documented as of this encounter Visit Diagnoses Not on filedocumented in this encounter Additional Health Concerns Assessment Noted Time PHQ-9 Depression Total Score: 0 11/13/19 24 2:32 PM EDT documented as of this encounter Care Teams Sensor Technician Relationship Specialty Start Date End Date Osiel Worley MD [address] [place] [address] PCP - General Internal Medicine 12/24/13 documented as of this encounter
--- OUTSIDE RECORDS SUMMARY | 2024-09-02 06:44 | XMS_ITS | Encounter Summary ---
Author Organization [employer] [facility] Address [address] [facility] 7t [place] [address] Care Team Providers Care Route Delivery Service Driver Name Role Phone Osiel Worley MD Primary Care Provide r Encounter Details Date Type Department Care Team (Late st Contact Info) Description 10/19/2022 Orders Only [facility] MEDICINE [address] [place] [phone] Basilia Johnson LPN Social History Tobacco Use [...] 11:00 AM EDT Office Visit [facility] MEDICINE [address] [place] [address] Osiel Worley MD [address] [place] [address] documented as of this encounter Visit Diagnoses Not on filedocumented in this encounter Care Teams Route Delivery Service Driver Relationship Specialty Start Date End Date Osiel Worley MD [address] [place] [address] PCP - General Internal Medicine 12/24/13 documented as of this encounter
--- OUTSIDE RECORDS SUMMARY | 2024-09-02 06:44 | XMS_ITS | Encounter Summary ---
Author Organization [employer] Address [address] [facility] 7t [place] [address] Care Team Providers Care Superintendent Drivers Name Role Phone Osiel Worley MD Primary Care Provide r Encounter Details Date Type Department Care Team (Late st Contact Info) Description 06/19/2022 Orders Only [facility] CHC MED & PEDS [address] [place] [address] Dodie Schroeder LPN Social History Tobacco Use [...] Description 09/16/2024 11:00 AM EDT Office Visit [facility] MEDICINE 230 [place] [address] Osiel Worley MD 230 [place] [address] documented as of this encounter Visit Diagnoses Not on filedocumented in this encounter Care Teams Superintendent Drivers Relationship Specialty Start Date End Date Osiel Worley MD [address] [place] [address] PCP - General Internal Medicine 12/24/13 documented as of this encounter
--- OUTSIDE RECORDS SUMMARY | 2024-09-02 06:44 | XMS_ITS | Encounter Summary ---
Author Organization [employer] Address [address] [facility] 7t [place] [address] Care Team Providers Care Court Worker Name Role Phone Osiel Worley MD Primary Care Provide r Encounter Details Date Type Department Care Team (Late st Contact Info) Description 09/28/2022 Orders Only [facility] MED & PEDS [address] [place] [address] Dodie Schroeder LPN Social History Tobacco Use [...] Description 09/16/2024 11:00 AM EDT Office Visit [facility] MEDICINE 230 [place] [address] Osiel Worley MD [address] [place] [address] documented as of this encounter Visit Diagnoses Not on filedocumented in this encounter Care Teams Court Worker Relationship Specialty Start Date End Date Osiel Worley MD [address] [place] [address] PCP - General Internal Medicine 12/24/13 documented as of this encounter
--- OUTSIDE RECORDS SUMMARY | 2024-09-02 06:44 | XMS_ITS | Encounter Summary ---
Author Organization [employer] Address 75 [facility] 7t [place] [address] Care Team Providers Care Merchant Mariner Name Role Phone Osiel Worley MD Primary Care Provide r Encounter Details Date Type Department Care Team (Late st Contact Info) Description 01/22/2023 Orders Only [facility] MED & PEDS [address] [place] [address] Dodie Schroeder LPN Social History Tobacco Use [...] Description 09/16/2024 11:00 AM EDT Office Visit [facility] MEDICINE 230 [place] [address] Osiel Worley MD 230 [place] [address] documented as of this encounter Visit Diagnoses Not on filedocumented in this encounter Care Teams Merchant Mariner Relationship Specialty Start Date End Date Osiel Worley MD [address] [place] [address] PCP - General Internal Medicine 12/24/13 documented as of this encounter
--- OUTSIDE RECORDS SUMMARY | 2024-09-02 06:44 | XMS_ITS | Encounter Summary ---
Author Organization [employer] Address 75 [facility] 7t [place] [address] Care Team Providers Care Senior Software Qa Analyst Name Role Phone Osiel Worley MD Primary Care Provide r Reason for Visit * Reason Onset Date Comments Med Refill 07/15/2024 Encounter Details Date Type Department Care Team ([facility] st Contact Info) Description 07/15/2024 Telephone [facility] MEDICINE 230 [place], [place] [phone] Osiel Worley MD 230 [place], [place] [phone] Med Refill Social History Tobacco Use Types [...] medication refill. Medications needing refill : Umeclidinium [place] (Incruse Ellipta) 62.5 MCG/ACT aerosol powder To be sent to: [facility] - [place], [place] - [address] [facility] documented in this encounter Plan of Treatment Upcoming Encounters Date Type Department Care Team (Late st Contact Info) Description 09/16/2024 11:00 AM EDT Office Visit [facility] MEDICINE 230 [place] [address] Osiel Worley MD [address] [place] [address] documented as of this encounter Visit Diagnoses Not on filedocumented in this encounter Additional Health Concerns Assessment Noted Time PHQ-9 Depression Total Score: 0 11/13/19 24 2:32 PM EDT documented as of this encounter Care Teams Senior Software Qa Analyst Relationship Specialty Start Date End Date Osiel Worley MD [address] [place] [address] PCP - General Internal Medicine 12/24/13 documented as of this encounter
--- OUTSIDE RECORDS SUMMARY | 2024-09-02 06:44 | XMS_ITS | Encounter Summary ---
Author Organization [employer] Address 75 [facility] 7t [place] [address] Care Team Providers Care Valve Liner Rubber Name Role Phone Osiel Worley MD Primary Care Provide r Encounter Details Date Type Department Care Team ([facility] st Contact Info) Description 12/31/[address] [facility] MEDICINE 230 [place], [place] [phone] Osiel Worley MD 230 [place] [address] Social History Tobacco Use Types Packs/Day Years [...] 11:00 AM EDT Office Visit [facility] MEDICINE [address] [place] [address] Osiel Worley MD 230 [place] [address] documented as of this encounter Visit Diagnoses Not on filedocumented in this encounter Additional Health Concerns Assessment Noted Time PHQ-9 Depression Total Score: 0 11/13/19 24 2:32 PM EDT documented as of this encounter Care Teams Valve Liner Rubber Relationship Specialty Start Date End Date Osiel Worley MD 230 [place] [address] PCP - General Internal Medicine 12/24/13 documented as of this encounter
--- OUTSIDE RECORDS SUMMARY | 2024-09-02 06:44 | XMS_ITS | Encounter Summary ---
Author Organization [employer] [facility] Address [address] [facility] 7t [place] [address] Care Team Providers Care Manager Application Name Role Phone Osiel Worley MD Primary Care Provide r Reason for Visit * Reason Comments Med Refill Encounter Details Date Type Department Care Team (Late st Contact Info) Description 09/28/2022 Refill [facility] MED[facility]INE 230 [place] [address] Saira Petersen ANP 230 [place], [place] [phone] Social History Tobacco Use Types Packs/Day Years [...] 09/16/2024 11:00 AM EDT Office Visit [facility] MEDICINE [address] [place] [phone] Osiel Worley MD 230 [place], [place] [phone] documented as of this encounter Visit Diagnoses Not on filedocumented in this encounter Care Teams Manager Application Relationship Specialty Start Date End Date Osiel Worley MD [address] [place] [address] [phone] PCP - General Internal Medicine 12/24/13 documented as of this encounter
--- OUTSIDE RECORDS SUMMARY | 2024-09-02 06:44 | XMS_ITS | Encounter Summary ---
Author Organization [email or web address] [facility] Address [address] [facility] 7t [place] [address] Care Team Providers Care Manager Insurance Name Role Phone Osiel Worley MD Primary Care Provide r Encounter Details Date Type Department Care Team (Late Contact Info) Description 04/30/2023 Telephone [facility] MEDICINE [address] [place] [phone] Osiel Worley MD [address] [place] [phone] Social History Tobacco Use Types Packs/Day Years [...] Description 09/16/2024 11:00 AM EDT Office Visit [facility] [address] [place] [address] Osiel Worley MD [address] [place] [address] [phone] documented as of this encounter Visit Diagnoses Not on filedocumented in this encounter Care Teams Manager Insurance Relationship Specialty Start Date End Date Osiel Worley MD [address] [place] [address] [phone] PCP - General Internal Medicine 12/24/13 documented as of this encounter
--- OUTSIDE RECORDS SUMMARY | 2024-09-02 06:44 | XMS_ITS | Encounter Summary ---
Author Organization [employer] [facility] Address 75 [facility] 7t [place] [address] Care Team Providers Care Grinder Operator Automatic Name Role Phone Osiel Worley MD Primary Care Provide r Reason for Visit * Reason Comments Med Refill Encounter Details Date Type Department Care Team (Late st Contact Info) Description 11/02/2022 Refill [facility] MEDICINE 230 [place] [address] Saira Petersen ANP 230 [place], [place] [phone] Social History Tobacco Use Types Packs/Day Years [...] 11:00 AM EDT Office Visit [facility] MEDICINE [address] [place] [address] Osiel Worley MD 230 [place], [place] [phone] documented as of this encounter Visit Diagnoses Not on filedocumented in this encounter Care Teams Grinder Operator Automatic Relationship Specialty Start Date End Date Osiel Worley MD [address] [place] [address] [phone] PCP - General Internal Medicine 12/24/13 documented as of this encounter
--- OUTSIDE RECORDS SUMMARY | 2024-09-02 06:44 | XMS_ITS | Encounter Summary ---
Author Organization [employer] [facility] Address [address] [facility] 7t [place] [address] Care Team Providers Care Ob/Gyn Name Role Phone Osiel Worley MD Primary Care Provide r Reason for Visit * Reason Comments Med Refill Encounter Details Date Type Department Care Team (Late st Contact Info) Description 01/29/2023 Refill [facility] MEDICINE 230 [place] [address] Osiel Worley MD [address] [place] [address] [phone] Social History Tobacco Use Types Packs/Day Years [...] Description 09/16/2024 11:00 AM EDT Office Visit [facility] MEDICINE 230 [place] [address] Osiel Worley MD 230 [place], [place] [phone] documented as of this encounter Visit Diagnoses Not on filedocumented in this encounter Care Teams Ob/Gyn Relationship Specialty Start Date End Date Osiel Worley MD [address] [place] [phone] PCP - General Internal Medicine 12/24/13 documented as of this encounter
--- OUTSIDE RECORDS SUMMARY | 2024-09-02 06:44 | XMS_ITS | Encounter Summary ---
Author Organization [employer] Address [address] [facility] 7t [place] [address] Care Team Providers Care Radio Electronics Officer Name Role Phone Osiel Worley MD Primary Care Provide r Reason for Visit * Reason Comments Med Refill Encounter Details Date Type Department Care Team ([facility] st Contact Info) Description 01/02/2024 Refill [facility] MEDICINE 230 [place], [place] [phone] Osiel Worley MD 230 [place], [place] [phone] Social History Tobacco Use Types Packs/Day Years [...] Description 09/16/2024 11:00 AM EDT Office Visit [facility] MEDICINE [address] [place] [address] Osiel Worley MD [address] [place] [phone] documented as of this encounter Visit Diagnoses Not on filedocumented in this encounter Additional Health Concerns Assessment Noted Time PHQ-9 Depression Total Score: 0 11/13/19 24 2:32 PM EDT documented as of this encounter Care Teams Radio Electronics Officer Relationship Specialty Start Date End Date Osiel Worley MD [address] [place] [phone] PCP - General Internal Medicine 12/24/13 documented as of this encounter
--- OUTSIDE RECORDS SUMMARY | 2024-09-02 06:44 | XMS_ITS | Encounter Summary ---
Author Organization [employer] Address [address] [facility] 7t [place] [address] Care Team Providers Care Glass Engraver Name Role Phone Osiel Worley MD Primary Care Provide r Reason for Visit * Reason Onset Date Comments Med Refill 05/19/2024 Encounter Details Date Type Department Care Team ([facility] st Contact Info) Description 05/19/2024 Telephone [facility] MEDICINE 230 [place], [place] [phone] Osiel Worley MD 230 [place], [place] [phone] Med Refill Social History Tobacco Use Types [...] 5 MG tablet To be sent to: [facility] [place], [place] - [address] [facility] documented in this encounter Plan of Treatment Upcoming Encounters Date Type Department Care Team (Late st Contact Info) Description 09/16/2024 11:00 AM EDT Office Visit [facility] MEDICINE 230 [place] [address] Osiel Worley MD 230 [place] [address] documented as of this encounter Visit Diagnoses Not on filedocumented in this encounter Additional Health Concerns Assessment Noted Time PHQ-9 Depression Total Score: 0 11/13/19 24 2:32 PM EDT documented as of this encounter Care Teams Glass Engraver Relationship Specialty Start Date End Date Osiel Worley MD 230 [place] [address] PCP - General Internal Medicine 12/24/13 documented as of this encounter
--- OUTSIDE RECORDS SUMMARY | 2024-09-02 06:44 | XMS_ITS | Encounter Summary ---
Author Organization [employer] Address [address] [facility] 7t [place] [address] Care Team Providers Care Quarry Plug And Feather Driller Name Role Phone Osiel Worley MD Primary Care Provide r Encounter Details Date Type Department Care Team (Late st Contact Info) Description 11/02/2022 Orders Only [facility] MED & PEDS [address] [place] [address] Dodie Schroeder LPN Social History Tobacco Use [...] Description 09/16/2024 11:00 AM EDT Office Visit [facility] MEDICINE 230 [place] [address] Osiel Worley MD 230 [place] [address] documented as of this encounter Visit Diagnoses Not on filedocumented in this encounter Care Teams Quarry Plug And Feather Driller Relationship Specialty Start Date End Date Osiel Worley MD 230 [place] [address] PCP - General Internal Medicine 12/24/13 documented as of this encounter
--- OUTSIDE RECORDS SUMMARY | 2024-09-02 06:44 | XMS_ITS | Clinical Summary ---
Author Organization [employer] Address [address] [facility] 7t [place] [address] Care Team Providers Care Machine Accountant Name Role Phone Osiel Worley MD Primary [...] puff 2 times daily. 4 Active Umeclidinium [place] (Incruse Ellipta) 62.5 MCG/ACT aerosol powder Inhale. [...] Pt was initially seen by a surgical translational specialist at the [facility] in [place], on 11/30/2014 who recommended observation and repeat [...] po daily, Pt used to followed by [facility]. Last seen on 11/06/2014. Previous thyroid US [...] has Severe COPD under the care of police specialist. Last seen 10/24/2023 Dr Ryan On Wixela 250-51 inhalation b.i.d. Incruse Ellipta 1 inhalation daily Albuterol HFA 2 puffs Q 6 hours only p.r.n. Insomnia 10/26/2011 Encounters Date Type Department Care Team Description 08/26/2024 Telephone [facility] [place] [address] Osiel Worley MD 08/21/2024 Telephone [facility] [place] [address] Osiel Worley MD Med Refill 08/12/2024 Patient Outreach [facility] [place] [address] Osiel Worley MD Pre-visit Planning (Pre-visit planning - LVM ) 08/04/2024 Telephone [facility] [place] [address] Osiel Worley MD Chart Prep 07/15/2024 Telephone [facility] [place] [address] Osiel Worley MD Med Refill 07/14/2024 Telephone [facility] 230 [facility] [place] [address] Osiel Worley MD Results; Lab Orders 07/14/2024 Orders Only GENERIC EXTERNAL DATA DEPARTMENT Provider, Generic External Data Opacity of lung on imaging study (Primary Dx) 06/29/2024 Refill [facility] [address] [facility] [place] [address] Osiel Worley MD 06/28/2024 Refill [facility] 230 [facility] [address] Osiel Worley MD Acquired hypothyroidism 06/06/2024 Telephone [facility] 230 [facility] [address] Osiel Worley MD August Recall from Last [...] Description 09/16/2024 11:00 AM EDT Office Visit [facility] 230 [facility] [place] [address] Osiel Worley MD 230 [place] [address] Health Maintenance Due Date Last Done Comments [...] EST Narrative 07/14/2024 7:44 AM EST ? [facility] ?[address] ?[place] [address] ?XRay Report ? Signed ? Patient: Connor Martinez,José Miguel ?MR# ?? : [id number] ? : 1945 ?Acct:[id number] ? Age/Sex: 78 / M ?ADM Date: 07/14/24 ? Loc: HO.ED ? Attending Dr: ? Ordering Physician: Milla Goldberg ?? Date of Service: 07/14/24 ?? Procedure(s): XR chest 2V ?? Accession Number(s): [id number] ? cc: Osiel Schwartz MD; Milla Goldberg [...] DD/ 0647 ? TD/TT: 07/14/24 0731 ? Painter Sign Maintenance: MSM ? Procedure Note Vanda, Image - 07/14/[address] [address] XRay Report Signed Patient: Jamshid Duenas AMR# : [id number] : 5Acct:[id number] Age/Sex: 78 / MADM Date: 07/14/24 Loc: HO.ED Attending Dr: Ordering Physician: Milla Goldberg Date of Service: 07/14/24 Procedure(s): XR chest 2V Accession Number(s): [id number] cc: Osiel Schwartz MD; Milla Goldberg EXAMINATION: [...] Timur Matos MD 07/14/2024 07:39 AM EST RP Dictated By: Timur Matos MD Signed By: <Electronically signed by Timur Matos MD in OV> 07/14/24 0739 DD/ 0647 TD/TT: 07/14/24 0731 Painter Sign Maintenance: NETO [facility] External Provider IMG XR PROCEDURES Final Result * Strep A Nucleic Acid (07/14/2024 6:41 AM EST) [employer]NOW SERIAL# [id number] [facility] Strep A Nucleic Acid Negative Negative [facility] Comment:All test results mus t [...] LAB MICROBIOLOGY - GENERAL ORDERABLES Final Result [facility] [address] [place] [phone] * SARS-CoV-2 RNA, Influenza A/B, and RSV RNA, Ql NAAT (07/14/2024 5:41 AM EST) Influenza A PCR NEGATIVE Negative [facility] Influenza B PCR NEGATIVE Negative [facility] Resp Syncy Virus RNA Qual PCR NEGATIVE Negative [facility] SARS COV2 PCR NEGATIVE Negative [facility] Comment:All test results mus t [...] use by authorized laboratories.Testing performed on the [email or web address] GeneXpert utilizingreal-time RT-PCR.All SARS CoV2 and positive influenza A/B results arereported to [facility]. 07/14/2024 5:41 AM EST 07/14/2024 5:45 AM EST us Generic External Data Provider LAB MICROBIOLOGY - GENERAL ORDERABLES Final Result [facility] [address] [place] [phone] * (ABNORMAL) Lipid Panel, Standard (11/14/2023 8:23 AM EDT) Triglycerides 67 <150 mg/dL [facility] Comment:Desirable Triglyceri de: less than 150 mg/dLBorderline High Triglyceride 150-199 mg/dLHigh Triglyceride: 200-499 mg/dLVery High Triglyceride: greater than or equal to 5OO mg/dL Cholesterol 175 <200 mg/dL [facility] Comment:Desirable Cholestero l: less than 200 mg/dLBorderline High Cholesterol: 200-239 mg/dLHigh Cholesterol: greater than 239 mg/dL LDL Cholesterol Calculated 112(H) <100 mg/dL [facility] Comment:Desirable LDL: less than 100 mg/dLNear Optimal/Above Optimal LDL: 110- 129 mg/dLBorderline High LDL: 130-159 mg/dLHigh LDL: 160-189 mg/dLVery High LDL: greater than or equal to 190 mg/dL HDL Cholesterol 50 >40 mg/dL [facility] Comment:Desirable HDL: great er than 40 mg/dL Note: This HDL assay may give artificially low results in patients with liver disease. Blood Venous blood specimen / Unknown 11/14/2023 8:23 AM EDT 11/14/2023 1:14 PM EDT us Osiel Conway MD LAB BLOOD ORDERABLES Final Result [facility] [address] [place] [phone] from Last 3 Months or Most Recently Relevant to Health Maintenance Insurance [facility] Care Teams Machine Accountant Relationship Specialty Start Date End Date Osiel Worley MD [address] [place] [address] PCP - General Internal Medicine 12/24/13
== END 2024-09-02 06:43 | disposition home or self-care (01) ==
LOC: HO.CT 06:42
PROVIDERS: PCP Internal Medicine; Visit Provider Internal Medicine
DX: J44.9 Chronic obstructive pulmonary disease, unspecified (principal); J84.10 Pulmonary fibrosis, unspecified; F17.200 Nicotine dependence, unspecified, uncomplicated
CPT/HCPCS: 71250

== ENCOUNTER → 2024-09-02 06:43 | Outpatient (BNV) | payer OTHER, SELFPAY | PROVIDERS: PCP Internal Medicine; Visit Provider Radiology Diagnostic Radiology | DX: J44.9 Chronic obstructive pulmonary disease, unspecified (principal); Z87.891 Personal history of nicotine dependence | CPT/HCPCS: 71250 ==

== ENCOUNTER 2024-09-18 08:12 | Outpatient (REF) | payer OTHER, SELFPAY ==
--- OUTSIDE RECORDS SUMMARY | 2024-09-18 08:29 | XMS_ITS | Encounter Summary ---
Author Organization [email or web address] Address [address] [facility] 7t [place] [address] Care Team Providers Care Refrigeration Manager Name Role Phone Osiel Worley MD Primary Care Provide r Encounter Details Date Type Department Care Team (Late st Contact Info) Description 11/02/2022 Orders Only [facility] MED & PEDS [address] [place] [address] Dodie Schroeder LPN Social History Tobacco Use [...] Care Team (Late st Contact Info) Description 12/18/2024 11:15 AM EDT Office Visit [facility] MEDICINE 230 [place] [address] Osiel Worley MD 230 [place] [address] documented as of this encounter Visit Diagnoses Not on filedocumented in this encounter Care Teams Refrigeration Manager Relationship Specialty Start Date End Date Osiel Worley MD 230 [place] [address] PCP - General Internal Medicine 12/24/13 documented as of this encounter
--- OUTSIDE RECORDS SUMMARY | 2024-09-18 08:29 | XMS_ITS | Encounter Summary ---
Author Organization [employer] Address 75 [facility] 7t [place] [address] Care Team Providers Care Ticket Taker Name Role Phone Osiel Worley MD Primary Care Provide r Reason for Visit * Reason Onset Date Comments Med Refill 01/03/2023 Encounter Details Date Type Department Care Team ([facility] st Contact Info) Description 01/03/2023 Telephone [facility] MEDICINE 230 [place] [address] Osiel Worley MD 230 [place] [address] Med Refill Social History Tobacco Use Types [...] 9:01 AM EDT Medication was sent to [facility] on 09/28/22 #180 with 1 refill. * Telephone Encounter - Selam Emerson - 01/03/2023 8:58 AM EDT Tc from patient requesting a med refill on medication Calcium Carb- Cholecalciferol 600-5 MG-MCG tablet. PCP Dr. Guerra documented in this encounter Plan of Treatment Upcoming Encounters Date Type Department Care Team (Late st Contact Info) Description 12/18/2024 11:15 AM EDT Office Visit [facility] MEDICINE 230 [place] [address] Osiel Worley MD 230 [place], [place] [phone] documented as of this encounter Visit Diagnoses Not on filedocumented in this encounter Care Teams Ticket Taker Relationship Specialty Start Date End Date Osiel Worley MD [address] [place] [address] [phone] PCP - General Internal Medicine 12/24/13 documented as of this encounter
--- OUTSIDE RECORDS SUMMARY | 2024-09-18 08:29 | XMS_ITS | Encounter Summary ---
Author Organization [employer] Address [address] [facility] 7t [place] [address] Care Team Providers Care Cook Vacuum Kettle Name Role Phone Osiel Worley MD Primary Care Provide r Reason for Visit * Reason Comments Med Refill Encounter Details Date Type Department Care Team (Late Contact Info) Description 11/02/2022 Refill [facility]INE 230 [place] [address] Saira Petersen ANP 230 [place] [address] Social History Tobacco Use Types Packs/Day Years [...] Description 12/18/2024 11:15 AM EDT Office Visit [facility] MEDICINE [address] [place] [address] Osiel Worley MD 230 [place], [place] [phone] documented as of this encounter Visit Diagnoses Not on filedocumented in this encounter Care Teams Cook Vacuum Kettle Relationship Specialty Start Date End Date Osiel Worley MD [address] [place] [address] [phone] PCP - General Internal Medicine 12/24/13 documented as of this encounter
--- OUTSIDE RECORDS SUMMARY | 2024-09-18 08:29 | XMS_ITS | Encounter Summary ---
Author Organization [employer] Address [address] [facility] 7t [place] [address] Care Team Providers Care Stock Patcher Name Role Phone Osiel Worley MD Primary Care Provide r Encounter Details Date Type Department Care Team (Late st Contact Info) Description 09/28/[address] [facility] MED & PEDS [address] [place] [address] Dodie Schroeder LPN Social History Tobacco Use [...] Description 12/18/2024 11:15 AM EDT Office Visit [facility] MEDICINE 230 [place] [address] Osiel Worley MD 230 [place] [address] documented as of this encounter Visit Diagnoses Not on filedocumented in this encounter Care Teams Stock Patcher Relationship Specialty Start Date End Date Osiel Worley MD 230 [place] [address] PCP - General Internal Medicine 12/24/13 documented as of this encounter
--- OUTSIDE RECORDS SUMMARY | 2024-09-18 08:29 | XMS_ITS | Encounter Summary ---
Author Organization [employer] Address 75 [facility] 7t [place] [address] Care Team Providers Care Industry Analyst Name Role Phone Osiel Worley MD Primary Care Provide r Encounter Details Date Type Department Care Team ([facility] st Contact Info) Description 12/31/2023 Telephone [facility] MEDICINE 230 [place], [place] [phone] Osiel Worley MD 230 [place], [place] [phone] Social History Tobacco Use Types Packs/Day Years Used Date Smoking Tobacco: Never Passive Smoke Exposure: Never Smokeless Tobacco: Never Depression Answer Date Recorded Patient Health Questionnaire-9 Score 0 11/13/2023 Patient Health Questionnaire-9 Score 0 11/13/2023 Last PHQ-9: Questionnaire Data Not on file 0 11/13/2023 Housing Stability Answer Date Recorded What is your housing situation today? I have [facility] 11/02/[address] you [...] t he electric, gas, oil or water [employer] threatened to shut off services in your [...] Description 12/18/2024 11:15 AM EDT Office Visit [facility] MEDICINE 230 [place] [address] Osiel Worley MD 230 [place] [address] documented as of this encounter Visit Diagnoses Not on filedocumented in this encounter Additional Health Concerns Assessment Noted Time PHQ-9 Depression Total Score: 0 11/13/19 24 2:32 PM EDT documented as of this encounter Care Teams Industry Analyst Relationship Specialty Start Date End Date Osiel Worley MD 230 [place] [address] PCP - General Internal Medicine 12/24/13 documented as of this encounter
--- OUTSIDE RECORDS SUMMARY | 2024-09-18 08:29 | XMS_ITS | Encounter Summary ---
Author Organization [employer] Address 75 [facility] 7t [place] [address] Care Team Providers Care Last Putter Away Name Role Phone Osiel Worley MD Primary Care Provide r Reason for Visit * Reason Comments Med Refill Encounter Details Date Type Department Care Team ([facility] Contact Info) Description 01/02/2024 Refill [facility] MEDICINE 230 [place] [address] Osiel Worley MD 230 [place] [address] Social History Tobacco Use Types Packs/Day Years [...] Description 12/18/2024 11:15 AM EDT Office Visit [facility] MEDICINE [address] [place] [address] Osiel Worley MD [address] [place] [address] documented as of this encounter Visit Diagnoses Not on filedocumented in this encounter Additional Health Concerns Assessment Noted Time PHQ-9 Depression Total Score: 0 11/13/19 24 2:32 PM EDT documented as of this encounter Care Teams Last Putter Away Relationship Specialty Start Date End Date Osiel Worley MD [address] [place] [address] PCP - General Internal Medicine 12/24/13 documented as of this encounter
--- OUTSIDE RECORDS SUMMARY | 2024-09-18 08:29 | XMS_ITS | Encounter Summary ---
Author Organization [employer] Address 75 [facility] 7t [place] [address] Care Team Providers Care Boiler Tenders Supervisor Name Role Phone Osiel Worley MD Primary Care Provide r Encounter Details Date Type Department Care Team (Late st Contact Info) Description 06/19/2022 Orders Only [facility] MED & PEDS [address] [place] [address] Dodie Schroeder LPN Social History Tobacco Use [...] Description 12/18/2024 11:15 AM EDT Office Visit [facility] MEDICINE 230 [place] [address] Osiel Worley MD 230 [place] [address] documented as of this encounter Visit Diagnoses Not on filedocumented in this encounter Care Teams Boiler Tenders Supervisor Relationship Specialty Start Date End Date Osiel Worley MD 230 [place] [address] PCP - General Internal Medicine 12/24/13 documented as of this encounter
--- OUTSIDE RECORDS SUMMARY | 2024-09-18 08:29 | XMS_ITS | Encounter Summary ---
Author Organization [employer] Address [address] [facility] 7t [place] [address] Care Team Providers Care Automatic Tire Tester Name Role Phone Osiel Worley MD Primary Care Provide r Reason for Visit * Reason Comments Med Refill Encounter Details Date Type Department Care Team (Late Contact Info) Description 09/28/2022 Refill [facility] MEDICINE [address] [place] [address] Saira Petersen ANP [address] [place] [address] Social History Tobacco Use Types Packs/Day Years [...] Description 12/18/2024 11:15 AM EDT Office Visit [facility] MEDICINE [address] [place] [phone] Osiel Worley MD [address] [place], [place] [phone] documented as of this encounter Visit Diagnoses Not on filedocumented in this encounter Care Teams Automatic Tire Tester Relationship Specialty Start Date End Date Osiel Worley MD [address] [place] [address] [phone] PCP - General Internal Medicine 12/24/13 documented as of this encounter
--- OUTSIDE RECORDS SUMMARY | 2024-09-18 08:29 | XMS_ITS | Encounter Summary ---
Author Organization [employer] Address 75 [facility] 7t [place] [address] Care Team Providers Care Electronics Installer Name Role Phone Osiel Worley MD Primary Care Provide r Reason for Visit * Reason Comments Med Refill Encounter Details Date Type Department Care Team ([facility] st Contact Info) Description 01/10/2024 Refill [facility] MEDICINE [address] [place], [place] [phone] Rosita Ferrari MD [address] [place], [place] [phone] Social History Tobacco Use Types Packs/Day Years [...] Description 12/18/2024 11:15 AM EDT Office Visit [facility] MEDICINE [address] [place] [address] Osiel Worley MD [address] [place] [address] documented as of this encounter Visit Diagnoses Not on filedocumented in this encounter Additional Health Concerns Assessment Noted Time PHQ-9 Depression Total Score: 0 11/13/19 24 2:32 PM EDT documented as of this encounter Care Teams Electronics Installer Relationship Specialty Start Date End Date Osiel Worley MD [address] [place] [phone] PCP - General Internal Medicine 12/24/13 documented as of this encounter
--- OUTSIDE RECORDS SUMMARY | 2024-09-18 08:29 | XMS_ITS | Encounter Summary ---
Author Organization [employer] [facility] Address [address] [facility] 7t [place] [address] Care Team Providers Care Patrol Man Name Role Phone Osiel Worley MD Primary Care Provide r Encounter Details Date Type Department Care Team (Late st Contact Info) Description 10/19/2022 Orders Only [facility] MEDICINE [address] [place] [phone] Basilia Johnson LPN Social History Tobacco Use [...] Description 12/18/2024 11:15 AM EDT Office Visit [facility] [address] [place] [phone] Osiel Worley MD [address] [place] [phone] documented as of this encounter Visit Diagnoses Not on filedocumented in this encounter Care Teams Patrol Man Relationship Specialty Start Date End Date Osiel Worley MD [address] [place] [phone] PCP - General Internal Medicine 12/24/13 documented as of this encounter
--- OUTSIDE RECORDS SUMMARY | 2024-09-18 08:29 | XMS_ITS | Encounter Summary ---
Author Organization [employer] Address [address] [facility] 7t [place] [address] Care Team Providers Care Food Safety Officer Name Role Phone Osiel Worley MD Primary Care Provide r Encounter Details Date Type Department Care Team (Late st Contact Info) Description 01/22/2023 Orders Only [facility] [address] [place] [address] Dodie Schroeder LPN Social History Tobacco Use [...] Description 12/18/2024 11:15 AM EDT Office Visit [facility] MEDICINE [address] [place] [address] Osiel Worley MD [address] [place] [address] documented as of this encounter Visit Diagnoses Not on filedocumented in this encounter Care Teams Food Safety Officer Relationship Specialty Start Date End Date Osiel Worley MD [address] [place] [address] PCP - General Internal Medicine 12/24/13 documented as of this encounter
--- OUTSIDE RECORDS SUMMARY | 2024-09-18 08:29 | XMS_ITS | Encounter Summary ---
Author Organization [employer] Address [address] [facility] 7t [place] [address] Care Team Providers Care Foundry Laborer Coreroom Name Role Phone Osiel Worley MD Primary Care Provide r Encounter Details Date Type Department Care Team (Late st Contact Info) Description 08/10/2022 Orders Only [facility]S [address] [place] [address] Dodie Schroeder LPN Social History Tobacco Use [...] Description 12/18/2024 11:15 AM EDT Office Visit [facility] MEDICINE [address] [place] [address] Osiel Worley MD [address] [place] [address] documented as of this encounter Visit Diagnoses Not on filedocumented in this encounter Care Teams Foundry Laborer Coreroom Relationship Specialty Start Date End Date Osiel Worley MD [address] [place] [address] PCP - General Internal Medicine 12/24/13 documented as of this encounter
--- OUTSIDE RECORDS SUMMARY | 2024-09-18 08:30 | XMS_ITS | Encounter Summary ---
Author Organization [employer] Address [address] [facility] [address] [place] [address] Care Team Providers Care Sap Basis Name Role Phone Osiel Worley MD Primary Care Provide r Encounter Details Date Type Department Care Team (Latest Contact Info) Description 09/16/2024 Travel Social History Tobacco Use Types Packs/Day Years Used Date Smoking Tobacco: Never Passive Smoke Exposure: Never Smokeless Tobacco: Never Depression Answer Date Recorded Patient Health Questionnaire-9 Score 0 11/13/2023 Patient Health Questionnaire-9 Score 0 11/13/2023 Last PHQ-9: Questionnaire Data Not on file 0 11/13/2023 Housing Stability Answer Date Recorded What is your housing situation today? I have shashi star 11/02/[address] you li [...] 12/18/2024 11:15 AM EDT Office Visit [facility] MEDICINE 230 [place] [address] Osiel Worley MD [address] [place] [address] documented as of this encounter Visit Diagnoses Not on filedocumented in this encounter Additional Health Concerns Assessment Noted Time PHQ-9 Depression Total Score: 0 11/13/19 24 2:32 PM EDT documented as of this encounter Care Teams Sap Basis Relationship Specialty Start Date End Date Osiel Worley MD [address] [place] [address] PCP - General Internal Medicine 12/24/13 documented as of this encounter
--- OUTSIDE RECORDS SUMMARY | 2024-09-18 08:30 | XMS_ITS | Encounter Summary ---
Author Organization [employer] Address 75 [facility] 7t [place] [address] Care Team Providers Care Shop Tech Name Role Phone Osiel Worley MD Primary Care Provide r Reason for Visit * Reason Onset Date Comments Med Refill 05/19/2024 Encounter Details Date Type Department Care Team ([facility] st Contact Info) Description 05/19/2024 Telephone [facility] MEDICINE [address] [place] [address] Osiel Worley MD [address] [place] [address] Med Refill Social History Tobacco Use Types [...] 5 MG tablet To be sent to: [facility] - [place], [place] - [address] [facility] documented in this encounter Plan of Treatment Upcoming Encounters Date Type Department Care Team (Late st Contact Info) Description 12/18/2024 11:15 AM EDT Office Visit [facility] MEDICINE [address] [place] [address] Osiel Worley MD [address] [place] [address] documented as of this encounter Visit Diagnoses Not on filedocumented in this encounter Additional Health Concerns Assessment Noted Time PHQ-9 Depression Total Score: 0 11/13/19 24 2:32 PM EDT documented as of this encounter Care Teams Shop Tech Relationship Specialty Start Date End Date Osiel Worley MD [address] [place] [address] PCP - General Internal Medicine 12/24/13 documented as of this encounter
--- OUTSIDE RECORDS SUMMARY | 2024-09-18 08:30 | XMS_ITS | Encounter Summary ---
Author Organization [employer] Address [address] [facility] 7t [place] [address] Care Team Providers Care Senior It Assistant Name Role Phone Osiel Worley MD Primary Care Provide r Reason for Visit * Reason Onset Date Comments Med Refill 07/15/2024 Encounter Details Date Type Department Care Team ([facility] st Contact Info) Description 07/15/[address] [facility] MEDICINE [address] [place] [address] Osiel Worley MD [address] [place] [address] Med Refill Social History Tobacco Use Types [...] medication refill. Medications needing refill : Umeclidinium [place] (Incruse Ellipta) 62.5 MCG/ACT aerosol powder To be sent to: [facility] - [place], [place] - [address] [facility] documented in this encounter Plan of Treatment Upcoming Encounters Date Type Department Care Team (Late st Contact Info) Description 12/18/2024 11:15 AM EDT Office Visit [facility] MEDICINE [address] [place] [address] Osiel Worley MD [address] [place] [address] documented as of this encounter Visit Diagnoses Not on filedocumented in this encounter Additional Health Concerns Assessment Noted Time PHQ-9 Depression Total Score: 0 11/13/19 24 2:32 PM EDT documented as of this encounter Care Teams Senior It Assistant Relationship Specialty Start Date End Date Osiel Worley MD [address] [place] [address] PCP - General Internal Medicine 12/24/13 documented as of this encounter
--- OUTSIDE RECORDS SUMMARY | 2024-09-18 08:30 | XMS_ITS | Encounter Summary ---
Author Organization [employer] [facility] Address [address] [facility] 7t [place] [address] Care Team Providers Care Professional Shopper Name Role Phone Osiel Worley MD Primary Care Provide r Encounter Details Date Type Department Care Team (Late Contact Info) Description 04/30/2023 Telephone [facility] MEDICINE [address] [place] [phone] Osiel Worley MD [address] [place] [address] [phone] Social History Tobacco Use Types Packs/Day Years [...] 11:15 AM EDT Office Visit [facility] MEDICINE [address] [place] [phone] Osiel Worley MD [address] [place] [address] [phone] documented as of this encounter Visit Diagnoses Not on filedocumented in this encounter Care Teams Professional Shopper Relationship Specialty Start Date End Date Osiel Worley MD [address] [place] [address] [phone] PCP - General Internal Medicine 12/24/13 documented as of this encounter
--- OUTSIDE RECORDS SUMMARY | 2024-09-18 08:30 | XMS_ITS | Encounter Summary ---
Author Organization [employer] [facility] Address [address] [facility] 7t [place] [address] Care Team Providers Care Bone Grinder Name Role Phone Osiel Worley MD Primary Care Provide r Reason for Visit * Reason Onset Date Comments Med Refill 06/18/2023 Encounter Details Date Type Department Care Team (Late st Contact Info) Description 06/18/2023 Telephone [facility] MEDICINE [address] [place] [phone] Osiel Worley MD [address] [place] [address] [phone] Med Refill Social History Tobacco Use Types [...] Description 12/18/2024 11:15 AM EDT Office Visit [facility] MEDICINE [address] [place] [phone] Osiel Worely MD [address] [place] [address] [phone] documented as of this encounter Visit Diagnoses Not on filedocumented in this encounter Care Teams Bone Grinder Relationship Specialty Start Date End Date Osiel Worley MD [address] [place] [phone] PCP - General Internal Medicine 12/24/13 documented as of this encounter
--- OUTSIDE RECORDS SUMMARY | 2024-09-18 08:30 | XMS_ITS | Encounter Summary ---
Author Organization [employer] Address [address] [facility] 7 [place] [address] Care Team Providers Care Pharmacy Director Name Role Phone Osiel Worley MD Primary Care Provide r Reason for Referral * Consultation (Routine) - Authorized Specialty Diagnoses / Procedures Referred By Peewee khanna Referred To Contact Dermatology Diagnoses Flexural eczema Osiel Worley MD [address] [place] [address] Phone: tel: fax: Brian Gonzalez MD [address] [place] [phone] Phone: tel: fax: Referral ID Status Reason Start Date Expiration Date Visits Requested Visits Authorized [id number] Authorized Specialty Services Required 09/16/2024 09/16/2025 1 1 * Consultation (Routine) - Authorized Specialty Diagnoses / Procedures Referred By Controwan t Referred To Contact Endocrinology Diagnoses Osteoporosis, unspecified osteoporosis type, unspecified pathological fracture presence Osiel Worley MD [address] [place] [address] Phone: tel: fax: [facility] [address] [place], [place] Phone: tel: fax: Referral ID Status Reason Start Date Expiration Date Visits Requested Visits Authorized [id number] Authorized Specialty Services Required 09/16/2024 09/16/2025 1 1 Reason for Visit * Reason Comments Sick Onsite CT scan results Encounter Details Date Type Department Care Team (Late st Contact Info) Description 09/16/2024 11:00 AM EDT Office Visit [facility] [address] [facility] [place] [address] Osiel Worley MD [address] [place] [address] Essential hypertension (Primary Dx); Pulmonary emphysema, unspecified emphysema type (CMS/HCC); Benign prostatic hyperplasia with lower urinary tract symptoms, symptom details unspecified; Osteoporosis, unspecified osteoporosis type, unspecified pathological fracture presence; Acquired hypothyroidism; Flexural eczema; Preventative health care Social History Tobacco Use Types Packs/Day Years [...] AM EDT documented as of this encounter Last Filed Vital Signs Vital Sign Reading Time Taken Comments Blood Pressure 140/76 09/16/2024 10:32 AM EDT Pulse 75 09/16/2024 10:32 AM EDT Temperature 36.1 ??C (96.9 ??F) 09/16/2024 10:32 AM E DT Respiratory Rate 20 09/16/2024 10:32 AM EDT Oxygen Saturation 96% 09/16/2024 10:32 AM EDT Inhaled Oxygen Concentration - - Weight 73.7 kg (162 lb 6.4 oz) 09/16/2024 10:32 AM EDT Height 160 cm (5' 3 ) 09/16/2024 10:32 AM EDT Body Mass Index 28.77 09/16/2024 10:32 AM EDT documented in this encounter Progress Notes * Osiel Conway MD - 09/16/2024 11:00 AM EDT SUBJECTIVE Jamshid Ryan is a 78 y.o. male who presents for Sick Onsite (CT scan results ). Hypertension This is a chronic problem. Pertinent negatives include no chest pain, headaches or shortness of breath. Review of Systems Constitutional: Negative for fever. HENT: Negative for sore throat. Respiratory: Negative for cough and shortness of breath. Cardiovascular: Negative for chest pain. Gastrointestinal: Negative for abdominal pain. Neurological: Negative for headaches. No Known Allergies OBJECTIVE Vitals: 09/16/24 1032 BP: (!) 140/76 BP Location: Left arm Patient Position: Sitting BP Cuff Size: Adult Pulse: 75 Resp: 20 Temp: 96.9 ??F (36.1 ??C) TempSrc: Temporal SpO2: 96% Weight: 162 lb 6.4 oz (73.7 kg) Height: 5' 3 (1.6 m) Physical Exam Vitals reviewed. Constitutional: Appearance: Normal appearance. HENT: Head: Normocephalic and atraumatic. Right Ear: External ear normal. Left Ear: External ear normal. Nose: Nose normal. Mouth/Throat: Mouth: Mucous membranes are moist. Eyes: Conjunctiva/sclera: Conjunctivae normal. Cardiovascular: Rate and Rhythm: Normal rate and regular rhythm. Pulmonary: Effort: Pulmonary effort is normal. Breath sounds: Normal breath sounds. Skin: General: Skin is warm. Neurological: Mental Status: He is alert. Mental status is at baseline. Assessment/Plan Problem List Items Addressed This Visit Essential hypertension - Primary Patient here for a follow up BP today controlled, has BP monitor He is on a regimen of: Cardizem CD 180 mg po daily Given adequate blood pressure control will continue with current medical regimen. Most recent electrolytes, Bun and Creatinine done on: Lab Results Component Value Date NA 137 07/27/2023 NA 137 10/04/2022 K 4.2 07/27/2023 K 3.6 10/04/2022 CL 104 07/27/2023 CL 104 10/04/2022 BUN 14 07/27/2023 BUN 20 (H) 10/04/2022 CREATININE 1.04 07/27/2023 CREATININE 0.98 10/04/2022 were wnl. Will repeat patient advised to adhere to a low sodium diet, encouraged about medication compliance, counseled about weight loss. f/u 4 months Relevant Orders Comprehensive Metabolic Panel Pulmonary emphysema (CMS/HCC) Here for na follow up No recent exacerbations He has Severe COPD under the care of resource recovery specialist. Last seen 07/17/2024 Dr Ayala On Wixela 250-51 inhalation b.i.d. Incruse Ellipta 1 inhalation daily Albuterol HFA 2 puffs Q 6 hours only p.r.n. Last Chest CT: 08/31/2024 Comparison: 04/03/2020 Findings: Emphysema with bilateral apical pleural scarring. Findings are unchanged from prior study. No acute pulmonary parenchymal abnormality. No significant mediastinal adenopathy. No significant free pleural fluid. Dense coronary artery calcification. No significant focal bony abnormalities. Incidental chronic mesenteric panniculitis. This is partially visualized in the upper abdomen. Visualized region is unchanged from prior study. Impression: Stable chronic findings No acute processes Benign prostatic hyperplasia Pt here for a f/u Has BPH and Hx of elevated PSA On Terazosin 2 mg po daily, doing well. prostate Biopsy 10/10/2018 Negative for malignancy Pt follows with Urologist Dr. London last seen 01/25/2024 Last PSA Lab Results Component Value Date PSA 0.58 01/24/2024 PSA 1.25 07/06/2022 Osteoporosis On oscal-D . Previously he was on Fosamax (prescribed by Dr Velásquez) given previous c/o dysphagia Iasked him to hold his Fosamax until diagnostic work up was completed and to notify his prescribing provider of this. Pt told me since he stopped the Fosamax his dysphagia resolved. So for now will hold off on the use of oral bisphosphonates Will refer to Endocrinology for consideration of other therapeutic alternatives Relevant Orders Referral to Endocrinology Acquired hypothyroidism Most recent TFTs Lab Results Component Value Date TSH 17.97 (H) 11/14/2023 As a result Synthroid was increased to 125 mcg from 112 mcg po daily, Pt used to followed by [facility]. Last seen on 11/06/2014. Previous thyroid US done on 09/12/2012 that showed a heterogeneous appearing atrophic thyroid gland with a few 1 to 2 mm hypoechoic nodules in the right lobe. She recommended No further US and PRN f/u and to continue with yearly TFTs with us. Will obtain TFTs today Relevant Orders TSH with Reflex to Free T4 Flexural eczema Seen for this at our [facility] on right side of the neck, Dr Parkinson was concerned about contact dermatitis. She advised regarding gentle cleaning to the area Use moisturizing cream + betamethasone cream.Avoid steroid cream on face On exam today he still has redness on his neck Plan: Dermatology referral Relevant Orders Referral to Dermatology Preventative health care Follows with Dr Jefferson Lab Results Component Value Date PSA 0.58 01/24/2024 PSA 1.25 07/06/2022 Colonoscopy: Normal : 07/23/2012, Cologuard 11/21/2023 Negative Vaccines: Tdap 05/23/2013 Pneumovax 05/13/2013 Zoster: 05/21/2014. documented in this encounter Miscellaneous Notes * Assessment & Plan Note - Osiel Conway MD - 09/16/2024 11:12 AM EDT Associated Problem(s): Flexural eczema Seen for this at our [facility] on right side of the neck, Dr Parkinson was concerned about contact dermatitis. She advised regarding gentle cleaning to the area Use moisturizing cream + betamethasone cream.Avoid steroid cream on face On exam today he still has redness on his neck Plan: Dermatology referral * Assessment & Plan Note - Osiel Conway MD - 09/16/2024 11:06 AM EDT Associated Problem(s): Acquired hypothyroidism Most recent TFTs Lab Results Component Value Date TSH 17.97 (H) 11/14/2023 As a result Synthroid was increased to 125 mcg from 112 mcg po daily, Pt used to followed by [facility]. Last seen on 11/06/2014. Previous thyroid US done on 09/12/2012 that showed a heterogeneous appearing atrophic thyroid gland with a few 1 to 2 mm hypoechoic nodules in the right lobe. She recommended No further US and PRN f/u and to continue with yearly TFTs with us. Will obtain TFTs today * Assessment & Plan Note - Osiel Conway MD - 09/16/2024 10:58 AM EDT Associated Problem(s): Osteoporosis On oscal-D . Previously he was on Fosamax (prescribed by Dr Velásquez) given previous c/o dysphagia Iasked him to hold his Fosamax until diagnostic work up was completed and to notify his prescribing provider of this. Pt told me since he stopped the Fosamax his dysphagia resolved. So for now will hold off on the use of oral bisphosphonates Will refer to Endocrinology for consideration of other therapeutic alternatives * Assessment & Plan Note - Osiel Conway MD - 09/16/2024 10:57 AM EDT Associated Problem(s): Benign prostatic hyperplasia Pt here for a f/u Has BPH and Hx of elevated PSA On Terazosin 2 mg po daily, doing well. prostate Biopsy 10/10/2018 Negative for malignancy Pt follows with Urologist Dr. London last seen 01/25/2024 Last PSA Lab Results Component Value Date PSA 0.58 01/24/2024 PSA 1.25 07/06/2022 * Assessment & Plan Note - Osiel Conway MD - 09/16/2024 10:55 AM EDT Associated Problem(s): Preventative health care Follows with Dr Jefferson Lab Results Component Value Date PSA 0.58 01/24/2024 PSA 1.25 07/06/2022 Colonoscopy: Normal : 07/23/2012, Cologuard 11/21/2023 Negative Vaccines: Tdap 05/23/2013 Pneumovax 05/13/2013 Zoster: 05/21/2014. * Assessment & Plan Note - Osiel Conway MD - 09/16/2024 10:53 AM EDT Associated Problem(s): Essential hypertension Patient here for a follow up BP today controlled, has BP monitor He is on a regimen of: Cardizem CD 180 mg po daily Given adequate blood pressure control will continue with current medical regimen. Most recent electrolytes, Bun and Creatinine done on: Lab Results Component Value Date NA 137 07/27/2023 NA 137 10/04/2022 K 4.2 07/27/2023 K 3.6 10/04/2022 CL 104 07/27/2023 CL 104 10/04/2022 BUN 14 07/27/2023 BUN 20 (H) 10/04/2022 CREATININE 1.04 07/27/2023 CREATININE 0.98 10/04/2022 were wnl. Will repeat patient advised to adhere to a low sodium diet, encouraged about medication compliance, counseled about weight loss. f/u 4 months * Assessment & Plan Note - Osiel Conway MD - 09/16/2024 10:53 AM EDT Associated Problem(s): Pulmonary emphysema (CMS/HCC) Here for na follow up No recent exacerbations He has Severe COPD under the care of resource recovery specialist. Last seen 07/17/2024 Dr Ayala On Wixela 250-51 inhalation b.i.d. Incruse Ellipta 1 inhalation daily Albuterol HFA 2 puffs Q 6 hours only p.r.n. Last Chest CT: 08/31/2024 Comparison: 04/03/2020 Findings: Emphysema with bilateral apical pleural scarring. Findings are unchanged from prior study. No acute pulmonary parenchymal abnormality. No significant mediastinal adenopathy. No significant free pleural fluid. Dense coronary artery calcification. No significant focal bony abnormalities. Incidental chronic mesenteric panniculitis. This is partially visualized in the upper abdomen. Visualized region is unchanged from prior study. Impression: Stable chronic findings No acute processes documented in this encounter Plan of Treatment Upcoming Encounters Date Type Department Care Team (Late st Contact Info) Description 12/18/2024 11:15 AM EDT Office Visit [facility] [address] [place] [address] Osiel Worley MD [address] [place] [address] Scheduled Orders Name Type Priority Associated Diagnoses Orde r Schedule TSH with Reflex to Free T4 Lab Routine Acquired hypothyroidism Ordered: 09/16/2024 Comprehensive Metabolic Panel Lab Routine Essential hypertension Ordered: 09/16/2024 Scheduled Referrals Name Type Priority Associated Diagnoses Orde r Schedule Referral to Endocrinology Outpatient Referral Routine Osteoporosis, unspecified osteoporosis type, unspecified pathological fracture presence Expected: 09/16/2024 (Approximate), Expires: 09/16/2025 Referral to Dermatology Outpatient Referral Routine Flexural eczema Expected: 09/16/2024 (Approximate), Expires: 09/16/2025 documented as of this encounter Visit Diagnoses Diagnosis Essential hypertension- Primary Unspecified essential hypertension Pulmonary emphysema, unspecified emphysema type (CMS/HCC) Benign prostatic hyperplasia with lower urinary tract symptoms, symptom details unspecified Osteoporosis, unspecified osteoporosis type, unspecified pathological fracture presence Acquired hypothyroidism Unspecified hypothyroidism Flexural eczema Other atopic dermatitis and related conditions Preventative health care Routine general medical examination at a health care facility documented in this encounter Additional Health Concerns Assessment Noted Time PHQ-9 Depression Total Score: 0 11/13/19 24 2:32 PM EDT documented as of this encounter Care Teams Pharmacy Director Relationship Specialty Start Date End Date Osiel Worley MD [address] [place] [id number] PCP - General Internal Medicine 12/24/13 documented as of this encounter
--- OUTSIDE RECORDS SUMMARY | 2024-09-18 08:30 | XMS_ITS | Encounter Summary ---
Author Organization [facility] Address [address] [facility] 7[address] [place] [address] Care Team Providers Care Bar And Filler Assembler Name Role Phone Osiel Worley MD Primary Care Provide r Reason for Visit * Reason Comments Med Refill Encounter Details Date Type Department Care Team (Late st Contact Info) Description 01/29/2023 Refill [facility] [address] [place] [phone] Osiel Worley MD [address] [place] [phone] Social History Tobacco Use Types Packs/Day Years [...] Description 12/18/2024 11:15 AM EDT Office Visit [facility] [address] [place] [phone] Osiel Worley MD [address], [place] [phone] documented as of this encounter Visit Diagnoses Not on filedocumented in this encounter Care Teams Bar And Filler Assembler Relationship Specialty Start Date End Date Osiel Worley MD [address] [place] [phone] PCP - General Internal Medicine 12/24/13 documented as of this encounter
--- OUTSIDE RECORDS SUMMARY | 2024-09-18 08:30 | XMS_ITS | Clinical Summary ---
Author Organization [facility] Address [address] [facility] 7t [place] [address] Care Team Providers Care Rn Case Management Name Role Phone Osiel Worley MD Primary [...] puff 2 times daily. 4 Active Umeclidinium Lewis (Incruse Ellipta) 62.5 MCG/ACT aerosol powder Inhale. [...] EVERY DAY 90 tablet 1 5 Active ketoconazole (NIZOral) 2 % cream Apply topically Once per day. 30 g 1 5 Active betamethasone dipropionate 0.05 % cream Apply topically 2 times daily. 30 g 1 5 Active Active Problems Problem Noted Date Diagnosed Date Seborrheic dermatitis 09/08/2024 Assessment & Plan (09/08/2024 9:05 AM EDT): On face and legs extending to earlobes. Advised to keep the area clean and dry, gentle cleaning only. Use ketoconazole cream especially on face and around your labs. Avoid steroid cream on face. Follow-up as needed Flexural eczema 09/08/2024 Assessment & Plan (09/16/2024 11:14 AM EDT): Seen for this at our [facility] on right side of the neck, Dr Parkinson was concerned about contact dermatitis. She advised regarding gentle cleaning to the area Use moisturizing cream + betamethasone cream.Avoid steroid cream on face On exam today he still has redness on his neck Plan: Dermatology referral Assessment & Plan (09/08/2024 9:06 AM EDT): On right side of the neck, probably contact dermatitis. Advised regarding gentle cleaning to the area Use moisturizing cream + betamethasone cream. Avoid steroid cream on face Abnormal CT of the abdomen 11/13/2023 Assessment [...] Pt was initially seen by a surgical release specialist at the [facility] in [place], on 11/30/2014 who recommended observation and repeat [...] Preventative health care 11/13/2023 Assessment & Plan (09/16/2024 10:55 AM EDT): Follows with Dr Jefferson Lab Results Component Value Date PSA 0.58 01/24/2024 PSA 1.25 07/06/2022 Colonoscopy: Normal : 07/23/2012, Cologuard 11/21/2023 Negative Vaccines: Tdap 05/23/2013 Pneumovax 05/13/2013 Zoster: 05/21/2014. Assessment & Plan (11/13/2023 3:02 PM EDT): PSA [address] Jefferson Colonoscopy: Normal : 07/23/2012 Vaccines: Tdap 05/23/2013 Pneumovax 05/13/2013 Zoster: 05/21/2014. Routine physical examination 11/13/2023 Assessment & Plan (11/13/2023 3:02 PM EDT): Within normal limits Essential hypertension 03/25/2015 Assessment & Plan (09/16/2024 10:53 AM EDT): Patient here for a follow up BP [...] counseled about weight loss. f/u 4 months Assessment & Plan (11/13/2023 2:46 PM EDT): [...] well Acquired hypothyroidism 01/01/2012 Assessment & Plan (09/16/2024 11:06 AM EDT): Most recent TFTs Lab Results Component Value Date TSH 17.97 (H) 11/14/2023 As a result Synthroid was increased to 125 mcg from 112 mcg po daily, Pt used to followed by [facility]. Last seen on 11/06/2014. Previous thyroid US done on 09/12/2012 that showed a heterogeneous appearing atrophic thyroid gland with a few 1 to 2 mm hypoechoic nodules in the right lobe. She recommended No further US and PRN f/u and to continue with yearly TFTs with us. Will obtain TFTs today Assessment & Plan (11/13/2023 2:47 PM EDT): Most recent TFTs 06/10/2021 On Synthroid 112 mcg po daily, Pt used to followed by [facility]. Last seen on 11/06/2014. Previous thyroid US done on 09/12/2012 that showed a heterogeneous appearing atrophic thyroid gland with a few 1 to 2 mm hypoechoic nodules in the right lobe. She recommended No further US and PRN f/u and to continue with yearly TFTs with us. Will obtain TFTs today Benign prostatic hyperplasia 01/01/2012 Assessment & Plan (09/16/2024 11:04 AM EDT): Pt here for a f/u Has BPH and Hx of elevated PSA On Terazosin 2 mg po daily, doing well. prostate Biopsy 10/10/2018 Negative for malignancy Pt follows with Urologist Dr. London last seen 01/25/2024 Last PSA Lab Results Component Value Date PSA 0.58 01/24/2024 PSA 1.25 07/06/2022 Assessment & Plan (11/13/2023 2:51 PM EDT): Pt here for a f/u Has BPH and Hx of elevated PSA On Terazosin 2 mg po daily, doing well. prostate Biopsy 10/10/2018 Negative for malignancy Pt follows with Urologist Dr. 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 Previously he was on Fosamax (prescribed by Dr Velásuqez) given previous c/o dysphagia I asked him to hold his Fosamax until diagnostic work up was completed and to notify his prescribing provider of this. Pt told me since he stopped the Fosamax his dysphagia resolved. So for now will hold off on the use of oral bisphosphonates Will refer to Endocrinology for consideration of other therapeutic alternatives Assessment & Plan (11/13/2023 2:53 PM EDT): [...] bisphosphonates Pulmonary emphysema 01/01/2012 Assessment & Plan (09/16/2024 11:15 AM EDT): Here for na follow up No recent exacerbations He has Severe COPD under the care of research support specialist. Last seen 07/17/2024 Dr Ayala On [...] Impression: Stable chronic findings No acute processes Assessment & Plan (11/13/2023 2:49 PM EDT): No recent exacerbations doing well He has Severe COPD under the care of research support specialist. Last seen 10/24/2023 Dr Ryan On Wixela 250-51 inhalation b.i.d. Incruse Ellipta 1 inhalation daily Albuterol HFA 2 puffs Q 6 hours only p.r.n. Insomnia 10/26/2011 Encounters Date Type Department Care Team Description 09/16/2024 11:00 AM EDT Office Visit [facility] [address] [place] [phone] Osiel Worley MD Essential hypertension (Primary Dx); Pulmonary emphysema, unspecified emphysema type (CMS/HCC); Benign prostatic hyperplasia with lower urinary tract symptoms, symptom details unspecified; Osteoporosis, unspecified osteoporosis type, unspecified pathological fracture presence; Acquired hypothyroidism; Flexural eczema; Preventative health care 09/16/2024 Travel 09/08/2024 9:00 AM EDT Office Visit [facility] [address] [place] [phone] Onelia Parkinson MD Flexural eczema (Primary Dx); Seborrheic dermatitis 09/02/2024 Orders Only [facility] External Provider, [facility] 08/26/2024 Telephone [facility] [address] [place] [phone] Osiel Worley MD 08/21/[address] [address] Osiel Worley MD Med Refill 08/12/2024 Patient Outreach [address] [address] Osiel Worley MD Pre-visit Planning (Pre-visit planning - LVM ) 08/04/[address] [address] Osiel Worley MD Chart Prep 07/15/[address] [address] Osiel Worley MD Med Refill 07/14/[address] [address] Osiel oWrley MD Results; Lab Orders 07/14/2024 Orders Only GENERIC EXTERNAL DATA DEPARTMENT Provider, Generic External Data Opacity of lung on imaging study (Primary Dx) 06/29/[address] [address] Osiel Worley MD 06/28/2024 Refill [facility] [address] [place] [address] Osiel Worley MD Acquired hypothyroidism from Last 3 Months Immunizations Name Administration [...] Mass Index 28.77 09/16/2024 10:32 AM EDT Plan of Treatment Upcoming Encounters Date Type Department Care Team (Late st Contact Info) Description 12/18/2024 11:15 AM EDT Office Visit [facility] [address] [place] [address] Osiel Worley MD [address] [place], [place] [phone] Health Maintenance Due Date Last Done Comments Hepatitis C Screening 1963 RSV Patients and Patients Aged 60 years or older (1 - 1-dose 75+ series) 11/08/2019 COVID-19 Vaccine ( season) 2024 04/06/2021, 07/22/2020, 06/25/2020 Depression Screening 11/12/2024 11/13/2023, 11/13/19 Alcohol/Substance Use Screening 09/16/2025 09/16/2024 SDOH Screening 09/16/2025 09/16/2024 Tobacco Screening 09/16/2025 09/16/2024 Lipid Panel 11/13/2028 11/14/2023, 01/13, 11/25/2019 DTaP/Tdap/Td [...] Procedure Name Priority Date/Time Associated Diagnosis Comments CT CHEST WO CONTRAST Routine 09/02/2024 8:25 PM EDT XR CHEST 2 VIEWS Routine 07/14/2024 6:47 AM EST STREP A NUCLEIC ACID Routine 07/14/2024 6:41 AM EST SARS COV2/INFLUENZA A/B AND RSV RNA QL NAAT Routine 07/14/2024 5:41 AM EST LIPID PANEL, STANDARD Routine 11/14/2023 8:23 AM EDT Essential hypertension from Last 3 Months or Most Recently Relevant to Health Maintenance Results * CT Chest w/o Contrast (09/02/2024 8:25 PM EDT) Anatomical Region Laterality Modality Body, Chest Computed Tomogra phy 09/02/2024 8:25 PM EDT Narrative 09/02/2024 8:26 PM EDT ? [facility] ?[address] ?[place] [address] ? CT Scan Report ? Signed ? Patient: Jamshid Duenas ?MR# ?? : [id number] ? : 1945 ?Acct:[id number] ? Age/Sex: 78 / M ?ADM Date: 09/02/24 ? Loc: HO.CT ? Attending Dr: De Ayala MD ? Ordering Physician: De Ayala MD ?? Date of Service: 09/02/24 ?? Procedure(s): CT chest wo IV con ?? Accession Number(s): [id number] ? cc: De Ayala MD; Osiel Schwartz MD ? Report Number: ?? [id number]: Total DLP = ??162.00 mGy-cm ? CLINICAL HISTORY: J44.9 - Chronic obstructive pulmonary disease, unspecified --- Additional Notes or Special Instructions: Past history of smoking quit in 2020. ? CT chest without contrast ? Comparison: 04/03/2020 ? Findings: ? Emphysema with bilateral apical pleural scarring. ?? Findings are unchanged from prior study. ?? No acute pulmonary parenchymal abnormality. ?? No significant mediastinal adenopathy. ?? No significant free pleural fluid. ?? Dense coronary artery calcification. ?? No significant focal bony abnormalities. ? Incidental chronic mesenteric panniculitis. ?? This is partially visualized in the upper abdomen. ?? Visualized region is unchanged from prior study. ? Impression: ? Stable chronic findings ? No acute processes ? This document has been electronically signed by: Raman Ware MD on ?? 09/02/2024 20:25:33 ? Dictated By: ?Raman Ware MD ? Signed By: ?<Electronically signed by Raman Ware MD in OV> ? 09/02/242025 ? DD/ 24 ? TD/TT: 09/02/242024 ? Manager Of Enterprise: ? Procedure Note Donotgerardointerpreter, Image - 09/02/[address] [address] [address] Scan Report Signed Patient: Jamshid Duenas AMR# : [id number] : 5Acct:[id number] Age/Sex: 78 / MADM Date: 09/02/24 Loc: HO.CT Attending Dr: De Ayala MD Ordering Physician: De Ayala MD Date of Service: 09/02/24 Procedure(s): CT chest wo IV con Accession Number(s): [id number] cc: De Ayala MD; Osiel Schwartz MD Report Number: [id number]: Total DLP = 162.00 mGy-cm CLINICAL HISTORY: J44.9 - Chronic obstructive pulmonary disease,unspecified --- Additional Notes or Special Instructions: Past history of smoking quit in 2020. CT chest without contrast Comparison: 04/03/2020 Findings: Emphysema with bilateral apical [...] Impression: Stable chronic findings No acute processes This document has been electronically signed by: Raman Ware MD on 09/02/2024 20:25:33 Dictated By: Raman Ware MD Signed By: <Electronically signed by Raman Ware MD in OV> 09/02/242025 DD/ 24 TD/TT: 09/02/242024 Manager Of Enterprise: us [facility] External Provider IMG CT PROCEDURES Final Result * XR Chest 2 Views (07/14/2024 6:47 AM EST) Anatomical Region Laterality Modality Chest Radiographic Irene ging 07/14/2024 6:47 AM EST Narrative 07/14/2024 7:44 AM EST ? [facility] ?[address] ?[place] [address] ?XRay Report ? Signed ? Patient: Connor Martinez,José Miguel ?MR# ?? : [id number] ? : 1945 ?Acct:[id number] ? Age/Sex: 78 / M ?ADM Date: 07/14/24 ? Loc: HO.ED ? Attending Dr: ? Ordering Physician: Milla Goldberg ?? Date of Service: 07/14/24 ?? Procedure(s): XR chest 2V ?? Accession Number(s): [id number] ? cc: Osiel Schwartz MD; Milla Goldberg [...] signed by Timur Matos MD in OV> ?07/14/2439 ? DD/ 6 ? TD/TT: 07/14/24730 ? Manager Of Enterprise: MSM ? Procedure Note Donotuseinterpreter, Image - 07/14/[address] [address] XRay Report Signed Patient: Jamshid Duenas AMR# : [id number] : 5Acct:[id number] Age/Sex: 78 / MADM Date: 07/14/24 Loc: HO.ED Attending Dr: Ordering Physician: Milla Goldberg Date of Service: 07/14/24 Procedure(s): XR chest 2V Accession Number(s): [id number] cc: Osiel Schwartz MD; Milla Goldberg EXAMINATION: [...] 07/14/24 0739 DD/ 0647 TD/TT: 07/14/24 0731 Manager Of Enterprise: NETO [facility] External Provider IMG XR PROCEDURES Final Result * Strep A Nucleic Acid (07/14/2024 6:41 AM EST) IDNOW SERIAL# [id number] [facility] Strep A Nucleic Acid Negative Negative [facility] Comment:All test results mus t [...] LAB MICROBIOLOGY - GENERAL ORDERABLES Final Result Performing Organization Address [facility] Co de Phone Number [facility] [address] [place] [phone] * SARS-CoV-2 RNA, Influenza A/B, and RSV RNA, Ql NAAT (07/14/2024 5:41 AM EST) Influenza A PCR NEGATIVE Negative [facility] Influenza B PCR NEGATIVE Negative [facility] Resp Syncy Virus RNA Qual PCR NEGATIVE Negative [facility] SARS COV2 PCR NEGATIVE Negative [facility] Comment:All test results mus t [...] use by authorized laboratories.Testing performed on the [employer] GeneXpert utilizingreal-time RT-PCR.All SARS CoV2 and positive influenza A/B results arereported to [facility]. 07/14/2024 5:41 AM EST 07/14/2024 5:45 AM EST us Generic External Data Provider LAB MICROBIOLOGY - GENERAL ORDERABLES Final Result Performing Organization Address City/[facility] Co de Phone Number [facility] [address] [place] [phone] * (ABNORMAL) Lipid Panel, Standard (11/14/2023 8:23 AM EDT) Triglycerides 67 <150 mg/dL [facility] Comment:Desirable Triglyceri de: less than 150 mg/dLBorderline High Triglyceride 150-199 mg/dLHigh Triglyceride: 200-499 mg/dLVery High Triglyceride: greater than or equal to 5OO mg/dL Cholesterol 175 <200 mg/dL [facility] Comment:Desirable Cholestero l: less than 200 mg/dLBorderline High Cholesterol: 200-239 mg/dLHigh Cholesterol: greater than 239 mg/dL LDL Cholesterol Calculated 112(H) <100 mg/dL [facility] Comment:Desirable LDL: less than 100 mg/dLNear Optimal/Above Optimal LDL: 110- 129 mg/dLBorderline High LDL: 130-159 mg/dLHigh LDL: 160-189 mg/dLVery High LDL: greater than or equal to 190 mg/dL HDL Cholesterol 50 >40 mg/dL [facility] Comment:Desirable HDL: great er than 40 mg/dL Note: This HDL assay may give artificially low results in patients with liver disease. Blood Venous blood specimen / Unknown 11/14/2023 8:23 AM EDT 11/14/2023 1:14 PM EDT us Osiel Conway MD LAB BLOOD ORDERABLES Final Result [facility] [address] [place] [phone] from Last 3 Months or Most Recently Relevant to Health Maintenance Insurance [facility] [employer] (HMO D-SNP) [facility] [employer] (O D-SNP) Care Teams Rn Case Management Relationship Specialty Start Date End Date Osiel Worley MD [address] [place] [phone] PCP - General Internal Medicine 12/24/13
--- OUTSIDE RECORDS SUMMARY | 2024-09-18 08:30 | XMS_ITS | Encounter Summary ---
Author Organization [facility] Address [address] [facility] [address] [place] [address] Care Team Providers Care Granulator Name Role Phone Osiel Worley MD Primary Care Provide r Encounter Details Date Type Department Care Team (Late Contact Info) Description 10/09/2023 Telephone [facility] [address] [place] [phone] Osiel Worley MD [address] [place] [address] [phone] Social History Tobacco Use Types Packs/Day Years [...] Encounters Date Type Department Care Team (Late Contact Info) Description 12/18/2024 11:15 AM EDT Office Visit [facility] [address] [place] [phone] Osiel Worley MD [address] [place] [address] [phone] documented as of this encounter Visit Diagnoses Not on filedocumented in this encounter Care Teams Granulator Relationship Specialty Start Date End Date Osiel Worley MD [address] [place] [address] [phone] PCP - General Internal Medicine 12/24/13 documented as of this encounter
[2024-09-18 11:51] LABS: Alanine Aminotransferase 20 U/L (0-40); Albumin Level 4.1 g/dL (3.5-5.0); Alkaline Phosphatase 64 U/L (39-117); Anion Gap 10 (12-20); Aspartate Amino Transferase 22 U/L (5-37); Bilirubin Total 0.5 mg/dL (0.0-1.0); Blood Urea Nitrogen 17 mg/dL (9-16); Calcium 9.9 mg/dL (8.4-10.2); Carbon Dioxide 30 mmol/L (22-29); Chloride 104 mmol/L (96-108); Estimated Glomerular Filt Rate > 60; Glucose Random 108 mg/dL (60-115); Potassium 4.8 mmol/L (3.3-5.1); Sodium 139 mmol/L (135-145); Total Protein 7.6 g/dL (6.5-8.0)
[2024-09-18 12:00] LABS: TSH reflex Free T4 1.67 uIU/mL (0.32-4.0)
[2024-09-18 12:02] LABS: Prostate Specific Antigen 0.78 ng/mL (<0.05-4.0)
== END 2024-09-18 08:13 | disposition home or self-care (01) ==
LOC: HO.HHCL 08:12
PROVIDERS: Urology; Visit Provider Internal Medicine
DX: Z12.5 Encounter for screening for malignant neoplasm of prostate (principal); N40.1 Benign prostatic hyperplasia with lower urinary tract symptoms; R35.1 Nocturia; N32.0 Bladder-neck obstruction; R97.20 Elevated prostate specific antigen [PSA]; E03.9 Hypothyroidism, unspecified; I10 Essential (primary) hypertension
CPT/HCPCS: 36415; 80053; 84153; 84443

== ENCOUNTER 2024-10-20 09:57 | Outpatient (AMB) | payer OTHER, SELFPAY ==
[2024-10-20 10:09] VITALS: BP 130/60; PULSE 81; O2SAT 94; BMI 29.2
--- NOTE | 2024-10-20 10:09 | A.OFFVIS_ITS ---
Vital Signs 10/20/24 10:09 Height 5 ft 3 in Weight 165 lb BMI 29.2 BP 130/60 Blood Pressure Location Lt brachial Position Sitting Pulse 81 Pulse Source Pulse Oximeter Pulse Oximetry (%) 94 Oxygen Delivery Method Room Air Intake Visit Reasons: COPD Intake Note: pt is here for follow up and states he is feeling good. Clinical Informatics Physician Required: No Allergies No Known Allergies Allergy (Verified 10/20/24 10:32) Medication List - Last Reconciled 10/20/24 by De Ayala MD albuterol sulfate 90 mcg/actuation 2 puffs PO Q4-6H PRN aspirin 81 mg PO DAILY benzonatate 100 mg PO BID PRN calcium carbonate-vitamin D3 600 mg-5 mcg (200 unit) 1 tab PO DAILY cefuroxime axetil 500 mg PO BID 7 days diltiazem HCl CD 180 mg PO DAILY doxycycline monohydrate 100 mg PO BID 7 days finasteride 5 mg PO DAILY 90 days fluocinolone and shower cap 0.01 % 1 ea topical DAILY fluticasone propion-salmeterol 250-50 mcg/dose 1 ea PO BID guaifenesin ER (Mucinex) 1,200 mg PO BID ketoconazole 2% 1 appl topical 2XW levothyroxine 112 mcg PO DAILY loratadine 10 mg PO DAILY udxlvkku-vzt-WO-lycopen-lutein 0.4 mg-300 mcg- 250 mcg (CertaVite Senior) 1 tab PO DAILY omeprazole 20 mg PO DAILY ondansetron 4 mg PO Q8H PRN umeclidinium 62.5 mcg/actuation (Incruse Ellipta) 1 inh PO DAILY Do you need a note to return to daycare/school/sports/work: No HPI HPI COPD: Details: 78 YEARS OLD GENTLEMAN IS A LONG-TIME PATIENT OF MINE FOR HIS CHRONIC OBSTRUCTIVE PULMONARY DISEASE. HE IS REMAINING VERY STABLE ON CURRENT MEDICAL REGIMEN. HE HARDLY NEEDS TO USE ALBUTEROL. HAS HAD NO RESPIRATORY INFECTION OR ANY ACUTE EXACERBATION IN THE LAST 4 MONTHS. AFTER HIS LAST VISIT 4 MONTHS AGO HE DID UNDERGO CT SCAN OF THE CHEST WHICH SHOWED SOME FIBROTIC CHANGES IN THE APICAL AREAS BUT NO CHANGE FROM BEFORE HE WALKS AROUND WITHOUT MUCH SHORTNESS BREATH AND REMAINS QUITE ACTIVE. [facility] Medical History Pulmonary fibrosis, unspecified SYLVIA (obstructive sleep apnea) Cataract Hypothyroid Smoker Enlarged prostate Nocturia Elevated PSA HTN (hypertension) COPD (chronic obstructive pulmonary disease) Surgical History Hx of right cataract extraction (10/15/23) History of laryngoscopy History of esophagogastroduodenoscopy (EGD) H/O colonoscopy History of prostate surgery Social History Household Members: Spouse Housing: Apartment Are you a primary health care facility administrator to a significant other at home: No Do you presently have visiting nurse or other home services: No 75 years or older and lives alone: No Alcohol intake: never Patient Tobacco Use Status: Former Tobacco user Tobacco use type: Cigarette Cigarette Packs Per Day: 1 Cigarettes Per Day: 20 Years Smoked: 20 Review of Systems Const All systems reviewed & are unremarkable except as noted in HPI and below Eyes Reports no additional complaints ENT Reports nasal congestion (MILD OFF AND ON ) Card Reports no additional complaints Resp Reports as per HPI GI Reports heartburn (CONTROLLED WITH OMEPRAZOLE) Musc Reports no additional complaints Skin/Breast Reports system reviewed and no additional complaints, except as documented Neuro Reports no additional complaints Psych Reports no additional complaints Physical Exam Vital Signs: Last Vital Signs Pulse 81 10/20/24 10:09 BP 130/60 10/20/24 10:09 Pulse Ox 94 10/20/24 10:09 Oxygen Delivery Method Room Air 10/20/24 10:09 BMI result Body Mass Index 29.2 Const General: healthy appearing, comfortable, no acute distress, alert and awake Orientation/consciousness: patient oriented x3 HEENT Head: Yes normal to inspection General nose exam: No nasal polyps present and No nasal discharge present Face and sinus: Yes sinuses nontender Mouth: oropharynx normal Throat: Yes posterior oropharynx normal Eyes General: appearance normal, both eyes and all related structures Neck Neck: Yes normal visual inspection, Yes no lymphadenopathy, Yes trachea midline and Yes no JVD Thyroid: Thyroid normal Chest Chest palpation & inspection: normal inspection of the chest, normal palpation of entire chest wall and no tenderness Resp Other: Percussion note is resonant. Breath sounds are distant with prolonged expiratory phase but equal on both sides. Lungs are very clear without any wheezes or rhonchi. Cardio Palpation: normal PMI Rate: regular rate Rhythm: regular rhythm Heart sounds: no gallops and no murmurs GI Palpation (GI): Soft to palpation, nontender, No hepatosplenomegaly present and no masses Auscultation: normal bowel sounds Back/Spine/Pelvis Thoracic/Lumbar Spine: thoracic and lumbar spine normal to inspection Skin General skin exam: no rashes or lesions noted Neuro General: patient oriented x3 and no focal motor deficits Cranial nerves: Yes CN's II-XII intact bilaterally Extrem General: Yes normal to inspection, Yes no clubbing, cyanosis or edema and Yes no calf tenderness Psych Appearance: grossly normal and well kempt Speech and movement: Normal speech and movement present Results Reviewed Results Reviewed: CT SCAN OF THE CHEST ON 09/02/24 Stable chronic findings No acute processes This document has been electronically signed by: Raman Ware MD on 09/02/2024 20:25:33 Assessment & Plan Assessment & Plan (1) COPD (chronic obstructive pulmonary disease): Comment: Modertaely severe , controlled and stable . No new change. NO RECENT ACUTE EXACERBATION Code(s): J44.9 - Chronic obstructive pulmonary disease, unspecified Category: Medical Plan: Advised to continue his present regimen which includes : Fluticasone 250-51 inhalation b.i.d.. Incruse Ellipta 1 inhalation daily. Albuterol HFA 2 puffs Q 4-6 hours p.r.n. (2) Pulmonary fibrosis, unspecified: Comment: Patient has chronic fibrotic changes in the both lung apices. He had small opacity in the left apical area , but on his CT scan of the chest on 09/02, there was no new change. Code(s): J84.10 - Pulmonary fibrosis, unspecified Category: Medical Plan: No specific studies treatment is needed (3) Smoker: Comment: He has past history of smoking, 20 pack years. Quit since 2020 . Code(s): F17.200 - Nicotine dependence, unspecified, uncomplicated Category: Social Hx Plan: Patient advise that he should never go back to smoking Coding Level of Care Code Est Pt Level 3 (50127) Diagnoses COPD (chronic obstructive pulmonary disease) J44.9 Pulmonary fibrosis, unspecified J84.10 Smoker F17.200
--- OUTSIDE RECORDS SUMMARY | 2024-10-20 10:51 | XMS_ITS | Encounter Summary ---
Author Organization [employer] Address 75 [facility] 7t [place] [address] Care Team Providers Care Test Puller Name Role Phone Osiel Worley MD Primary Care Provide r Reason for Visit * Reason Comments Med Refill Encounter Details Date Type Department Care Team ([facility] Contact Info) Description 10/15/2024 Refill [facility] MEDICINE [address] [place] [address] Osiel Worley MD [address] [place], [place] [phone] Acquired hypothyroidism Social History Tobacco Use Types Packs/Day Years Used Date Smoking Tobacco: Never Passive Smoke Exposure: Never Smokeless Tobacco: Never Depression Answer Date Recorded Patient Health Questionnaire-9 Score 0 11/13/2023 Patient Health Questionnaire-9 Score 0 11/13/2023 Last PHQ-9: Questionnaire Data Not on file 0 11/13/2023 Housing Stability Answer Date Recorded What is your housing situation today? I have hsashi graves 11/02/[address] you [...] 11:15 AM EDT Office Visit [facility] MEDICINE [address] [place] [address] Osiel Worley MD [address] [place] [address] documented as of this encounter Visit Diagnoses Diagnosis Acquired hypothyroidism Unspecified hypothyroidism documented in this encounter Additional Health Concerns Assessment Noted Time PHQ-9 Depression Total Score: 0 11/13/19 24 2:32 PM EDT documented as of this encounter Care Teams Test Puller Relationship Specialty Start Date End Date Osiel Worley MD [address] [place] [id number] PCP - General Internal Medicine 12/24/13 documented as of this encounter
== END 2024-10-20 10:43 | disposition home or self-care (01) ==
LOC: HO.HPS 09:58
PROVIDERS: PCP Internal Medicine; Visit Provider Internal Medicine
DX: J44.9 Chronic obstructive pulmonary disease, unspecified (principal); J84.10 Pulmonary fibrosis, unspecified; F17.200 Nicotine dependence, unspecified, uncomplicated
CPT/HCPCS: 99213

== ENCOUNTER → 2024-10-20 09:57 | Outpatient (BNVA) | payer OTHER, SELFPAY | PROVIDERS: PCP Internal Medicine; Visit Provider Internal Medicine | DX: J44.9 Chronic obstructive pulmonary disease, unspecified (principal); J84.10 Pulmonary fibrosis, unspecified; F17.210 Nicotine dependence, cigarettes, uncomplicated | CPT/HCPCS: 99212 ==

== ENCOUNTER 2024-11-28 08:42 | Outpatient (REF) | payer OTHER, SELFPAY ==
--- NOTE | ~2024-11-28 | MM_ITS ---
EXAMINATION: DXA BONE DENSITY AXIAL HISTORY: osteoporosis TECHNIQUE: [employer] Dual energy absorptiometry (DEXA) of the lumbar spine, total left hip, and femoral neck was performed. COMPARISON: Comparison is made with the prior examination dated 05/22/2013. FINDINGS: The bone mineral density of the lumbar spine is 1.066 g/cm2, corresponding to a T-score of -1.3, and a Z-score of -0.4. This is indicative of osteopenia. This represents a BMD change of -4.9% compared to the prior exam. This is statistically significant. The bone mineral density of the left total hip is 1.049 g/cm2, corresponding to a T-score of -0.4, and a Z-score of 0.8. This is indicative of normal bone mineral density. This represents a BMD change of -2.1% compared to the prior exam. This is not statistically significant. The bone mineral density of the left femoral neck is 0.926 g/cm2, corresponding to a T-score of -1.1, and a Z-score of 0.5. This is indicative of osteopenia. This represents a BMD change of -0.4% compared to the prior exam. FRACTURE RISK: The FRAX index suggests a ten year probability of major osteoporotic fracture of 4.2%, and of hip fracture 1.3%. MM/XR DEXA axial skeleton IMPRESSION: Based on bone mineral density, and according to World Health Organization (WHO) criteria, the diagnosis is consistent with osteopenia. Statistically, 68% of repeat scans fall within 1 SD (+/- 0.010 g/cm2 for AP spine L1-L4) and 1 SD (+/- 0.012 g/cm2 for femur total) FRAX is a trademark of the [employer]'s [place] for Metabolic Bone Disease, a World Health Organization (WHO) Collaborating Center. Electronically signed by: Juanpablo Mckinley MD 11/28/2024 09:42 AM EDT
--- OUTSIDE RECORDS SUMMARY | 2024-11-28 08:46 | XMS_ITS | Encounter Summary ---
Author Organization [employer] Address 75 [facility] 7t [place] [address] Care Team Providers Care Potato Bucker Name Role Phone Osiel Worley MD Primary Care Provide r Encounter Details Date Type Department Care Team (Late st Contact Info) Description 06/19/2022 Orders Only [facility] MED & PEDS [address] [place] [address] Dodie Schroeder LPN Social History Tobacco Use [...] Description 12/18/2024 11:15 AM EDT Office Visit [facility] MEDICINE [address] [place] [address] Osiel Worley MD [address] [place] [address] documented as of this encounter Visit Diagnoses Not on filedocumented in this encounter Care Teams Potato Bucker Relationship Specialty Start Date End Date Osiel Worley MD [address] [place] [address] PCP - General Internal Medicine 12/24/13 documented as of this encounter
== END 2024-11-28 08:43 | disposition home or self-care (01) ==
LOC: HO.MAMMO 08:42
PROVIDERS: PCP Internal Medicine; Visit Provider Internal Medicine
DX: M81.0 Age-related osteoporosis without current pathological fracture (principal)
CPT/HCPCS: 77080

== ENCOUNTER → 2024-11-28 09:15 | Outpatient (BNV) | payer OTHER, SELFPAY | PROVIDERS: PCP Internal Medicine; Visit Provider Radiology Diagnostic Radiology | DX: M81.0 Age-related osteoporosis without current pathological fracture (principal) | CPT/HCPCS: 77080 ==

== ENCOUNTER 2024-12-30 08:21 | Outpatient (AMB) | payer OTHER, SELFPAY ==
--- NOTE | 2024-12-30 08:29 | A.OFFVIS_ITS ---
Vital Signs 12/30/24 08:33 Height 5 ft 3.74 in Weight 163 lb 5.8 oz BMI 28.3 BP 118/64 Blood Pressure Location Rt brachial Position Sitting Pulse 84 Pulse Source Pulse Oximeter Pulse Oximetry (%) 96 Oxygen Delivery Method Room Air Intake Visit Reasons: Osteoporosis Intake Note: New patient externally referred by PCP for Osteoporosis, [place] [facility] Claims Adjuster Crop Required: Yes Claims Adjuster Crop Language: Car Dumper Operator Services: Claims Adjuster Crop Present Claims Adjuster Crop Name[place] [facility] Information Interpreted: non-clinical & clinical Accompanied by: Self / Same As Patient Allergies No Known Allergies Allergy (Verified 12/30/24 08:34) Medication List - Last Reconciled 12/30/24 by Juanpablo Cobb MD albuterol sulfate 90 mcg/actuation 2 puffs PO Q4-6H PRN aspirin 81 mg PO DAILY benzonatate 100 mg PO BID PRN calcium carbonate-vitamin D3 600 mg-5 mcg (200 unit) 1 tab PO DAILY cefuroxime axetil 500 mg PO BID 7 days diltiazem HCl CD 180 mg PO DAILY doxycycline monohydrate 100 mg PO BID 7 days finasteride 5 mg PO DAILY 90 days fluocinolone and shower cap 0.01 % 1 ea topical DAILY fluticasone propion-salmeterol 250-50 mcg/dose 1 ea PO BID guaifenesin ER (Mucinex) 1,200 mg PO BID ketoconazole 2% 1 appl topical 2XW levothyroxine (Synthroid) 112 mcg PO DAILY loratadine 10 mg PO DAILY mgsmtcyp-guz-UB-lycopen-lutein 0.4 mg-300 mcg- 250 mcg (CertaVite Senior) 1 tab PO DAILY omeprazole 20 mg PO DAILY ondansetron 4 mg PO Q8H PRN umeclidinium 62.5 mcg/actuation ([employer]use Ellipta) 1 inh PO DAILY HPI Comments Details: 79 YO Male is seen in consultation at the request of PCP for Osteoporosis. First diagnosed in ? long time ago . Not Received treatment in the past No history of pathologic fracture or ONJ. Has several servings of dietary calcium per day in the form of cheese, broccoli , yogurt . t Takes Calcium 600 mg supplement . Takes 200 IU of Vitamin D daily. Use PPI,- anticoagulant, -antiepileptic - glucocorticoid medication. Does not weight bearing exercise Fracture history: No Height loss: No Denies history of Kidney stones: Has family history of Osteoporosis in mother but no hip fracture. UTD on dental cleanings and sees dentist every 6 months. No planned upcoming dental work or extractions. No tobacco use or heavy ETOH abuse DXA dated 11/28/24 :[facility] [address] [place] [place] [address] Mammography Report Signed EXAMINATION: DXA BONE DENSITY AXIAL HISTORY: osteoporosis TECHNIQUE: [employer] Dual energy absorptiometry (DEXA) of the lumbar spine, total left hip, and femoral neck was performed. COMPARISON: Comparison is made with the prior examination dated 05/22/2013. FINDINGS: The bone mineral density of the lumbar spine is 1.066 g/cm2, corresponding to a T-score of -1.3, and a Z-score of -0.4. This is indicative of osteopenia. This represents a BMD change of -4.9% compared to the prior exam. This is statistically significant. The bone mineral density of the left total hip is 1.049 g/cm2, corresponding to a T-score of -0.4, and a Z-score of 0.8. This is indicative of normal bone mineral density. This represents a BMD change of -2.1% compared to the prior exam. This is not statistically significant. The bone mineral density of the left femoral neck is 0.926 g/cm2, corresponding to a T-score of -1.1, and a Z-score of 0.5. This is indicative of osteopenia. This represents a BMD change of -0.4% compared to the prior exam. FRACTURE RISK: The FRAX index suggests a ten year probability of major osteoporotic fracture of 4.2%, and of hip fracture 1.3%. Labs: COUNTS INCLUDE 234 BEDS AT [facility] Medical History (Updated 12/30/24 @ 08:48 by Juanpablo Cobb MD) Osteoporosis Pulmonary fibrosis, unspecified SYLVIA (obstructive sleep apnea) Cataract Hypothyroid Smoker Enlarged prostate Nocturia Elevated PSA HTN (hypertension) COPD (chronic obstructive pulmonary disease) Surgical History Hx of right cataract extraction (10/15/23) History of laryngoscopy History of esophagogastroduodenoscopy (EGD) H/O colonoscopy History of prostate surgery Social History Household Members: Spouse Housing: Apartment Are you a primary rn patient care to a significant other at home: No Do you presently have visiting nurse or other home services: No 75 years or older and lives alone: No Alcohol intake: never Patient Tobacco Use Status: Former Tobacco user Tobacco use type: Cigarette Cigarette Packs Per Day: 1 Cigarettes Per Day: 20 Years Smoked: 20 Physical Exam Vital Signs: Last Vital Signs Pulse 84 12/30/24 08:33 BP 118/64 12/30/24 08:33 Pulse Ox 96 12/30/24 08:33 Oxygen Delivery Method Room Air 12/30/24 08:33 BMI result Body Mass Index 28.3 There are no Cushingoid features. Absence of blue sclera. Absence of kyphosis. Thyroid gland is of nl size and weighs 15 gms. There are no thyroid nodules palpated. Lungs CTA. Heart S1 S2 Reg R/R Abdominal exam benign. Muscle strength 5/5 . Examination of spine reveals absence of tenderness on palpation Assessment & Plan Assessment & Plan (1) Osteoporosis: Code(s): M81.0 - Age-related osteoporosis without current pathological fracture Category: Medical Plan: 79-year-old male with a history of low bone mass with partial secondary workup Plan is to check a phosphorus, urine immunofixation, 24 hour urine for calcium and creatinine as well as 25 hydroxy vitamin-D to complete secondary workup. Will ensure 2000 IU of vitamin D3 and 1200 mg of calcium . Assuming secondary workup is negative may not warrant pharmacologic therapy considering FRAX calcu lation shows low risk of fracture Orders: Orders Creatinine, 24 Hr Group Today M81.0 - Age-related osteoporosis without current pathological fracture Immunofixation, Random Urine Today M81.0 - Age-related osteoporosis without current pathological fracture Phosphorus Today M81.0 - Age-related osteoporosis without current pathological fracture Calcium, 24 Hr Ur Today M81.0 - Age-related osteoporosis without current pathological fracture Vitamin D 25-OH Total Today M81.0 - Age-related osteoporosis without current pathological fracture Coding Level of Care Code New Pt Level 4 (00556) Diagnoses Osteoporosis M81.0
[2024-12-30 08:33] VITALS: BP 118/64; PULSE 84; O2SAT 96; BMI 28.3
--- OUTSIDE RECORDS SUMMARY | 2024-12-30 09:01 | XMS_ITS | Encounter Summary ---
Author Organization [employer] Address 75 [facility] [address] 7[address] [place] [address] Care Team Providers Care Kiln Labourer Name Role Phone Osiel Worley MD Primary Care Provide r Encounter Details Date Type Department Care Team ([facility] st Contact Info) Description 06/19/2022 Orders Only [facility] MED & PEDS [address] [place] [address] oDdie Schroeder LPN Social History Tobacco Use Types Packs/Day Years Used Date Smoking Tobacco: Never Assessed Sex and Gender Information Value Date Recorded Sex Assigned at Male 03/13/2022 10:14 AM EDT Legal Sex Male 10:14 AM EDT Gender Identity Male 03/13/2022 10:14 AM EDT Sexual Orientation Choose not to disclose 2021 10:14 AM EDT documented as of this encounter Plan of Treatment Not on file documented as of this encounter Visit Diagnoses Not on filedocumented in this encounter Care Teams Kiln Labourer Relationship Specialty Start Date End Date Osiel Worley MD [address] [place] [id number] PCP - General Internal Medicine 12/24/13 documented as of this encounter
== END 2024-12-30 09:07 | disposition home or self-care (01) ==
LOC: HO.ENCR 08:22
PROVIDERS: PCP Internal Medicine; Visit Provider Internal Medicine Endocrinology, Diabetes & Metabolism
DX: M81.0 Age-related osteoporosis without current pathological fracture (principal)
CPT/HCPCS: 99204

== ENCOUNTER → 2024-12-30 08:21 | Outpatient (BNVA) | payer OTHER, SELFPAY | PROVIDERS: PCP Internal Medicine; Visit Provider Internal Medicine Endocrinology, Diabetes & Metabolism | DX: M81.0 Age-related osteoporosis without current pathological fracture (principal) | CPT/HCPCS: 99202 ==

== ENCOUNTER 2025-01-23 09:25 | Outpatient (AMB) | payer OTHER, SELFPAY ==
--- NOTE | 2025-01-23 09:24 | A.OFFVIS_ITS ---
Intake Visit Reasons: 1y/PSA/PVR Intake Note: Patient presents today for a 1 yr follow-up on PVR/PSA Meds- Finasteride, Allergies to Antibiotic- No Known Allergies Blood Thinner- Aspirin Post Void Residual: ml Labs done 09/18/24 PSA 0.78 Auto Locator Required: No Accompanied by: neighbor Allergies No Known Allergies Allergy (Verified 01/23/25 09:35) HPI Comments Details: Jamshid is a very pleasant male. He is a patient of Dr Schwartz. He is seen for the following urologic conditions - elevated PSA - lower urinary tract symptoms Twelve month follow-up PVR 0, improved stream, nocturia has reduced further to 1-2 times per night Single therapy finasteride Twelve month follow-up Elevated PSA Prior records elevated PSA as high as 6. Prior negative biopsy. Started on finasteride 2020 Previously on tamsulosin and Myrbetriq PSA 09/30 5.6, 04/02 4.3, 02/01 3.9, 09/02 2.2 F, 07/06 1.3, 01/04 0.6, 10/05 0.8 Lower urinary tract symptoms Current medication terazosin 5 mg Current symptoms include nocturia x1, mild weakness of stream Cystoscopy 09/03 right lateral lobe regrowth Intervention - 12/02 GreenLight laser type prostate PFSH Medical History (Updated 12/30/24 @ 08:48 by Juanpablo Cobb MD) Osteoporosis Pulmonary fibrosis, unspecified SYLVIA (obstructive sleep apnea) Cataract Hypothyroid Smoker Enlarged prostate Nocturia Elevated PSA HTN (hypertension) COPD (chronic obstructive pulmonary disease) Surgical History Hx of right cataract extraction (10/15/23) History of laryngoscopy History of esophagogastroduodenoscopy (EGD) H/O colonoscopy History of prostate surgery Social History Household Members: Spouse Housing: Apartment Are you a primary restorative care technician to a significant other at home: No Do you presently have visiting nurse or other home services: No 75 years or older and lives alone: No Alcohol intake: never Patient Tobacco Use Status: Former Tobacco user Tobacco use type: Cigarette Cigarette Packs Per Day: 1 Cigarettes Per Day: 20 Years Smoked: 20 Review of Systems Const Denies chills and Denies fever(s) Card Reports no additional complaints and Denies syncope Resp Denies cough GI Denies abdominal pain and Denies heartburn Reports as per HPI and Denies change in libido Neuro Denies syncope Psych Denies change in libido Endo Denies change in libido Physical Exam Const General: cooperative, healthy appearing, comfortable and no acute distress Orientation/consciousness: patient oriented x3 HEENT Face and sinus: Yes normal facial exam Mouth: moist mucous membranes Neck Neck: Yes normal visual inspection, Yes full ROM and Yes trachea midline Chest Chest palpation & inspection: normal inspection of the chest Resp Effort & Inspection: normal respiratory effort, able to speak in complete sentences and no respiratory distress GI Inspection: Yes normal to inspection Back/Spine/Pelvis Cervical Spine: normal cervical lordosis Thoracic/Lumbar Spine: thoracic and lumbar spine normal to inspection Skin General skin exam: no rashes or lesions noted Neuro General: patient oriented x3, gait normal, tone normal and moves all extremities Extrem General: Yes normal to inspection and Yes capillary refill normal Assessment & Plan Assessment & Plan (1) Bladder outlet obstruction: Comment: 01/02 GreenLight laser prostate, repeat procedure 01/03 Code(s): N32.0 - Bladder-neck obstruction Category: Medical (2) Elevated PSA: Comment: Prior negative biopsy Code(s): R97.20 - Elevated prostate specific antigen [PSA] Category: Medical Plan Twelve month follow-up office PVR Patient Instructions: This note is constructed using voice recognition software. While every effort has been made to ensure accuracy supply room clerk errors may have been included. Imaging studies, laboratory and physical exam results were discussed and reviewed in detail. No major barriers to patient understanding were identified. An opportunity to ask questions regarding the treatment plan was provided. All questions were answered. The patient expressed understanding and agreement with the above treatment plan. The patient is aware they should contact our office by phone for worsening of their current condition or the appearance of new urologic symptoms. Compliance is encouraged with any medications and followup testing that is ordered. It is a privilege to participate in the urologic care of your patient. If you have any questions or concerns regarding treatment for the above conditions, or other urologic issues, please do not hesitate to contact me. The office telephone contact is [phone]. Sincerely, Dr Raymundo Jefferson MD, ENRRIQUE [facility] - Urology Compassionate Specialist Care for the Genitourinary System Coding Level of Care Code Est Pt Level 4 (55125) Diagnoses Bladder outlet obstruction N32.0 Elevated PSA R97.20
--- OUTSIDE RECORDS SUMMARY | 2025-01-23 10:29 | XMS_ITS | Encounter Summary ---
Author Organization [employer] Address 75 [facility] 7t [place] [address] Care Team Providers Care Armament Installer Name Role Phone Osiel Worley MD Primary Care Provide r Reason for Visit * Reason Comments Med Refill Encounter Details Date Type Department Care Team (Late st Contact Info) Description 11/02/2022 Refill [facility] MEDICINE [address] [place] [address] Saira Petersen ANP [address] [place] [address] Social History Tobacco Use Types Packs/Day Years [...] on filedocumented in this encounter Care Teams Armament Installer Relationship Specialty Start Date End Date Osiel Worley MD [address] [place], [place] [phone] PCP - General Internal Medicine 12/24/13 documented as of this encounter
--- OUTSIDE RECORDS SUMMARY | 2025-01-23 10:29 | XMS_ITS | Encounter Summary ---
Author Organization [employer] Address 75 [facility] [address] [place] [address] Care Team Providers Care Pharmacovigilance Specialist Name Role Phone Osiel Worley MD Primary Care Provide r Reason for Visit * Reason Onset Date Comments Med Refill 01/03/2023 Encounter Details Date Type Department Care Team ([facility] st Contact Info) Description 01/03/2023 Telephone [facility] MEDICINE [address] [place], [place] [phone] Osiel Worley MD [address] [place] [address] Med Refill Social History Tobacco Use Types [...] 9:01 AM EDT Medication was sent to [facility] on 09/28/22 #180 with 1 refill. * Telephone Encounter - Selam Emerson - 01/03/2023 8:58 AM EDT Tc from patient requesting a med refill on medication Calcium Carb- Cholecalciferol 600-5 MG-MCG tablet. PCP Dr. Guerra documented in this encounter Plan of Treatment Not on file documented as of this encounter Visit Diagnoses Not on filedocumented in this encounter Care Teams Pharmacovigilance Specialist Relationship Specialty Start Date End Date Osiel Worley MD [address] [place] [id number] PCP - General Internal Medicine 12/24/13 documented as of this encounter
--- OUTSIDE RECORDS SUMMARY | 2025-01-23 10:29 | XMS_ITS | Encounter Summary ---
Author Organization [employer] Address 75 [facility] 7t [place] [address] Care Team Providers Care Off Track Betting Manager Name Role Phone Osiel Worley MD Primary Care Provide r Encounter Details Date Type Department Care Team ([facility] st Contact Info) Description 10/19/2022 Orders Only [facility] MEDICINE [address] [place], [place] [phone] Basilia Johnson LPN Social History Tobacco Use [...] on filedocumented in this encounter Care Teams Off Track Betting Manager Relationship Specialty Start Date End Date Osiel Worley MD [address] [place] [address] PCP - General Internal Medicine 12/24/13 documented as of this encounter
--- OUTSIDE RECORDS SUMMARY | 2025-01-23 10:29 | XMS_ITS | Encounter Summary ---
Author Organization [employer] Address [address] [facility] [address] [place] [address] Care Team Providers Care Door Clamper Name Role Phone Osiel Worley MD Primary Care Provide r Encounter Details Date Type Department Care Team ([facility] st Contact Info) Description 01/22/2023 Orders Only [facility] MED & PEDS [address] [place] [address] Dodie Schroeder LPN Social History Tobacco Use [...] on filedocumented in this encounter Care Teams Door Clamper Relationship Specialty Start Date End Date Osiel Worley MD [address] [place] [id number] PCP - General Internal Medicine 12/24/13 documented as of this encounter
--- OUTSIDE RECORDS SUMMARY | 2025-01-23 10:29 | XMS_ITS | Encounter Summary ---
Author Organization [employer] Address [address] [facility] [address] [place] [address] Care Team Providers Care Cord Maker Name Role Phone Osiel Worley MD Primary Care Provide r Encounter Details Date Type Department Care Team ([facility] st Contact Info) Description 09/28/2022 Orders Only [facility] MED & PEDS [address] [place] [address] Dodie Schroeder LPN Social History Tobacco Use [...] on filedocumented in this encounter Care Teams Cord Maker Relationship Specialty Start Date End Date Osiel Worley MD [address] [place] [id number] PCP - General Internal Medicine 12/24/13 documented as of this encounter
--- OUTSIDE RECORDS SUMMARY | 2025-01-23 10:29 | XMS_ITS | Clinical Summary ---
Author Organization [employer] Address [address] [place] [address] 7t [place] [address] Care Team Providers Care Construction Equipment Technician Name Role Phone Osiel Worley MD [...] puff 2 times daily. 4 Active Umeclidinium [place] (Incruse Ellipta) 62.5 MCG/ACT aerosol powder Inhale. Active albuterol 108 (90 Base) MCG/ACT inhaler every 4 to 6 hours as needed for for wheezing 2 Active finasteride (Proscar) 5 MG tablet Take 5 mg by mouth Once per day. 4 Active omeprazole (PriLOSEC) [address] capsule TAKE 1 CAPSULE BY MOUTH EVERY DAY BEFORE BREAKFAST, DO NOT BREAK, CRUSH, DISSOLVE OR CHEW 90 capsule 1 5 Active levothyroxine (Synthroid, Levoxyl) 125 MCG tabletIndications: Acquired hypothyroidism TAKE 1 TABLET BY MOUTH EVERY DAY BEFORE BREAKFAST 30 tablet 5 5 Active ketoconazole (NIZOral) 2 % shampooIndications :Seborrheic dermatitis APPLY TOPICALLY TO AFFECTED AREA(S) OF SCALP 3 TIMES A WEEK. LATHER, LEAVE ON FOR 5 MINUTES, THEN RINSE 120 mL 4 5 Active ketoconazole (NIZOral) 2 % cream APPLY TO THE AFFECTED AREA(S) ONCE DAILY 30 g 1 5 Active dilTIAZem ER (Tiazac) 180 MG 24 hr capsule TAKE 1 CAPSULE BY MOUTH EVERY DAY 90 capsule 1 5 Active aspirin (Aspirin Low Dose) 81 MG EC tabletIndications: Essential hypertension Take 1 tablet (81 mg) by mouth Once per day. 90 tablet 1 5 Active loratadine (Claritin) 10 MG tabletIndications: Seasonal allergies TAKE 1 TABLET BY MOUTH EVERY DAY NEEDED 90 tablet 5 Active Multiple Vitamins-Minerals (Cerovite Senior) tabletIndications: Essential hypertension Take 1 tablet by mouth Once per day. 90 tablet 1 5 Active Calcium Carb-Cholecalcifer ol (Calcium + Vitamin D3) 600-5 MG-MCG tablet TAKE 1 TABLET BY MOUTH TWICE DAILY 180 tablet 5 Active betamethasone dipropionate 0.05 % cream APPLY TOPICALLY TO THE AFFECTED AREA(S) TWICE DAILY 30 g 1 5 Active Active Problems Problem Noted Date Diagnosed Date Overweight (BMI 25.0-29.9) 12/18/2024 Assessment & Plan (12/18/2024 11:20 AM EDT): Patient has been counseled and educated about diet and exercise. Personal goal of weight loss discussed Seborrheic dermatitis 09/08/2024 Assessment & Plan (09/08/2024 9:05 AM EDT): On face and legs extending to earlobes. Advised to keep the area clean and dry, gentle cleaning only. Use ketoconazole cream especially on face and around your labs. Avoid steroid cream on face. Follow-up as needed Flexural eczema 09/08/2024 Assessment & Plan (09/16/2024 11:14 AM EDT): Seen for this at our [facility] on right side of the neck, [...] Pt was initially seen by a surgical oncology consultant at the [facility] in [place], on 11/30/2014 who recommended observation and repeat [...] limits Essential hypertension 03/25/2015 Assessment & Plan (12/18/2024 11:14 AM EDT): Patient here for a follow up BP today controlled, has BP monitor He is on a regimen of: Cardizem CD 180 mg po daily Given adequate blood pressure control will continue with current medical regimen. Most recent electrolytes, Bun and Creatinine done on: Lab Results Component Value Date NA 139 09/18/2024 NA 137 07/27/2023 K 4.8 09/18/2024 K 4.2 07/27/2023 CL 104 09/18/2024 CL 104 07/27/2023 BUN 17 (H) 09/18/2024 BUN 14 07/27/2023 CREATININE 0.90 09/18/2024 CREATININE 1.04 07/27/2023 were wnl. patient advised to adhere to a low sodium diet, encouraged about medication compliance, counseled about weight loss. f/u 4 months Assessment & Plan (09/16/2024 10:53 AM EDT): [...] po daily, Pt used to followed by Drywall Application Supervisor. Last seen on 11/06/2014. Previous thyroid US [...] po daily, Pt used to followed by Drywall Application Supervisor. Last seen on 11/06/2014. Previous thyroid US [...] positive 01/01/2012 Osteoporosis 01/01/2012 Assessment & Plan (12/18/2024 11:15 AM EDT): Here for a follow up On oscal-D . Previously he was on Fosamax (prescribed by Dr Velásquez) given previous c/o dysphagia I asked him to hold his Fosamax until diagnostic work up was completed and to notify his prescribing provider of this. Pt told me since he stopped the Fosamax his dysphagia resolved. So for now will hold off on the use of oral bisphosphonates Most recent DEXA 11/28/2024 showed: DEXA axial skeleton IMPRESSION: Based on bone mineral density, and according to World Health Organization (WHO) criteria, the diagnosis is consistent with osteopenia. 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 Last seen 10/20/2024 Dr Ayala On Wixela 250-51 inhalation b.i.d. [...] findings No acute processes Assessment & Plan (09/16/2024 11:15 AM EDT): Here for na follow up No recent exacerbations He has Severe COPD under the care of child welfare specialist. Last seen 07/17/2024 Dr Ayala On [...] has Severe COPD under the care of child welfare specialist. Last seen 10/24/2023 Dr Ryan On Wixela 250-51 inhalation b.i.d. Incruse Ellipta 1 inhalation daily Albuterol HFA 2 puffs Q 6 hours only p.r.n. Insomnia 10/26/2011 Encounters Date Type Department Care Team Description 12/23/2024 Refill [facility] [address] [facility] [place] [address] Osiel Worley MD 12/21/2024 Refill [facility] 230 [place] [address] Osiel Worley MD 12/18/2024 11:15 AM EDT Office Visit [facility] [address] [facility] [place] [address] Osiel Worley MD Essential hypertension (Primary Dx); Osteoporosis, unspecified osteoporosis type, unspecified pathological fracture presence; Pulmonary emphysema, unspecified emphysema type (CMS/HCC); Seasonal allergies; Overweight (BMI 25.0-29.9); Dietary counseling; Exercise counseling 12/18/2024 Travel 12/18/2024 Telephone [facility] [place] [address] Osiel Worley MD Chart Prep 12/17/2024 Refill [facility] [address] [facility] [place] [address] Osiel Worley MD 11/28/2024 Results Follow-Up [facility] [place] [address] Osiel Worley MD BD DEXA Axial 11/16/2024 Refill [facility] [place] [address] Osiel Worley MD 11/13/2024 Refill [facility] [address] [place] [address] Osiel Worley MD 11/08/2024 Refill [facility] [address] [place] [address] Osiel Worley MD 10/28/2024 Telephone [facility] [address] [place] [address] Osiel Worley MD Appointment Request; Paperwork/Forms 10/27/2024 Orders Only [facility] [address] [place] [address] Osiel Worley MD Osteoporosis, unspecified osteoporosis type, unspecified pathological fracture presence (Primary Dx) from Last 3 Months Immunizations Immunization Administration Dates Next Due Influenza High-dose Quadriva [...] Date Recorded Patient Health Questionnaire-9 Score 0 12/18/2024 Patient Health Questionnaire-9 Score 0 12/18/2024 Last PHQ-9: Questionnaire Data Not on file 0 12/18/2024 Housing Stability Answer Date Recorded What is [...] Date Recorded Patient Health Questionnaire-2 Score 0 12/18/2024 Internet Access Answer Date Recorded Internet Access [...] Sign Reading Time Taken Comments Blood Pressure 140/86 12/18/2024 11:19 AM EDT Pulse 76 12/18/2024 11:04 AM EDT Temperature 36.3 C (97.4 F) 12/18/2024 11:04 AM EDT Respiratory Rate 20 12/18/2024 11:04 AM EDT Oxygen Saturation 95% 12/18/2024 11:04 AM EDT Inhaled Oxygen Concentration - - Weight 76.5 kg (168 lb 9.6 oz) 12/18/2024 11:04 AM EDT Height 160 cm (5' 3 ) 12/18/2024 11:04 AM EDT Body Mass Index 29.87 12/18/2024 11:04 AM EDT Plan of Treatment Health Maintenance Due Date Last Done Comments RSV Patients and Patients Aged 60 years or older (1 - 1-dose 75+ series) 11/08/2019 COVID-19 Vaccine (4 - 2024- season) 2025 04/06/2021, 07/22/2020, 06/25/2020 Influenza Vaccine (#1) 2025 , 02/12/2023, 01/26/2022, Additional history exists Alcohol/Substance Use Screening 09/16/2025 09/16/2024 SDOH Screening 09/16/2025 09/16/2024 Depression Screening 12/18/2025 12/18/2024, 12/19/19 25 Tobacco Screening 12/18/2025 12/18/2024 Lipid Panel 11/13/2028 11/14/2023, 01/13, 11/25/2019 DTaP/Tdap/Td Vaccines (3 - Td or Tdap) 11/12/2033 11/13/2023, 05/23/2013, 11/08/2007, Additional history exists Pneumococcal Vaccine: 50+ Years Completed 03/25/2015, 05/13/2013, 03/15/2001, Additional history exists Zoster Vaccines Completed 04/22/2019, 01/14, 05/21/2014 HIB Vaccines Aged Out No longer eligi [...] patient's age to complete this topic Meningococcal B Vaccine Aged Out No l onger eligible based on patient's age to complete [...] Procedure Name Priority Date/Time Associated Diagnosis Comments BD DEXA AXIAL Routine 11/28/2024 8:45 AM EDT Osteoporosis, unspecified osteoporosis type, unspecified pathological fracture presence LIPID PANEL, STANDARD Routine 11/14/2023 8:23 AM EDT Essential hypertension from Last 3 Months or Most Recently Relevant to Health Maintenance Results * BD DEXA Axial (11/28/2024 8:45 AM EDT) Anatomical Region Laterality Modality Body Radiographic Irene ging 11/28/2024 8:45 AM EDT Narrative 11/28/2024 9:44 AM EDT [facility] [address] [place] [address] Mammography Report Signed Patient: Jamshid Duenas MR# : [id number] : 1945 Acct:[id number] Age/Sex: 79 / M ADM Date: 11/28/24 Loc: [facility] Attending Dr: Osiel Schwartz MD Ordering Physician: Osiel Schwartz MD Resu lts: Date of Service: 11/28/24 Follow Up: Procedure(s): XR DEXA axial skeleton Accession Number(s): [id number] cc: Osiel Schwartz MD EXAMINATION: DXA BONE DENSITY AXIAL HISTORY: osteoporosis TECHNIQUE: [employer] Dual energy absorptiometry (DEXA) of the lumbar spine, total left hip, and femoral neck was performed. COMPARISON: Comparison is made with the prior examination dated 05/22/2013. FINDINGS: The bone mineral density of the lumbar spine is 1.066 g/cm2, corresponding to a T-score of -1.3, and a Z-score of -0.4. This is indicative of osteopenia. This represents a BMD change of -4.9% compared to the prior exam. This is statistically significant. The bone mineral density of the left total hip is 1.049 g/cm2, corresponding to a T-score of -0.4, and a Z-score of 0.8. This is indicative of normal bone mineral density. This represents a BMD change of -2.1% compared to the prior exam. This is not statistically significant. The bone mineral density of the left femoral neck is 0.926 g/cm2, corresponding to a T-score of -1.1, and a Z-score of 0.5. This is indicative of osteopenia. This represents a BMD change of -0.4% compared to the prior exam. FRACTURE RISK: The FRAX index suggests a ten year probability of major osteoporotic fracture of 4.2%, and of hip fracture 1.3%. MM/XR DEXA axial skeleton IMPRESSION: Based on bone mineral density, and according to World Health Organization (WHO) criteria, the diagnosis is consistent with osteopenia. Statistically, 68% of repeat scans fall within 1 SD (+/- 0.010 g/cm2 for AP spine L1-L4) and 1 SD (+/- 0.012 g/cm2 for femur total) FRAX is a trademark of the [employer]'s [place] for Metabolic Bone Disease, a World Health Organization (WHO) Collaborating Center. Electronically signed by: Juanpablo Mckinley MD 11/28/2024 09:42 AM EDT Dictated By: Juanpablo Mckinley MD Signed By: <Electronically signed by Juanpablo Mckinley MD in OV> 11/28/24 0942 DD/ 0845 TD/TT: 11/28/24 0906 Exterior Door Installer: Procedure Note Donotuseinterpreter, Image - 11/28/2024 [facility] [address] [place] [address] Dr. [place], [place] [address] Mammography Report Signed Patient: Jamshid Duenas [facility]# : [id number] : 5Acct:[id number] Age/Sex: 79 / MADM Date: 11/28/24 Loc: HO.MAMMO Attending Dr: Osiel Schwartz MD Ordering Physician: Osiel Schwartzu lts: Date of Service: 11/28/24Follow Up: Procedure(s): XR DEXA axial skeleton Accession Number(s): [id number] cc: Osiel Schwartz MD EXAMINATION: DXA BONE DENSITY AXIAL HISTORY: osteoporosis TECHNIQUE: [employer] Dual energy absorptiometry (DEXA) of the lumbar spine, total left hip, and femoral neck was performed. COMPARISON: Comparison is made with the prior examination dated 05/22/2013. FINDINGS: The bone mineral density of the lumbar spine is 1.066 g/cm2, corresponding to a T-score of -1.3, and a Z-score of -0.4. This is indicative of osteopenia. This represents a BMD change of -4.9% compared to the prior exam. This is statistically significant. The bone mineral density of the left total hip is 1.049 g/cm2, corresponding to a T-score of -0.4, and a Z-score of 0.8. This is indicative of normal bone mineral density. This represents a BMD change of -2.1% compared to the prior exam. This is not statistically significant. The bone mineral density of the left femoral neck is 0.926 g/cm2, corresponding to a T-score of -1.1, and a Z-score of 0.5. This is indicative of osteopenia. This represents a BMD change of -0.4% compared to the prior exam. FRACTURE RISK: The FRAX index suggests a ten year probability of major osteoporotic fracture of 4.2%, and of hip fracture 1.3%. MM/XR DEXA axial skeleton IMPRESSION: Based on bone mineral density, and according to World Health Organization (WHO) criteria, the diagnosis is consistent with osteopenia. Statistically, 68% of repeat scans fall within 1 SD (+/- 0.010 g/cm2 for AP spine L1-L4) and 1 SD (+/- 0.012 g/cm2 for femur total) FRAX is a trademark of the [employer] [place] for Metabolic Bone Disease, a World Health Organization (WHO) Collaborating Center. Electronically signed by: Juanpablo Mckinley MD 11/28/2024 09:42 AM EDT RP Dictated By: Juanpablo Mckinley MD Signed By: <Electronically signed by Juanpablo Mckinley MD in OV> 11/28/2442 DD/ TD/TT: 11/28/24 09 Exterior Door Installer: Osiel Conway MD IMG DXA PROCEDURES Fi nal Result * (ABNORMAL) Lipid Panel, Standard (11/14/2023 8:23 AM EDT) Triglycerides 67 <150 mg/dL [facility] Comment:Desirable Triglyceri de: less than 150 mg/dLBorderline High Triglyceride 150-199 mg/dLHigh Triglyceride: 200-499 mg/dLVery High Triglyceride: greater than or equal to 5OO mg/dL Cholesterol 175 <200 mg/dL [facility] Comment:Desirable Cholestero l: less than 200 mg/dLBorderline High Cholesterol: 200-239 mg/dLHigh Cholesterol: greater than 239 mg/dL LDL Cholesterol Calculated 112(H) <100 mg/dL [facility] Comment:Desirable LDL: less than 100 mg/dLNear Optimal/Above Optimal LDL: 110- 129 mg/dLBorderline High LDL: 130-159 mg/dLHigh LDL: 160-189 mg/dLVery High LDL: greater than or equal to 190 mg/dL HDL Cholesterol 50 >40 mg/dL [facility] Comment:Desirable HDL: great er than 40 mg/dL Note: This HDL assay may give artificially low results in patients with liver disease. Blood Venous blood specimen / Unknown 11/14/2023 8:23 AM EDT 11/14/2023 1:14 PM EDT Osiel Conway MD LAB BLOOD ORDERABLES Final Result [facility] [address] [place] [phone] from Last 3 Months or Most Recently Relevant to Health Maintenance Insurance [facility] [employer] [place] [place] [facility] [employer] [place] [place] [place] Care Teams Construction Equipment Technician Relationship Specialty Start Date End Date Osiel Worley MD [address] [place] [address] PCP - General Internal Medicine 8/13/14
--- OUTSIDE RECORDS SUMMARY | 2025-01-23 10:29 | XMS_ITS | Encounter Summary ---
Author Organization [employer] Address [address] [place] [address] Care Team Providers Care Sas Bi Developer Name Role Phone Osiel Worley MD Primary Care Provide r Encounter Details Date Type Department Care Team ([facility] st Contact Info) Description 06/19/2022 Orders Only [facility] [address] [place] [address] Dodie Schroeder LPN Social History Tobacco Use [...] on filedocumented in this encounter Care Teams Sas Bi Developer Relationship Specialty Start Date End Date Osiel Worley MD [address] [place] [phone] PCP - General Internal Medicine 12/24/13 documented as of this encounter
--- OUTSIDE RECORDS SUMMARY | 2025-01-23 10:29 | XMS_ITS | Encounter Summary ---
Author Organization [employer] Address [address] [place] [address] Care Team Providers Care Public Events Facilities Rental Manager Name Role Phone Osiel Worley MD Primary Care Provide r Encounter Details Date Type Department Care Team ([facility] st Contact Info) Description 08/10/2022 Orders Only [facility] [address] [place] [address] Dodie Schroeder LPN Social History Tobacco Use [...] on filedocumented in this encounter Care Teams Public Events Facilities Rental Manager Relationship Specialty Start Date End Date Osiel Worley MD [address] [place] [phone] PCP - General Internal Medicine 12/24/13 documented as of this encounter
--- OUTSIDE RECORDS SUMMARY | 2025-01-23 10:29 | XMS_ITS | Encounter Summary ---
Author Organization [employer] Address [address] [address] [place] [address] Care Team Providers Care Drafting Layout Worker Name Role Phone Osiel Worley MD Primary Care Provide r Encounter Details Date Type Department Care Team ([facility] st Contact Info) Description 11/02/2022 Orders Only [facility] [address] [place] [address] Dodie Schroeder LPN Social History Tobacco Use [...] on filedocumented in this encounter Care Teams Drafting Layout Worker Relationship Specialty Start Date End Date Osiel Worley MD [address] [place] [phone] PCP - General Internal Medicine 12/24/13 documented as of this encounter
--- OUTSIDE RECORDS SUMMARY | 2025-01-23 10:29 | XMS_ITS | Encounter Summary ---
Author Organization [employer] Address [address] [facility] 7t [place] [address] Care Team Providers Care Bulk Receiver Name Role Phone Osiel Worley MD Primary Care Provide r Reason for Visit * Reason Comments Med Refill Encounter Details Date Type Department Care Team (Late st Contact Info) Description 09/28/2022 Refill [facility] 230 [place] [address] Saira Petersen ANP [address] [place] [address] Social History Tobacco Use Types Packs/Day Years [...] on filedocumented in this encounter Care Teams Bulk Receiver Relationship Specialty Start Date End Date Osiel Worley MD [address] [place], [place] [phone] PCP - General Internal Medicine 12/24/13 documented as of this encounter
--- OUTSIDE RECORDS SUMMARY | 2025-01-23 10:30 | XMS_ITS | Encounter Summary ---
Author Organization [employer] Address [address] [facility] 7t [place] [address] Care Team Providers Care Office Clerk Routine Name Role Phone Osiel Worley MD Primary Care Provide r Encounter Details Date Type Department Care Team ([facility] st Contact Info) Description 11/28/2024 Results Follow-Up [facility] [address] [place], [place] [phone] Osiel Worley MD 230 [place], [place] [phone] BD DEXA Axial Social History Tobacco Use Types Packs/Day Years [...] documented as of this encounter Care Teams Office Clerk Routine Relationship Specialty Start Date End Date Osiel Worley MD [address] [place] [phone] PCP - General Internal Medicine 12/24/13 documented as of this encounter
--- OUTSIDE RECORDS SUMMARY | 2025-01-23 10:30 | XMS_ITS | Encounter Summary ---
Author Organization [employer] Address [address] [facility] 7t [place] [address] Care Team Providers Care Jet Dyeing Machine Operator Name Role Phone Osiel Worley MD Primary Care Provide r Encounter Details Date Type Department Care Team ([facility] st Contact Info) Description 12/31/2023 Telephone [facility] 230 [place], [place] [phone] Osiel Worley MD 230 [place] [address] Social History Tobacco Use Types Packs/Day Years [...] documented as of this encounter Care Teams Jet Dyeing Machine Operator Relationship Specialty Start Date End Date Osiel Worley MD [address] [place] [phone] PCP - General Internal Medicine 12/24/13 documented as of this encounter
--- OUTSIDE RECORDS SUMMARY | 2025-01-23 10:30 | XMS_ITS | Encounter Summary ---
Author Organization [employer] Address [address] [facility] [address]t [place] [address] Care Team Providers Care Malt Loader Name Role Phone Osiel Worley MD Primary Care Provide r Reason for Visit * Reason Onset Date Comments Med Refill 07/15/2024 Encounter Details Date Type Department Care Team ([facility] st Contact Info) Description 07/15/2024 Telephone [facility] 230 [place], [place] [phone] Osiel Worley MD 230 [place], [place] [phone] Med Refill Social History Tobacco Use Types [...] medication refill. Medications needing refill : Umeclidinium [place] (Incruse Ellipta) 62.5 MCG/ACT aerosol powder To be sent to: [facility] [place], [place] - [address] [facility] documented in this encounter Plan of Treatment Not on file documented as of this encounter Visit Diagnoses Not on filedocumented in this encounter Additional Health Concerns Assessment Noted Time PHQ-9 Depression Total Score: 0 11/13/19 24 2:32 PM EDT documented as of this encounter Care Teams Malt Loader Relationship Specialty Start Date End Date Osiel Worley MD [address] [facility] [place] [address] PCP - General Internal Medicine 12/24/13 documented as of this encounter
--- OUTSIDE RECORDS SUMMARY | 2025-01-23 10:30 | XMS_ITS | Encounter Summary ---
Author Organization [employer] Address [address] [facility] 7t [place] [address] Care Team Providers Care Supervisor Dumping Name Role Phone Osiel Worley MD Primary Care Provide r Encounter Details Date Type Department Care Team ([facility] st Contact Info) Description 04/30/2023 Telephone [facility] MEDICINE 230 [place] [address] Osiel Worley MD [address] [place] [address] Social History Tobacco Use Types Packs/Day Years [...] filedocumented in this encounter Care Teams Supervisor Dumping Relationship Specialty Start Date End Date Osiel Worley MD [address] [place] [phone] PCP - General Internal Medicine 12/24/13 documented as of this encounter
--- OUTSIDE RECORDS SUMMARY | 2025-01-23 10:30 | XMS_ITS | Encounter Summary ---
Author Organization [employer] Address 75 [facility] 7t [place] [address] Care Team Providers Care Public Relations Manager Name Role Phone Osiel Worley MD Primary Care Provide r Reason for Visit * Reason Comments Med Refill Encounter Details Date Type Department Care Team ([facility] st Contact Info) Description 01/10/2024 Refill [facility] MEDICINE 230 [place], [place] [phone] Rosita Ferrari MD 230 [place] [address] Social History Tobacco Use Types Packs/Day Years [...] documented as of this encounter Care Teams Public Relations Manager Relationship Specialty Start Date End Date Osiel Worley MD [address] [place] [phone] PCP - General Internal Medicine 12/24/13 documented as of this encounter
--- OUTSIDE RECORDS SUMMARY | 2025-01-23 10:30 | XMS_ITS | Encounter Summary ---
Author Organization [employer] Address 75 [facility] 7t [place] [address] Care Team Providers Care Fiber Optic Splicer Name Role Phone Osiel Worley MD Primary Care Provide r Reason for Visit * Reason Comments Med Refill Encounter Details Date Type Department Care Team ([facility] st Contact Info) Description 01/02/2024 Refill [facility] MEDICINE 230 [place], [place] [phone] Osiel Worley MD 230 [place], [place] [phone] Social History Tobacco Use Types Packs/Day Years [...] documented as of this encounter Care Teams Fiber Optic Splicer Relationship Specialty Start Date End Date Osiel Worley MD 230 [place] [address] PCP - General Internal Medicine 12/24/13 documented as of this encounter
--- OUTSIDE RECORDS SUMMARY | 2025-01-23 10:30 | XMS_ITS | Encounter Summary ---
Author Organization [employer] Address 75 [facility] 7t [place] [address] Care Team Providers Care Marketing Business Analyst Name Role Phone Osiel Worley MD Primary Care Provide r Reason for Visit * Reason Comments Med Refill Encounter Details Date Type Department Care Team (Late st Contact Info) Description 01/29/2023 Refill [facility] MEDICINE 230 [place] [address] Osiel Worley MD 230 [place] [address] Social History Tobacco Use Types Packs/Day Years [...] on filedocumented in this encounter Care Teams Marketing Business Analyst Relationship Specialty Start Date End Date Osiel Worley MD 230 [place], [place] [phone] PCP - General Internal Medicine 12/24/13 documented as of this encounter
--- OUTSIDE RECORDS SUMMARY | 2025-01-23 10:30 | XMS_ITS | Encounter Summary ---
Author Organization [employer] Address 75 [facility] 7t [place] [address] Care Team Providers Care Supervisor Customer Records Division Name Role Phone Osiel Worley MD Primary Care Provide r Encounter Details Date Type Department Care Team ([facility] st Contact Info) Description 10/09/2023 Telephone [facility] MEDICINE 230 [place] [address] Osiel Worley MD 230 [place] [address] Social History Tobacco Use Types Packs/Day Years [...] filedocumented in this encounter Care Teams Supervisor Customer Records Division Relationship Specialty Start Date End Date Osiel Worley MD [address] [place] [address] [phone] PCP - General Internal Medicine 12/24/13 documented as of this encounter
--- OUTSIDE RECORDS SUMMARY | 2025-01-23 10:30 | XMS_ITS | Encounter Summary ---
Author Organization [employer] Address 75 [facility] 7t [place] [address] Care Team Providers Care Hat Measurer Name Role Phone Osiel Worley MD Primary Care Provide r Reason for Visit * Reason Onset Date Comments Med Refill 05/19/2024 Encounter Details Date Type Department Care Team ([facility] st Contact Info) Description 05/19/2024 Telephone [facility] MEDICINE 230 [place], [place] [phone] Osiel Worley MD 230 [place], [place] [phone] Med Refill Social History Tobacco Use Types [...] 5 MG tablet To be sent to: [facility] - [place], [place] - [address] [facility] documented in this encounter Plan of Treatment Not on file documented as of this encounter Visit Diagnoses Not on filedocumented in this encounter Additional Health Concerns Assessment Noted Time PHQ-9 Depression Total Score: 0 11/13/19 24 2:32 PM EDT documented as of this encounter Care Teams Hat Measurer Relationship Specialty Start Date End Date Osiel Worley MD [address] [facility] [place] [address] PCP - General Internal Medicine 12/24/13 documented as of this encounter
--- OUTSIDE RECORDS SUMMARY | 2025-01-23 10:30 | XMS_ITS | Encounter Summary ---
Author Organization [employer] Address 75 [facility] 7t [place] [address] Care Team Providers Care Golf Course Ranger Name Role Phone Osiel Worley MD Primary Care Provide r Reason for Visit * Reason Onset Date Comments Med Refill 06/18/2023 Encounter Details Date Type Department Care Team (Late st Contact Info) Description 06/18/2023 Telephone [facility] MEDICINE 230 [place], [place] [phone] Osiel Worley MD 230 [place] [address] Med Refill Social History Tobacco Use Types [...] on filedocumented in this encounter Care Teams Golf Course Ranger Relationship Specialty Start Date End Date Osiel Worley MD 230 [place], [place] [phone] PCP - General Internal Medicine 12/24/13 documented as of this encounter
== END 2025-01-23 10:07 | disposition home or self-care (01) ==
LOC: HO.HUSH 09:26
PROVIDERS: PCP Internal Medicine; Visit Provider Urology
DX: N32.0 Bladder-neck obstruction (principal); R97.20 Elevated prostate specific antigen [PSA]; Z13.9 Encounter for screening, unspecified
CPT/HCPCS: 99214

== ENCOUNTER → 2025-01-23 09:25 | Outpatient (BNVA) | payer OTHER, SELFPAY | PROVIDERS: PCP Internal Medicine; Visit Provider Urology | DX: R97.20 Elevated prostate specific antigen [PSA] (principal); N32.0 Bladder-neck obstruction | CPT/HCPCS: 51798; 81003; 99212 ==

== ENCOUNTER 2025-03-30 07:32 | Outpatient (REF) | payer OTHER, SELFPAY ==
[2025-03-30 12:23] LABS: Creatinine, mg/dL 80.76
[2025-03-30 12:30] LABS: Total Volume 24 Hour Urine 950 mL
[2025-04-01 21:03] LABS: Calcium/Creatinine Ratio 114 mg/g creat (30-210); Creatinine 24Hr Urine 0.75 g/24 h (0.50-2.15)
== END 2025-03-30 07:33 | disposition home or self-care (01) ==
LOC: HO.10HDL 07:32
PROVIDERS: Visit Provider Internal Medicine Endocrinology, Diabetes & Metabolism
DX: M81.0 Age-related osteoporosis without current pathological fracture (principal)
CPT/HCPCS: 82306; 82340; 82570; 84100; 86335

== ENCOUNTER 2025-03-31 10:24 | Outpatient (REF) | payer OTHER, SELFPAY ==
--- NOTE | ~2025-03-31 | XR_ITS ---
EXAMINATION: XR ELBOW, RIGHT CLINICAL INFORMATION: right elbow pain COMPARISON: None available. TECHNIQUE: AP, lateral, and oblique views of the right elbow. FINDINGS: No fracture. No significant joint space narrowing. No marginal osteophytes. No osseous erosion. No joint effusion. No abnormal soft tissue calcification. XR/XR elbow RT min 3V IMPRESSION: No acute osseous findings. Electronically signed by: Toan Gibbs MD 03/31/2025 02:22 PM DEO
== END 2025-03-31 10:25 | disposition home or self-care (01) ==
LOC: HO.HHCX 10:24
PROVIDERS: PCP Internal Medicine; Visit Provider Internal Medicine
DX: M77.11 Lateral epicondylitis, right elbow (principal); M25.521 Pain in right elbow
CPT/HCPCS: 73080

== ENCOUNTER → 2025-03-31 10:29 | Outpatient (BNV) | payer OTHER, SELFPAY | PROVIDERS: PCP Internal Medicine; Visit Provider Radiology Diagnostic Ultrasound | DX: M25.521 Pain in right elbow (principal) | CPT/HCPCS: 73080 ==

== ENCOUNTER 2025-04-22 13:10 | Outpatient (AMB) | payer OTHER, SELFPAY ==
[2025-04-22 13:19] VITALS: BP 120/60; PULSE 73; O2SAT 95; BMI 28.7
--- NOTE | 2025-04-22 13:19 | MHC.OFFVIS ---
Vital Signs 04/22/25 13:19 Height 5 ft 3 in Weight 162 lb 0.636 oz BMI 28.7 BP 120/60 Blood Pressure Location Lt brachial Position Sitting Pulse 73 Pulse Source Pulse Oximeter Pulse Oximetry (%) 95 Oxygen Delivery Method Room Air Intake Visit Reasons: COPD Perinatal Breastfeeding Assistant Required: No Perinatal Breastfeeding Assistant Services: Perinatal Breastfeeding Assistant Offered & Declined Sales Project Coordinator: Sales Project Coordinator offered & declined Allergies No Known Allergies Allergy (Verified 04/22/25 13:32) Medication List - Last Reconciled 04/22/25 by De Ayala MD albuterol sulfate 90 mcg/actuation 2 puffs PO Q4-6H PRN aspirin 81 mg PO DAILY benzonatate 100 mg PO BID PRN calcium carbonate-vitamin D3 600 mg-5 mcg (200 unit) 1 tab PO DAILY diltiazem HCl CD 180 mg PO DAILY finasteride 5 mg PO DAILY 90 days fluocinolone and shower cap 0.01 % 1 ea topical DAILY fluticasone propion-salmeterol 250-50 mcg/dose 1 ea PO BID guaifenesin ER (Mucinex) 1,200 mg PO BID ketoconazole 2% 1 appl topical 2XW levothyroxine (Synthroid) 112 mcg PO DAILY loratadine 10 mg PO DAILY izdlwnjj-nsd-TZ-lycopen-lutein 0.4 mg-300 mcg- 250 mcg (CertaVite Senior) 1 tab PO DAILY omeprazole 20 mg PO DAILY ondansetron 4 mg PO Q8H PRN umeclidinium 62.5 mcg/actuation (Incruse Ellipta) 1 inh PO DAILY HPI HPI COPD: Details: THIS 79 YEARS OLD GENTLEMAN IS COMING AFTER 6 MONTHS FOR ROUTINE FOLLOW-UP. HE IS A CASE OF CHRONIC OBSTRUCTIVE AIRWAY DISORDER. AND HAS REMAINED VERY STABLE IN THE LAST 6 MONTHS. DENIES HAVING HAD ANY ACUTE RESPIRATORY INFECTION OR EXACERBATION. HE USES HIS INHALERS WITHOUT ANY ISSUES. [facility] Medical History (Updated 04/22/25 @ 13:38 by De Ayala MD) Ex-smoker Osteoporosis Pulmonary fibrosis, unspecified SYLVIA (obstructive sleep apnea) Cataract Hypothyroid Smoker Enlarged prostate Nocturia Elevated PSA HTN (hypertension) COPD (chronic obstructive pulmonary disease) Surgical History Hx of right cataract extraction (10/15/23) History of laryngoscopy History of esophagogastroduodenoscopy (EGD) H/O colonoscopy History of prostate surgery Social History Household Members: Spouse Housing: Apartment Are you a primary patient care provider to a significant other at home: No Do you presently have visiting nurse or other home services: No 75 years or older and lives alone: No Alcohol intake: never Patient Tobacco Use Status: Former Tobacco user Tobacco use type: Cigarette Cigarette Packs Per Day: 1 Cigarettes Per Day: 20 Years Smoked: 20 Review of Systems Const All systems reviewed & are unremarkable except as noted in HPI and below Eyes Reports no additional complaints ENT Reports nasal congestion (MILD OFF AND ON ) Card Reports no additional complaints Resp Reports as per HPI GI Reports heartburn (CONTROLLED WITH OMEPRAZOLE) Musc Reports no additional complaints Skin/Breast Reports system reviewed and no additional complaints, except as documented Neuro Reports no additional complaints Psych Reports no additional complaints Physical Exam Vital Signs: Last Vital Signs Pulse 73 04/22/25 13:19 BP 120/60 04/22/25 13:19 Pulse Ox 95 04/22/25 13:19 Oxygen Delivery Method Room Air 04/22/25 13:19 BMI result Body Mass Index 28.7 Const General: healthy appearing, comfortable, no acute distress, alert and awake Orientation/consciousness: patient oriented x3 HEENT Head: Yes normal to inspection General nose exam: No nasal polyps present and No nasal discharge present Face and sinus: Yes sinuses nontender Mouth: oropharynx normal Throat: Yes posterior oropharynx normal Eyes General: appearance normal, both eyes and all related structures Neck Neck: Yes normal visual inspection, Yes no lymphadenopathy, Yes trachea midline and Yes no JVD Thyroid: Thyroid normal Chest Chest palpation & inspection: normal inspection of the chest, normal palpation of entire chest wall and no tenderness Resp Other: Percussion note is resonant. Breath sounds are distant with prolonged expiratory phase but equal on both sides. Lungs are very clear without any wheezes or rhonchi. Cardio Palpation: normal PMI Rate: regular rate Rhythm: regular rhythm Heart sounds: no gallops and no murmurs GI Palpation (GI): Soft to palpation, nontender, No hepatosplenomegaly present and no masses Auscultation: normal bowel sounds Back/Spine/Pelvis Thoracic/Lumbar Spine: thoracic and lumbar spine normal to inspection Skin General skin exam: no rashes or lesions noted Neuro General: patient oriented x3 and no focal motor deficits Cranial nerves: Yes CN's II-XII intact bilaterally Extrem General: Yes normal to inspection, Yes no clubbing, cyanosis or edema and Yes no calf tenderness Psych Appearance: grossly normal and well kempt Speech and movement: Normal speech and movement present Assessment & Plan Assessment & Plan (1) COPD (chronic obstructive pulmonary disease): Comment: COPD. Modertaely severe , controlled and stable . No new change. NO RECENT ACUTE EXACERBATION Code(s): J44.9 - Chronic obstructive pulmonary disease, unspecified Category: Medical Plan: Continue to use Incruse Ellipta 1 inhalation daily fluticasone-salmeterol 250-51 inhalation b.i.d., and Mucinex ER 1200 b.i.d. PRN for cough (2) Pulmonary fibrosis, unspecified: Comment: Patient has chronic fibrotic changes in the both lung apices. He had small opacity in the left apical area , but on his CT scan of the chest on 09/02, there was no new change. Code(s): J84.10 - Pulmonary fibrosis, unspecified Category: Medical Plan: no specific treatment needed for this problem. (3) Ex-smoker: Comment: He has history of smoking in the past but quit in 2020. And does not crave for the cigarettes Code(s): Z87.891 - Personal history of nicotine dependence Category: Social Hx Plan: Commended for not going back to smoking. Coding Level of Care Code Est Pt Level 3 (49072) Diagnoses COPD (chronic obstructive pulmonary disease) J44.9 Pulmonary fibrosis, unspecified J84.10 Ex-smoker Z87.891
== END 2025-04-22 13:37 | disposition home or self-care (01) ==
LOC: HO.HPS 13:10
PROVIDERS: PCP Internal Medicine; Visit Provider Internal Medicine
DX: J44.9 Chronic obstructive pulmonary disease, unspecified (principal); J84.10 Pulmonary fibrosis, unspecified; Z87.891 Personal history of nicotine dependence
CPT/HCPCS: 99213

== ENCOUNTER → 2025-04-22 13:10 | Outpatient (BNVA) | payer OTHER, SELFPAY | PROVIDERS: PCP Internal Medicine; Visit Provider Internal Medicine | DX: J44.9 Chronic obstructive pulmonary disease, unspecified (principal); J84.10 Pulmonary fibrosis, unspecified; Z87.891 Personal history of nicotine dependence | CPT/HCPCS: 99212 ==

== ENCOUNTER 2025-04-28 08:06 | Outpatient (AMB) | payer OTHER, SELFPAY ==
--- NOTE | 2025-04-28 08:12 | A.OFFVIS_ITS ---
Vital Signs 04/28/25 08:15 Height 5 ft 3.04 in Weight 161 lb 13.109 oz BMI 28.6 BP 124/68 Blood Pressure Location Rt brachial Position Sitting Pulse 81 Pulse Source Pulse Oximeter Pulse Oximetry (%) 97 Oxygen Delivery Method Room Air Intake Visit Reasons: Osteoporosis Intake Note: Patient present today for Osteoporosis follow up. Tube Building Machine Operator Required: Yes Tube Building Machine Operator Language: Record Label Intern Services: Tube Building Machine Operator Present Tube Building Machine Operator Name: [facility] Endo- Zuleica Accompanied by: Self / Same As Patient Allergies No Known Allergies Allergy (Verified 04/28/25 08:16) Medication List - Last Reconciled 04/28/25 by Juanpablo Cobb MD albuterol sulfate 90 mcg/actuation 2 puffs PO Q4-6H PRN aspirin 81 mg PO DAILY benzonatate 100 mg PO BID PRN calcium carbonate-vitamin D3 600 mg-5 mcg (200 unit) 1 tab PO DAILY diltiazem HCl CD 180 mg PO DAILY finasteride 5 mg PO DAILY 90 days fluocinolone and shower cap 0.01 % 1 ea topical DAILY fluticasone propion-salmeterol 250-50 mcg/dose 1 ea PO BID guaifenesin ER (Mucinex) 1,200 mg PO BID ketoconazole 2% 1 appl topical 2XW levothyroxine (Synthroid) 112 mcg PO DAILY loratadine 10 mg PO DAILY rcxvxifh-rof-GB-lycopen-lutein 0.4 mg-300 mcg- 250 mcg (CertaVite Senior) 1 tab PO DAILY omeprazole 20 mg PO DAILY ondansetron 4 mg PO Q8H PRN umeclidinium 62.5 mcg/actuation (Incruse Ellipta) 1 inh PO DAILY HPI Comments Details: 79 YO Male is seen in consultation at the request of PCP for Osteoporosis. First diagnosed in ? long time ago . Not Received treatment in the past No history of pathologic fracture or ONJ. Has several servings of dietary calcium per day in the form of cheese, broccoli , yogurt . t Takes Calcium 600 mg supplement . Takes 200 IU of Vitamin D daily. Use PPI,- anticoagulant, -antiepileptic - glucocorticoid medication. Does not weight bearing exercise Fracture history: No Height loss: No Denies history of Kidney stones: Has family history of Osteoporosis in mother but no hip fracture. UTD on dental cleanings and sees dentist every 6 months. No planned upcoming dental work or extractions. No tobacco use or heavy ETOH abuse DXA dated 11/28/24 :[facility] [address] [place] [address] Mammography Report Signed EXAMINATION: DXA BONE DENSITY AXIAL HISTORY: osteoporosis TECHNIQUE: Uversity Dual energy absorptiometry (DEXA) of the lumbar spine, total left hip, and femoral neck was performed. COMPARISON: Comparison is made with the prior examination dated 05/22/2013. FINDINGS: The bone mineral density of the lumbar spine is 1.066 g/cm2, corresponding to a T-score of -1.3, and a Z-score of -0.4. This is indicative of osteopenia. This represents a BMD change of -4.9% compared to the prior exam. This is statistically significant. The bone mineral density of the left total hip is 1.049 g/cm2, corresponding to a T-score of -0.4, and a Z-score of 0.8. This is indicative of normal bone mineral density. This represents a BMD change of -2.1% compared to the prior exam. This is not statistically significant. The bone mineral density of the left femoral neck is 0.926 g/cm2, corresponding to a T-score of -1.1, and a Z-score of 0.5. This is indicative of osteopenia. This represents a BMD change of -0.4% compared to the prior exam. FRACTURE RISK: The FRAX index suggests a ten year probability of major osteoporotic fracture of 4.2%, and of hip fracture 1.3%. Labs: Secondary workup was negative except for low phosphorus and patient increased phosphorus intake. No fx since last visit [facility] Medical History (Updated 04/22/25 @ 13:38 by De Ayala MD) Ex-smoker Osteoporosis Pulmonary fibrosis, unspecified SYLVIA (obstructive sleep apnea) Cataract Hypothyroid Smoker Enlarged prostate Nocturia Elevated PSA HTN (hypertension) COPD (chronic obstructive pulmonary disease) Surgical History Hx of right cataract extraction (10/15/23) History of laryngoscopy History of esophagogastroduodenoscopy (EGD) H/O colonoscopy History of prostate surgery Social History (Reviewed 04/28/25 @ 08:16 by ROMANA Lin Household Members: Spouse Housing: Apartment Are you a primary patient care technician to a significant other at home: No Do you presently have visiting nurse or other home services: No 75 years or older and lives alone: No Alcohol intake: never Patient Tobacco Use Status: Former Tobacco user Tobacco use type: Cigarette Cigarette Packs Per Day: 1 Cigarettes Per Day: 20 Years Smoked: 20 Physical Exam Vital Signs: Last Vital Signs Pulse 81 04/28/25 08:15 BP 124/68 04/28/25 08:15 Pulse Ox 97 04/28/25 08:15 Oxygen Delivery Method Room Air 04/28/25 08:15 BMI result Body Mass Index 28.6 Assessment & Plan Assessment & Plan (1) Osteoporosis: Code(s): M81.0 - Age-related osteoporosis without current pathological fracture Category: Medical Plan: 79-year-old male with a history of low bone mass withnegative secondary workup except for low phosphorus level Plan is to continue increase phosphorus intake. Assuming secondary workup is negative may not warrant pharmacologic therapy considering FRAX calculation shows low risk of fracture. Patient returned to the care of his primary care provider can we check a phosphorus level in about 1-2 months' time . Management of phosphorus will be done as per primary care provider. Primary care can also recheck a bone density in 11/2026. If there was progression osteoporosis, the patient can be started on a bisphosphonate by the primary care provider was sent back to endocrinology Coding Level of Care Code Est Pt Level 3 (22964) Diagnoses Osteoporosis M81.0
[2025-04-28 08:15] VITALS: BP 124/68; PULSE 81; O2SAT 97; BMI 28.6
--- OUTSIDE RECORDS SUMMARY | 2025-04-28 08:21 | XMS_ITS | Encounter Summary ---
Author Organization [employer] Address 75 [facility] 7t [place] [address] Care Team Providers Care Hydraulic Blocker Name Role Phone Osiel Worley MD Primary Care Provide r Reason for Visit * Reason Onset Date Comments Med Refill 01/03/2023 Encounter Details Date Type Department Care Team ([facility] st Contact Info) Description 01/03/2023 Telephone [facility] MEDICINE 230 [place], [place] [phone] Osiel Worley MD 230 [place], [place] [phone] Med Refill Social History Tobacco Use Types [...] 9:01 AM EDT Medication was sent to [facility] on 09/28/22 #180 with 1 refill. * Telephone Encounter - Selam Emerson - 01/03/2023 8:58 AM EDT Tc from patient requesting a med refill on medication Calcium Carb- Cholecalciferol 600-5 MG-MCG tablet. PCP Dr. Guerra documented in this encounter Plan of Treatment Not on file documented as of this encounter Visit Diagnoses Not on filedocumented in this encounter Care Teams Hydraulic Blocker Relationship Specialty Start Date End Date Osiel Worley MD [address] [place] [phone] PCP - General Internal Medicine 12/24/13 documented as of this encounter
--- OUTSIDE RECORDS SUMMARY | 2025-04-28 08:21 | XMS_ITS | Encounter Summary ---
Author Organization [employer] Address [address] [facility] [address] 7t [place] [address] Care Team Providers Care Marker Delivery Name Role Phone Osiel Worley MD Primary Care Provide r Encounter Details Date Type Department Care Team ([facility] st Contact Info) Description 06/19/[address] [facility] MED & PEDS [address] [place] [address] Dodie Schroeder LPN Social History Tobacco Use [...] on filedocumented in this encounter Care Teams Marker Delivery Relationship Specialty Start Date End Date Osiel Worley MD [address] [place] [phone] PCP - General Internal Medicine 12/24/13 documented as of this encounter
--- OUTSIDE RECORDS SUMMARY | 2025-04-28 08:21 | XMS_ITS | Encounter Summary ---
Author Organization [employer] Address [address] [facility] [address]t [place] [address] Care Team Providers Care Business Objects Analyst Name Role Phone Osiel Worley MD Primary Care Provide r Encounter Details Date Type Department Care Team ([facility] st Contact Info) Description 01/22/2023 Orders Only [facility] MED & PEDS [address] [place] [address] Dodie Schroeder LPN Social History Tobacco Use [...] filedocumented in this encounter Care Teams Business Objects Analyst Relationship Specialty Start Date End Date Osiel Worley MD [address] [place] [phone] PCP - General Internal Medicine 12/24/13 documented as of this encounter
--- OUTSIDE RECORDS SUMMARY | 2025-04-28 08:21 | XMS_ITS | Encounter Summary ---
Author Organization [employer] Address [address] [facility] [address] [place] [address] Care Team Providers Care Director Underwriter Sales Name Role Phone Osiel Worley MD Primary Care Provide r Encounter Details Date Type Department Care Team ([facility] st Contact Info) Description 09/28/2022 Orders Only [facility] MED & PEDS [address] [place] [address] Dodie Schroeder LPN Social History Tobacco Use [...] on filedocumented in this encounter Care Teams Director Underwriter Sales Relationship Specialty Start Date End Date Osiel Worley MD [address] [place] [phone] PCP - General Internal Medicine 12/24/13 documented as of this encounter
--- OUTSIDE RECORDS SUMMARY | 2025-04-28 08:21 | XMS_ITS | Encounter Summary ---
Author Organization [employer] Address 75 [facility] 7t [place] [address] Care Team Providers Care Supervisor Intelligence Analyst Name Role Phone Osiel Worley MD Primary Care Provide r Reason for Visit * Reason Comments Med Refill Encounter Details Date Type Department Care Team (Late st Contact Info) Description 09/28/2022 Refill [facility] MEDICINE 230 [place] [address] Saira Petersen ANP 230 [place] [address] Social History Tobacco Use Types Packs/Day Years [...] filedocumented in this encounter Care Teams Supervisor Intelligence Analyst Relationship Specialty Start Date End Date Osiel Worley MD 230 [place], [place] [phone] PCP - General Internal Medicine 12/24/13 documented as of this encounter
--- OUTSIDE RECORDS SUMMARY | 2025-04-28 08:21 | XMS_ITS | Encounter Summary ---
Author Organization [employer] Address [address] [facility] [address] 7t [place] [address] Care Team Providers Care Rail Crew Member Name Role Phone Osiel Worley MD Primary Care Provide r Encounter Details Date Type Department Care Team ([facility] st Contact Info) Description 08/10/2022 Orders Only [facility] MED & PEDS [address] [place] [address] Dodie Schroeder LPN Social History Tobacco Use [...] on filedocumented in this encounter Care Teams Rail Crew Member Relationship Specialty Start Date End Date Osiel Worley MD [address] [place] [phone] PCP - General Internal Medicine 12/24/13 documented as of this encounter
--- OUTSIDE RECORDS SUMMARY | 2025-04-28 08:21 | XMS_ITS | Encounter Summary ---
Author Organization [employer] Address [address] [facility] [address] 7[address] [place] [address] Care Team Providers Care Auto Parts Salesperson Name Role Phone Osiel Worley MD Primary Care Provide r Encounter Details Date Type Department Care Team ([facility] st Contact Info) Description 11/02/2022 Orders Only [facility] MED & PEDS [address] [place] [address] Dodie Schroeder LPN Social History Tobacco Use [...] on filedocumented in this encounter Care Teams Auto Parts Salesperson Relationship Specialty Start Date End Date Osiel Worley MD [address] [place] [phone] PCP - General Internal Medicine 12/24/13 documented as of this encounter
--- OUTSIDE RECORDS SUMMARY | 2025-04-28 08:21 | XMS_ITS | Encounter Summary ---
Author Organization [employer] Address 75 [facility] 7t [place] [address] Care Team Providers Care Aquatic Biologist Name Role Phone Osiel Worley MD Primary Care Provide r Reason for Visit * Reason Comments Med Refill Encounter Details Date Type Department Care Team (Late st Contact Info) Description 11/02/2022 Refill [facility] [address] [place] [address] Saira Petersen ANP [address] [place] [address] Social History Tobacco Use Types Packs/Day Years [...] on filedocumented in this encounter Care Teams Aquatic Biologist Relationship Specialty Start Date End Date Osiel Worley MD [address] [place], [place] [phone] PCP - General Internal Medicine 12/24/13 documented as of this encounter
--- OUTSIDE RECORDS SUMMARY | 2025-04-28 08:21 | XMS_ITS | Encounter Summary ---
Author Organization [employer] Address 75 [facility] 7t [place] [address] Care Team Providers Care Network Professional Name Role Phone Osiel Worley MD Primary Care Provide r Encounter Details Date Type Department Care Team ([facility] st Contact Info) Description 10/19/2022 Orders Only [facility] MEDICINE [address] [place], [place] [phone] Basilia Johnson LPN Social History Tobacco Use [...] on filedocumented in this encounter Care Teams Network Professional Relationship Specialty Start Date End Date Osiel Worley MD 230 [place] [address] PCP - General Internal Medicine 12/24/13 documented as of this encounter
--- OUTSIDE RECORDS SUMMARY | 2025-04-28 08:22 | XMS_ITS | Encounter Summary ---
Author Organization [employer] Address 75 [facility] 7t [place] [address] Care Team Providers Care Salesperson Children'S Shoes Name Role Phone Osiel Worley MD Primary Care Provide r Reason for Visit * Reason Comments Med Refill Encounter Details Date Type Department Care Team (Late st Contact Info) Description 01/29/2023 Refill [facility] MED[facility]INE [address] [place] [address] Osiel Worley MD [address] [place] [address] Social History Tobacco Use Types Packs/Day Years [...] on filedocumented in this encounter Care Teams Salesperson [employer] Relationship Specialty Start Date End Date Osiel Worley MD [address] [place], [place] [phone] PCP - General Internal Medicine 12/24/13 documented as of this encounter
--- OUTSIDE RECORDS SUMMARY | 2025-04-28 08:22 | XMS_ITS | Encounter Summary ---
Author Organization [employer] Address 75 [facility] 7t [place] [address] Care Team Providers Care Camp Program Director Name Role Phone Osiel Worley MD Primary Care Provide r Reason for Visit * Reason Onset Date Comments Med Refill 06/18/2023 Encounter Details Date Type Department Care Team (Late st Contact Info) Description 06/18/2023 Telephone [facility] MEDICINE 230 [place], [place] [phone] Osiel Worley MD [address] [place] [address] Med Refill Social History Tobacco Use Types [...] on filedocumented in this encounter Care Teams Camp Program Director Relationship Specialty Start Date End Date Osiel Worley MD [address] [place], [place] [phone] PCP - General Internal Medicine 12/24/13 documented as of this encounter
--- OUTSIDE RECORDS SUMMARY | 2025-04-28 08:22 | XMS_ITS | Encounter Summary ---
Author Organization [employer] Address 75 [facility] 7t [place] [address] Care Team Providers Care First Aid Teacher Name Role Phone Oseil Worley MD Primary Care Provide r Reason for Visit * Reason Onset Date Comments Med Refill 07/15/2024 Encounter Details Date Type Department Care Team ([facility] st Contact Info) Description 07/15/2024 Telephone [facility] MEDICINE 230 [place], [place] [phone] Osiel Worley MD 230 [place], [place] [phone] Med Refill Social History Tobacco Use Types [...] medication refill. Medications needing refill : Umeclidinium [place] (Incruse Ellipta) 62.5 MCG/ACT aerosol powder To be sent to: [facility] - [place], [place] - [address] [facility] documented in this encounter Plan of Treatment Not on file documented as of this encounter Visit Diagnoses Not on filedocumented in this encounter Additional Health Concerns Assessment Noted Time PHQ-9 Depression Total Score: 0 11/13/19 24 2:32 PM EDT documented as of this encounter Care Teams First Aid Teacher Relationship Specialty Start Date End Date Osiel Worley MD [address] [place] [address] PCP - General Internal Medicine 12/24/13 documented as of this encounter
--- OUTSIDE RECORDS SUMMARY | 2025-04-28 08:22 | XMS_ITS | Encounter Summary ---
Author Organization [employer] Address 75 [facility] 7t [place] [address] Care Team Providers Care Bilingual Trainer Name Role Phone Osiel Worley MD Primary Care Provide r Reason for Visit * Reason Onset Date Comments Med Refill 05/19/2024 Encounter Details Date Type Department Care Team ([facility] st Contact Info) Description 05/19/2024 Telephone [facility] MEDICINE 230 [place], [place] [phone] Osiel Worley MD 230 [place], [place] [phone] Med Refill Social History Tobacco Use Types [...] 5 MG tablet To be sent to: [facility] - [place], [place] - 230 [facility] documented in this encounter Plan of Treatment Not on file documented as of this encounter Visit Diagnoses Not on filedocumented in this encounter Additional Health Concerns Assessment Noted Time PHQ-9 Depression Total Score: 0 11/13/19 24 2:32 PM EDT documented as of this encounter Care Teams Bilingual Trainer Relationship Specialty Start Date End Date Osiel Worley MD [address] [facility] [place] [address] PCP - General Internal Medicine 12/24/13 documented as of this encounter
--- OUTSIDE RECORDS SUMMARY | 2025-04-28 08:22 | XMS_ITS | Encounter Summary ---
Author Organization [employer] Address 75 [facility] 7t [place] [address] Care Team Providers Care Technical Solutions Director Name Role Phone Osiel Worley MD Primary Care Provide r Reason for Visit * Reason Comments Med Refill Encounter Details Date Type Department Care Team ([facility] st Contact Info) Description 01/10/2024 Refill [facility] MEDICINE [address] [place], [place] [phone] Rosita Ferrari MD 230 [place] [address] Social History Tobacco Use Types Packs/Day Years [...] documented as of this encounter Care Teams Technical Solutions Director Relationship Specialty Start Date End Date Osiel Worley MD [address] [place] [phone] PCP - General Internal Medicine 12/24/13 documented as of this encounter
--- OUTSIDE RECORDS SUMMARY | 2025-04-28 08:22 | XMS_ITS | Clinical Summary ---
Author Organization [employer] Address 75 [facility] 7t [place] [address] Care Team Providers Care Marketing Manager Health Communications Name Role Phone Osiel Worley MD Primary [...] 2 times daily. 09/11/19 24 Active Umeclidinium [facility] [place] (Incruse Ellipta) 62.5 MCG/ACT aerosol powder Inhale. Active albuterol 108 (90 Base) MCG/ACT inhaler every 4 to 6 hours as needed for for wheezing 02/22/20 22 Active finasteride (Proscar) 5 MG tablet Take 5 mg by mouth Once per day. 07/25/19 24 Active ketoconazole (NIZOral) 2 % shampooIndication s:Seborrheic dermatitis APPLY TOPICALLY TO AFFECTED AREA(S) OF SCALP 3 TIMES A WEEK. LATHER, LEAVE ON FOR 5 MINUTES, THEN RINSE 120 mL 4 10/21/19 25 Active dilTIAZem ER (Tiazac) 180 MG 24 hr capsule TAKE 1 CAPSULE BY MOUTH EVERY DAY 90 capsule 1 11/19/19 25 Active aspirin (Aspirin Low Dose) 81 MG EC tabletIndications :Essential hypertension Take 1 tablet (81 mg) by mouth Once per day. 90 tablet 1 12/19/19 25 Active Multiple Vitamins-Minerals (Cerovite Senior) tabletIndications :Essential hypertension Take 1 tablet by mouth Once per day. 90 tablet 1 5 9:16 AM EST 12/19/19 25 Active ketoconazole (NIZOral) 2 % cream APPLY TOPICALLY TO THE AFFECTED AREA(S) EVERY DAY 30 g 1 02/06/20 25 Active betamethasone dipropionate 0.05 % cream APPLY TO THE AFFECTED AREA(S) TWICE DAILY 30 g 1 02/20/20 25 Active Calcium + Vitamin D3 600-5 MG-MCG tablet TAKE 1 TABLET BY MOUTH TWICE DAILY 180 tablet 5 8:08 AM EST 03/19/20 25 Active loratadine (Claritin) 10 MG tabletIndications :Seasonal allergies TAKE 1 TABLET BY MOUTH EVERY DAY NEEDED 90 tablet 5 8:08 AM EST 03/19/20 25 Active omeprazole (PriLOSEC) [address] capsule TAKE 1 CAPSULE BY MOUTH EVERY DAY BEFORE BREAKFAST, DO NOT BREAK, CRUSH, DISSOLVE OR CHEW 90 capsule 1 5 9:16 AM EST 03/24/20 25 Active Diclofenac Sodium 1 % gelIndications:Ri ght lateral epicondylitis Apply to right elbow BID PRN for pain 20 g 5 10:58 AM EST 03/31/20 25 Active levothyroxine (Synthroid, Levoxyl) 125 MCG tabletIndications :Acquired hypothyroidism TAKE 1 TABLET BY MOUTH ONCE DAILY BEFORE BREAKFAST 30 tablet 5 5 11:08 AM EST 04/01/20 25 Active levothyroxine (Synthroid, Levoxyl) 125 MCG tabletIndications :Acquired hypothyroidism TAKE 1 TABLET BY MOUTH EVERY DAY BEFORE BREAKFAST 30 tablet 5 10/17/19 25 025 Discontinued Active Problems Problem Noted Date Diagnosed Date Right lateral epicondylitis 03/31/2025 Assessment & Plan (03/31/2025 11:58 AM EST): Right elbow pain consistent with lateral epicondylitis, likely due to repetitive movements. - Prescribed topical anti-inflammatory ointment to be applied one to two times daily. Ordered X-ray of the right elbow. Overweight (BMI 25.0-29.9) 12/18/2024 Assessment & Plan [...] AM EDT): Seen for this at our [facility] on right side of the neck, [...] Pt was initially seen by a surgical locator specialist at the [facility] in [place], on 11/30/2014 who recommended observation and repeat [...] She recommended no further f/u or intervention [facility] health care 11/13/2023 Assessment & Plan (03/31/2025 10:07 AM EST): Follows with Dr Jefferson Lab Results Component Value Date PSA 0.78 09/18/2024 PSA 0.58 01/24/2024 PSA 1.25 07/06/2022 Colonoscopy: Normal : 07/23/2012, Cologuard 11/21/2023 Negative Assessment & Plan (09/16/2024 10:55 AM EDT): [...] limits Essential hypertension 03/25/2015 Assessment & Plan (03/31/2025 10:06 AM EST): Patient here for a follow up BP today controlled He is on a regimen of: Cardizem [...] loss. f/u 4 months Assessment & Plan (12/18/2024 11:14 AM EDT): [...] po daily, Pt used to followed by Activities [employer]. Last seen on 11/06/2014. Previous thyroid US [...] po daily, Pt used to followed by [employer]. Last seen on 11/06/2014. Previous thyroid US done on 09/12/2012 that showed a heterogeneous appearing atrophic thyroid gland with a few 1 to 2 mm hypoechoic nodules in the right lobe. She recommended No further US and PRN f/u and to continue with yearly TFTs with us. Will obtain TFTs today Benign prostatic hyperplasia 01/01/2012 Assessment & Plan (03/31/2025 10:06 AM EST): Pt here for a f/u Has BPH and Hx of elevated PSA On Terazosin 2 mg po daily, doing well. prostate Biopsy 10/10/2018 Negative for malignancy Pt follows with Urologist Dr. 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 Seen by endocrinology dr Cobb 12/30/2024 Assessment & Plan (12/18/2024 11:15 AM EDT): [...] has Severe COPD under the care of certified coding specialist. Last seen 10/20/2024 Dr Ayala On [...] has Severe COPD under the care of certified coding specialist. Last seen 07/17/2024 Dr Ayala On [...] has Severe COPD under the care of certified coding specialist. Last seen 10/24/2023 Dr Ryan On Wixela 250-51 inhalation b.i.d. Incruse Ellipta 1 inhalation daily Albuterol HFA 2 puffs Q 6 hours only p.r.n. Insomnia 10/26/2011 Encounters Date Type Department Care Team Description 04/01/2025 Refill [facility] MEDICINE [address] [place] [phone] Osiel Worley MD Acquired hypothyroidism 03/31/2025 10:00 AM EST Office Visit [facility] MEDICINE [address] [place] [address] Osiel Worley MD Right lateral epicondylitis (Primary Dx); Essential hypertension; Osteopenia, unspecified location; Benign prostatic hyperplasia with lower urinary tract symptoms, symptom details unspecified; Preventative health care 03/31/2025 Results Follow-Up [facility] MEDICINE [address] [place] [address] Osiel Worley MD XR Elbow 3+ Views Right 03/31/2025 Travel 03/30/2025 Telephone [facility] [address] [place] [address] Osiel Worley MD chart prep 03/24/2025 Patient Outreach [facility] MEDICINE [address] [place] [address] Osiel Worley MD Pre-visit Planning (Pre-visit planning - LVM ) 03/24/2025 Refill [facility] MED [facility] PEDS [address] [place] [address] Osiel Worley MD 03/18/2025 Refill [facility] MEDICINE [address] [place] [address] Geena Jean Baptiste MD Seasonal allergies 03/18/2025 Refill [facility] MEDICINE [address] [place] [address] Osiel Worley MD Seasonal allergies 02/17/2025 Refill [facility] WALK-IN CENTER [address] [place] [address] Rosita Ferrari MD 02/13/2025 Telephone [facility] MEDICINE [address] [place] [phone] Osiel Worley MD Med Refill 02/05/2025 Refill [facility] [address] [place] [phone] Osiel Worley MD from Last 3 Months Immunizations Immunization Administration [...] Tobacco: Never Tobacco Cessation:Counseling Given: Not Answered Alcohol Answer Date Recorded How often do you have a drink containing alcohol ? 0 03/31/2025 How many drinks containing a lcohol do you have on a typical day when you are drinking? 0 03/31/2025 How often do you have six or more drinks on one occasion? 0 03/31/2025 Depression Answer Date Recorded Patient Health Questionnaire-9 [...] Sign Reading Time Taken Comments Blood Pressure 120/80 03/31/2025 9:39 AM EST Pulse 77 03/31/2025 9:39 AM EST Temperature 36.4 C (97.6 F) 03/31/2025 9:39 AM EST Respiratory Rate 20 03/31/2025 9:39 AM EST Oxygen Saturation 98% 03/31/2025 9:39 AM EST Inhaled Oxygen Concentration - - Weight 73.3 kg (161 lb 9.6 oz) 03/31/2025 9:39 A M EST Height 160 cm (5' 3 ) 03/31/2025 9:39 AM EST Body Mass Index 28.63 03/31/2025 9:39 AM EST Plan of Treatment Health Maintenance Due Date Last Done Comments RSV Patients and Patients Aged 60 years or older (1 - 1-dose 75+ series) 11/08/2019 COVID-19 Vaccine ( season) 2025 04/06/2021, 07/22/2020, 06/25/2020 Alcohol/Substance Use Screening 09/16/2025 09/16/2024 SDOH Screening 09/16/2025 09/16/2024 Depression Screening 12/18/2025 12/18/2024, 12/19/19 25 Tobacco Screening 03/31/2026 03/31/2025 Lipid Panel 11/13/2028 11/14/2023, 01/13, 11/25/2019 DTaP/Tdap/Td Vaccines (3 - Td or Tdap) 11/12/2033 11/13/2023, 05/23/2013, 11/08/2007, Additional history exists Pneumococcal Vaccine: 50+ Years Completed 03/25/2015, 05/13/2013, 03/15/2001, Additional history exists Zoster Vaccines Completed 04/22/2019, 01/14, 05/21/2014 Influenza Vaccine Completed 01/27/2025, , 02/12/2023, Additional history exists HIB Vaccines Aged Out [...] Name Priority Date/Time Associated Diagnosis Comments XR ELBOW 3+ VIEWS RIGHT Routine 03/31/2025 10:29 AM EST Right lateral epicondylitis LIPID PANEL, STANDARD Routine 11/14/2023 8:23 AM EDT Essential hypertension from Last 3 Months or Most Recently Relevant to Health Maintenance Results * XR Elbow 3+ Views Right (03/31/2025 10:29 AM EST) Anatomical Region Laterality Modality Upper Extremities, Elbow Right Radiogr aphic Imaging 03/31/2025 10:2 9 AM EST Narrative 03/31/2025 2:24 PM EST [address] [address] XRay Report Signed Patient: Jamshid Duenas MR# : [id number] : 1945 Acct:[id number] Age/Sex: 79 / M ADM Date: 03/31/25 Loc: [facility] Attending Dr: Osiel Schwartz MD Ordering Physician: Osiel Schwartz MD Date of Service: 03/31/25 Procedure(s): XR elbow RT min 3V Accession Number(s): [id number] cc: Osiel Schwartz MD Reason for Exam: right elbow pain EXAMINATION: XR ELBOW, RIGHT CLINICAL INFORMATION: right elbow pain COMPARISON: None available. TECHNIQUE: AP, lateral, and oblique views of the right elbow. FINDINGS: No fracture. No significant joint space narrowing. No marginal osteophytes. No osseous erosion. No joint effusion. No abnormal soft tissue calcification. XR/XR elbow RT min 3V IMPRESSION: No acute osseous findings. Electronically signed by: Toan Gibbs MD 03/31/2025 02:22 PM [facility] Dictated By: Toan Gibbs MD Signed By: <Electronically signed by Toan Gibbs MD in OV> 03/31/25 1422 DD/ 1029 TD/TT: 03/31/25 1031 Deep Submergence Vehicle Operator: MCKAYLA Procedure Note Donotuseinterpreter, Image - 03/31/2025 [place] [address] XRay Report Signed Patient: Jamshid Duenas AMR# : [id number] : 5Acct:[id number] Age/Sex: 79 / MADM Date: 03/31/25 Loc: [facility] Attending Dr: Osiel Schwartz MD Ordering Physician: Osiel Schwartz MD Date of Service: 03/31/25 Procedure(s): XR elbow RT min 3V Accession Number(s): [id number] cc: Osiel Schwartz MD Reason for Exam: right elbow pain EXAMINATION: XR ELBOW, RIGHT CLINICAL INFORMATION: right elbow pain COMPARISON: None available. TECHNIQUE: AP, lateral, and oblique views of the right elbow. FINDINGS: No fracture. No significant joint space narrowing. No marginal osteophytes. No osseous erosion. No joint effusion. No abnormal soft tissue calcification. XR/XR elbow RT min 3V IMPRESSION: No acute osseous findings. Electronically signed by: Toan Gibbs MD 03/31/2025 02:22 PM EST Dictated By: Toan Gibbs MD Signed By: <Electronically signed by Toan Gibbs MD in OV> 03/31/25 1422 DD/ 1029 TD/TT: 03/31/25 1031 Deep Submergence Vehicle Operator: MCKAYLA us Osiel Conway MD IMG XR PROCEDURES Fin al Result * (ABNORMAL) Lipid Panel, Standard (11/14/2023 8:23 AM EDT) Triglycerides 67 <150 mg/dL [facility] Comment:Desirable Triglyceri de: less than 150 mg/dLBorderline High Triglyceride 150-199 mg/dLHigh Triglyceride: 200-499 mg/dLVery High Triglyceride: greater than or equal to 5OO mg/dL Cholesterol 175 <200 mg/dL [facility] Comment:Desirable Cholestero l: less than 200 mg/dLBorderline High Cholesterol: 200-239 mg/dLHigh Cholesterol: greater than 239 mg/dL LDL Cholesterol Calculated 112(H) <100 mg/dL [facility] Comment:Desirable LDL: less than 100 mg/dLNear Optimal/Above Optimal LDL: 110- 129 mg/dLBorderline High LDL: 130-159 mg/dLHigh LDL: 160-189 mg/dLVery High LDL: greater than or equal to 190 mg/dL HDL Cholesterol 50 >40 mg/dL [facility] Comment:Desirable HDL: great er than 40 mg/dL Note: This HDL assay may give artificially low results in patients with liver disease. Blood Venous blood specimen / Unknown 11/14/2023 8:23 AM EDT 11/14/2023 1:14 PM EDT Osiel Conway MD LAB BLOOD ORDERABLES Final Result [facility] [address] [place] [address] [phone] from Last 3 Months or Most Recently Relevant to Health Maintenance Insurance [facility] [employer] ([facility] D-SNP) [id number] [employer] ([facility] D-SNP) Care Teams Marketing Manager Health Communications Relationship Specialty Start Date End Date Osiel Worley MD [address] [place] [phone] PCP - General Internal Medicine 12/24/13
--- OUTSIDE RECORDS SUMMARY | 2025-04-28 08:22 | XMS_ITS | Encounter Summary ---
Author Organization [employer] Address 75 [facility] 7t [place] [address] Care Team Providers Care Car Pre Cooler Name Role Phone Osiel Worley MD Primary Care Provide r Encounter Details Date Type Department Care Team ([facility] st Contact Info) Description 04/30/2023 Telephone [facility] MEDICINE [address] [place] [address] Osiel Worley MD [address] [place] [address] Social History Tobacco Use Types Packs/Day Years [...] on filedocumented in this encounter Care Teams Car Pre Cooler Relationship Specialty Start Date End Date Osiel Worley MD [address] [place] [phone] PCP - General Internal Medicine 12/24/13 documented as of this encounter
--- OUTSIDE RECORDS SUMMARY | 2025-04-28 08:22 | XMS_ITS | Encounter Summary ---
Author Organization [employer] Address 75 [facility] 7t [place] [address] Care Team Providers Care Laminator Preforms Name Role Phone Osiel Worley MD Primary Care Provide r Reason for Visit * Reason Comments Med Refill Encounter Details Date Type Department Care Team ([facility] st Contact Info) Description 01/02/2024 Refill [facility] MEDICINE [address] [place], [place] [phone] Osiel Worley MD [address] [place], [place] [phone] Social History Tobacco Use Types Packs/Day Years [...] documented as of this encounter Care Teams Laminator Preforms Relationship Specialty Start Date End Date Osiel Worley MD [address] [place] [address] PCP - General Internal Medicine 12/24/13 documented as of this encounter
--- OUTSIDE RECORDS SUMMARY | 2025-04-28 08:22 | XMS_ITS | Encounter Summary ---
Author Organization [employer] Address 75 [facility] 7t [place] [address] Care Team Providers Care Cast Iron Dipper Name Role Phone Osiel Worley MD Primary Care Provide r Encounter Details Date Type Department Care Team ([facility] st Contact Info) Description 10/09/2023 Telephone [facility] MEDICINE [address] [place] [address] Osiel Worley MD [address] [place] [address] Social History Tobacco Use Types Packs/Day Years [...] on filedocumented in this encounter Care Teams Cast Iron Dipper Relationship Specialty Start Date End Date Osiel Worley MD [address] [place] [address] [phone] PCP - General Internal Medicine 12/24/13 documented as of this encounter
--- OUTSIDE RECORDS SUMMARY | 2025-04-28 08:22 | XMS_ITS | Encounter Summary ---
Author Organization [employer] Address 75 [facility] 7t [place] [address] Care Team Providers Care Roofer Vinyl Coating Name Role Phone Osiel Worley MD Primary Care Provide r Encounter Details Date Type Department Care Team ([facility] st Contact Info) Description 12/31/2023 Telephone [facility] MEDICINE [address] [place], [place] [phone] Osiel Worley MD [address] [place] [address] Social History Tobacco Use Types Packs/Day Years [...] documented as of this encounter Care Teams Roofer Vinyl Coating Relationship Specialty Start Date End Date Osiel Worley MD [address] [place] [phone] PCP - General Internal Medicine 12/24/13 documented as of this encounter
== END 2025-04-28 08:52 | disposition home or self-care (01) ==
LOC: HO.ENCR 08:07
PROVIDERS: PCP Internal Medicine; Visit Provider Internal Medicine Endocrinology, Diabetes & Metabolism
DX: M81.0 Age-related osteoporosis without current pathological fracture (principal)
CPT/HCPCS: 99213

== ENCOUNTER → 2025-04-28 08:06 | Outpatient (BNVA) | payer OTHER, SELFPAY | PROVIDERS: PCP Internal Medicine; Visit Provider Internal Medicine Endocrinology, Diabetes & Metabolism | DX: M81.0 Age-related osteoporosis without current pathological fracture (principal) | CPT/HCPCS: 99212 ==